=== PATIENT | female | born 1980 | race Caucasian/White ===

== ENCOUNTER 2023-09-16 20:00 | Outpatient (REF) | payer OTHER, SELFPAY ==
[2023-09-22 12:08] LABS: Age Gdln ACOG Testing Note (.); HPV Aptima Negative (Negative); IGP, Aptima HPV, rfx 16/18,45 Note (.)
== END 2023-09-16 20:01 | disposition home or self-care (01) ==
LOC: LAB 20:00
PROVIDERS: PCP Family Medicine; Visit Provider Obstetrics & Gynecology
DX: Z01.419 Encounter for gynecological examination (general) (routine) without abnormal findings (principal)
CPT/HCPCS: 87624; G0145

== ENCOUNTER 2023-11-20 09:32 | Outpatient (OUT) | payer OTHER, SELFPAY ==
--- OUTSIDE RECORDS SUMMARY | 2023-11-20 09:35 | XMS_ITS | CCD ---
Author Name Unknown Address [address] [place] [address] Organization [facility] Care Team Providers Care Inward Toll Operator Name Role Phone Rylee Long Unavailable Unavailable DO Otoniel Motley Primary Care Provider JAYA Nunez Emergency Provider Otoniel MOTLEY Primary Care Physician DR DONY NIELSEN Admitting Unavailable PADMAJA, DR JOHNSON Consulting Unavailable PADMAJA, DR JOHNSON Attending Unavailable ANDREEA BARRETT Attending Unavailable ANDREEA BARRETT Admitting Unavailable Otoniel Motley DO Primary Care Provider Rylee Long Unavailable Unavailable UNKNOWN, UNKNOWN Referring Unavailable Otoniel Motley [facility] Care Unavailabl e RYLEE LONG Attending Unavailable RYLEE LONG Attending Unavailable Self, Referral Referring Unavailable Otoniel Motley Sergio [facility] Unavailabl e WYATT LONGENNE Referring Unavailable Dr. APOLLO BAY Attending Unavailable Otoniel Motley [facility] Unavailabl e Otoniel Motley Primary Care Unavailable Martha Nunez Attending Unavailable Martha Nunez Admitting Unavailable Otoniel MOTLEY Primary Care Physician NONE, XXXX Primary Care Physician Unavailab Ish Shea Attending Unavailable Chato Mejia Attending Unavailable Reggie Camara Attending Unavailable LAURIE VERNON Attending Unavailable LAURIE VERNON Attending Unavailable Otoniel MOTLEY Attending Unavailable Raphael Riley Attending Unavailable Reggie Camara Attending Unavailable Florinda Mercado Attending Unavailable CharlestonFlorinda dent Referring Unavailable Florinda Mercado Admitting Unavailable LAURIE VERNON Admitting Unavailable LAURIE VERNON Attending Unavailable TOLU, Otoniel Torrez Attending Unavailable TOLU, Otoniel S Admitting Unavailable TOLU, Otoniel S Admitting Unavailable TOLU, Otoniel S Attending Unavailable Rogelio, Florinda Jacob Attending Unavailable Rogelio, Florinda Jacob Admitting Unavailable Rogelio, Florinda Jacob Attending Unavailable Otoniel NUNO Attending Unavailable [place], Florinda Jacob Attending Unavailable TOLU, Otoniel S Attending Unavailable TOLU, Otoniel S Attending Unavailable Emily Montejo Attending Unavailable TOLU, Otoniel Torrez Referring Unavailable TOLU, Otoniel Torrez Primary Care Unavailable NILL, Supa R Attending Unavailable TOLU, Otoniel Torrez Referring Unavailable NILL, Supa Azevedo Attending Unavailable Jackie, Chato SSonya Attending Unavailable Allergies Allergy Classification Reported Allergen(s) Allergy Type Date of Onset Reaction(s) Facility (20 sources) Codeine; Translations: [codeine] Drug Allergy 09-15-20 09 Chest Pain, nausea vomiting [facility] (20 sources) Acetaminophen / Codeine; Translations: [acetaminophen-co deine] Drug Allergy Unknown (qualifier value) [facility] (20 sources) Bee/Wasp/Ant venom; Translations: [Bee Stings] Drug allergy Anaphylactic reaction [facility] (20 sources) Latex; Translations: [latex] Drug allergy 08-24-20 Other: See Comments [facility] (20 sources) Methylphenidate; Translations: [methylphenidate] Drug Allergy Altered mental status (finding) [facility] (20 sources) Nalbuphine; Translations: [nalbuphine] Drug Allergy nausea and vomiting [facility] (20 sources) NSAIDs; Translations: [NSAIDs] Drug allergy Muscle weakness (finding) [facility] (20 sources) traMADol; Translations: [tramadol] Drug Allergy 06-11-20 19 Vomiting [facility] (20 sources) Trace Metals; Translations: [Trace Metals] Drug allergy infection [facility] (20 sources) Glutens 1 Propensity to adverse reactions to food thyroiditis [facility] Comment on above: thyroiditis (2 sources) Codeine Drug Allergy 08-24-20 [facility] (2 sources) Nalbuphine Drug Allergy 08-24-20 [facility] (1 source) Nalbuphine Drug Allergy 11-16-19 15 Vomiting [facility] (1 source) Non-steroidal anti-inflammatory agent Propensity to adverse reactions to drug 03-17-20 Other: See Comments [facility] Work Phone: (1 source) Wheat gluten extract Drug Allergy 03-30-20 19 Unknown [facility] Work Phone: (1 source) Watermelon Flavor Propensity to adverse reactions to drug 03-17-20 Other: See Comments [facility] Work Phone: (1 source) Codeine Drug Allergy 01-29-20 [facility] (1 source) EPINEPHrine; Translations: [epinephrine] Drug Allergy [facility] (1 source) Gluten; Translations: [Glutens] Food allergy (disorder) [facility] (1 source) watermelon allergenic extract; Translations: [Watermelon] Drug Allergy [facility] Medications Current Medications Medication Drug Class(es) Dates Sig (Normalized) Sig (Original) acetaminophen 325 mg / HYDROcodone bitartrate 5 mg oral tablet (1 source) Opioid Agonist Start: 12-12-2022 End: 12-15-2022 [place] 325 mg-5 mg oral tablet 1 tab(s), Oral, q6hr for pain for 3 day(s), 10 tab(s), Refill(s) 0, [id number], 165, cm, 12/12/22 9:23:00 EST, Height/Length Dosing, 89, kg, 12/12/22 9:23:00 EST, Weight Dosing Start Date: 12/12/22 Stop Date: 12/15/22 Status: Ordered azithromycin 250 mg oral tablet (2 sources) Macrolide Antimicrobial Start: 06-04-2022 End: 06-09-2022 azithromycin 250 mg Tab = 1 packet(s), Oral, As Directed, as directed on package labeling, X 5 day(s), # 6 tab(s), Refills(s) 0, Pharmacy: [facility]/pharmacy #[id number], 165, cm, 06/02/22 22:46:00 EDT, Height/Length Dosing, 86, kg, 06/02/22 22:46:00 EDT, Weight Dosing Start Date: 06/04/22 Stop Date: 06/09/22 Status: Ordered baclofen 10 mg oral tablet (20 sources) gamma-Aminobutyric Acid-ergic Agonist Start: 05-06-2022 take 5 mg by mouth three times daily baclofen 10 mg Tab 5 mg = 0.5 tab(s), Oral, TID, # 45 tab(s), Refills(s) 5, [id number], 165, cm, 03/28/22 16:01:00 EDT, Height/Length Dosing, 86, kg, 03/28/22 16:01:00 EDT, Weight Dosing Start Date: 05/06/22 Status: Ordered Start: 03-28-2022 take 5 mg by mouth t hree times daily baclofen 10 mg Tab 5 mg = 0.5 tab(s), Oral, TID, # 30 tab(s), Refills(s) 0, [id number], 165, cm, 03/28/22 16:01:00 EDT, Height/Length Dosing, 86, kg, 03/28/22 16:01:00 EDT, Weight Dosing Start Date: 03/28/22 Status: Ordered benzonatate 100 mg oral capsule (4 sources) Non-narcotic Antitussive Start: 01-26-2020 End: 06-10-2022 take 1 capsule by mouth three times daily Tessalon 100 mg Cap 100 mg = 1 cap(s), Oral, TID, X 7 day(s), # 21 cap(s), Refills(s) 0 Start Date: 06/03/22 Stop Date: 06/10/22 Status: Ordered Comment on above: [facility] for Cough. cephalexin 500 mg oral capsule (1 source) Cephalosporin Antibacterial Start: 11-18-2022 End: 11-25-2022 take 1 capsule by mouth four times daily Keflex 500 mg Cap 500 mg = 1 cap(s), Oral, QID, X 7 day(s), # 28 cap(s), Refills(s) 0, Pharmacy: [facility]/pharmacy #[id number], 165, cm, 11/18/22 7:53:00 EST, Height/Length Dosing, 84, kg, 11/18/22 7:53:00 EST, Weight Dosing Start Date: 11/18/22 Stop Date: 11/25/22 Status: Ordered clonazePAM 0.5 mg oral tablet (20 sources) Benzodiazepine Start: 06-25-2021 Klonopin 0.5 mg Tab As Directed, Refills(s) 0 Start Date: 06/25/21 Status: Ordered cobamamide 0.1 mg / vitamin b12 5 mg sublingual tablet (1 source) Vitamin B12 Start: 01-28-2022 Cyanocobalamin-Leida mamide (B12) 5,000-100 mcg Lozenge Active 1000 [employer] Daily January 28, 2022 3:54pm cyclobenzaprine hydrochloride 10 mg oral tablet (16 sources) Muscle Relaxant Start: 06-22-2022 take 1 tablet by mouth three times daily as needed for muscle spasms cyclobenzaprine 10 mg Tab 10 mg = 1 tab(s), Oral, TID, PRN for spasm, # 30 tab(s), Refills(s) 0, Pharmacy: [facility]/pharmacy #[id number], 165, cm, 06/22/22 8:45:00 EDT, Height/Length Dosing, 83.2, kg, 06/22/22 8:45:00 EDT, Weight Dosing Start Date: 06/22/22 Status: Ordered dexamethasone 1 mg oral tablet (2 sources) Corticosteroid Start: 06-04-2022 End: 06-11-2022 take 1 tablet by mouth twice daily dexamethasone 1 mg oral tablet 1 mg = 1 tab(s), Oral, BID, X 7 day(s), # 14 tab(s), Refills(s) 0, Pharmacy: [facility]/pharmacy #[id number], 165, cm, 06/02/22 22:46:00 EDT, Height/Length Dosing, 86, kg, 06/02/22 22:46:00 EDT, Weight Dosing Start Date: 06/04/22 Stop Date: 06/11/22 Status: Ordered [id number] 0.3 ml EPINEPHrine 1 mg/ml auto-injector (20 sources) alpha-Adrenergic Agonist, beta-Adrenergic Agonist, Catecholamine Start: 06-21-2020 EpiPen 2-Garry 0.3 mg injectable kit 0.3 mg = 1 EA, IntraMuscular, As Directed, PRN Anaphylaxis, # 1 EA, Refills(s) 0, Pharmacy: [facility]/pharmacy #[id number], 165, cm, 06/21/20 9:51:00 EDT, Height/Length Dosing, 84, kg, 06/21/20 9:51:00 EDT, Weight Dosing Start Date: 06/21/20 Status: Ordered Start: 06-21-2020 EpiPen 2-Garry 0 .3 mg injectable kit 0.3 mg = 1 EA, IntraMuscular, As Directed, PRN Anaphylaxis, # 1 EA, Refills(s) 0, Pharmacy: [facility]/pharmacy #[id number], 165, cm, 06/21/20 9:51:00 EDT, Height/Length Dosing, 84, kg, 06/21/20 9:51:00 EDT, Weight Dosing Start Date: 06/21/20 Status: Ordered famotidine 20 mg oral tablet (20 sources) Histamine-2 Receptor Antagonist Start: 01-12-2022 take 1 tablet by mouth once daily Pepcid 20 mg Tab 20 mg = 1 tab(s), Oral, Daily, # 14 tab(s), Refills(s) 0 Start Date: 01/12/22 Status: Ordered fluticasone (18 sources) Corticosteroid Start: 09-11-2022 take 2 puff(s) by inhalation twice daily Flovent HFA 110 Inhaler 2 puff(s), Inhalation, BID, 12 gram, Refill(s) 2, [facility]/pharmacy #[id number], 165, cm, 06/22/22 8:45:00 EDT, Height/Length Dosing, 83.2, kg, 06/22/22 8:45:00 EDT, Weight Dosing Start Date: 09/11/22 Status: Ordered Start: 09-11-2022 take 2 puff(s) by in halation twice daily Flovent HFA 110 Inhaler 2 puff(s), Inhalation, BID, 12 gram, Refill(s) 2, [facility]/pharmacy #[id number], 165, cm, 06/22/22 8:45:00 EDT, Height/Length Dosing, 83.2, kg, 06/22/22 8:45:00 EDT, Weight Dosing Start Date: 09/11/22 Status: Ordered Start: 06-04-2022 take 2 puff(s) by in halation twice daily Flovent HFA 110 Inhaler 2 puff(s), Inhalation, BID, 12 gram, Refill(s) 0, [facility]/pharmacy #[id number], 165, cm, 06/02/22 22:46:00 EDT, Height/Length Dosing, 86, kg, 06/02/22 22:46:00 EDT, Weight Dosing Start Date: 06/04/22 Status: Ordered LDN 1.5 mg (8 sources) Start: 03-17-2023 take 1 capsule by mouth once daily LDN 1.5 mg LDN 1.5 mg, 1 cap, Oral, Daily, 30 cap(s), 2, [address] [facility] [employer], Compound, 165, cm, 03/17/23 15:41:00 EDT, Height/Length Dosing, 91.5, kg, 03/17/23 15:41:00 EDT, Weight Dosing Start Date: 03/17/23 Status: Ordered phenazopyridine hydrochloride 200 mg oral tablet (2 sources) Start: 11-18-2022 End: 11-21-2022 take 1 tablet by mouth three times daily Pyridium 200 mg Tab 200 mg = 1 tab(s), Oral, TID, X 3 day(s), # 9 tab(s), Refills(s) 0, Pharmacy: [facility]/pharmacy #[id number], 165, cm, 11/18/22 7:53:00 EST, Height/Length Dosing, 84, kg, 11/18/22 7:53:00 EST, Weight Dosing Start Date: 11/18/22 Stop Date: 11/21/22 Status: Ordered Start: 11-18-2022 End: 11-20-2022 take 1 tablet by mouth three times daily at mealtime Azo-Standard 95 mg oral tablet 95 mg = 1 tab(s), Oral, TID, with food, X 2 day(s), # 6 tab(s), Refills(s) 0, Pharmacy: [facility]/pharmacy #[id number], 165, cm, 11/18/22 7:53:00 EST, Height/Length Dosing, 84, kg, 11/18/22 7:53:00 EST, Weight Dosing Start Date: 11/18/22 Stop Date: 11/20/22 Status: Ordered silver sulfADIAZINE 10 mg/ml topical cream (20 sources) Sulfonamide Antibacterial Start: 12-31-2021 Silvadene 1% Cream 1 ekaterina, Topical, BID, 50 gram, Refill(s) 2, [facility]/pharmacy #[id number], 165, cm, 12/29/21 14:15:00 EST, Height/Length Dosing, 86, kg, 12/29/21 14:15:00 EST, Weight Dosing Start Date: 12/31/21 Status: Ordered Start: 12-31-2021 Silvadene 1% C ream 1 ekaterina, Topical, BID, 50 gram, Refill(s) 2, [facility]/pharmacy #[id number], 165, cm, 12/29/21 14:15:00 EST, Height/Length Dosing, 86, kg, 12/29/21 14:15:00 EST, Weight Dosing Start Date: 12/31/21 Status: Ordered triamcinolone acetonide 0.68939 mg/mg topical ointment (5 sources) Corticosteroid Start: 06-03-2023 triamcinolone topical 0.025% ointment 1 ekaterina, Topical, TID, 15 gram, Refill(s) 0, [facility]/pharmacy #[id number], 165, cm, 06/03/23 8:18:00 EDT, Height/Length Dosing, 90.7, kg, 06/03/23 8:18:00 EDT, Weight Dosing Start Date: 06/03/23 Status: Ordered Zofran ODT 4 mg Tab-Dis (4 sources) Start: 07-06-2023 take 1 tablet by mouth every eight hours as needed for nausea Zofran ODT 4 mg Tab-Dis 4 mg = 1 tab(s), Oral, q8hr, PRN Nausea/Vomiting, # 12 tab(s), Refills(s) 0, Pharmacy: [facility]/pharmacy #[id number], 164, cm, 07/06/23 21:06:00 EDT, Height/Length Dosing, 90.6, kg, 07/06/23 21:06:00 EDT, Weight Dosing Start Date: 07/06/23 Status: Ordered Completed/Discontinued Medications Medication Drug Class(es) Dates Sig (Normalized) Sig (Original) adapalene 0.001 mg/mg topical gel (3 sources) Retinoid Start: 12-11-2018 [id number] Medication adapalene 0.1 % topical gel Differin 0.1 % topical gel 0.1 % 1 Application topically at bedtime 12/11/2018 Prior History No Longer Active [id number] 200 actuat albuterol 0.09 mg/actuat metered dose inhaler (19 sources) beta2-Adrenergic Agonist Start: 07-25-2021 take 1 dose by inhalation four times daily Proventil HFA 90 mcg/inh Aerosol 2 puff(s), Inhalation, QID, 1 EA, Refill(s) 0 Start Date: 07/25/21 Status: Ordered cyanocobalamin, vitamin B-12, (B-12 DOTS ORAL) (1 source) cyanocobalamin, vitamin B-12, (B-12 DOTS ORAL) Take by mouth once daily. 0 Active Comment on above: Take by mouth once d aily. docusate sodium 50 mg / sennosides, jail 8.6 mg oral tablet (1 source) Start: 03-31-2019 take 2 tablets by mouth twice daily senna-docusate (SENOKOT-S) 8.6-50 mg per tablet Take 2 tablets by mouth twice daily. 20 tablet 0 03/31/2019 Active Comment on above: [facility] fluconazole 150 mg oral tablet (20 sources) Azole Antifungal Start: 01-21-2022 End: 01-26-2022 take 1 tablet by mouth once daily fluconazole 150 mg Tab 150 mg = 1 tab(s), Oral, Daily, # 5 tab(s), Refills(s) 0, Pharmacy: [facility]/pharmacy #[id number], 165, cm, 01/21/22 14:47:00 EDT, Height/Length Dosing, 86.4, kg, 01/21/22 14:47:00 EDT, Weight Dosing Start Date: 01/21/22 Stop Date: 01/26/22 Status: Ordered ketoconazole 20 mg/ml medicated shampoo (3 sources) Azole Antifungal Start: 12-11-2018 [id number] Medication ketoconazole 2 % shampoo ketoconazole 2 % shampoo 2 % 1 Application topically daily 12/11/2018 Prior History No Longer Active levothyroxine sodium 0.075 mg oral tablet (20 sources) l-Thyroxine Start: 04-29-2023 take 1 tablet by mouth once daily levothyroxine 75 mcg (0.075 mg) Tab 75 microgram = 1 tab(s), Oral, Daily, alternate with 50 mcg, # 30 tab(s), Refills(s) 5, MILY, Pharmacy: [facility]/pharmacy #[id number], 165, cm, 04/22/23 11:17:00 EDT, Height/Length Dosing, 92.7, kg, 04/22/23 11:17:00 EDT, Weight Dosing Start Date: 04/29/23 Status: Ordered Start: 11-06-2022 take 1 tablet by arpan once daily levothyroxine 75 mcg (0.075 mg) Tab 75 microgram = 1 tab(s), Oral, Daily, alternate with 50 mcg, # 30 tab(s), Refills(s) 5, MILY, [id number], 165, cm, 09/20/22 21:21:00 EST, Height/Length Dosing, 84, kg, 09/20/22 21:21:00 EST, Weight Dosing Start Date: 11/06/22 Status: Ordered Start: 04-29-2022 take 1 tablet by [facility] once daily levothyroxine 75 mcg (0.075 mg) Tab 75 microgram = 1 tab(s), Oral, Daily, alternate with 50 mcg, # 30 tab(s), Refills(s) 5, MILY, [id number], 165, cm, 03/28/22 16:01:00 EDT, Height/Length Dosing, 86, kg, 03/28/22 16:01:00 EDT, Weight Dosing Start Date: 04/29/22 Status: Ordered Start: 01-28-2022 take 1 tablet by arpan once daily Levothyroxine (Synthroid) 75 mcg tablet Active 75 MCG PO Daily January 28, 2022 3:52pm Start: 11-21-2021 Synthroid 75 m cg (0.075 mg) Tab 30 EA, Refills(s) 0 Start Date: 11/21/21 Status: Ordered Start: 11-21-2021 Synthroid 75 m cg (0.075 mg) Tab 30 EA, Refills(s) 0 Start Date: 11/21/21 Status: Ordered Start: 11-21-2021 Synthroid 75 m cg (0.075 mg) Tab 30 EA, Refills(s) 0 Start Date: 11/21/21 Status: Ordered Start: 01-13-2018 [id number] Medicat ion levothyroxine 200 mcg tablet Synthroid 200 mcg 01/13/2018 Active (Outside) Comment on above: Take 75 mcg by mouth daily before breakfast. NEDA EXTRACT ORAL (1 source) NEDA EXTRACT ORA L Take by mouth once daily. 0 Active Comment on above: Take by mouth once d aily. Miscellaneous Medical Supply misc (1 source) Start: 04-13-20 19 Miscellaneous Medical Supply misc 1 Abdominal binder, size of patient's choice 1 Each 0 04/13/2019 Active Comment on above: 1 Abdominal binder, size of patient's choice montelukast 10 mg oral tablet (1 source) Leukotriene Receptor Antagonist Start: 09-27-20 17 take 1 tablet by mouth once daily montelukast (SINGULAIR) 10 mg tablet Take 10 mg by mouth once daily. 5 09/27/2017 Active Comment on above: Take 10 mg by mouth once daily. MULTIVITAMIN ORAL (1 source) MULTIVITAMIN ORA L Take by mouth once daily. 0 Active Comment on above: Take by mouth once d aily. ondansetron 4 mg oral tablet (1 source) Serotonin-3 Receptor Antagonist Start: 03-31-20 19 take 1 tablet by mouth every six hours as needed ondansetron (ZOFRAN) 4 mg tablet Take 1 tablet by mouth every 6 hours as needed. 10 tablet 0 03/31/2019 Active Comment on above: Take 1 tablet by arpan th every 6 hours as needed. Proventil HFA 90 mcg/inh Aerosol (5 sources) Start: 07-25-20 21 take 1 dose by inhalation four times daily Proventil HFA 90 mcg/inh Aerosol 2 puff(s), Inhalation, QID, 1 EA, Refill(s) 0 Start Date: 07/25/21 Status: Ordered psyllium 525 mg oral capsule (20 sources) Start: 11-08-20 20 take 8 capsules by mouth once daily Metamucil 525 mg oral capsule 1,050 mg = 2 cap(s), Oral, Daily, Take 2 hour apart from the other medications with at least 8 ounces of water, # 160 cap(s), Refills(s) 4, Pharmacy: [facility]/pharmacy #[id number], 165, cm, 11/08/20 12:01:00 EST, Height/Length Dosing, 87.7, kg, 11/08/20 12:01:00 EST, Weight Dosing Start Date: 11/08/20 Status: Ordered SELENIUM ORAL (1 source) SELENIUM ORAL Ta ke by mouth once daily. 0 Active Comment on above: Take by mouth once d aily. tretinoin 0.25 mg/ml topical cream (3 sources) Retinoid Start: 12-21-19 [id number] Medication tretinoin 0.025 % topical cream tretinoin 0.025 % topical cream 0.025 % 1 Application topically at bedtime 12/21/2020 Prior History No Longer Active Turmeric extract (1 source) TURMERIC ORAL Ta ke by mouth once daily. 0 Active Comment on above: Take by mouth once d aily. Zinc (1 source) ZINC ORAL Take b y mouth once daily. 0 Active Comment on above: Take by mouth once d aily. Problems Active Problems Problem Classification Problem Date Documented Da te Episodic/Chronic Abdominal pain (20 sources) Tenderness of left upper quadrant of abdomen; Translations: [Left upper quadrant abdominal tenderness] Onset: 2 Episodic Allergic reactions (20 sources) Other specified acute skin changes due to ultraviolet radiation; Translations: [Hypersensitivity condition] Onset: 0 07-20-2020 Episodic Anxiety disorders (20 sources) Anxiety; Translations: [Generalized anxiety disorder] 10-13-2018 Chronic Attention-deficit, conduct, and disruptive behavior disorders (20 sources) Adult attention deficit hyperactivity disorder 08-10-2019 Chronic Cardiac dysrhythmias (4 sources) Palpitations; Translations: [Palpitations] Onset: 2 01-29-2022 Episodic Complications of surgical procedures or medical care (1 source) Complication of procedure; Translations: [Unspecified adverse effect of drug or medicament, initial encounter] Onset: 3 Episodic Conditions associated with dizziness or vertigo (1 source) Conditions associated with dizziness or vertigo; Translations: [R42 - Dizziness and giddiness] Onset: 2 Diseases of mouth; excluding dental (20 sources) 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 Episodic Diseases of white blood cells (2 sources) Leukocytosis 02-14-2022 Chronic Disorders of lipid metabolism (20 sources) Mixed hyperlipidemia 08-10-2019 Chronic Endometriosis (20 sources) Endometriosis (clinical) 10-13-2018 Chronic Essential hypertension (20 sources) Hypertensive disorder 01-25-2020 Chronic Genitourinary symptoms and ill-defined conditions (20 sources) Dysuria; Translations: [Dysuria] Onset: 3 Episodic Headache; including migraine (20 sources) Migraine 01-21-2014 Chronic Immunizations and screening for infectious disease (1 source) Encounter for screening for human papillomavirus (HPV); Translations: [ENC SCREENING HUMAN PAPILLOMAVIRUS] Onset: 2 Episodic Malaise and fatigue (1 source) Asthenia; Translations: [Weakness] Onset: 3 Episodic Menstrual disorders (5 sources) Irregular periods 06-03-2023 Chronic Mood disorders (20 sources) Depressive disorder 10-13-2018 Chronic Nausea and vomiting (1 source) Nausea; Translations: [Nausea] Onset: 3 Episodic Neoplasms of unspecified nature or uncertain behavior (4 sources) Neoplasm of uncertain behavior of skin Onset: 2 Episodic Nonspecific chest pain (1 source) Chest pain; Translations: [Chest pain, unspecified] 01-28-2022 Episodic Other and unspecified benign neoplasm (3 sources) Hemangioma of skin and subcutaneous tissue Onset: 1 Episodic Other and unspecified benign neoplasm (9 sources) Melanocytic nevi of unspecified upper limb, including shoulder; Translations: [Melanocytic nevi of unspecified upper limb, including shoulder] Onset: 8 Episodic Other and unspecified benign neoplasm (3 sources) Melanocytic nevi of trunk Onset: 1 Episodic Other and unspecified benign neoplasm (3 sources) Melanocytic nevi of right upper limb, including shoulder Onset: 1 Episodic Other and unspecified benign neoplasm (3 sources) Melanocytic nevi of left upper limb, including shoulder Onset: 1 Episodic Other and unspecified benign neoplasm (3 sources) Melanocytic nevi of unspecified lower limb, including hip Onset: 1 Episodic Other and unspecified benign neoplasm (3 sources) Melanocytic nevi of right lower limb, including hip Onset: 1 Episodic Other and unspecified benign neoplasm (3 sources) Melanocytic nevi of left lower limb, including hip Onset: 1 Episodic Other and unspecified benign neoplasm (7 sources) Melanocytic nevi of other parts of face; Translations: [Melanocytic nevi other parts of face] Onset: 1 Episodic Other connective tissue disease (1 source) Muscle pain; Translations: [Myalgia, other site] Onset: 2 Episodic Other connective tissue disease (1 source) Pain in upper limb; Translations: [Pain in arm, unspecified] Onset: 3 Episodic Other diseases of bladder and urethra (20 sources) Urethral stricture 10-13-2018 Episodic Other diseases of veins and lymphatics (20 sources) Peripheral venous insufficiency 06-14-2021 Episodic Other gastrointestinal disorders (20 sources) Chronic idiopathic constipation 09-07-2020 Chronic Other gastrointestinal disorders (1 source) Diarrhea; Translations: [Diarrhea, unspecified] Onset: 3 Episodic Other inflammatory condition of skin (9 sources) Other seborrheic dermatitis; Translations: [Other Seborrheic dermatitis] Onset: 8 Episodic Other lower respiratory disease (5 sources) Rib pain 06-03-2023 Episodic Other nutritional; endocrine; and metabolic disorders (20 sources) Body mass index 30+ - obesity 01-25-2020 Chronic Other nutritional; endocrine; and metabolic disorders (20 sources) 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 Other nutritional; endocrine; and metabolic disorders (2 sources) Obese class I; Translations: [Body mass index (BMI) 30.0-30.9, adult] Onset: 9 Chronic Other nutritional; endocrine; and metabolic disorders (6 sources) Obesity 04-22-2023 Chronic Other screening for suspected conditions (not mental disorders or infectious disease) (4 sources) Encounter for screening for malignant neoplasm of cervix; Translations: [ENC SCREENING MALIG NEOPLASM CERV] Onset: 2 Episodic Other skin disorders (9 sources) Other specified disorders of the skin and subcutaneous tissue; 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] Onset: 1 Episodic Other skin disorders (3 sources) Scar conditions and fibrosis of skin Onset: 1 Episodic Other skin disorders (6 sources) Acne vulgaris Onset: 9 Episodic Other skin disorders (6 sources) Other seborrheic keratosis; Translations: [Other seborrheic keratosis] Onset: 9 Episodic Other skin disorders (3 sources) Other melanin hyperpigmentation Onset: 1 Episodic Other skin disorders (5 sources) Mass of subcutaneous tissue of right thumb 06-03-2023 Episodic Other upper respiratory infections (1 source) Acute upper respiratory infection; Translations: [Acute upper respiratory infection, unspecified] Episodic Poisoning by other medications and drugs (1 source) Adverse reaction to drug 01-28-2022 Episodic Residual codes; unclassified (3 sources) Family history of malignant neoplasm of other organs or systems Onset: 1 Episodic Residual codes; unclassified (2 sources) Bruises easily 12-07-2020 Episodic Spondylosis; intervertebral disc disorders; other back problems (9 sources) Cervico-occipital neuralgia; Translations: [Occipital neuralgia] Onset: 3 Episodic Sprains and strains (1 source) Sprain of knee; Translations: [Sprain of unspecified site of unspecified knee, initial encounter] Onset: 3 Episodic Substance-related disorders (20 sources) Smoker 11-21-2021 Chronic Comment on above: Added secondary to d ocumentation in Social History. Thyroid disorders (20 sources) Clay thyroiditis; Translations: [Autoimmune thyroiditis] Onset: 4 02-07-2020 Chronic Comment on above: Pt states she fluctu ates between hypothyroidism & hyperthyroidism with seasonal changes Unclassified (4 sources) Exposure to 2019 novel coronavirus; Translations: [Contact with and (suspected) exposure to COVID19] Onset: 2 Unclassified (2 sources) Patient encounter status 08-01-2021 Urinary tract infections (20 sources) Lower urinary tract infectious disease; Translations: [Urinary tract infectious disease] Onset: 3 10-13-2018 Episodic Varicose veins of lower extremity (3 sources) Varicose veins of bilateral lower extremities with pain Onset: 1 Episodic Viral infection (17 sources) Disease caused by 2019-nCoV; Translations: [COVID-19] Onset: 2 Past or Other Problems Problem Classification Problem Date Documented Da te Episodic/Chronic Abdominal hernia (1 source) Recurrent umbilical hernia; Translations: [Umbilical hernia without obstruction or gangrene] Onset: 03-30-2019 03-31-2019 Episodic Other connective tissue disease (1 source) Mass of soft tissue of left upper limb; Translations: [Other specified soft tissue disorders] Onset: 06-07-2019 06-07-2019 Episodic Screening and history of mental health and substance abuse codes (4 sources) Ex-smoker; Translations: [H/O: Disorder] Onset: 03-17-2019 01-25-2020 Episodic Unclassified (20 sources) Onset: 06-13-2015 Resolved: 01-09-2016 01-19-2016 Results Test Name Value Interpretation Reference Range Facility Auto Diffon 11-17-2023 Basophils/100 WBC (Bld) 0.8 % Normal 0.0-2.0 [facility] Comment on above: Order Comment: Order added by Discern Expert. Performed By: #### 1 [id number], 6816066, 28569753, 6288805, 39142616, 3786866, 2113138 #### [facility] [address] [place] [address] Basophils/Leukocytes Auto (Bld) [Pure # fraction] 0.1 E9/L Normal 0.0-0.2 [facility] Comment on above: Order Comment: Order added by Discern Expert. Performed By: #### 1 [id number], 3573196, 46582075, 7876989, 33463906, 3462552, 4870468 #### [facility] [address] [place] [address] Eosinophils/100 WBC (Bld) 1.8 % Normal 0.0-8.0 [facility] Comment on above: Order Comment: Order added by Discern Expert. Performed By: #### 1 [id number], 1829012, 81993613, 5654202, 99566634, 6143286, 9405141 #### [facility] [address] [place] [address] Eosinophils/Leukocytes Auto (Bld) [Pure # fraction] 0.1 E9/L Normal 0.0-0.5 [facility] Comment on above: Order Comment: Order added by Discern Expert. Performed By: #### 1 [id number], 0187617, 42856516, 3266748, 47071193, 4445184, 7385494 #### [facility] [address] [place] [address] Lymphocytes/100 WBC (Bld) 29.6 % Normal 14.0-50.0 [facility] Comment on above: Order Comment: Order added by Discern Expert. Performed By: #### 1 4549594, 1266480, 51090772, 3534466, 26906769, 0425888, 9493108 #### [facility] [address] [place] [address] Lymphocytes/Leukocytes Auto (Bld) [Pure # fraction] 2.3 E9/L Normal 1.0-4.0 [facility] Comment on above: Order Comment: Order added by Sabra Expert. Performed By: #### 1 0370558, 4592491, 80435090, 5962182, 54801690, 8719040, 5830559 #### [facility] [address] [place] [address] Monocytes/100 WBC (Bld) 7.1 % Normal 4.0-14.0 [facility] Comment on above: Order Comment: Order added by Sabra Expert. Performed By: #### 1 3552175, 3686198, 92470914, 0453924, 30310478, 2925195, 4083753 #### [facility] [address] [place] [address] Monocytes/Leukocytes Auto (Bld) [Pure # fraction] 0.5 E9/L Normal 0.2-1.0 [facility] Comment on above: Order Comment: Order added by Sabra Expert. Performed By: #### 1 1701215, 8990164, 59998612, 6152219, 39895240, 7089129, 5784039 #### [facility] [address] [place] [address] Neutrophils/100 WBC (Bld) 60.7 % Normal 36.0-75.0 [facility] Comment on above: Order Comment: Order added by Sabra Expert. Performed By: #### 1 6203560, 2514379, 46243907, 9697368, 50850694, 2573316, 0173042 #### [facility] [address] [place] [address] Neutrophils/Leukocytes Auto (Bld) [Pure # fraction] 4.7 E9/L Normal 2.0-7.5 [facility] Comment on above: Order Comment: Order added by Discern Expert. Performed By: #### 1 0015055, 0876631, 71930782, 7820248, 61809445, 2114826, 5873278 #### [facility] [address] [place] [address] B hCG Qualon 11-17-2023 Beta HCG ( test) Ql Negative Normal [facility] Comment on above: Performed By: #### 1 6974695, 6621222, 46201014, 1279198, 57319427, 6787636, 5026581 #### [facility] [address] [place] [address] BMPon 11-17-2023 Anion gap [Moles/Vol] 11 mmol/L Normal 6-16 [facility] Comment on above: Performed By: #### 1 3078987, 9403637, 81158965, 3204386, 69715044, 2014458, 5657869 #### [facility] [address] [place] [address] BUN/Creat Ratio 15 No Units Normal 10-20 [facility] Comment on above: Performed By: #### 1 5279071, 3597019, 88878942, 9034623, 09011535, 0274375, 6216965 #### [facility] [address] [place] [address] Calcium [Mass/Vol] 9.0 mg/dL Normal 8.9-11.1 [facility] Comment on above: Performed By: #### 1 7398883, 1687365, 45363757, 1298325, 67216205, 5636621, 6504458 #### [facility] [address] [place] [address] Chloride [Moles/Vol] 103 mmol/L Normal 101-111 [facility] Comment on above: Performed By: #### 1 7764580, 6370220, 21952787, 6107658, 70417814, 4502266, 7200920 #### [facility] [address] [place] [address] CO2 [Moles/Vol] 29 mmol/L Normal 21-31 [facility] Comment on above: Performed By: #### 1 2170963, 6081140, 68319373, 6889355, 55825923, 2362662, 4173139 #### [facility] [address] [place] [address] Creatinine [Mass/Vol] 0.8 mg/dL Normal 0.5-1.3 [facility] Comment on above: Performed By: #### 1 6172061, 3315015, 09227745, 8546840, 33737153, 2021516, 1428074 #### [facility] [address] [place] [address] Glucose [Mass/Vol] 88 mg/dL Normal 55-199 [facility] Comment on above: Performed By: #### 1 0498905, 9443170, 78166894, 7458186, 34456520, 8757650, 7037067 #### [facility] [address] [place] [address] Potassium [Moles/Vol] 3.7 mmol/L Normal 3.5-5.3 [facility] Comment on above: Performed By: #### 1 4771708, 6625584, 46060241, 8930176, 00426666, 1357962, 8769859 #### [facility] [address] [place] [address] Sodium [Moles/Vol] 139 mmol/L Normal 135-145 [facility] Comment on above: Performed By: #### 1 6533941, 1606135, 22859110, 6745160, 87195055, 8643927, 5435438 #### [facility] [address] [place] [address] Urea nitrogen [Mass/Vol] 12 mg/dL Normal 5-21 [facility] Comment on above: Performed By: #### 1 5546410, 4720065, 23595190, 5080748, 53052611, 0927778, 8069895 #### [facility] [address] [place] [address] CBC w/ Auto Diffon 4 Erythrocyte distribution width (RBC) [Ratio] 13.9 % Normal 10.9-14.2 [facility] Comment on above: Performed By: #### 1 7086748, 1661578, 57699907, 2219907, 12003831, 3924141, 3698319 #### [facility] [address] [place] [address] Hematocrit (Bld) [Volume fraction] 41.8 % Normal 34.0-46.0 [facility] Comment on above: Performed By: #### 1 4076372, 3910021, 95013956, 7202227, 36210689, 7345321, 5967653 #### [facility] [address] [place] [address] Hemoglobin (Bld) [Mass/Vol] 13.7 g/dL Normal 12.0-16.0 [facility] Comment on above: Performed By: #### 1 5763562, 0518582, 55337108, 8524651, 01841890, 5631128, 2718127 #### [facility] [address] [place] [address] MCH (RBC) [Entitic mass] 28.3 pg Normal 27.0-34.0 [facility] Comment on above: Performed By: #### 1 7970859, 1293396, 62357093, 0804456, 73904244, 2064818, 1914460 #### [facility] [address] [place] [address] MCHC (RBC) [Mass/Vol] 32.9 g/dL Normal 31.4-36.0 [facility] Comment on above: Performed By: #### 1 7899102, 3472610, 67823823, 2673203, 65070159, 0503948, 1344228 #### [facility] [address] [place] [address] MCV (RBC) [Entitic vol] 85.9 fL Normal 80.0-100.0 [facility] Comment on above: Performed By: #### 1 0375899, 6229020, 57909922, 8954430, 94072335, 3746348, 9302556 #### [facility] [address] [place] [address] Platelet mean volume (Bld) [Entitic vol] 8.7 fL Normal 6.4-10.8 [facility] Comment on above: Performed By: #### 1 6991523, 7566818, 84595485, 4618074, 41614813, 9017094, 2165490 #### [facility] [address] [place] [address] Platelets (Bld) [#/Vol] 312.0 E9/L Normal 150.0-500.0 [facility] Comment on above: Performed By: #### 1 0494486, 1626261, 64420047, 2807254, 89372565, 0766561, 6090216 #### [facility] [address] [place] [address] RBC (Bld) [#/Vol] 4.9 E12/L Normal 4.3-5.9 [facility] Comment on above: Performed By: #### 1 9069549, 2087868, 79958947, 9226144, 10987574, 8746513, 1678481 #### [facility] [address] [place] [address] WBC corrected for nucl RBC Auto (Bld) [#/Vol] 7.7 E9/L Normal 4.0-11.0 [facility] Comment on above: Performed By: #### 1 7217361, 8315386, 26071842, 1039580, 67350741, 9702135, 2941913 #### [facility] [address] [place] [address] Consent for Treatmenton Consent for Treatment [id number] #1.00TIFF Normal [facility] Discharge Instructionson Discharge Instructions [id number]#1.00TIFF Normal [facility] ED Clinical Summaryon 2023 ED Clinical Summary [address] [address] ED Clinical Summary Person Information Name: TARIK GONZALEZ Sadia/[facility] Age: 43 Years : 1980 Sex: Female Language: Greek PCP: NONE, XXXX Marital Status: Single Visit Id: Visit Reason: Vaginal bleeding; Abdominal pain; ABDOMINAL PAIN Speciality: Acuity: 3 Enc Type: Emergency Med Service: Emergency Arrival: 11/17/2023 16:49:38 Discharge: 11/17/2023 18:44:38 LOS: 000 01:55 Checkin: 11/17/2023 16:49:38 Checkout: 11/17/2023 18:44:38 Dispo Type: Home (Routine DC) EVENTS: Event Name Event Status Request Date/Time Start Date/Time Complete Date/Time Arrive Complete 11/17/2023 16:49:38 11/17/2023 16:49:38 11/17/2023 16:49:38 Document Home Meds Request 11/17/2023 16:49:38 Triage Complete 11/17/2023 16:49:38 11/17/2023 17:02:11 11/17/2023 17:02:11 Bed Assign Complete 11/17/2023 16:51:13 11/17/2023 16:51:13 11/17/2023 16:51:13 Dr Exam Complete 11/17/2023 16:51:13 11/17/2023 16:53:01 11/17/2023 16:53:01 RN Exam Complete 11/17/2023 16:51:13 11/17/2023 17:07:12 11/17/2023 17:07:12 Registration Complete 11/17/2023 16:53:01 11/17/2023 17:27:10 11/17/2023 17:27:10 Meds Admin Complete 11/17/2023 17:05:01 11/17/2023 17:16:06 Pending Labs Complete 11/17/2023 17:05:01 11/17/2023 17:42:57 Lab Complete 11/17/2023 17:05:01 11/17/2023 17:36:08 Urine Collect Complete 11/17/2023 17:05:01 11/17/2023 17:28:14 Pending Labs Complete 11/17/2023 17:17:54 11/17/2023 17:17:54 11/17/2023 17:36:08 Lab Complete 11/17/2023 17:17:54 11/17/2023 17:17:54 11/17/2023 17:36:08 Pending Labs Complete 11/17/2023 17:19:44 11/17/2023 17:19:44 11/17/2023 17:19:44 EKG Complete 11/17/2023 17:21:02 11/17/2023 17:28:46 Pending Labs Complete 11/17/2023 17:26:01 11/17/2023 17:26:01 11/17/2023 17:26:11 Lab Complete 11/17/2023 17:26:01 11/17/2023 17:26:01 11/17/2023 17:26:11 Reg Complete Request 11/17/2023 17:27:10 Reg Bed Request Complete 11/17/2023 17:27:10 11/17/2023 17:27:10 11/17/2023 17:27:10 Discharge Complete 11/17/2023 18:30:26 11/17/2023 18:45:11 11/17/2023 18:45:11 Pending Labs Cancel 11/17/2023 18:31:51 11/17/2023 18:32:56 Pending Labs Inlab 11/17/2023 18:33:17 11/17/2023 18:33:17 Transfer Complete 11/17/2023 18:45:11 11/17/2023 18:45:11 11/17/2023 18:45:11 ADDRESS: [address] [place] [id number] PHYS DOC NOTES: MEDICAL INFORMATION: Prescriptions Given: New Medications [facility]/pharmacy #[id number], [address], [place] [phone], [phone] medroxyPROGESTERone (Provera 10 mg Tab) 1 Tablets By Mouth every day for 10 Days. Refills: 0. Medications to Continue with No Changes Other Medications albuterol (Proventil HFA 90 mcg/inh Aerosol) 2 Puffs Inhalation 4 times a day. Refills: 0. baclofen (baclofen 10 mg Tab) 0.5 Tablets By Mouth 3 times a day. Refills: 5. clonazepam (Klonopin 0.5 mg Tab) As Directed. cyclobenzaprine (cyclobenzaprine 10 mg Tab) 1 Tablets By Mouth 3 times a day as needed for spasm. Refills: 0. epinephrine (EpiPen 2-Garry 0.3 mg injectable kit) 1 Each Intramuscular As Directed as needed Anaphylaxis. Refills: 0. famotidine (Pepcid 20 mg Tab) 1 Tablets By Mouth every day. Refills: 0. fluconazole (fluconazole 150 mg Tab) 1 Tablets By Mouth every day for 5 Days. Refills: 0. fluticasone (Flovent HFA 110 Inhaler) 2 Puffs Inhalation 2 times a day. Refills: 2. levothyroxine (levothyroxine 75 mcg (0.075 mg) Tab) 1 Tablets By Mouth every day. alternate with 50 mcg. Refills: 5. Misc Prescription (LDN 1.5 mg) 1 cap By Mouth every day. Refills: 2. ondansetron (Zofran ODT 4 mg Tab-Dis) 1 Tablets By Mouth every 8 hours as needed Nausea/Vomiting. Refills: 0. psyllium (Metamucil 525 mg oral capsule) 2 Capsules By Mouth every day. Take 2 hour apart from the other medications with at least 8 ounces of water. Refills: 4. silver sulfADIAZINE topical (Silvadene 1% Cream) 1 Application Topical 2 times a day. Refills: 2. triamcinolone topical (triamcinolone topical 0.025% ointment) 1 Application Topical 3 times a day. Refills: 0. PATIENT EDUCATION INFORMATION: Instructions: Follow up: With: Address: When: Dony NIELSEN [facility], [address] [place] [address] [place] [address] Business (1) In 3 days 11/20/2023 With: Address: When: XXXX NONE , [place] In 3 days DIAGNOSIS: DUB (dysfunctional uterine bleeding) Normal [facility] ED Note-Physicianon 11-17-19 ED Note-Physician Basic Information Time Seen: Reggie Camara DO 11/17/2023 16:53 Chief Complaint Patient states she has started her cyce 8 days early, and it was much heavier than normal. She has felt very weak and tires since. She also states that she has been off of her synthroid for hashimottos disease. History of Present Illness 43 female presents with pelvic pain. Patient states that her last menstrual cycle came early then this menstrual cycle came late now she is having pain and bleeding. She does have history of endometriosis with surgeries related to this as well. She does state over the last 2 to 3 days she has had some heavy bleeding that is more than what she would expect with a normal menstrual cycle. She does describe some pelvic pain associated with this denies any nausea vomiting diarrhea she does have chronic constipation but it is no worse than usual. Patient has some urinary frequency but denies any dysuria. She is also had prior cholecystectomy hernia repair as well. No other aggravating or relieving factors no other associated symptoms no other prior treatments or complaints. Family: Reviewed and noncontributory Social: lives at home Review of systems negative unless otherwise specified in the HPI. Physical Exam Vitals & Measurements HR: 94(Peripheral) RR: 14 BP: 135/92 SpO2: 94% HT: 164 cm WT: 89.6 kg BMI: 33.31 General: The patient appears well and in no apparent distress. Patient is resting comfortably on cart. Skin: Warm, dry, no pallor noted. Head: Normocephalic, atraumatic Neck: No JVD Eye: PERRLA, EOMI ENT: Moist mucus membranes Cardiovascular: Regular rate normal peripheral perfusion Respiratory: No respiratory distress no accessory muscle use no obvious audible wheezing Chest Wall: no deformity Musculoskeletal: normal ROM, no deformity, no swelling GI: Soft no obvious distention. No rebound or rigidity. No guarding. No tenderness. Neurological: A&O moves all extremities equal strength and symmetry Psychiatric: Cooperative and appropriate Medical Decision Making Workup in the emergency department has been reviewed and noted. Laboratory studies are essentially benign. Patient is treated here with IV fluids. Case was discussed with Dr. Nielsen who will see the patient in the office for follow-up. He did recommend a 10-day trial of Provera to regulate the bleeding. Patient is comfortable with this plan she is discharged home to follow-up return to ER symptoms should change or worsen. Assessment/Plan DUB (dysfunctional uterine bleeding) (N93.8: Other specified abnormal uterine and vaginal bleeding) Orders: medroxyPROGESTERone, 10 mg = 1 tab(s), Oral, Daily, X 10 day(s), # 10 tab(s), Refills(s) 0, Pharmacy: [facility]/pharmacy #[id number], 164, cm, 11/17/23 17:02:00 EST, Height/Length Dosing, 89.6, kg, 11/17/23 17:02:00 EST, Weight Dosing Sodium Chloride 0.9% intravenous solution, 1,000 mL, Soln-IV, IV, Once, Stop date 11/17/23 17:04:00 EST, STAT, Start date 11/17/23 17:04:00 EST, Infuse over 61, minute(s) Automated Diff Basic Metabolic Panel Beta hCG Qual CBC w/ Auto Diff eGFR Extra Blue Tube Hepatic Function Panel Lipase Level TSH With T4fr Reflex UA With Cult Reflex Medications Administered Given NS 1000 ml Bolus, 1000 mL, IV Disposition Plan Discharge Prescription List Prescriptions Provera 10 mg Tab, 10 mg= 1 tab(s), Oral, Daily Follow-up With When Contact Information Dony NIELSEN In 3 days 11/20/[address] [place] [address]- Business (1) Additional Instructions: XXXX NONE In 3 days [place] Additional Instructions: Problem List/Past Medical History Ongoing Attention deficit disorder (ADD) in adult BMI 34.0-34.9,adult Chronic idiopathic constipation Chronic venous insufficiency COVID-19 Dercum disease Dysuria Generalized anxiety disorder Geographic tongue Clay thyroiditis HTN - Hypertension Hypersensitivity disorder Irregular menses Mixed hyperlipidemia Obesity Occipital neuralgia of left side Rib pain on left side Subcutaneous mass of right thumb Historical Anxiety Depression Endometriosis Migraine Smoker Urethral stricture UTI (lower urinary tract infection) Procedure/Surgical History Colonoscopy and biopsy of colon (10/19/2020), Repair of umbilical hernia (10/14/2018), Cystoscopy with urethral dilation (01/02/2017), cystoscopy and ureteral dilation (01/06/2014), Ankle, Cholecystectomy, Dilation & curettage, History of nasal sinus surgery, Laparoscopy, Plantar fascia, Repair of umbilical hernia, Tonsillectomy, vocal cord nodules removed x3. Medications Inpatient NS 1000 ml Bolus, 1000 mL, IV, Once Home baclofen 10 mg Tab, 5 mg= 0.5 tab(s), Oral, TID, 5 refills cyclobenzaprine 10 mg Tab, 10 mg= 1 tab(s), Oral, TID, PRN EpiPen 2-Garry 0.3 mg injectable kit, 0.3 mg= 1 EA, IntraMuscular, As Directed, PRN Flovent HFA 110 Inhaler, 2 puff(s), Inhalation, BID (more content not included)... Normal [facility] Comment on above: Result Comment: Elec tronically Signed By: Reggie Camara DO\.br\Date and Time Signed: 11/17/23 18:32 EST ED Patient Education Noteon 11-17-2023 ED Patient Education Note Normal [facility] ED Patient Summaryon 024 ED Patient Summary [place] [address] Patient Discharge Instructions Person Information Name: TARIK GONZALEZ Age: 43 Years Arrival Date: 11/17/2023 16:49:38 Discharge Diagnosis: DUB (dysfunctional uterine bleeding) Primary Care Physician: NONE, XXXX Provider Information Primary Provider: Reggie Camara DO [employer] Report Developer:None The exam and treatment you received in the Emergency Department were for an urgent problem and are not intended as complete care. It is important that you follow up with a doctor, nurse practitioner, or physician?s assistant professor of german for ongoing care. If your symptoms become worse or you do not improve as expected and you are unable to reach your usual health care provider, you should return to the Emergency Department. We are available 24 hours a day. TARIK GONZALEZ has been given the following list of patient education materials, prescriptions and follow-up instructions: Follow-up Instructions: With: Address: [facility] [address] [place] [address] [place] [address] Business (1) In 3 days 11/20/2023 With: Address: When: XXXX [facility] , [place] In 3 days In the event that this physician does not participate in your insurance network, please consult with your insurance company to find a nearby participating provider. Patient Education Materials: A MESSAGE TO ALL PATIENTS REGARDING OPIOIDS PRESCRIPTION OPIOIDS: WHAT YOU NEED TO KNOW Prescription opioids can be used to help relieve [id number]-oytlmt pain and are often prescribed following a surgery or injury, or for certain health conditions. These medications can be an important part of the treatment but also come with serious risks. It is important to work with your healthcare provider to make sure you are getting the safest, most effective care. WHAT ARE THE RISKS AND SIDE EFFECTS OF OPIOID USE? Prescription opioids carry serious risks of addiction and overdose, especially with prolonged use. An opioid overdose, often marked by slowed breathing, can cause sudden . The use of prescription opioids can have a number of side effects as well, even when taken as directed: ? Tolerance?meaning you might need to take more of the medication for the same pain relief ? Physical dependence?meaning you have symptoms of withdrawal when a medication is stopped ? Increased sensitivity to pain ? Constipation ? Nausea, vomiting, and dry mouth ? Sleepiness and dizziness ? Confusion ? Depression ? Low levels of testosterone that can result in lower sex drive, energy, and strength ? Itching and sweating RISKS ARE GREATER WITH: ? History of drug misuse, substance use disorder, or overdose ? Mental health conditions (such as depression or anxiety) ? Sleep apnea ? Older age (65 years and older) ? Avoid alcohol while taking prescription opioids. Also, unless specifically advised by your health care provider, medications to avoid include: ? Benzodiazepines (such as Xanax or Valium) ? Muscle relaxants (such as Soma or Flexeril) ? Hypnotics (such as Ambien or Lunesta) ? Other prescription opioids KNOW YOUR OPTIONS Talk to your health care provider about ways to manage your pain that don?t involve prescription opioids. Some of these options may actually work better and have fewer risks and side effects. Options may include: ? Pain relievers such as acetaminophen, ibuprofen, and naproxen ? Some medication that are also used for depression or seizures ? Physical therapy and exercise ? Cognitive behavioral therapy, a psychological, goal-directed approach, in which patients learn how to modify physical, behavioral, and emotional triggers of pain and stress. IF YOU ARE PRESCRIBED OPIOIDS FOR PAIN: ? Never take opioids in greater amounts or more often than prescribed. ? Follow up with your primary health care provider. o Work together to create a plan on how to manage your pain. o Talk about ways to help manage your pain that don?t involve prescription opioids. o Talk about any and all concerns and side effects. ? Help prevent misuse and abuse o Never sell or share prescription opioids. o Never use another person?s prescription opioids. ? Store prescription opioids in a secure place and out of reach of others (this may include visitors, children, friends, and family). ? Safely dispose of unused prescription opioids: Find your community drug take-back program or your pharmacy mail-back program, or flush them down the toilet, following guidance from the Food and Drug Administration (www.fda.gov/Drugs/R esourcesForYou). ? Visit www.cdc.gov/drugover dose to learn about the risks of opioids abuse and overdose. ? If you believe you may be struggling with addiction, tell your health home care manager and ask for guidance or call [facility] [employer] (more content not included)... Normal [facility] Hep Func Panelon 11-17-2023 Albumin [Mass/Vol] 4.2 g/dL Normal 3.3-5.0 [facility] Comment on above: Performed By: #### 1 3403030, 7443084, 20990451, 5190639, 17219269, 7425231, 8057644 #### [facility] [address] [place] [address] Albumin/Globulin [Mass ratio] 1.7 {ratio} Normal 1.1-2.2 [facility] Comment on above: Performed By: #### 1 0349585, 5094630, 17724030, 2773311, 55935140, 2730543, 7786216 #### [facility] [address] [place] [address] Alk Phos 37 Int._Unit/L Normal 21-98 [facility] Comment on above: Performed By: #### 1 0733079, 7972564, 80393872, 6480767, 50744811, 7304548, 8835186 #### [facility] [address] [place] [address] ALT 10 Int._Unit/L Normal 6-46 [facility] Comment on above: Performed By: #### 1 9807136, 5852807, 43583329, 2417567, 37017025, 8557304, 1157289 #### [facility] [address] [place] [address] AST 10 Int._Unit/L Normal 5-43 [facility] Comment on above: Performed By: #### 1 7509745, 7212172, 43523418, 6934623, 10183677, 0099092, 0289211 #### [facility] [address] [place] [address] Bili Direct 0.1 mg/dL Normal 0.0-0.4 [facility] Comment on above: Performed By: #### 1 4887692, 1079721, 60296522, 8796312, 73269779, 2445501, 2838336 #### [facility] [address] [place] [address] Bili Indirect 0.1 mg/dL Normal 0.1-0.9 [facility] Comment on above: Performed By: #### 1 4819167, 1871918, 37260089, 7056176, 82252905, 6439095, 4528870 #### [facility] [address] [place] [address] Bili Total 0.2 mg/dL Normal 0.0-1.1 [facility] Comment on above: Performed By: #### 1 2375072, 8215284, 27714621, 0125387, 01618445, 7667277, 2035826 #### [facility] [address] [place] [address] Globulin (S) [Mass/Vol] 2.5 g/dL Normal 1.4-4.0 [facility] Comment on above: Performed By: #### 1 3226225, 8336004, 81930748, 2756898, 16156490, 7683550, 0192309 #### [facility] [address] [place] [address] Protein [Mass/Vol] 6.7 g/dL Normal 6.0-7.8 [facility] Comment on above: Performed By: #### 1 9344438, 3798877, 22394729, 1578065, 26954488, 9625197, 9762707 #### [facility] [address] [place], [place] [address] Lipase Levelon 11-17-2023 Lipase Lvl 15 unit/L Normal 13-58 [facility] Comment on above: Performed By: #### 1 9362488, 6947374, 85230254, 8306491, 23539330, 6643993, 0607015 #### [facility] [address] [place] [address] TSH With T4fr Reflexon 11-17 TSH Qn 3.76 m[IU]/L Normal 0.34-5.60 [facility] Comment on above: Performed By: #### 1 6439424, 0908114, 58566278, 4345000, 79524890, 5694274, 9418756 #### [facility] [address] [address] UA With Cult Reflexon 2023 Bacteria LM Ql (Urine sed) TRACE Normal Trace [facility] Comment on above: Performed By: #### 1 2793530, 7305756, 08911693, 6652935, 44392951, 0830412, 4918421 #### [facility] [address] [place] [address] Bilirubin Ql (U) Negative Normal Negative [facility] Comment on above: Performed By: #### 1 6344891, 7251627, 82498078, 5407393, 70543641, 7840239, 0442096 #### [facility] [address] [place] [address] Clarity (U) CLEAR Normal Clear [facility] Comment on above: Performed By: #### 1 5978996, 4875983, 89635174, 5413741, 91684934, 3180213, 9676193 #### [facility] [address] [place] [address] Color (U) YELLOW Normal Yellow [facility] Comment on above: Performed By: #### 1 9023310, 7372125, 81829066, 8616101, 51930832, 2292068, 6037868 #### [facility] [address] [place] [address] Crystals LM Ql (Urine sed) Present Normal [facility] Comment on above: Performed By: #### 1 1032256, 5398070, 55423526, 2463822, 79735614, 2947209, 0634904 #### [facility] [address] [place] [address] Epithelial cells.squamous LM.HPF (Urine sed) [#/Area] 0-2 Normal 0-2 [facility] Comment on above: Performed By: #### 1 3409765, 1178871, 67515575, 9182940, 89738732, 4134534, 8486717 #### [facility] [address] [place] [address] Glucose Test strip (U) [Mass/Vol] Negative Normal Negative [facility] Comment on above: Performed By: #### 1 8453163, 9617867, 00186074, 3707246, 82044660, 5554480, 4299528 #### [facility] [address] [place] [address] Hemoglobin Ql (U) 3+ Abnormal Negative [facility] Comment on above: Performed By: #### 1 5528152, 2435630, 07285112, 0344084, 61564568, 4405206, 2770712 #### [facility] [address] [place] [address] Ketones (U) [Mass/Vol] Negative Normal Negative [facility] Comment on above: Performed By: #### 1 7449670, 5549767, 90073033, 4137160, 37133936, 4582571, 1052154 #### [facility] [address] [place] [address] [place].plasma/[place] .RBC (Bld) [Mass ratio] 4-20 Normal 0-3 [facility] Comment on above: Performed By: #### 1 4834873, 4874159, 87879237, 5499844, 74124980, 8089937, 5829681 #### [facility] [address] [place] [address] Nitrite Ql (U) Negative Normal Negative [facility] Comment on above: Performed By: #### 1 9870673, 0777874, 10145527, 5026815, 73177374, 8170936, 4567050 #### [facility] [address] [place] [address] pH (U) 7.0 [pH] Invalid Interpretation Code 5.0-9.0 [facility] Comment on above: Performed By: #### 1 2900227, 2252081, 48494709, 6253948, 08928898, 5765607, 5879629 #### [facility] [address] [place] [address] Protein (U) [Mass/Vol] Negative Normal Negative [facility] Comment on above: Performed By: #### 1 2739157, 4598414, 61357597, 5925297, 49781480, 2351795, 2503917 #### [facility] [address] [place] [address] Specific gravity (U) [Rel density] 1.015 Invalid Interpretation Code 1.005-1.030 [facility] Comment on above: Performed By: #### 1 5959848, 0604945, 91617981, 7827855, 39004814, 4035117, 8032904 #### [facility] [address] [place] [address] Type of Urine collection method Clean Catch Normal [facility] Comment on above: Performed By: #### 1 6982114, 9815084, 18042086, 8063025, 51965452, 0419938, 8305617 #### [facility] [address] [place] [address] Urobilinogen Qn (U) 0.2 {Gena'U}/dL Normal 0.0-1.0 [facility] Comment on above: Performed By: #### 1 5461759, 2925551, 37865722, 1187919, 28563587, 4858916, 5404303 #### [facility] [address] [place] [address] WBC Auto Ql (U) Negative Normal Negative [facility] Comment on above: Performed By: #### 1 7999813, 7694254, 53246953, 0185907, 83864204, 5838601, 1894481 #### [facility] [address] [place] [address] WBC LM.HPF (Urine sed) [#/Area] 0-5 Normal 0-5 [facility] Comment on above: Performed By: #### 1 9005733, 4580054, 96017109, 0803429, 62738408, 6808349, 0081516 #### [facility] [address] [place] [address] eGFRon 11-17-2023 GFR/1.73 sq M.predicted among non-blacks MDRD (S/P/Bld) [Vol rate/Area] mL/min/{1.73_m2} Normal >=59 [facility] Comment on above: Order Comment: Order added by Discern Expert. Performed By: #### 1 6824066, 5593311, 21868189, 8559894, 66783472, 6022830, 6094850 #### [facility] [address] [place] [address] Estrogens Totalon 09-18-2023 Estrogen [Mass/Vol] 330 pg/mL Invalid Interpretation Code [facility] Comment on above: Result Comment: Prep ubertal < 40 Female Cycle: 1-10 Days 16 - 328 11-20 Days 34 - 501 21-30 Days 48 - 350 Post-Menopausal 40 - 244 Performed at: [facility] [id number] MD Gaurav Walden Performed By: #### 1 8286592 ####[facility] [address] [place] [address] Consent for Treatmenton Consent for Treatment [id number] #1.00TIFF Normal [facility] Physician Orderon 09-14-2023 Physician Order [id number] #1.00TIFF Normal [facility] Nurse Consultation Noteon Nurse Consultation Note Reason for Visit covid test Medications baclofen 10 mg Tab, 5 mg= 0.5 tab(s), Oral, TID, 5 refills cyclobenzaprine 10 mg Tab, 10 mg= 1 tab(s), Oral, TID, PRN EpiPen 2-Garry 0.3 mg injectable kit, 0.3 mg= 1 EA, IntraMuscular, As Directed, PRN Flovent HFA 110 Inhaler, 2 puff(s), Inhalation, BID, 2 refills fluconazole 150 mg Tab, 150 mg= 1 tab(s), Oral, Daily Klonopin 0.5 mg Tab, As Directed LDN 1.5 mg, 1 cap, Oral, Daily, 2 refills levothyroxine 75 mcg (0.075 mg) Tab, 75 mcg= 1 tab(s), Oral, Daily, 5 refills Metamucil 525 mg oral capsule, 1050 mg= 2 cap(s), Oral, Daily, 4 refills Pepcid 20 mg Tab, 20 mg= 1 tab(s), Oral, Daily Proventil HFA 90 mcg/inh Aerosol, 2 puff(s), Inhalation, QID Silvadene 1% Cream, 1 ekaterina, Topical, BID, 2 refills triamcinolone topical 0.025% ointment, 1 ekaterina, Topical, TID Zofran ODT 4 mg Tab-Dis, 4 mg= 1 tab(s), Oral, q8hr, PRN Allergies Glutens (thyroiditis) Latex (hives) Ultram (vomiting) codeine (nausea vomiting hives) Bee Stings (Anaphylactic reaction) NSAIDs (Muscle weakness) Nubain (nausea and vomiting) Ritalin (Altered mental status) Trace Metals (infection) Tylenol with Codeine #3 (Unknown) Immunizations Vaccine Date Status Comments influenza virus vaccine, inactivated - Not Given Patient Refuses diphtheria/pertussis , acel/tetanus adult 05/04/2016 Given influenza virus vaccine, inactivated 09/24/2010 Recorded Normal [facility] [id number] 07-18-2023 HbA1c (Bld) [Mass fraction] 5.4 % Normal <=5.9 [facility] Comment on above: Performed By: #### 7 [id number] ####[facility] [address] [place] [address] Auto Diffon 07-17-2023 Basophils/100 WBC (Bld) 0.6 % Normal 0.0-2.0 [facility] Comment on above: Order Comment: Order Added by Discern Expert. Performed By: #### 1 3967326, 3016422, 69560103, 9636363, 66273948, 0188257, 3476564 #### [facility] [address] [place] [address] Basophils/Leukocytes Auto (Bld) [Pure # fraction] 0.0 E9/L Normal 0.0-0.2 [facility] Comment on above: Order Comment: Order Added by Discern Expert. Performed By: #### 1 9719496, 1648074, 89398780, 1973258, 68968701, 5539192, 6045417 #### [facility] [address] [place] [address] Eosinophils/100 WBC (Bld) 2.3 % Normal 0.0-8.0 [facility] Comment on above: Order Comment: Order Added by Discern Expert. Performed By: #### 1 4988528, 9624780, 36871137, 3885064, 26598752, 8355873, 9492790 #### [facility] [address] [place] [address] Eosinophils/Leukocytes Auto (Bld) [Pure # fraction] 0.1 E9/L Normal 0.0-0.5 [facility] Comment on above: Order Comment: Order Added by Discern Expert. Performed By: #### 1 0574361, 4020181, 33682946, 1801784, 24126118, 2088370, 3629342 #### [facility] [address] [place] [address] Lymphocytes/100 WBC (Bld) 28.7 % Normal 14.0-50.0 [facility] Comment on above: Order Comment: Order Added by Sabra Expert. Performed By: #### 1 8854141, 9812307, 42444509, 3712493, 48097808, 8934645, 1121970 #### [facility] [address] [place] [address] Lymphocytes/Leukocytes Auto (Bld) [Pure # fraction] 1.7 E9/L Normal 1.0-4.0 [facility] Comment on above: Order Comment: Order Added by Discern Expert. Performed By: #### 1 3088940, 8490966, 02748078, 9314309, 94007042, 3986203, 7256240 #### [facility] [address] [place] [address] Monocytes/100 WBC (Bld) 8.0 % Normal 4.0-14.0 [facility] Comment on above: Order Comment: Order Added by Sabra Expert. Performed By: #### 1 4031189, 7923021, 17950386, 0170856, 26603855, 0862489, 8411813 #### [facility] [address] [place] [address] Monocytes/Leukocytes Auto (Bld) [Pure # fraction] 0.5 E9/L Normal 0.2-1.0 [facility] Comment on above: Order Comment: Order Added by Discern Expert. Performed By: #### 1 6797685, 5115221, 54486008, 3454194, 58622577, 8649547, 1915854 #### [facility] [address] [place] [address] Neutrophils/100 WBC (Bld) 60.4 % Normal 36.0-75.0 [facility] Comment on above: Order Comment: Order Added by Discern Expert. Performed By: #### 1 4680556, 5599473, 06073204, 2131575, 29978796, 7734897, 3176947 #### [facility] [address] [place] [address] Neutrophils/Leukocytes Auto (Bld) [Pure # fraction] 3.6 E9/L Normal 2.0-7.5 [facility] Comment on above: Order Comment: Order Added by Discern Expert. Performed By: #### 1 5667624, 1343325, 71085806, 7411856, 10145285, 2649675, 1536496 #### [facility] [address] [place] [address] BMPon 07-17-2023 Anion gap [Moles/Vol] 11 mmol/L Normal 6-16 [facility] Comment on above: Performed By: #### 1 6170409, 1165221, 88250843, 4085531, 64237421, 9134953, 1206013 #### [facility] [address] [place] [address] Calcium [Mass/Vol] 8.4 mg/dL Low 8.9-11.1 [facility] Comment on above: Performed By: #### 1 9113578, 2644536, 56880108, 5441234, 03536569, 5438921, 2739014 #### [facility] [address] [place] [address] Chloride [Moles/Vol] 105 mmol/L Normal 101-111 [facility] Comment on above: Performed By: #### 1 3684977, 5146588, 68289068, 5816064, 19319159, 6509833, 7858015 #### [facility] [address] [place] [address] CO2 [Moles/Vol] 25 mmol/L Normal 21-31 [facility] Comment on above: Performed By: #### 1 6629211, 8612702, 52416853, 2036541, 18147291, 8427884, 4385972 #### [facility] [address] [place] [address] Creatinine [Mass/Vol] 1.0 mg/dL Normal 0.5-1.3 [facility] Comment on above: Performed By: #### 1 7318966, 5236462, 29929763, 2181321, 08974183, 6732352, 9294309 #### [facility] [address] [place] [address] Glucose [Mass/Vol] 99 mg/dL Normal 55-199 [facility] Comment on above: Result Comment: If t his glucose result represents a fasting glucose, interpretation should refer to the following reference range: 55-99 mg/dL Performed By: #### 1 2437829, 6463434, 99024290, 2327768, 08827108, 0127614, 5750841 #### [facility] [address] [place] [address] Potassium [Moles/Vol] 3.9 mmol/L Normal 3.5-5.3 [facility] Comment on above: Performed By: #### 1 4717290, 8617846, 81853009, 4866997, 69208579, 9260585, 6564288 #### [facility] [address] [place] [address] Sodium [Moles/Vol] 137 mmol/L Normal 135-145 [facility] Comment on above: Performed By: #### 1 0715341, 7215809, 97660845, 8184082, 85269820, 3909670, 3288694 #### [facility] [address] [place] [address] Urea nitrogen [Mass/Vol] 15 mg/dL Normal 5-21 [facility] Comment on above: Performed By: #### 1 5404111, 4600316, 89100021, 2770382, 45344544, 4034730, 0936137 #### [facility] [address] [place] [address] Urea nitrogen/Creatinine [Mass ratio] 15 No Units Normal 10-20 [facility] Comment on above: Performed By: #### 1 7796667, 2480917, 06062926, 1252690, 91078078, 0793668, 1785749 #### [facility] [address] [place], [place] [address] CBC w/ Auto Diffon 3 Erythrocyte distribution width (RBC) [Ratio] 14.0 % Normal 10.9-14.2 [facility] Comment on above: Performed By: #### 1 1926002, 8504511, 62910742, 3454093, 17639659, 6005322, 9969781 #### [facility] [address] [place] [address] Hematocrit (Bld) [Volume fraction] 41.4 % Normal 34.0-46.0 [facility] Comment on above: Performed By: #### 1 5314482, 5249760, 33779079, 0318564, 59072595, 2898712, 5880065 #### [facility] [address] [place] [address] Hemoglobin (Bld) [Mass/Vol] 13.9 g/dL Normal 12.0-16.0 [facility] Comment on above: Performed By: #### 1 6360297, 3983640, 18411061, 9206094, 54255645, 7870778, 4781254 #### [facility] [address] [place] [address] MCH (RBC) [Entitic mass] 28.5 pg Normal 27.0-34.0 [facility] Comment on above: Performed By: #### 1 6712356, 2799052, 43982820, 8334154, 07394965, 2739844, 8198237 #### [facility] [address] [address] MCHC (RBC) [Mass/Vol] 33.6 g/dL Normal 31.4-36.0 [facility] Comment on above: Performed By: #### 1 8481949, 3614238, 36963254, 3951091, 25270514, 0216778, 0390913 #### [facility] [address] [place] [address] MCV (RBC) [Entitic vol] 84.8 fL Normal 80.0-100.0 [facility] Comment on above: Performed By: #### 1 7091421, 7807899, 18249704, 6647027, 49217378, 3392380, 2332348 #### [facility] [address] [place] [address] Platelet mean volume (Bld) [Entitic vol] 8.6 fL Normal 6.4-10.8 [facility] Comment on above: Performed By: #### 1 5385050, 4761051, 26413044, 8636863, 89791239, 6692621, 8947428 #### [facility] [address] [place] [address] Platelets (Bld) [#/Vol] 292.0 E9/L Normal 150.0-500.0 [facility] Comment on above: Performed By: #### 1 5783704, 5918630, 80572055, 8495035, 57862375, 5153827, 4016108 #### [facility] [address] [place] [address] RBC (Bld) [#/Vol] 4.9 E12/L Normal 4.3-5.9 [facility] Comment on above: Performed By: #### 1 3888020, 3510362, 39167932, 7266520, 17914973, 3726580, 8734825 #### [facility] [address] [place] [address] WBC corrected for nucl RBC Auto (Bld) [#/Vol] 6.0 E9/L Normal 4.0-11.0 [facility] Comment on above: Performed By: #### 1 6954494, 3380619, 58528361, 9369241, 71407298, 0466509, 7674465 #### [facility] [address] [place] [address] CHEMISTRYOrdered By: SYSTEM SYSTEM on 07-17-2023 Anion gap [Moles/Vol] 11 mmol/L Normal 6 - 16 mEq/L [facility] Calcium [Mass/Vol] 8.4 mg/dL Low 8.9 - 11. 1 mg/dL [facility] Chloride [Moles/Vol] 105 mmol/L Normal 101 - 1 11 mmol/L [facility] Cholesterol [Mass/Vol] 250 mg/dL High 120 - 200 mg/dL [facility] Cholesterol in HDL [Mass/Vol] 58 mg/dL Invalid Interpretation Code [facility] Cholesterol in LDL [Mass/Vol] 172 mg/dL High <=129mg/dL [facility] Cholesterol in VLDL [Mass/Vol] 31 mg/dL Normal 7 - 40 mg/dL [facility] CO2 [Moles/Vol] 25 mmol/L Normal 21 - 31 mmol/L [facility] Creatinine [Mass/Vol] 1.0 mg/dL Normal 0.5 - 1.3 mg/dL [facility] GFR/1.73 sq M.predicted among non-blacks MDRD (S/P/Bld) [Vol rate/Area] 72 mL/min/1.73 m2 Normal >=59mL/min/1 .73 m2 [facility] Chem S Glucose [Mass/Vol] 99 mg/dL Normal 55 - 199 mg/dL [facility] Potassium [Moles/Vol] 3.9 mmol/L Normal 3.5 - 5.3 mmol/L [facility] Sodium [Moles/Vol] 137 mmol/L Normal 135 - 145 mmol/L [facility] Triglyceride [Mass/Vol] 155 mg/dL High <=149mg/dL [facility] TSH Qn 2.14 m[IU]/L Normal 0.34 - 5.60 mcIU/mL [facility] Urea nitrogen [Mass/Vol] 15 mg/dL Normal 5 - 21 mg/dL [facility] Urea nitrogen/Creatinine [Mass ratio] 15 mg/mg Normal 10 - 20 [facility] Consent for Treatmenton Consent for Treatment [id number] #[id number]:127 Normal [facility] HEMATOLOGYOrdered By: SYSTEM SYSTEM on 07-17-2023 Basophils/100 WBC (Bld) 0.6 % Normal 0.0 - 2.0 % [facility] Basophils/Leukocytes Auto (Bld) [Pure # fraction] 0.0 E9/L Normal 0.0 - 0.2 E9/L [facility] Eosinophils/100 WBC (Bld) 2.3 % Normal 0.0 - 8.0 % [facility] Eosinophils/Leukocytes Auto (Bld) [Pure # fraction] 0.1 E9/L Normal 0.0 - 0.5 E9/L [facility] Lymphocytes/100 WBC (Bld) 28.7 % Normal 14.0 - 50.0 % [facility] Lymphocytes/Leukocytes Auto (Bld) [Pure # fraction] 1.7 E9/L Normal 1.0 - 4.0 E9/L [facility] Monocytes/100 WBC (Bld) 8.0 % Normal 4.0 - 14.0 % [facility] Monocytes/Leukocytes Auto (Bld) [Pure # fraction] 0.5 E9/L Normal 0.2 - 1.0 E9/L [facility] Neutrophils/100 WBC (Bld) 60.4 % Normal 36.0 - 75.0 % [facility] Neutrophils/Leukocytes Auto (Bld) [Pure # fraction] 3.6 E9/L Normal 2.0 - 7.5 E9/L [facility] HEMATOLOGYOrdered By: Brandon Lopes on 07-17-2023 Erythrocyte distribution width (RBC) [Ratio] 14.0 % Normal 10.9 - 14.2 % [facility] Hematocrit (Bld) [Volume fraction] 41.4 % Normal 34.0 - 46.0 % [facility] Hemoglobin (Bld) [Mass/Vol] 13.9 g/dL Normal 12.0 - 16.0 gm/dL [facility] MCH (RBC) [Entitic mass] 28.5 pg Normal 27.0 - 34.0 pg [facility] MCHC (RBC) [Mass/Vol] 33.6 g/dL Normal 31.4 - 36.0 gm/dL [facility] MCV (RBC) [Entitic vol] 84.8 fL Normal 80.0 - 100.0 fL [facility] Platelet mean volume (Bld) [Entitic vol] 8.6 fL Normal 6.4 - 10.8 fL FT HemeAutoSS Platelets (Bld) [#/Vol] 292.0 E9/L Normal 150.0 - 500.0 E9/L FT HemeAutoSS RBC (Bld) [#/Vol] 4.9 E12/L Normal 4.3 - 5.9 E12/L FT HemeAutoSS WBC corrected for nucl RBC Auto (Bld) [#/Vol] 6.0 E9/L Normal 4.0 - 11.0 E9/L [facility] HemeAutoSS Lipid Panelon 07-17-2023 Cholesterol [Mass/Vol] 250 mg/dL High 120-200 [facility] Comment on above: Performed By: #### 1 [id number], 9451071, 01368716, 6401674, 37765722, 6863009, 7933851 #### [facility] [address] [place] [address] Cholesterol in HDL [Mass/Vol] 58 mg/dL Invalid Interpretation Code [facility] Comment on above: Result Comment: HDL > or equal to 60 mg/dL: Low cardiovascular risk HDL < 40 mg/dL : High cardiovascular risk Performed By: #### 1 [id number], 7764470, 14259506, 5268160, 86556785, 3962584, 4951541 #### [facility] [address] [place] [address] Cholesterol in LDL [Mass/Vol] 172 mg/dL High <=129 [facility] Comment on above: Performed By: #### 1 [id number], 0962754, 50434766, 6420455, 12940553, 4645298, 0305152 #### [facility] [address] [place] [address] Cholesterol in VLDL [Mass/Vol] 31 mg/dL Normal 7-40 [facility] Comment on above: Performed By: #### 1 [id number], 9243468, 24494736, 3520371, 26807867, 6007949, 9977022 #### [facility] [address] [place] [address] Triglyceride [Mass/Vol] 155 mg/dL High <=149 [facility] Comment on above: Performed By: #### 1 [id number], 2800745, 12754077, 0462565, 50174078, 7312628, 8227301 #### [facility] [address] [place] [address] TSHon 07-17-2023 TSH Qn 2.14 m[IU]/L Normal 0.34-5.60 [facility] Comment on above: Performed By: #### 1 7021387, 1296597, 93843985, 4565711, 50485700, 2705385, 4484155 #### [facility] [address] [place] [address] eGFRon 07-17-2023 GFR/1.73 sq M.predicted among non-blacks MDRD (S/P/Bld) [Vol rate/Area] 72 mL/min/1.73 m2 Normal >=59 [facility] Comment on above: Order Comment: Order added by Discern Expert. Result Comment: Certified Master Safecracker nilesh kidney disease could be indicated at eGFR's of less than 60 mL/min/1.73m2. Kidney failure is indicated at less than 15 mL/min/1.73m2. Performed By: #### 1 2725176, 3723046, 40973387, 1198415, 98626280, 2238245, 6730045 #### [facility] [address] [place] [address] BMPon 07-07-2023 Creatinine [Mass/Vol] 0.9 mg/dL Normal 0.5-1.3 [facility] Comment on above: Performed By: #### 1 0217261, 8344192, 88026795, 6559443, 64691155, 5105936, 8100165 #### [facility] [address] [place] [address] Urea nitrogen [Mass/Vol] 15 mg/dL Normal - [facility] Comment on above: Performed By: #### 1 0708254, 5328413, 46878471, 2966690, 06729894, 7490996, 1299876 #### [facility] [address] [place] [address] Urea nitrogen/Creatinine [Mass ratio] 17 No Units Normal - [facility] Comment on above: Performed By: #### 1 1017914, 5539307, 01051187, 5543733, 74754529, 2528745, 4959232 #### [facility] [address] [place] [address] Discharge Instructionson Discharge Instructions [id number] #1.00CD:127 Normal [facility] ED Clinical Summaryon 2022 ED Clinical Summary [address] [address] ED Clinical Summary Person Information Name: TARIK GONZALEZ [place] Age: 42 Years : 1980 Sex: Female Language: Greek PCP: Otoniel MOTLEY DO Marital Status: Single Visit Id: Visit Reason: Diarrhea; Shortness of breath; Abdominal distention; BLOATED FEELING IN ABDOMIN, SOB Speciality: Acuity: 3 Enc Type: Emergency Med Service: Emergency Arrival: 07/06/2023 20:51:37 Discharge: 07/06/2023 22:56:21 LOS: 000 02:05 Checkin: 07/06/2023 20:51:37 Checkout: 07/06/2023 22:56:21 Dispo Type: Home (Routine DC) EVENTS: Event Name Event Status Request Date/Time Start Date/Time Complete Date/Time Arrive Complete 07/06/2023 20:51:37 07/06/2023 20:51:37 07/06/2023 20:51:37 Document Home Meds Request 07/06/2023 20:51:37 Triage Complete 07/06/2023 20:51:37 07/06/2023 21:06:48 07/06/2023 21:06:48 EKG Complete 07/06/2023 20:55:47 07/06/2023 21:00:42 Bed Assign Complete 07/06/2023 20:55:52 07/06/2023 20:55:52 07/06/2023 20:55:52 Dr Exam Complete 07/06/2023 20:55:52 07/06/2023 21:30:42 07/06/2023 21:30:42 RN Exam Complete 07/06/2023 20:55:52 07/06/2023 22:42:07 07/06/2023 22:42:07 Registration Complete 07/06/2023 20:56:57 07/06/2023 20:56:57 07/06/2023 20:56:57 Reg Complete Request 07/06/2023 20:56:57 Reg Bed Request Complete 07/06/2023 20:56:57 07/06/2023 20:56:57 07/06/2023 20:56:57 Registration Start 07/06/2023 21:30:42 07/06/2023 22:00:16 Dr Exam Complete 07/06/2023 21:32:28 07/06/2023 21:32:28 07/06/2023 21:32:28 Pending Labs Request 07/06/2023 21:47:37 Lab Request 07/06/2023 21:47:37 Urine Collect Request 07/06/2023 21:47:37 Meds Admin Complete 07/06/2023 21:47:37 07/06/2023 22:07:26 X-Ray Complete 07/06/2023 21:47:54 07/06/2023 22:04:55 07/06/2023 22:16:39 Pending Labs Complete 07/06/2023 21:49:37 07/06/2023 21:49:37 07/06/2023 22:23:25 Lab Complete 07/06/2023 21:49:37 07/06/2023 21:49:37 07/06/2023 22:23:25 Pending Labs Complete 07/06/2023 21:54:09 07/06/2023 21:54:09 07/06/2023 21:54:17 Lab Complete 07/06/2023 21:54:09 07/06/2023 21:54:09 07/06/2023 21:54:17 Wet Read Request 07/06/2023 22:16:39 Meds Admin Complete 07/06/2023 22:44:31 07/06/2023 22:52:41 Discharge Complete 07/06/2023 22:44:51 07/06/2023 22:56:38 07/06/2023 22:56:38 Transfer Complete 07/06/2023 22:56:38 07/06/2023 22:56:38 07/06/2023 22:56:38 ADDRESS: [address] [place] [id number] PHYS DOC NOTES: MEDICAL INFORMATION: Prescriptions Given: New Medications [facility]/pharmacy #[id number], [address], [place] [id number], [phone] ondansetron (Zofran ODT 4 mg Tab-Dis) 1 Tablets By Mouth every 8 hours as needed Nausea/Vomiting. Refills: 0. Medications to Continue with No Changes Other Medications albuterol (Proventil HFA 90 mcg/inh Aerosol) 2 Puffs Inhalation 4 times a day. Refills: 0. baclofen (baclofen 10 mg Tab) 0.5 Tablets By Mouth 3 times a day. Refills: 5. clonazepam (Klonopin 0.5 mg Tab) As Directed. cyclobenzaprine (cyclobenzaprine 10 mg Tab) 1 Tablets By Mouth 3 times a day as needed for spasm. Refills: 0. epinephrine (EpiPen 2-Garry 0.3 mg injectable kit) 1 Each Intramuscular As Directed as needed Anaphylaxis. Refills: 0. famotidine (Pepcid 20 mg Tab) 1 Tablets By Mouth every day. Refills: 0. fluconazole (fluconazole 150 mg Tab) 1 Tablets By Mouth every day for 5 Days. Refills: 0. levothyroxine (levothyroxine 75 mcg (0.075 mg) Tab) 1 Tablets By Mouth every day. alternate with 50 mcg. Refills: 5. Misc Prescription (LDN 1.5 mg) 1 cap By Mouth every day. Refills: 2. silver sulfADIAZINE topical (Silvadene 1% Cream) 1 Application Topical 2 times a day. Refills: 2. triamcinolone topical (triamcinolone topical 0.025% ointment) 1 Application Topical 3 times a day. Refills: 0. PATIENT EDUCATION INFORMATION: Instructions: Abdominal Pain, Adult Follow up: With: Address: When: Otoniel MOTLEY [facility] [facility] [place] [address] [phone] Business (1) In 3 days 07/09/2023 Comments: Follow-up with your primary care provider in 3 to 5 days. If symptoms worsen, do not improve, or new symptoms arise please report back to emergency department for further evaluation. 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 now c/o abd pressure/bloating x45 min. recently add of metformin to med regimen. denies CP. History of Present Illness A 42-year-old female reports to the emergency department with a chief complaint of nausea, belly pain, the pain hurts much that causes shortness of breath at times. Reports that she is having diarrhea as well. Believes that all may be because of her metformin. Reports that she recently started on metformin within the last 10 days. States that she has been having diarrhea abdominal pain and abdominal bloating. States that she was added the metformin due to history of trying to lose weight. Denies being diabetic. Reports that a chronic comes and goes when she has her symptoms. Wanted get checked out. Denies any vomiting. Denies any chest pain. Denies any cardiac history Review of Systems A 10 point review of systems is negative except as noted above. Medical and Surgical History: Reviewed and noted Social history: Lives at home Family History: Reviewed. Tobacco: Denies Physical Exam Vitals & Measurements T: 36.5 ?C(Oral) HR: 67(Monitored) RR: 16 BP: 114/73 SpO2: 97% HT: 164 cm WT: 90.6 kg BMI: 33.69 General: The patient appears well and in no apparent distress. Patient is resting comfortably on bed. Afebrile Skin: Warm, dry, no pallor noted. Head: Normocephalic, atraumatic Neck: No JVD Eye: PERRLA, EOMI ENT: Moist mucus membranes Cardiovascular: Regular rate normal peripheral perfusion Respiratory: No respiratory distress no accessory muscle use no obvious audible wheezing. Lung sounds clear auscultation Chest Wall: no deformity Musculoskeletal: normal ROM, no deformity, no swelling GI: No obvious distention soft, mild epigastric tenderness, but no distention, guarding or rebound tenderness noted. Neurological: A&O moves all extremities equal strength and symmetry Psychiatric: Cooperative and appropriate Medical Decision Making MEDICAL DECISION MAKING Number and Complexity of Problems Differential Diagnosis: [] [facility] Data External documents reviewed: [] My EKG interpretation: Reviewed My CT interpretation: [] My X-ray interpretation: Reviewed My Ultrasound interpretation: [] Decision rules/scores evaluated: [] Discussed with: [] Treatment and Disposition ED Course: 42-year-old female reports emergency department with a chief complaint of some abdominal pain, diarrhea, nausea. Reports that she recently started metformin for weight loss, she had the symptoms ever since. Wants to make sure that nothing else is going on. But reports that she is still having diarrhea but is not throwing up. Reports that she does feel nauseous. Denies any chest pain. Reports the pain hurts so much that it causes him shortness of breath sometimes. Due to her complaints, we did do lab work. Did not feel need for CT due to the mild epigastric pain. Metformin is also known for considerable GI of side effects. Lab work reviewed and noted. No acute changes seen. Troponin level was low as well. Chest x-ray and EKG were normal. Discussed with the patient. Discussed that this is likely side effect of the metformin. Discussed follow-up with PCP. Discussed return precautions. Follow-up with your primary care provider in 3 to 5 days. If symptoms worsen, do not improve, or new symptoms arise please report back to emergency department for further evaluation. The patient was understanding and agreeable to plan moving forward. Shared decision making: [] Code status: [] Assessment/Plan Abdominal pain (R10.9: Unspecified abdominal pain) Diarrhea (R19.7: Diarrhea, unspecified) Nausea (R11.0: Nausea) Orders: ondansetron, 12 mg = 3 tab(s), Tab-Dis, Oral, Once, Stop date 07/06/23 22:44:00 EDT, STAT, Start date 07/06/23 22:44:00 EDT, 07/06/23 22:44:00 EDT ondansetron, 4 mg = 1 tab(s), Oral, q8hr, PRN Nausea/Vomiting, # 12 tab(s), Refills(s) 0, Pharmacy: [facility]/pharmacy #[id number], 164, cm, 07/06/23 21:06:00 EDT, Height/Length Dosing, 90.6, kg, 07/06/23 21:06:00 EDT, Weight Dosing ondansetron, 4 mg = 1 tab(s), Tab-Dis, Oral, Once, Stop date 07/06/23 21:47:00 EDT, STAT, Start date 07/06/23 21:47:00 EDT, 07/06/23 21:47:00 EDT Automated Diff Basic Metabolic Panel CBC w/ Auto Diff eGFR Hepatic Function Panel Lipase Level PT & PTT Troponin 0 Hr. UA With Cult Reflex XR Chest Single View Medications Administered Given ondansetron 4 mg Dis Tab, 12 mg, Oral ondansetron 4 mg Dis Tab, 4 mg, Oral Disposition Plan Patient Discharge Condition Stable Discharge Disposition To home Discharge Prescription List Prescriptions Zofran ODT 4 mg Tab-Dis, 4 mg= 1 tab(s), Oral, q8hr, PRN Follow-up With When Contact Information Otoniel MOTLEY In 3 days 07/09/2023 EDT [address] (more content not included)... Normal [facility] Comment on above: Result Comment: Elec tronically Signed By: Kian Staton PA-C\.br\Date and Time Signed: 07/06/23 22:59 EDT\.br\Electronically Co-Signed By: Chato Mejia DO\.br\Date and Time Co-Signed: 07/07/23 03:16 EDT ED Patient Education Noteon 07-07-2023 ED Patient Education Note Gastroenterology Abdominal Pain, Adult Pain in the abdomen (abdominal pain) can be caused by many things. Often, abdominal pain is not serious and it gets better with no treatment or by being treated at home. However, sometimes abdominal pain is serious. Your health care provider will ask questions about your medical history and do a physical exam to try to determine the cause of your abdominal pain. Follow these instructions at home: Medicines ? Take huon-vjo-gvqzhus and prescription medicines only as told by your health care provider. ? Do not take a laxative unless told by your health care provider. General instructions ? Watch your condition for any changes. ? Drink enough fluid to keep your urine pale yellow. ? Keep all follow-up visits as told by your health care provider. This is important. Contact a health care provider if: ? Your abdominal pain changes or gets worse. ? You are not hungry or you lose weight without trying. ? You are constipated or have diarrhea for more than 2?3 days. ? You have pain when you urinate or have a bowel movement. ? Your abdominal pain wakes you up at night. ? Your pain gets worse with meals, after eating, or with certain foods. ? You are vomiting and cannot keep anything down. ? You have a fever. ? You have blood in your urine. Get help right away if: ? Your pain does not go away as soon as your health care provider told you to expect. ? You cannot stop vomiting. ? Your pain is only in areas of the abdomen, such as the right side or the left lower portion of the abdomen. Pain on the right side could be caused by appendicitis. ? You have bloody or black stools, or stools that look like tar. ? You have severe pain, cramping, or bloating in your abdomen. ? You have signs of dehydration, such as: ? Dark urine, very little urine, or no urine. ? Cracked lips. ? Dry mouth. ? Sunken eyes. ? Sleepiness. ? Weakness. ? You have trouble breathing or chest pain. Summary ? Often, abdominal pain is not serious and it gets better with no treatment or by being treated at home. However, sometimes abdominal pain is serious. ? Watch your condition for any changes. ? Take zjtm-zbq-twbcqza and prescription medicines only as told by your health care provider. ? Contact a health care provider if your abdominal pain changes or gets worse. ? Get help right away if you have severe pain, cramping, or bloating in your abdomen. This information is not intended to replace advice given to you by your health care provider. Make sure you discuss any questions you have with your health care provider. Document Revised: 12/15/2020 Document Reviewed: 03/06/2020 [employer] Patient Education ? 2022 [place]. Normal [facility] ED Patient Summaryon 023 ED Patient Summary [place] [address] Patient Discharge Instructions Person Information Name: TARIK GONZALEZ Age: 42 Years Arrival Date: 07/06/2023 20:51:37 Discharge Diagnosis: Abdominal pain; Diarrhea; Nausea Primary Care Physician: Otoniel MOTLEY DO Provider Information Primary Provider: Chato Mejia DO [employer] Report Developer:None The exam and treatment you received in the Emergency Department were for an urgent problem and are not intended as complete care. It is important that you follow up with a doctor, nurse practitioner, or physician?s assistant professor of german for ongoing care. If your symptoms become worse or you do not improve as expected and you are unable to reach your usual health care provider, you should return to the Emergency Department. We are available 24 hours a day. TARIK GONZALEZ has been given the following list of patient education materials, prescriptions and follow-up instructions: Follow-up Instructions: With: Address: When: Otoniel MOTLEY [address] [facility] [place] [phone] Business (1) In 3 days 07/09/2023 Comments: Follow-up with your primary care provider in 3 to 5 days. If symptoms worsen, do not improve, or new symptoms arise please report back to emergency department for further evaluation. In the event that this physician does not participate in your insurance network, please consult with your insurance company to find a nearby participating provider. Patient Education Materials: Abdominal Pain, Adult A MESSAGE TO ALL PATIENTS REGARDING OPIOIDS PRESCRIPTION OPIOIDS: WHAT YOU NEED TO KNOW Prescription opioids can be used to help relieve ccagttdd-yi-lkmgdw pain and are often prescribed following a surgery or injury, or for certain health conditions. These medications can be an important part of the treatment but also come with serious risks. It is important to work with your healthcare provider to make sure you are getting the safest, most effective care. WHAT ARE THE RISKS AND SIDE EFFECTS OF OPIOID USE? Prescription opioids carry serious risks of addiction and overdose, especially with prolonged use. An opioid overdose, often marked by slowed breathing, can cause sudden . The use of prescription opioids can have a number of side effects as well, even when taken as directed: ? Tolerance?meaning you might need to take more of the medication for the same pain relief ? Physical dependence?meaning you have symptoms of withdrawal when a medication is stopped ? Increased sensitivity to pain ? Constipation ? Nausea, vomiting, and dry mouth ? Sleepiness and dizziness ? Confusion ? Depression ? Low levels of testosterone that can result in lower sex drive, energy, and strength ? Itching and sweating RISKS ARE GREATER WITH: ? History of drug misuse, substance use disorder, or overdose ? Mental health conditions (such as depression or anxiety) ? Sleep apnea ? Older age (65 years and older) ? Avoid alcohol while taking prescription opioids. Also, unless specifically advised by your health care provider, medications to avoid include: ? Benzodiazepines (such as Xanax or Valium) ? Muscle relaxants (such as Soma or Flexeril) ? Hypnotics (such as Ambien or Lunesta) ? Other prescription opioids KNOW YOUR OPTIONS Talk to your health care provider about ways to manage your pain that don?t involve prescription opioids. Some of these options may actually work better and have fewer risks and side effects. Options may include: ? Pain relievers such as acetaminophen, ibuprofen, and naproxen ? Some medication that are also used for depression or seizures ? Physical therapy and exercise ? Cognitive behavioral therapy, a psychological, goal-directed approach, in which patients learn how to modify physical, behavioral, and emotional triggers of pain and stress. IF YOU ARE PRESCRIBED OPIOIDS FOR PAIN: ? Never take opioids in greater amounts or more often than prescribed. ? Follow up with your primary health care provider. o Work together to create a plan on how to manage your pain. o Talk about ways to help manage your pain that don?t involve prescription opioids. o Talk about any and all concerns and side effects. ? Help prevent misuse and abuse o Never sell or share prescription opioids. o Never use another person?s prescription opioids. ? Store prescription opioids in a secure place and out of reach of others (this may include visitors, children, friends, and family). ? Safely dispose of unused prescription opioids: Find your community drug take-back program or your pharmacy mail-back program, or flush them down the toilet, following guidance from the Food and Drug Administration (www.fda.gov/Drugs/R esourcesForYou). ? Visit www.cdc.gov/drugover dose to learn about the risks of opioids (more content not included)... Normal [facility] Hep Func Panelon 07-07-2023 Bilirubin.indirect [Mass or moles/Vol] UTC Abnormal 0.1-0.9 [facility] Comment on above: Result Comment: Resu lt verified by Discern Rule. Performed result UTC (Unable to Calculate) was sent as an Alpha code due the inability to calculate a valid numeric value. Performed By: #### 1 [id number], 2305733, 91474293, 6352979, 82219240, 6730437, 9731657 #### [facility] [address] [place] [address] Albumin [Mass/Vol] 4.2 g/dL Normal 3.3-5.0 [facility] Comment on above: Performed By: #### 1 [id number], 3318382, 12743458, 2454272, 98226340, 7863222, 5220750 #### [facility] [address] [place] [address] Albumin/Globulin (S) [Mass conc ratio] 1.4 Normal 1.1-2.2 [facility] Comment on above: Performed By: #### 1 6883215, 5867938, 69153925, 5548792, 18405750, 8780443, 7761766 #### [facility] [address] [place] [address] ALP [Catalytic activity/Vol] 32 Int._Unit/L Normal 21-98 [facility] Comment on above: Performed By: #### 1 3181542, 0143584, 74373581, 6202782, 90610689, 5242711, 7428232 #### [facility] [address] [place] [address] ALT No additional P-5'-P [Catalytic activity/Vol] 11 Int._Unit/L Normal 6-46 [facility] Comment on above: Performed By: #### 1 1522689, 4213096, 32103055, 2472905, 21878501, 3815366, 5106691 #### [facility] [address] [place] [address] AST [Catalytic activity/Vol] 16 Int._Unit/L Normal 5-43 [facility] Comment on above: Performed By: #### 1 7913852, 3483171, 93347400, 6822144, 85300851, 9386876, 4853808 #### [facility] [address] [place] [address] Bilirubin [Mass/Vol] 0.5 mg/dL Normal 0.0-1.1 [facility] Comment on above: Performed By: #### 1 8557312, 6560143, 64528973, 8610320, 55421814, 3145835, 4930394 #### [facility] [address] [place], [place] [address] Globulin (S) [Mass/Vol] 3.0 g/dL Normal 1.4-4.0 [facility] Comment on above: Performed By: #### 1 5779113, 9286719, 73570727, 7296088, 44030910, 1540421, 4272297 #### [facility] [address] [place] [address] Protein [Mass/Vol] 7.2 g/dL Normal 6.0-7.8 [facility] Comment on above: Performed By: #### 1 [id number], 5875212, 64891141, 5922416, 19013474, 9658674, 0249119 #### [facility] [address] [place] [address] Bilirubin.direct [Mass/Vol] mg/dL Normal 0.1-0.4 [facility] Comment on above: Performed By: #### 1 4079241, 7619090, 25514863, 4532010, 86082904, 4561053, 0764489 #### [facility] [address] [place] [address] PT & PTTon 07-07-2023 aPTT Coag (PPP) [Time] 33.5 second(s) Normal 25.1-36.5 [facility] Comment on above: Result Comment: Para meter 15 days - 4 weeks 1 - 5 months 6 - 11 months 1 - 5 years 6 - 10 years 11 - 17 years PTT Mean: 35.4 (27.6-45.6) Mean: 33.5 (24.8-40.7) Mean: 32.4 (25.1-40.7) Mean: 31.6 (24.0-39.2) Mean: 31.6 (26.9-38.7) Mean: 31.0 (24.6-38.4) Pediatric Reference ranges were obtained from a study by Erlin Medrano et al. prepared from 1437 samples obtained at 7 different centers using the same coagulation reagent and instrumentation as [facility]. Currently there are no coagulation studies available worldwide for children to 14 days, and no normal ranges. Heparin therapeutic range (represented by Anti-Factor Xa activity of 0.2 - 0.4 U/mL) corresponds to PTT of 56.6 - 109.0 sec. Performed By: #### 1 0576007, 6619582, 82800265, 3741664, 28099207, 0885264, 6456396 #### [facility] [address] [place] [address] INR Coag (PPP) [Relative time] 1.0 {INR} Invalid Interpretation Code [facility] Comment on above: Result Comment: INR results are specifically intended to assess patients stabilized on long-term Anticoagulation therapy suggested INR?s ?Less Intensive Anticoagulation? 2.0 ? 3.0 Conventional Range 3.0 ? 4.5 Performed By: #### 1 0756510, 4636425, 70560147, 3527748, 35101363, 0863863, 6425228 #### [facility] [address] [place] [address] PT Coag (PPP) [Time] 11.1 second(s) Normal 9.4-12.5 [facility] Comment on above: Result Comment: 15 d ays - 4 weeks 1 - 5 months 6 -11 months 1- 5 years 6-10 years 11 -17 years Mean: 11.2 (9.5-12.6) Mean: 11.0 (9.7-12.8) Mean: 11.0 (9.8-13.0) Mean: 11.3 (9.9-13.4) Mean: 11.7 (10.0-14.6) Mean: 11.8 (10.0 - 14.1) Pediatric Reference ranges were obtained from a study by Erlin Medrano et al. prepared from 1437 samples obtained at 7 different centers using the same coagulation reagent and instrumentation as [facility]. Currently there are no coagulation studies available worldwide for children to 14 days, and no normal ranges. Performed By: #### 1 8613961, 7162413, 96100941, 6848294, 64603737, 5887641, 0411033 #### [facility] [address] [place] [address] Troponin 0 Hr.on 07-07-2023 Troponin I.cardiac [Mass/Vol] 2.40 pg/mL Low 10.10-27.10 [facility] Comment on above: Result Comment: The 95% CI (Confidence Interval) PPV (Positive Predictive Value) for myocardial infarction in females is 38 pg/mL, in males 51 pg/mL. The results should be used in conjunction with clinical conditions of myocardial infarction. (Access High Sensitivity Troponin I Instructions For Use, Rachel Winside, June 2018) Performed By: #### 1 5520886, 5181156, 14934678, 5887666, 80810387, 0622052, 9464086 #### [facility] [address] [place] [address] XR Chest Single Viewon 07-07 XR Chest Single View Exam Date/Time: 07/06/2023 22:16 EDT Reason for Exam: epigastric pain;Other (please specify) Report IMPRESSION: NO EVIDENCE OF ACTIVE CHEST DISEASE. CLINICAL HISTORY: epigastric pain. COMPARISON: 06/30/2023. COMMENT: AP portable. The heart is normal in size. The mediastinum is unremarkable. The lungs appear clear. No infiltration nor pleural effusion is evident. No significant change is noted when compared to the prior exam. Ordering Provider: Kian Staton FINAL REPORT Dictated: 07/07/2023 7:25 am Meir Alvarado M.D. Signed (Electronic Signature): 07/07/2023 7:25 am Signed by: Meir Alvarado M.D. Transcribed by: TEJAL Technologist: JAELYN Technical Comments Radiation Dose: Ka,r in mGy = na DAP = na Normal [facility] eGFRon 07-07-2023 GFR/1.73 sq M.predicted among non-blacks MDRD (S/P/Bld) [Vol rate/Area] 82 mL/min/1.73 m2 Normal >=59 [facility] Comment on above: Order Comment: Order added by Discern Expert. Result Comment: Certified Master Safecracker nilesh kidney disease could be indicated at eGFR's of less than 60 mL/min/1.73m2. Kidney failure is indicated at less than 15 mL/min/1.73m2. Performed By: #### 1 7843018, 8378246, 49871181, 8389712, 63439367, 4278015, 3323023 #### [facility] [address] [place] [address] Auto Diffon 07-06-2023 Basophils/100 WBC (Bld) 0.4 % Normal 0.0-2.0 [facility] Comment on above: Order Comment: Order Added by Discern Expert. Performed By: #### 1 8951868, 9906383, 57017248, 3717809, 99606826, 4661996, 1562951 #### [facility] [address] [place] [address] Basophils/Leukocytes Auto (Bld) [Pure # fraction] 0.0 E9/L Normal 0.0-0.2 [facility] Comment on above: Order Comment: Order Added by Discern Expert. Performed By: #### 1 7343207, 0893575, 74342555, 3445211, 26401869, 0302700, 7294640 #### [facility] [address] [place] [address] Eosinophils/100 WBC (Bld) 1.3 % Normal 0.0-8.0 [facility] Comment on above: Order Comment: Order Added by Sabra Expert. Performed By: #### 1 6601971, 9135004, 69817567, 5660240, 01392895, 5093838, 3862496 #### [facility] [address] [place] [address] Eosinophils/Leukocytes Auto (Bld) [Pure # fraction] 0.1 E9/L Normal 0.0-0.5 [facility] Comment on above: Order Comment: Order Added by Discern Expert. Performed By: #### 1 5407935, 5325777, 90454670, 5193337, 63001534, 6378995, 6544682 #### [facility] [address] [place] [address] Lymphocytes/100 WBC (Bld) 25.3 % Normal 14.0-50.0 [facility] Comment on above: Order Comment: Order Added by Sabra Expert. Performed By: #### 1 4258849, 8444837, 05773424, 4402164, 96708859, 7116846, 5901480 #### [facility] [address] [place] [address] Lymphocytes/Leukocytes Auto (Bld) [Pure # fraction] 2.0 E9/L Normal 1.0-4.0 [facility] Comment on above: Order Comment: Order Added by Sabra Expert. Performed By: #### 1 7220631, 4602234, 33772160, 1716263, 63381802, 3654328, 9600054 #### [facility] [address] [place] [address] Monocytes/100 WBC (Bld) 6.4 % Normal 4.0-14.0 [facility] Comment on above: Order Comment: Order Added by Discern Expert. Performed By: #### 1 5223924, 6012301, 90431916, 3471262, 92322203, 7772552, 1586757 #### [facility] [address] [place] [address] Monocytes/Leukocytes Auto (Bld) [Pure # fraction] 0.5 E9/L Normal 0.2-1.0 [facility] Comment on above: Order Comment: Order Added by Sabra Expert. Performed By: #### 1 7705257, 5783885, 49673135, 4001319, 69098385, 7356138, 1426364 #### [facility] [address] [place] [address] Neutrophils/100 WBC (Bld) 66.6 % Normal 36.0-75.0 [facility] Comment on above: Order Comment: Order Added by Sabra Expert. Performed By: #### 1 9226254, 3048741, 91061264, 1149357, 32861278, 6753741, 2726748 #### [facility] [address] [place] [address] Neutrophils/Leukocytes Auto (Bld) [Pure # fraction] 5.4 E9/L Normal 2.0-7.5 [facility] Comment on above: Order Comment: Order Added by Sabra Expert. Performed By: #### 1 2950291, 9282425, 56893716, 6678378, 68601892, 8777181, 4400210 #### [facility] [address] [place] [address] BMPon 07-06-2023 Anion gap [Moles/Vol] 13 mmol/L Normal 6-16 [facility] Comment on above: Performed By: #### 1 7348394, 5280712, 76007141, 1833364, 80329292, 4134185, 9031090 #### [facility] [address] [place] [address] Calcium [Mass/Vol] 9.3 mg/dL Normal 8.9-11.1 [facility] Comment on above: Performed By: #### 1 4420481, 9814398, 35824969, 2189223, 43372571, 2055506, 0931903 #### [facility] [address] [place] [address] Chloride [Moles/Vol] 104 mmol/L Normal 101-111 [facility] Comment on above: Performed By: #### 1 5591952, 0440142, 86810868, 7740307, 41595244, 4780372, 3645319 #### [facility] [address] [place] [address] CO2 [Moles/Vol] 26 mmol/L Normal 21-31 [facility] Comment on above: Performed By: #### 1 7616031, 1564381, 12560113, 0466466, 34856794, 8049250, 8086268 #### [facility] [address] [place] [address] Glucose [Mass/Vol] 117 mg/dL Normal 55-199 [facility] Comment on above: Result Comment: If t his glucose result represents a fasting glucose, interpretation should refer to the following reference range: 55-99 mg/dL Performed By: #### 1 1863094, 0400889, 77883737, 9596675, 82443025, 9457677, 7088887 #### [facility] [address] [place] [address] Potassium [Moles/Vol] 3.5 mmol/L Normal 3.5-5.3 [facility] Comment on above: Performed By: #### 1 7475354, 9050259, 98694150, 4302731, 35650815, 6602863, 6920377 #### [facility] [address] [place] [address] Sodium [Moles/Vol] 139 mmol/L Normal 135-145 [facility] Comment on above: Performed By: #### 1 1842399, 7473663, 03032991, 6878732, 63788221, 8380747, 7349751 #### [facility] [address] [place] [address] CBC w/ Auto Diffon 3 Erythrocyte distribution width (RBC) [Ratio] 13.7 % Normal 10.9-14.2 [facility] Comment on above: Performed By: #### 1 9618518, 9041444, 60135334, 2981762, 81707761, 3554211, 4994845 #### [facility] [address] [place] [address] Hematocrit (Bld) [Volume fraction] 39.9 % Normal 34.0-46.0 [facility] Comment on above: Performed By: #### 1 9677185, 6333667, 57650896, 9887223, 82620877, 5043150, 8503011 #### [facility] [address] [place] [address] Hemoglobin (Bld) [Mass/Vol] 13.5 g/dL Normal 12.0-16.0 [facility] Comment on above: Performed By: #### 1 4218043, 3294503, 61286564, 7779987, 62767011, 9857899, 8427045 #### [facility] [address] [place] [address] MCH (RBC) [Entitic mass] 28.8 pg Normal 27.0-34.0 [facility] Comment on above: Performed By: #### 1 7667454, 3925524, 61928731, 8567216, 19294453, 2424063, 5276010 #### [facility] [address] [place] [address] MCHC (RBC) [Mass/Vol] 33.9 g/dL Normal 31.4-36.0 [facility] Comment on above: Performed By: #### 1 6721759, 9198189, 98720671, 7460134, 06714421, 8228199, 9604799 #### [facility] [address] [place] [address] MCV (RBC) [Entitic vol] 85.0 fL Normal 80.0-100.0 [facility] Comment on above: Performed By: #### 1 2035137, 7112823, 09435974, 2694910, 10043379, 4358110, 2775526 #### [facility] [address] [place] [address] Platelet mean volume (Bld) [Entitic vol] 8.8 fL Normal 6.4-10.8 [facility] Comment on above: Performed By: #### 1 8711833, 9282344, 41022242, 9522580, 60153810, 3692091, 9964753 #### [facility] [address] [place] [address] Platelets (Bld) [#/Vol] 271.0 E9/L Normal 150.0-500.0 [facility] Comment on above: Performed By: #### 1 9798236, 3071630, 65451605, 3251043, 31750570, 4496454, 7058376 #### [facility] [address] [place] [address] RBC (Bld) [#/Vol] 4.7 E12/L Normal 4.3-5.9 [facility] Comment on above: Performed By: #### 1 1991304, 7230724, 59893149, 3197201, 18516149, 4071320, 3687760 #### [facility] [address] [place] [address] WBC corrected for nucl RBC Auto (Bld) [#/Vol] 8.1 E9/L Normal 4.0-11.0 [facility] Comment on above: Performed By: #### 1 8955286, 5464734, 37287269, 0834726, 81352098, 9954135, 4727869 #### [facility] [address] [place] [address] CHEMISTRYOrdered By: SYSTEM SYSTEM on 07-06-2023 Albumin [Mass/Vol] 4.2 g/dL Normal 3.3 - 5.0 gm/dL [facility] Albumin/Globulin [Mass ratio] 1.4 {ratio} Normal 1.1 - 2.2 [facility] ALP [Catalytic activity/Vol] 32 [iU]/d Normal 21 - 98 Int._Unit/L [facility] ALT No additional P-5'-P [Catalytic activity/Vol] 11 [iU]/d Normal 6 - 46 Int._Unit/L [facility] Anion gap [Moles/Vol] 13 mmol/L Normal 6 - 16 mEq/L [facility] AST [Catalytic activity/Vol] 16 [iU]/d Normal 5 - 43 Int._Unit/L [facility] Bilirubin [Mass/Vol] 0.5 mg/dL Normal 0.0 - 1 .1 mg/dL [facility] Bilirubin.direct [Mass/Vol] mg/dL Normal 0.1 - 0.4 mg/dL [facility] Bilirubin.indirect [Mass or moles/Vol] Unable to Calculate mg/dL Invalid Interpretation Code 0.1 - 0.9 mg/dL [facility] Calcium [Mass/Vol] 9.3 mg/dL Normal 8.9 - 11. 1 mg/dL [facility] Chloride [Moles/Vol] 104 mmol/L Normal 101 - 1 11 mmol/L [facility] CO2 [Moles/Vol] 26 mmol/L Normal 21 - 31 mmol/L [facility] Creatinine [Mass/Vol] 0.9 mg/dL Normal 0.5 - 1.3 mg/dL [facility] GFR/1.73 sq M.predicted among non-blacks MDRD (S/P/Bld) [Vol rate/Area] 82 mL/min/1.73 m2 Normal >=59mL/min/1 .73 m2 [facility] Chem S Globulin (S) [Mass/Vol] 3.0 g/dL Normal 1.4 - 4.0 gm/dL [facility] Glucose [Mass/Vol] 117 mg/dL Normal 55 - 199 mg/dL [facility] Lipase [Catalytic activity/Vol] 22 U/L Normal 13 - 58 unit/L [facility] Potassium [Moles/Vol] 3.5 mmol/L Normal 3.5 - 5.3 mmol/L [facility] Protein [Mass/Vol] 7.2 g/dL Normal 6.0 - 7.8 gm/dL [facility] Sodium [Moles/Vol] 139 mmol/L Normal 135 - 145 mmol/L [facility] Troponin I.cardiac [Mass/Vol] 2.40 pg/mL Low 10.10 - 27.10 pg/mL [facility] Urea nitrogen [Mass/Vol] 15 mg/dL Normal 5 - 21 mg/dL [facility] Urea nitrogen/Creatinine [Mass ratio] 17 mg/mg Normal 10 - 20 [facility] COAGULATIONOrdered By: Sai Whitney on 07-06-2023 aPTT Coag (PPP) [Time] 33.5 s Normal 25.1 - 36.5 second(s) [facility] INR Coag (PPP) [Relative time] 1.0 {INR} Invalid Interpretation Code [facility] PT Coag (PPP) [Time] 11.1 s Normal 9.4 - 1 2.5 second(s) [facility] Consent for Treatmenton 06-11 Consent for Treatment [id number] 30 [id number] #1.00CD:127 Normal [facility] HEMATOLOGYOrdered By: SYSTEM SYSTEM on 07-06-2023 Basophils/100 WBC (Bld) 0.4 % Normal 0.0 - 2.0 % [facility]eAutoSS Basophils/Leukocytes Auto (Bld) [Pure # fraction] 0.0 E9/L Normal 0.0 - 0.2 E9/L [facility] Eosinophils/100 WBC (Bld) 1.3 % Normal 0.0 - 8.0 % [facility] Eosinophils/Leukocytes Auto (Bld) [Pure # fraction] 0.1 E9/L Normal 0.0 - 0.5 E9/L [facility] Lymphocytes/100 WBC (Bld) 25.3 % Normal 14.0 - 50.0 % [facility] Lymphocytes/Leukocytes Auto (Bld) [Pure # fraction] 2.0 E9/L Normal 1.0 - 4.0 E9/L [facility] Monocytes/100 WBC (Bld) 6.4 % Normal 4.0 - 14.0 % [facility] Monocytes/Leukocytes Auto (Bld) [Pure # fraction] 0.5 E9/L Normal 0.2 - 1.0 E9/L [facility] Neutrophils/100 WBC (Bld) 66.6 % Normal 36.0 - 75.0 % [facility] Neutrophils/Leukocytes Auto (Bld) [Pure # fraction] 5.4 E9/L Normal 2.0 - 7.5 E9/L [facility] HEMATOLOGYOrdered By: James Gusman on 07-06-2023 Erythrocyte distribution width (RBC) [Ratio] 13.7 % Normal 10.9 - 14.2 % [facility] Hematocrit (Bld) [Volume fraction] 39.9 % Normal 34.0 - 46.0 % [facility] Hemoglobin (Bld) [Mass/Vol] 13.5 g/dL Normal 12.0 - 16.0 gm/dL [facility] MCH (RBC) [Entitic mass] 28.8 pg Normal 27.0 - 34.0 pg [facility] MCHC (RBC) [Mass/Vol] 33.9 g/dL Normal 31.4 - 36.0 gm/dL [facility] MCV (RBC) [Entitic vol] 85.0 fL Normal 80.0 - 100.0 fL [facility] Platelet mean volume (Bld) [Entitic vol] 8.8 fL Normal 6.4 - 10.8 fL [facility] Platelets (Bld) [#/Vol] 271.0 E9/L Normal 150.0 - 500.0 E9/L [facility] RBC (Bld) [#/Vol] 4.7 E12/L Normal 4.3 - 5.9 E12/L [facility] WBC corrected for nucl RBC Auto (Bld) [#/Vol] 8.1 E9/L Normal 4.0 - 11.0 E9/L [facility] Lipase Levelon 07-06-2023 Lipase [Catalytic activity/Vol] 22 U/L Normal 13-58 [facility] Comment on above: Performed By: #### 1 5167526, 2466359, 76259741, 4651701, 38502743, 2353584, 0672190 #### [facility] [address] [place] [address] Auto Diffon 06-30-2023 Basophils/100 WBC (Bld) 0.4 % Normal 0.0-2.0 [facility] Comment on above: Order Comment: Order Added by Discern Expert. Performed By: #### 1 5505637, 46843479, 4241977, 01255153, 43268398, 8137357, 2761804, 9267532, 0483180, 8239023, 00062893, 6698204, 14782812 ####[address] [place] [address] Basophils/Leukocytes Auto (Bld) [Pure # fraction] 0.0 E9/L Normal 0.0-0.2 [facility] Comment on above: Order Comment: Order Added by Discern Expert. Performed By: #### 1 2650450, 47759903, 9663455, 50905398, 13355229, 0409974, 2373415, 6319181, 1042940, 4018473, 60898540, 6978018, 73266712 ####[facility] [address] [place] [address] Eosinophils/100 WBC (Bld) 1.7 % Normal 0.0-8.0 [facility] Comment on above: Order Comment: Order Added by Discern Expert. Performed By: #### 1 6102601, 41952630, 1592754, 98224904, 03273118, 8834681, 9475423, 7959741, 0505502, 7582285, 74026288, 8026154, 69526610 ####[address] [place] [address] Eosinophils/Leukocytes Auto (Bld) [Pure # fraction] 0.1 E9/L Normal 0.0-0.5 [facility] Comment on above: Order Comment: Order Added by Discern Expert. Performed By: #### 1 8608203, 79797021, 4187410, 06112046, 74255013, 9188527, 7212555, 9832054, 3383295, 7498823, 82811979, 8124228, 44956440 ####[address] [place] [address] Lymphocytes/100 WBC (Bld) 26.5 % Normal 14.0-50.0 [facility] Comment on above: Order Comment: Order Added by Discern Expert. Performed By: #### 1 9288771, 31596760, 9622894, 07176677, 11973301, 9287122, 6143326, 1732131, 0904237, 9582959, 53136070, 2972941, 28624809 ####[address] [address] Lymphocytes/Leukocytes Auto (Bld) [Pure # fraction] 1.8 E9/L Normal 1.0-4.0 [facility] Comment on above: Order Comment: Order Added by Discern Expert. Performed By: #### 1 1303196, 24597155, 7246369, 46097798, 30614314, 2457645, 0229167, 2454125, 4006266, 4085550, 57457248, 8318152, 25444100 ####[address] [address] Monocytes/100 WBC (Bld) 6.7 % Normal 4.0-14.0 [facility] Comment on above: Order Comment: Order Added by Discern Expert. Performed By: #### 1 7672660, 82415880, 5379803, 53803828, 14376207, 6259834, 9562323, 6110289, 7780591, 0827262, 50898269, 0627625, 78503178 ####[address] [address] Monocytes/Leukocytes Auto (Bld) [Pure # fraction] 0.5 E9/L Normal 0.2-1.0 [facility] Comment on above: Order Comment: Order Added by Discern Expert. Performed By: #### 1 7412246, 69489526, 3787674, 88148277, 85667747, 1984958, 3141483, 8747866, 2790391, 0292640, 50095337, 3780094, 88011827 ####[facility] [address] [place] [address] Neutrophils/100 WBC (Bld) 64.7 % Normal 36.0-75.0 [facility] Comment on above: Order Comment: Order Added by Discern Expert. Performed By: #### 1 0406747, 16447463, 0119890, 12574433, 40275949, 3471004, 4380386, 6825052, 7737403, 5304031, 18159112, 3192714, 71398108 ####[address] [place] [address] Neutrophils/Leukocytes Auto (Bld) [Pure # fraction] 4.4 E9/L Normal 2.0-7.5 [facility] Comment on above: Order Comment: Order Added by Discern Expert. Performed By: #### 1 1958859, 21304212, 6050556, 18072170, 45025522, 7344405, 2951046, 6830213, 3589986, 8621447, 13311821, 2631545, 36190030 ####[address] [place] [address] B hCG Qualon 06-30-2023 Beta hCG Ql Negative Normal [facility] Comment on above: Performed By: #### 1 0043513, 88813690, 3804437, 03569705, 52901267, 9825478, 2540470, 0155124, 5528855, 5733016, 17590580, 4371433, 86033873 ####[facility] [address] [place] [address] BMPon 06-30-2023 Creatinine [Mass/Vol] 0.9 mg/dL Normal 0.5-1.3 [facility] Comment on above: Performed By: #### 1 5777177, 16189884, 2861070, 15135333, 37669927, 6188709, 7832954, 4611984, 1219008, 3962742, 27946549, 3925676, 67389041 ####[facility] [address] [place] [address] Urea nitrogen [Mass/Vol] 13 mg/dL Normal 5-21 [facility] Comment on above: Performed By: #### 1 0890477, 97294889, 9711515, 77121061, 51068279, 9366341, 0008927, 7017866, 4449130, 0631435, 75403768, 4106474, 47115861 ####[facility] [address] [place] [address] Urea nitrogen/Creatinine [Mass ratio] 14 No Units Normal 10-20 [facility] Comment on above: Performed By: #### 1 7815768, 18041155, 9895841, 87400564, 27137373, 7156385, 3703958, 1740245, 9089815, 4768989, 31337396, 3150297, 13418802 ####[facility] [address] [place] [address] Anion gap [Moles/Vol] 10 mmol/L Normal 6-16 [facility] Comment on above: Performed By: #### 1 8410765, 15007382, 0818728, 39400141, 50169215, 3548896, 1413917, 6191419, 9573349, 1995667, 51483130, 6914751, 51618105 ####[facility] [address] [place] [address] Calcium [Mass/Vol] 8.6 mg/dL Low 8.9-11.1 [facility] Comment on above: Performed By: #### 1 6281900, 90730811, 5977543, 69999058, 64858142, 7269299, 9445663, 2397561, 4334164, 5464221, 82583783, 2891914, 87156138 ####[facility] [address] [place] [address] Chloride [Moles/Vol] 106 mmol/L Normal 101-111 [facility] Comment on above: Performed By: #### 1 9017294, 31605666, 0416903, 83992357, 54826465, 9590352, 5908644, 6102055, 4897218, 5271785, 66787752, 8718027, 32666820 ####[facility] [address] [place] [address] CO2 [Moles/Vol] 23 mmol/L Normal 21-31 [facility] Comment on above: Performed By: #### 1 0436238, 85320675, 3309529, 98118516, 88075110, 8331594, 0032368, 7407749, 7779344, 5811061, 23952085, 6183646, 58005574 ####[facility] [address] [place] [address] Glucose [Mass/Vol] 106 mg/dL Normal 55-199 [facility] Comment on above: Result Comment: If t his glucose result represents a fasting glucose, interpretation should refer to the following reference range: 55-99 mg/dL Performed By: #### 1 9713504, 81268250, 2504094, 05900411, 51786654, 5721531, 0630194, 6255755, 9394417, 4682443, 93423378, 6190687, 67724907 ####[facility] [address] [place] [address] Potassium [Moles/Vol] 3.5 mmol/L Normal 3.5-5.3 [facility] Comment on above: Performed By: #### 1 1107535, 13292947, 8377389, 61710775, 80385345, 2028688, 4566824, 2025553, 8053254, 8423054, 99392099, 3562505, 20638865 ####[facility] [address] [place] [address] Sodium [Moles/Vol] 135 mmol/L Normal 135-145 [facility] Comment on above: Performed By: #### 1 9186826, 64320753, 6816276, 90200167, 24403557, 2671042, 8051590, 1979703, 1074585, 7574298, 56265477, 6057269, 63713933 ####[facility] [address] [place] [address] BNPon 06-30-2023 Int Ctr BNP Pass Normal [facility] Comment on above: Performed By: #### 1 0245384, 85675795, 5963122, 87186489, 22737793, 1685032, 2401415, 1931073, 9607877, 3032542, 96043275, 4210943, 03517177 ####[facility] [address] [place] [address] Natriuretic peptide B (Bld) [Mass/Vol] 31 pg/mL Normal 5-80 [facility] Comment on above: Performed By: #### 1 4038331, 53263487, 2738881, 39588839, 60634857, 2609754, 1515609, 5759285, 9038244, 8145936, 14549401, 7742776, 36911566 ####[facility] [address] [place] [address] CBC w/ Auto Diffon 3 Erythrocyte distribution width (RBC) [Ratio] 13.8 % Normal 10.9-14.2 [facility] Comment on above: Performed By: #### 1 0237367, 58285681, 7003048, 83272081, 91234361, 2663905, 6459848, 7691688, 5939494, 7520449, 21060571, 1765870, 14112819 ####[facility] [address] [place] [address] Hematocrit (Bld) [Volume fraction] 40.6 % Normal 34.0-46.0 [facility] Comment on above: Performed By: #### 1 [id number], [id number], 0274193, 01695232, 36032130, 6688581, 1470138, 4734412, 7581885, 7732185, 06855386, 4610675, [id number] ####[facility] [address] [place] [address] Hemoglobin (Bld) [Mass/Vol] 13.7 g/dL Normal 12.0-16.0 [facility] Comment on above: Performed By: #### 1 [id number], [id number], 9009435, 98529094, 92709593, 1579802, 4719522, 2666645, 1494879, 5123751, 34338615, 7638660, 91449480 ####[facility] [address] [place] [address] MCH (RBC) [Entitic mass] 28.7 pg Normal 27.0-34.0 [facility] Comment on above: Performed By: #### 1 [id number], [id number], 7003596, [id number], [id number], 5798994, 2096012, 7766483, 4163107, 8650754, 56031047, 5494345, 67833476 ####[facility] [address] [place] [address] MCHC (RBC) [Mass/Vol] 33.8 g/dL Normal 31.4-36.0 [facility] Comment on above: Performed By: #### 1 [id number], 10914257, 3686934, 40927530, 82113519, 6079814, 6075720, 4430301, 6030696, 8477694, 95247360, 0606654, 51849410 ####[facility] [address] [place] [address] MCV (RBC) [Entitic vol] 85.1 fL Normal 80.0-100.0 [facility] Comment on above: Performed By: #### 1 [id number], 62542337, 7403798, 17021315, 54354482, 6913683, 1574754, 6563281, 4000400, 1946258, 32967107, 4670993, 87272966 ####[facility] [address] [place] [address] Platelet mean volume (Bld) [Entitic vol] 8.3 fL Normal 6.4-10.8 [facility] Comment on above: Performed By: #### 1 [id number], 72701720, 9391033, 98637531, 82989759, 0295059, 6075127, 1008976, 9829305, 0936235, 31754478, 4717427, 40174621 ####[facility] [address] [place] [address] Platelets (Bld) [#/Vol] 295.0 E9/L Normal 150.0-500.0 [facility] Comment on above: Performed By: #### 1 [id number], 79524505, 1351478, 71983627, 74511034, 8056306, 3081925, 6662305, 3875214, 9314507, 86731001, 8403284, 06347154 ####[address] [place] [address] RBC (Bld) [#/Vol] 4.8 E12/L Normal 4.3-5.9 [facility] Comment on above: Performed By: #### 1 5242810, 65047083, 8034587, 53174731, 78145088, 3896200, 7717678, 1292709, 4648304, 2032514, 59040925, 8758476, 13856624 ####[facility] [address] [place] [address] WBC corrected for nucl RBC Auto (Bld) [#/Vol] 6.7 E9/L Normal 4.0-11.0 [facility] Comment on above: Performed By: #### 1 0723886, 10907197, 0268124, 25287868, 35947432, 4369020, 3633289, 9737025, 1044615, 5073635, 40919506, 1989649, 70233852 ####[facility] [address] [place] [address] CHEMISTRYOrdered By: SYSTEM SYSTEM on 06-30-2023 Albumin [Mass/Vol] 3.8 g/dL Normal 3.3 - 5.0 gm/dL [facility] Albumin/Globulin [Mass ratio] 1.3 {ratio} Normal 1.1 - 2.2 [facility] ALP [Catalytic activity/Vol] 30 [iU]/d Normal 21 - 98 Int._Unit/L [facility] ALT No additional P-5'-P [Catalytic activity/Vol] 10 [iU]/d Normal 6 - 46 Int._Unit/L [facility] Anion gap [Moles/Vol] 10 mmol/L Normal 6 - 16 mEq/L F [facility] AST [Catalytic activity/Vol] 16 [iU]/d Normal 5 - 43 Int._Unit/L [facility] Bilirubin [Mass/Vol] 0.4 mg/dL Normal 0.0 - 1 .1 mg/dL [facility] Bilirubin.direct [Mass/Vol] mg/dL Normal 0.1 - 0.4 mg/dL [facility] Bilirubin.indirect [Mass or moles/Vol] Unable to Calculate mg/dL Invalid Interpretation Code 0.1 - 0.9 mg/dL [facility] Calcium [Mass/Vol] 8.6 mg/dL Low 8.9 - 11. 1 mg/dL [facility] Chloride [Moles/Vol] 106 mmol/L Normal 101 - 1 11 mmol/L [facility] CO2 [Moles/Vol] 23 mmol/L Normal 21 - 31 mmol/L [facility] Creatinine [Mass/Vol] 0.9 mg/dL Normal 0.5 - 1.3 mg/dL [facility] GFR/1.73 sq M.predicted among non-blacks MDRD (S/P/Bld) [Vol rate/Area] 82 mL/min/1.73 m2 Normal >=59mL/min/1 .73 m2 [facility] Chem S Globulin (S) [Mass/Vol] 3.0 g/dL Normal 1.4 - 4.0 gm/dL [facility] Glucose [Mass/Vol] 106 mg/dL Normal 55 - 199 mg/dL [facility] Lactate [Mass/Vol] 1.7 mmol/L Normal 0.5 - 2.2 mmol/L [facility] Lipase [Catalytic activity/Vol] 23 U/L Normal 13 - 58 unit/L [facility] Potassium [Moles/Vol] 3.5 mmol/L Normal 3.5 - 5.3 mmol/L [facility] Protein [Mass/Vol] 6.8 g/dL Normal 6.0 - 7.8 gm/dL [facility] Sodium [Moles/Vol] 135 mmol/L Normal 135 - 145 mmol/L [facility] Troponin I.cardiac [Mass/Vol] pg/mL Low 10.10 - 27.10 pg/mL [facility] TSH Qn 1.63 m[IU]/L Normal 0.34 - 5.60 mcIU/mL [facility] Urea nitrogen [Mass/Vol] 13 mg/dL Normal 5 - 21 mg/dL [facility] Urea nitrogen/Creatinine [Mass ratio] 14 mg/mg Normal 10 - 20 [facility] CHEMISTRYOrdered By: Ayan Cisse on 06-30-2023 Natriuretic peptide B (Bld) [Mass/Vol] 31 pg/mL Normal 5 - 80 pg/mL [facility] HemeManSS COAGULATIONOrdered By: Michelle Motley on 06-30-2023 aPTT Coag (PPP) [Time] 32.5 s Normal 25.1 - 36.5 second(s) [facility] Auto Coag Fibrin D-dimer FEU (PPP) [Mass/Vol] 368 ng/mL FEU Normal 215 - 500 ng/mL FEU [facility] Auto Coag INR Coag (PPP) [Relative time] 1.0 {INR} Invalid Interpretation Code [facility] Auto Coag PT Coag (PPP) [Time] 11.5 s Normal 9.4 - 1 2.5 second(s) [facility] Auto Coag Consent for Treatmenton 06-11 Consent for Treatment [id number]#1.00CD:127 Normal [facility] Consent for Treatment [id number] #1.00CD:127 Normal [facility] D-Dimeron 06-30-2023 Fibrin D-dimer FEU (PPP) [Mass/Vol] 368 CD:[id number] Normal 215-500 [facility] Comment on above: Result Comment: This assay is intended for use as an aid in the diagnosis of DVT or PE. These conditions cannot be excluded with certainty solely on the basis of a D-dimer concentration being within the reference range This D-Dimer assay may be used in conjunction with a non-high clinical pretest probability assessment to exclude deep-vein thrombosis(DVT). For exclusion of venous thrombosis or pulmonary embolism the analyte D-Dimer should not be used as an aid in patients with: Therapeutic dose anticoagulant therapy for >24 hours Fibrinolytic therapy within previous 7 days Trauma or surgery within previous 4 weeks Disseminated malignacies Aortic aneurysm Sepsis, severe infections, pneumonia, severe skin infections Liver cirrhosis Performed By: #### 1 [id number], 01559901, 3096725, 94918761, 69259218, 4753100, 1099613, 9079199, 0787765, 3121771, 24800403, 8134105, 53737767 ####[facility] [address] [place] [address] Discharge Instructionson Discharge Instructions [id number] #1.00CD:127 Normal [facility] ED Clinical Summaryon 2022 ED Clinical Summary [place] [address] ED Clinical Summary Person Information Name: TARIK GONZALEZ Sadia/[facility] Age: 42 Years : 1980 Sex: Female Language: Greek PCP: Otoniel MOTLEY DO Marital Status: Single Visit Id: Visit Reason: Fatigue; Shoulder pain-swelling; Paresthesia; NEW MEDICAITION, NUMBNESS IN LOWER LEFT ARM, PALPATATIONS, WEIRD FEELING IN THROAT Speciality: Acuity: 2 Enc Type: Emergency Med Service: Emergency Arrival: 06/30/2023 10:09:35 Discharge: 06/30/2023 12:13:22 LOS: 000 02:04 Checkin: 06/30/2023 10:09:35 Checkout: 06/30/2023 12:13:22 Dispo Type: Home (Routine DC) EVENTS: Event Name Event Status Request Date/Time Start Date/Time Complete Date/Time Arrive Complete 06/30/2023 10:09:35 06/30/2023 10:09:35 06/30/2023 10:09:35 Document Home Meds Request 06/30/2023 10:09:35 Triage Complete 06/30/2023 10:09:35 06/30/2023 10:17:14 06/30/2023 10:17:14 Bed Assign Complete 06/30/2023 10:11:48 06/30/2023 10:11:48 06/30/2023 10:11:48 Dr Exam Complete 06/30/2023 10:11:48 06/30/2023 10:13:32 06/30/2023 10:13:32 RN Exam Complete 06/30/2023 10:11:48 06/30/2023 10:42:30 06/30/2023 10:42:30 Registration Complete 06/30/2023 10:13:32 06/30/2023 10:29:49 06/30/2023 10:29:49 EKG Complete 06/30/2023 10:17:12 06/30/2023 10:19:08 Pending Labs Request 06/30/2023 10:27:43 Lab Complete 06/30/2023 10:27:43 06/30/2023 11:02:13 06/30/2023 11:36:48 Urine Collect Complete 06/30/2023 10:27:43 06/30/2023 11:36:48 Patient Care Request 06/30/2023 10:27:43 RT Request 06/30/2023 10:27:43 X-Ray Complete 06/30/2023 10:27:43 06/30/2023 10:51:43 06/30/2023 11:02:11 Reg Complete Request 06/30/2023 10:29:49 Reg Bed Request Complete 06/30/2023 10:29:49 06/30/2023 10:29:49 06/30/2023 10:29:49 Pending Labs Cancel 06/30/2023 10:31:14 06/30/2023 10:42:10 Lab Cancel 06/30/2023 10:31:14 06/30/2023 10:42:10 Pending Labs Complete 06/30/2023 10:41:40 06/30/2023 10:41:40 06/30/2023 11:26:24 Lab Complete 06/30/2023 10:41:40 06/30/2023 10:41:40 06/30/2023 11:26:24 Pending Labs Complete 06/30/2023 10:42:40 06/30/2023 10:42:40 06/30/2023 11:03:44 Lab Complete 06/30/2023 10:42:40 06/30/2023 10:42:40 06/30/2023 11:03:44 Pending Labs Complete 06/30/2023 10:53:48 06/30/2023 10:53:48 06/30/2023 10:54:00 Lab Complete 06/30/2023 10:53:48 06/30/2023 10:53:48 06/30/2023 10:54:00 Wet Read Complete 06/30/2023 11:02:11 06/30/2023 11:52:48 06/30/2023 11:52:48 Discharge Complete 06/30/2023 12:04:43 06/30/2023 12:13:28 06/30/2023 12:13:28 Transfer Complete 06/30/2023 12:13:28 06/30/2023 12:13:28 06/30/2023 12:13:28 ADDRESS: [address] [place] [id number] [facility] DOC NOTES: MEDICAL INFORMATION: Prescriptions Given: Medications to Continue with No Changes Other Medications albuterol (Proventil HFA 90 mcg/inh Aerosol) 2 Puffs Inhalation 4 times a day. Refills: 0. baclofen (baclofen 10 mg Tab) 0.5 Tablets By Mouth 3 times a day. Refills: 5. clonazepam (Klonopin 0.5 mg Tab) As Directed. cyclobenzaprine (cyclobenzaprine 10 mg Tab) 1 Tablets By Mouth 3 times a day as needed for spasm. Refills: 0. epinephrine (EpiPen 2-Garry 0.3 mg injectable kit) 1 Each Intramuscular As Directed as needed Anaphylaxis. Refills: 0. famotidine (Pepcid 20 mg Tab) 1 Tablets By Mouth every day. Refills: 0. fluconazole (fluconazole 150 mg Tab) 1 Tablets By Mouth every day for 5 Days. Refills: 0. fluticasone (Flovent HFA 110 Inhaler) 2 Puffs Inhalation 2 times a day. Refills: 2. levothyroxine (levothyroxine 75 mcg (0.075 mg) Tab) 1 Tablets By Mouth every day. alternate with 50 mcg. Refills: 5. Misc Prescription (LDN 1.5 mg) 1 cap By Mouth every day. Refills: 2. psyllium (Metamucil 525 mg oral capsule) 2 Capsules By Mouth every day. Take 2 hour apart from the other medications with at least 8 ounces of water. Refills: 4. silver sulfADIAZINE topical (Silvadene 1% Cream) 1 Application Topical 2 times a day. Refills: 2. triamcinolone topical (triamcinolone topical 0.025% ointment) 1 Application Topical 3 times a day. Refills: 0. PATIENT EDUCATION INFORMATION: Instructions: Weakness, Rrzx-tf-Xeui Follow up: [facility]: [facility] [address] [place] [address] [place] [address] Business (1) In 3 days 07/03/2023 With: Address: When: Otoniel MOTLEY [address] [facility] [place] [phone] Business (1) In 3 days DIAGNOSIS: Arm pain; Medication side effect; Weakness Normal [facility] ED Note-Physicianon 06-30-20 ED Note-Physician Basic Information Time Seen: Reggie Camara DO 06/30/2023 10:13 Chief Complaint pt reports she was recently put on metformin for weight loss. Has had some numb/tingling intermittently in left arm and pain in left shoulder. weak and feels off. has been on metformin for 4 days. History of Present Illness 42 female presents to the emergency department with multiple medical complaints. Patient states recently about 4 5 days ago she was placed on metformin for weight loss. Since then she has been having a constellation of symptoms that is causing her some concern. She does state that she has a little bit of chest pressure, numbness and tingling in the left humerus region, and states she just feels off. She denies any nausea or vomiting does have mild diarrhea but expected this with this particular medication. She does have history of thyroid disorder but reports no changes to her medication regimen. She has had some urinary frequency and wondered if she had a UTI but there is been no hematuria or dysuria otherwise. Patient denies any other recent injuries or illnesses. She does have history of MTHFR but has never had a blood clot denies any pain in her legs denies any pleuritic discomfort. No other aggravating or relieving factors no other associated symptoms no other prior treatments or complaints. Family: Reviewed and noncontributory Social: lives at home Review of systems negative unless otherwise specified in the HPI. Physical Exam Vitals & Measurements T: 36.7 ?C(Oral) HR: 129(Peripheral) BP: 124/83 SpO2: 99% HT: 164 cm WT: 89.7 kg BMI: 33.35 General: The patient appears well and in no apparent distress. Patient is resting comfortably on cart. Skin: Warm, dry, no pallor noted. Head: Normocephalic, atraumatic Neck: No JVD Eye: PERRLA, EOMI ENT: Moist mucus membranes Cardiovascular: Slightly tachycardic rate regular rhythm with normal peripheral perfusion Respiratory: No respiratory distress no accessory muscle use no obvious audible wheezing Chest Wall: no deformity Musculoskeletal: normal ROM, no deformity, no swelling GI: Soft no obvious distention. No rebound or rigidity. No guarding. No tenderness. Neurological: A&O moves all extremities equal strength and symmetry Psychiatric: Cooperative and appropriate but a bit anxious Procedure Heart Score for Major Cardiac Event History: Example factors for history - pattern of chest pain, onset, duration, relation with exercise, stress or cold, localization, concominant symptoms. reaction to sublingual nitrates, [] Highly suspicious +2 [] Moderately suspicious +1 [x] Slightly suspicious 0 EKG: [] Significant ST-Depression +2 [] Non specific repolarization disturbance +1 [x] Normal 0 Age: [] >= 65 +2 [] 45-65 + 1 [x] <45 0 Risk Factors: (HLD, HTN, DM, Cigarette Smoking, Pos Family Hx, Obesity) [] >3 risk factors or hx of atheroslerotic disease + 2 [x] 1-2 risk factors + 1 [] No risk factors known 0 Troponin: [] >= 3X normal + 2 [] 1-3X normal + 1 [x] <= Normal 0 [x] 0-3 Points 0.9 - 1.7% risk of major adverse cardiac event in 6 weeks [] 4-6 Points 12-16.6% risk of major adverse cardiac event in 6 weeks [] 7-10 Points 50-65% risk of major adverse cardiac event in 6 weeks [] 0-3 Points with 2 sets of negative cardiac markers <1% risk of major adverse cardiac event in 30 days. Medical Decision Making MEDICAL DECISION MAKING Number and Complexity of Problems Differential Diagnosis: MDM Data External documents reviewed: My EKG interpretation: in chart if applicable My CT interpretation: in chart if applicable My X-ray interpretation: in chart if applicable My Ultrasound interpretation: Decision rules/scores evaluated: Discussed with: Treatment and Disposition ED Course: Work-up in the ER has been reviewed and noted. Patient had extensive work-up here including EKG chest x-ray blood work thyroid studies and D-dimer all of which are negative. Urinalysis is negative as well. Etiology of the patient's constellation of symptoms not entirely clear at this time. Perhaps this is a side effect from the metformin as this is a new medication. We talked about stopping this medication versus and versus giving it some more time. I did talk to her and instructed her to follow-up with her physician Dr. Nielsen that did recommend medication for her. She states that she would like to give it a little bit more time to see if it works and see if the side effects go away I do think this is reasonable. She is educated on worsening clinical picture and to return if these occur she is comfortable with this plan. Shared decision making: Code status: Assessment/Plan Arm pain (M79.603: Pain in arm, unspecified) Medication side effect (T88.7XXA: Unspecified adverse effect of dr (more content not included)... Normal [facility] Comment on above: Result Comment: Elec tronically Signed By: Reggie Camara DO\.luke\Date and Time Signed: 06/30/23 12:06 EDT ED Patient Education Noteon 06-30-2023 ED Patient Education Note Neurology Weakness Weakness is a lack of strength. You may feel weak all over your body (generalized), or you may feel weak in one part of your body (focal). There are many potential causes of weakness. Sometimes, the cause of your weakness may not be known. Some causes of weakness can be serious, so it is important to see your doctor. Follow these instructions at home: Activity ? Rest as needed. ? Try to get enough sleep. Most adults need 7?8 hours of sleep each night. Talk to your doctor about how much sleep you need. ? Do exercises, such as arm curls and leg raises, for 30 minutes at least 2 days a week or as told by your doctor. ? Think about working with a physical therapist or sales trainer to help you get stronger. General instructions ? Take czxx-hva-lxqdrvo and prescription medicines only as told by your doctor. ? Eat a healthy, well-balanced diet. This includes: ? Proteins to build muscles, such as lean meats and fish. ? Fresh fruits and vegetables. ? Carbohydrates to boost energy, such as whole grains. ? Drink enough fluid to keep your pee (urine) pale yellow. ? Keep all follow-up visits. Contact a doctor if: ? Your weakness does not get better or it gets worse. ? Your weakness affects your ability to: ? Think clearly. ? Do your normal daily activities. Get help right away if: ? You have sudden weakness on one side of your face or body. ? You have chest pain. ? You have trouble breathing or shortness of breath. ? You have problems with how you see (vision). ? You have trouble talking or swallowing. ? You have trouble standing or walking. ? You are light-headed or faint. These symptoms may be an emergency. Get help right away. Call 911. ? Do not wait to see if the symptoms will go away. ? Do not drive yourself to the hospital. Summary ? Weakness is a lack of strength. You may feel weak all over your body or just in one part of your body. ? There are many potential causes of weakness. Sometimes, the cause of your weakness may not be known. ? Rest as needed, and try to get enough sleep. Most adults need 7?8 hours of sleep each night. ? Eat a healthy, well-balanced diet. This information is not intended to replace advice given to you by your health care provider. Make sure you discuss any questions you have with your health care provider. Document Revised: 09/29/2022 Document Reviewed: 09/29/2022 [employer] Patient Education ? 2022 [employer] Normal [facility] ED Patient Summaryon 023 ED Patient Summary [place] [id number] Patient Discharge Instructions Person Information Name: TARIK GONZALEZ Age: 42 Years Arrival Date: 06/30/2023 10:09:35 Discharge Diagnosis: Arm pain; Medication side effect; Weakness Primary Care Physician: Otoniel MOTLEY DO Provider Information Primary Provider: Reggie Camara DO [employer] Report Developer:None The exam and treatment you received in the Emergency Department were for an urgent problem and are not intended as complete care. It is important that you follow up with a doctor, nurse practitioner, or physician?s assistant professor of german for ongoing care. If your symptoms become worse or you do not improve as expected and you are unable to reach your usual health care provider, you should return to the Emergency Department. We are available 24 hours a day. CARLOS TARIK M has been given the following list of patient education materials, prescriptions and follow-up instructions: Follow-up Instructions: With: Address: When: Dony MARO [facility], [address] [facility] [place] [address] Business (1) In 3 days 07/03/2023 With: Address: When: Otoniel MOTLEY [address] [facility] [place] [phone] Business (1) In 3 days In the event that this physician does not participate in your insurance network, please consult with your insurance company to find a nearby participating provider. Patient Education Materials: Weakness, Mgnw-ci-Hulr A MESSAGE TO ALL PATIENTS REGARDING OPIOIDS PRESCRIPTION OPIOIDS: WHAT YOU NEED TO KNOW Prescription opioids can be used to help relieve lxeelyks-oh-clqkcs pain and are often prescribed following a surgery or injury, or for certain health conditions. These medications can be an important part of the treatment but also come with serious risks. It is important to work with your healthcare provider to make sure you are getting the safest, most effective care. WHAT ARE THE RISKS AND SIDE EFFECTS OF OPIOID USE? Prescription opioids carry serious risks of addiction and overdose, especially with prolonged use. An opioid overdose, often marked by slowed breathing, can cause sudden . The use of prescription opioids can have a number of side effects as well, even when taken as directed: ? Tolerance?meaning you might need to take more of the medication for the same pain relief ? Physical dependence?meaning you have symptoms of withdrawal when a medication is stopped ? Increased sensitivity to pain ? Constipation ? Nausea, vomiting, and dry mouth ? Sleepiness and dizziness ? Confusion ? Depression ? Low levels of testosterone that can result in lower sex drive, energy, and strength ? Itching and sweating RISKS ARE GREATER WITH: ? History of drug misuse, substance use disorder, or overdose ? Mental health conditions (such as depression or anxiety) ? Sleep apnea ? Older age (65 years and older) ? Avoid alcohol while taking prescription opioids. Also, unless specifically advised by your health care provider, medications to avoid include: ? Benzodiazepines (such as Xanax or Valium) ? Muscle relaxants (such as Soma or Flexeril) ? Hypnotics (such as Ambien or Lunesta) ? Other prescription opioids KNOW YOUR OPTIONS Talk to your health care provider about ways to manage your pain that don?t involve prescription opioids. Some of these options may actually work better and have fewer risks and side effects. Options may include: ? Pain relievers such as acetaminophen, ibuprofen, and naproxen ? Some medication that are also used for depression or seizures ? Physical therapy and exercise ? Cognitive behavioral therapy, a psychological, goal-directed approach, in which patients learn how to modify physical, behavioral, and emotional triggers of pain and stress. IF YOU ARE PRESCRIBED OPIOIDS FOR PAIN: ? Never take opioids in greater amounts or more often than prescribed. ? Follow up with your primary health care provider. o Work together to create a plan on how to manage your pain. o Talk about ways to help manage your pain that don?t involve prescription opioids. o Talk about any and all concerns and side effects. ? Help prevent misuse and abuse o Never sell or share prescription opioids. o Never use another person?s prescription opioids. ? Store prescription opioids in a secure place and out of reach of others (this may include visitors, children, friends, and family). ? Safely dispose of unused prescription opioids: Find your community drug take-back program or your pharmacy mail-back program, or flush them down the toilet, following guidance from the Food and Drug Administration (www.fda.gov/Drugs/R esourcesForYou). ? Visit www.cdc.gov/drugover dose to learn about the risks of opioids abuse and overdose. ? If you believe (more content not included)... Normal [facility] HEMATOLOGYOrdered By: SYSTEM SYSTEM on 06-30-2023 Basophils/100 WBC (Bld) 0.4 % Normal 0.0 - 2.0 % [facility] Basophils/Leukocytes Auto (Bld) [Pure # fraction] 0.0 E9/L Normal 0.0 - 0.2 E9/L [facility]Auto[facility] Eosinophils/100 WBC (Bld) 1.7 % Normal 0.0 - 8.0 % [facility] HemeAutoSS Eosinophils/Leukocytes Auto (Bld) [Pure # fraction] 0.1 E9/L Normal 0.0 - 0.5 E9/L [facility]eAutoSS Lymphocytes/100 WBC (Bld) 26.5 % Normal 14.0 - 50.0 % [facility]eAutoSS Lymphocytes/Leukocytes Auto (Bld) [Pure # fraction] 1.8 E9/L Normal 1.0 - 4.0 E9/L [facility]eAutoSS Monocytes/100 WBC (Bld) 6.7 % Normal 4.0 - 14.0 % [facility]eAutoSS Monocytes/Leukocytes Auto (Bld) [Pure # fraction] 0.5 E9/L Normal 0.2 - 1.0 E9/L [facility]eAutoSS Neutrophils/100 WBC (Bld) 64.7 % Normal 36.0 - 75.0 % [facility]eAutoSS Neutrophils/Leukocytes Auto (Bld) [Pure # fraction] 4.4 E9/L Normal 2.0 - 7.5 E9/L [facility] HEMATOLOGYOrdered By: Melisa Motley on 06-30-2023 Erythrocyte distribution width (RBC) [Ratio] 13.8 % Normal 10.9 - 14.2 % [facility] Hematocrit (Bld) [Volume fraction] 40.6 % Normal 34.0 - 46.0 % [facility]eAuto[facility] Hemoglobin (Bld) [Mass/Vol] 13.7 g/dL Normal 12.0 - 16.0 gm/dL [facility]eAuto[facility] MCH (RBC) [Entitic mass] 28.7 pg Normal 27.0 - 34.0 pg [facility]eAutoSS MCHC (RBC) [Mass/Vol] 33.8 g/dL Normal 31.4 - 36.0 gm/dL [facility]eAutoSS MCV (RBC) [Entitic vol] 85.1 fL Normal 80.0 - 100.0 fL [facility] HemeAutoSS Platelet mean volume (Bld) [Entitic vol] 8.3 fL Normal 6.4 - 10.8 fL [facility] HemeAutoSS Platelets (Bld) [#/Vol] 295.0 E9/L Normal 150.0 - 500.0 E9/L [facility]eAutoSS RBC (Bld) [#/Vol] 4.8 E12/L Normal 4.3 - 5.9 E12/L [facility]eAutoSS WBC corrected for nucl RBC Auto (Bld) [#/Vol] 6.7 E9/L Normal 4.0 - 11.0 E9/L [facility] HemeAutoSS Hep Func Panelon 06-30-2023 Bilirubin.indirect [Mass or moles/Vol] UTC Abnormal 0.1-0.9 [facility] Comment on above: Result Comment: Resu lt verified by Discern Rule. Performed result UTC (Unable to Calculate) was sent as an Alpha code due the inability to calculate a valid numeric value. Performed By: #### 1 [id number], 74978101, 1407337, 45122240, 98458555, 6317534, 9345241, 2589308, 3192988, 3544953, 10351240, 7535111, 16677060 ####[facility] [address] [place] [address] Albumin [Mass/Vol] 3.8 g/dL Normal 3.3-5.0 [facility] Comment on above: Performed By: #### 1 8116065, 31854494, 3962877, 09896626, 53913382, 3287802, 8271463, 7120430, 3327225, 6643163, 80857089, 7612404, 79304780 ####[address] [place] [address] Albumin/Globulin (S) [Mass conc ratio] 1.3 Normal 1.1-2.2 [facility] Comment on above: Performed By: #### 1 6961572, 98749953, 9151399, 73119649, 23193227, 3438004, 9487148, 9817191, 2526168, 3418849, 15983111, 6573694, 29710784 ####[address] [place] [address] ALP [Catalytic activity/Vol] 30 Int._Unit/L Normal 21-98 [facility] Comment on above: Performed By: #### 1 9894596, 59296919, 0145131, 79282226, 30601614, 4629001, 1807482, 7857141, 8450974, 3385578, 18210709, 5691843, 54274216 ####[address] [place] [address] ALT No additional P-5'-P [Catalytic activity/Vol] 10 Int._Unit/L Normal 6-46 [facility] Comment on above: Performed By: #### 1 4852505, 94098671, 4648804, 46317008, 32938024, 1848318, 2040600, 6527090, 5214420, 2492133, 60756531, 9568413, 26225587 ####[facility] [address] [place] [address] AST [Catalytic activity/Vol] 16 Int._Unit/L Normal 5-43 [facility] Comment on above: Performed By: #### 1 7953377, 37656146, 3850366, 10445126, 57391838, 9146643, 7837475, 5435714, 3798652, 6030669, 03485516, 1468004, 55908091 ####[address] [place] [address] Bilirubin [Mass/Vol] 0.4 mg/dL Normal 0.0-1.1 [facility] Comment on above: Performed By: #### 1 5826007, 99986598, 6679587, 03369809, 36034509, 3505853, 9822150, 7380880, 5765398, 6774893, 54550301, 2408816, 21351681 ####[address] [place] [address] Globulin (S) [Mass/Vol] 3.0 g/dL Normal 1.4-4.0 [facility] Comment on above: Performed By: #### 1 8819093, 07687154, 9418870, 29201396, 65250272, 6621653, 8708840, 9385569, 3124785, 4088298, 99410703, 3584371, 04722710 ####[facility] [address] [place] [address] Protein [Mass/Vol] 6.8 g/dL Normal 6.0-7.8 [facility] Comment on above: Performed By: #### 1 9692811, 90009494, 8373312, 11401409, 05881517, 5315791, 5804145, 7473534, 6544178, 8516387, 75263985, 4390217, 72251273 ####[facility] [address] [place] [address] Bilirubin.direct [Mass/Vol] mg/dL Normal 0.1-0.4 [facility] Comment on above: Performed By: #### 1 9533637, 39184260, 1542508, 03179302, 19666597, 6546578, 1048629, 1448237, 2705795, 6919048, 23196887, 2458377, 77255293 ####[facility] [address] [place] [address] Lactic Acidon 06-30-2023 Lactate [Mass/Vol] 1.7 mmol/L Normal 0.5-2.2 [facility] Comment on above: Performed By: #### 1 7875673, 75204506, 1477762, 66768590, 95589362, 2679651, 2699849, 6787285, 9871359, 8503789, 66084704, 1810410, 81243169 ####[facility] [address] [place] [address] Lipase Levelon 06-30-2023 Lipase [Catalytic activity/Vol] 23 U/L Normal 13-58 [facility] Comment on above: Performed By: #### 1 8447572, 71712515, 9709462, 93837989, 31772422, 8253118, 4881033, 1843987, 6444634, 1670919, 55320679, 7789932, 94838338 ####[facility] [address] [place] [address] PT & PTTon 06-30-2023 aPTT Coag (PPP) [Time] 32.5 second(s) Normal 25.1-36.5 [facility] Comment on above: Result Comment: Para meter 15 days - 4 weeks 1 - 5 months 6 - 11 months 1 - 5 years 6 - 10 years 11 - 17 years PTT Mean: 35.4 (27.6-45.6) Mean: 33.5 (24.8-40.7) Mean: 32.4 (25.1-40.7) Mean: 31.6 (24.0-39.2) Mean: 31.6 (26.9-38.7) Mean: 31.0 (24.6-38.4) Pediatric Reference ranges were obtained from a study by Erlin Medrano et al. prepared from 1437 samples obtained at 7 different centers using the same coagulation reagent and instrumentation as [facility]. Currently there are no coagulation studies available worldwide for children to 14 days, and no normal ranges. Heparin therapeutic range (represented by Anti-Factor Xa activity of 0.2 - 0.4 U/mL) corresponds to PTT of 56.6 - 109.0 sec. Performed By: #### 1 8919170, 37211681, 2077461, 59748083, 97647746, 0469445, 9592389, 1551738, 1740576, 4979486, 90878379, 7712226, 04634228 ####[facility] [address] [place] [address] INR Coag (PPP) [Relative time] 1.0 {INR} Invalid Interpretation Code [facility] Comment on above: Result Comment: INR results are specifically intended to assess patients stabilized on long-term Anticoagulation therapy suggested INR?s ?Less Intensive Anticoagulation? 2.0 ? 3.0 Conventional Range 3.0 ? 4.5 Performed By: #### 1 6273286, 52638073, 3235384, 03369847, 42921842, 1030100, 8021120, 9805404, 7182443, 2305104, 65174118, 1576002, 72236741 ####[facility] [address] [place] [address] PT Coag (PPP) [Time] 11.5 second(s) Normal 9.4-12.5 [facility] Comment on above: Result Comment: 15 d ays - 4 weeks 1 - 5 months 6 -11 months 1- 5 years 6-10 years 11 -17 years Mean: 11.2 (9.5-12.6) Mean: 11.0 (9.7-12.8) Mean: 11.0 (9.8-13.0) Mean: 11.3 (9.9-13.4) Mean: 11.7 (10.0-14.6) Mean: 11.8 (10.0 - 14.1) Pediatric Reference ranges were obtained from a study by Erlin Medrano et al. prepared from 1437 samples obtained at 7 different centers using the same coagulation reagent and instrumentation as [facility]. Currently there are no coagulation studies available worldwide for children to 14 days, and no normal ranges. Performed By: #### 1 1402925, 06014748, 1090432, 89387548, 19521033, 4689292, 5213461, 1166494, 0681098, 5169343, 04558802, 4482019, 65618151 ####[facility] [address] [place] [address] SEROLOGYOrdered By: Louisa Stearns on 06-30-2023 Beta hCG Ql Negative (06/30/23 10:35 AM) Normal [facility] Man Sero TSH With T4fr Reflexon 06-30 TSH Qn 1.63 m[IU]/L Normal 0.34-5.60 [facility] Comment on above: Performed By: #### 1 2738531, 63432368, 9833139, 55367242, 19739647, 4462592, 8815703, 2825291, 5446445, 7981315, 81628215, 9993106, 04386836 ####[facility] [address] [place] [address] Troponin 0 Hr.on 06-30-2023 Troponin I.cardiac [Mass/Vol] ng/mL Low 10.10-27.10 [facility] Comment on above: Result Comment: The 95% CI (Confidence Interval) PPV (Positive Predictive Value) for myocardial infarction in females is 38 pg/mL, in males 51 pg/mL. The results should be used in conjunction with clinical conditions of myocardial infarction. (Access High Sensitivity Troponin I Instructions For Use, Rachel Master, June 2018) Performed By: #### 1 1416536, 61855285, 3923772, 64708226, 34519543, 1925887, 8594641, 9877925, 9112315, 6468372, 52989859, 1247207, 70595946 ####[facility] [address] [facility] [place] [address] UA With Cult Reflexon 2022 Bacteria LM Ql (Urine sed) TRACE Normal Trace [facility] Comment on above: Performed By: #### 1 3112756 ####[facility] [address] [facility] [place] [address] Bilirubin Ql (U) Negative Normal Negative [facility] Comment on above: Performed By: #### 1 0832973 ####[facility] [address] [place] [address] Clarity (U) CLEAR Normal Clear [facility] Comment on above: Performed By: #### 1 5873564 ####[address] [address] Color (U) YELLOW Normal Yellow [facility] Comment on above: Performed By: #### 1 8563972 ####[address] [address] Epithelial cells.squamous LM.HPF (Urine sed) [#/Area] 5-8 Normal 0-2 [facility] Comment on above: Performed By: #### 1 8605678 ####[facility] [address] [place] [address] Glucose Test strip (U) [Mass/Vol] Negative Normal Negative [facility] Comment on above: Performed By: #### 1 5634145 ####[facility] [address] [place] [address] Hemoglobin Ql (U) TRACE Abnormal Negative [facility] Comment on above: Performed By: #### 1 8954676 ####[facility] [address] [place] [address] Ketones (U) [Mass/Vol] Negative Normal Negative [facility] Comment on above: Performed By: #### 1 5024755 ####[facility] [address] [place] [address] [place].plasma/[place] .RBC (Bld) [Mass ratio] 0-3 Normal 0-3 [facility] Comment on above: Performed By: #### 1 9212697 ####[facility] [address] [place] [address] Mucus Ql (Urine sed) TRACE Normal [facility] Comment on above: Performed By: #### 1 9015379 ####[address] [address] Nitrite Ql (U) Negative Normal Negative [facility] Comment on above: Performed By: #### 1 0436920 ####[address] [address] pH (U) 6.0 [pH] Invalid Interpretation Code 5.0-9.0 [facility] Comment on above: Performed By: #### 1 8309019 ####[address] [address] Protein (U) [Mass/Vol] Negative Normal Negative [facility] Comment on above: Performed By: #### 1 5879450 ####[address] [address] Specific gravity (U) [Rel density] <=1.005 Invalid Interpretation Code 1.005-1.030 [facility] Comment on above: Performed By: #### 1 8643551 ####[address] [address] Type of Urine collection method Clean Catch Normal [facility] Comment on above: Performed By: #### 1 8493571 ####[address] [address] Urobilinogen Qn (U) 0.2 {Gena'U}/dL Normal 0.0-1.0 [facility] Comment on above: Performed By: #### 1 3185736 ####[address] [address] WBC Auto Ql (U) Negative Normal Negative [facility] Comment on above: Performed By: #### 1 2667962 ####[address] [address] WBC LM.HPF (Urine sed) [#/Area] 0-5 Normal 0-5 [facility] Comment on above: Performed By: #### 1 6595577 ####[facility] [address] [place] [address] URINALYSISOrdered By: Brandon Stearns on 06-30-2023 Bacteria LM Ql (Urine sed) Trace /HPF Normal Trace/HPF [facility] UA Auto SS Bilirubin Ql (U) Negative (06/30/23 11:02 AM) Normal Negative [facility] UA Auto SS Clarity (U) Clear (06/30/23 11:02 AM) Normal Clear [facility] UA Auto SS Color (U) Yellow (06/30/23 11:02 AM) Normal Yellow [facility] UA Auto SS Epithelial cells.squamous LM.HPF (Urine sed) [#/Area] 5-8 /HPF Normal 0-2/HPF [facility] UA Aut o SS Glucose Test strip (U) [Mass/Vol] Negative (06/30/23 11:02 AM) Normal Negative [facility] UA Auto SS Hemoglobin Ql (U) Trace *ABN* (06/30/23 11:02 AM) Invalid Interpretation Code Negative [facility] UA Auto SS Ketones (U) [Mass/Vol] Negative (06/30/23 11:02 AM) Normal Negative [facility] UA Auto SS [place].plasma/[place] .RBC (Bld) [Mass ratio] 0-3 /HPF Normal 0-3/HPF [facility] UA Auto SS Mucus Ql (Urine sed) Trace (06/30/23 11:02 AM) Normal [facility] UA Auto SS Nitrite Ql (U) Negative (06/30/23 11:02 AM) Normal Negative [facility] UA Auto SS pH (U) 6.0 *NA* (06/30/23 11:02 AM) Invalid Interpretation Code 5.0 - 9.0 [facility] UA Auto SS Protein (U) [Mass/Vol] Negative (06/30/23 11:02 AM) Normal Negative [facility] UA Auto SS Specific gravity (U) [Rel density] <=1.005 *NA* (06/30/23 11:02 AM) Invalid Interpretation Code 1.005 - 1.030 [facility] UA Auto SS UA Spec Desc Clean Catch (06/30/23 11:02 AM) Normal [facility] UA Auto SS Urobilinogen Qn (U) 0.1810879 {Gena'U}/dL Normal 0.0 - 1.0 EU/dL [facility] UA Auto SS WBC Auto Ql (U) Negative (06/30/23 11:02 AM) Normal Negative [facility] UA Auto SS WBC LM.HPF (Urine sed) [#/Area] 0-5 /HPF Normal 0-5/HPF [facility] UA Auto SS XR Chest Single Viewon 06-30 XR Chest Single View Exam Date/Time: 06/30/2023 11:02 EDT Reason for Exam: Chest pain Report IMPRESSION: NO EVIDENCE OF ACTIVE CHEST DISEASE. CLINICAL HISTORY: Chest pain. COMPARISON: 09/20/2022. COMMENT: AP portable. The heart is normal in size. The mediastinum is unremarkable. The lungs appear clear. No infiltration nor pleural effusion is evident. No significant change is noted when compared to the prior exam. Ordering Provider: Reggie Camara FINAL REPORT Dictated: 06/30/2023 11:15 am Meir Alvarado M.D. Signed (Electronic Signature): 06/30/2023 11:15 am Signed by: Meir Alvarado M.D. Transcribed by: TEJAL Technologist: KEL Technical Comments Radiation Dose: Ka,r in mGy = na DAP = na Normal [facility] eGFRon 06-30-2023 GFR/1.73 sq M.predicted among non-blacks MDRD (S/P/Bld) [Vol rate/Area] 82 mL/min/1.73 m2 Normal >=59 [facility] Comment on above: Order Comment: Order added by Discern Expert. Result Comment: Certified Master Safecracker nilesh kidney disease could be indicated at eGFR's of less than 60 mL/min/1.73m2. Kidney failure is indicated at less than 15 mL/min/1.73m2. Performed By: #### 1 [id number], 78288025, 7815902, 89867618, 96073195, 2669276, 8929348, 6051034, 5077082, 8218883, 09606763, 0607998, 84025129 ####[facility] [id number] Ambulatory Visit Summaryon 0 06-03-2023 Ambulatory Visit Summary TARIK GONZALEZ :1980 Visit Date:06/03/2023 Ambulatory Visit Instructions Your Diagnosis BMI 33.0-33.9,adult Your Care Team Attending Physician - LAURIE VERNON CNP Primary Care Physician - Otoniel MOTLEY DO This Is Your Medications List [facility] Prescription (LDN 1.5 mg) albuterol (Proventil HFA 90 mcg/inh Aerosol) baclofen (baclofen 10 mg Tab) clonazepam (Klonopin 0.5 mg Tab) cyclobenzaprine (cyclobenzaprine 10 mg Tab) epinephrine (EpiPen 2-Garry 0.3 mg injectable kit) famotidine (Pepcid 20 mg Tab) fluconazole (fluconazole 150 mg Tab) fluticasone (Flovent HFA 110 Inhaler) levothyroxine (levothyroxine 75 mcg (0.075 mg) Tab) psyllium (Metamucil 525 mg oral capsule) silver sulfADIAZINE topical (Silvadene 1% Cream) Procedures Performed Colonoscopy and biopsy of colon (10/19/2020), Repair of umbilical hernia (10/14/2018), Cystoscopy with urethral dilation (01/02/2017), cystoscopy and ureteral dilation (01/06/2014), Ankle, Cholecystectomy, Dilation & curettage, History of nasal sinus surgery, Laparoscopy, Plantar fascia, Repair of umbilical hernia, Tonsillectomy, vocal cord nodules removed x3. Discharge Vitals Heart Rate (Peripheral) 84 Blood Pressure 108/72 Height 165 cm Height 65 in Weight 90.7 kg Weight 199.54 lb BMI 33.31 Medications What How Much When Why Instructions Unchanged albuterol (Proventil HFA 90 mcg/ inh Aerosol) 2 Puffs Inhalation 4 times a day Unchanged baclofen (baclofen 10 mg Tab) 0.5 Tablets By Mouth 3 times a day Unchanged clonazepam (Klonopin 0.5 mg Tab) As Directed Unchanged cyclobenzaprine (cyclobenzaprine 10 mg Tab) 1 Tablets By Mouth 3 times a day as needed for for spasm Unchanged epinephrine (EpiPen 2-Garry 0.3 mg injectable kit) 1 Each Intramuscular As Directed as needed for Anaphylaxis Unchanged famotidine (Pepcid 20 mg Tab) 1 Tablets By Mouth Every day Unchanged fluconazole (fluconazole 150 mg Tab) 1 Tablets By Mouth Every day Duration: 5 Days Unchanged fluticasone (Flovent HFA 110 Inhaler) 2 Puffs Inhalation 2 times a day Unchanged levothyroxine (levothyroxine 75 mcg (0.075 mg) Tab) 1 Tablets By Mouth Every day alternate with 50 mcg Unchanged Misc Prescription (LDN 1.5 mg) 1 cap By Mouth Every day Clay thyroiditis Unchanged psyllium (Metamucil 525 mg oral capsule) 2 Capsules By Mouth Every day Chronic idiopathic constipation Take 2 hour apart from the other medications with at least 8 ounces of water Unchanged silver sulfADIAZINE topical (Silvadene 1% Cream) 1 Application Topical 2 times a day Burn of skin Allergies Glutens (thyroiditis) Latex (hives) Ultram (vomiting) codeine (nausea vomiting hives) Bee Stings (Anaphylactic reaction) NSAIDs (Muscle weakness) Nubain (nausea and vomiting) Ritalin (Altered mental status) Trace Metals (infection) Tylenol with Codeine #3 (Unknown) Problems Ongoing - Any problem that you are currently receiving treatment for. Attention deficit disorder (ADD) in adult BMI 34.0-34.9,adult Chronic idiopathic constipation Chronic venous insufficiency COVID-19 Dercum disease Dysuria Generalized anxiety disorder Geographic tongue Clay thyroiditis HTN - Hypertension Hypersensitivity disorder Left upper quadrant abdominal tenderness Mixed hyperlipidemia Obesity Occipital neuralgia of left side Historical - Any problem that you are no longer receiving treatment for. Anxiety Depression Endometriosis Migraine Smoker Urethral stricture UTI (lower urinary tract infection) [facility] Ambulatory Visit Summaryon 0 04-22-2023 Ambulatory Visit Summary TARIK GONZALEZ :1980 Visit Date:04/22/2023 Ambulatory Visit Instructions Your Care Team Attending Physician - Supa SARAVIA MD Primary Care Physician - Otoniel MOTLEY DO Referring Physician - Otoniel MOTLEY DO This Is Your Medications List Misc Prescription (LDN 1.5 mg) albuterol (Proventil HFA 90 mcg/inh Aerosol) baclofen (baclofen 10 mg Tab) clonazepam (Klonopin 0.5 mg Tab) cyclobenzaprine (cyclobenzaprine 10 mg Tab) epinephrine (EpiPen 2-Garry 0.3 mg injectable kit) famotidine (Pepcid 20 mg Tab) fluconazole (fluconazole 150 mg Tab) fluticasone (Flovent HFA 110 Inhaler) levothyroxine (Synthroid 75 mcg (0.075 mg) Tab) levothyroxine (levothyroxine 75 mcg (0.075 mg) Tab) psyllium (Metamucil 525 mg oral capsule) silver sulfADIAZINE topical (Silvadene 1% Cream) Procedures Performed Colonoscopy and biopsy of colon (10/19/2020), Repair of umbilical hernia (10/14/2018), Cystoscopy with urethral dilation (01/02/2017), cystoscopy and ureteral dilation (01/06/2014), Ankle, Cholecystectomy, Dilation & curettage, History of nasal sinus surgery, Laparoscopy, Plantar fascia, Repair of umbilical hernia, Tonsillectomy, vocal cord nodules removed x3. Discharge Vitals Respiratory Rate 16 Height 165 cm Height 65 in Weight 92.7 kg Weight 203.94 lb BMI 34.05 Medications What How Much When Why Instructions Unchanged albuterol (Proventil HFA 90 mcg/ inh Aerosol) 2 Puffs Inhalation 4 times a day Unchanged baclofen (baclofen 10 mg Tab) 0.5 Tablets By Mouth 3 times a day Unchanged clonazepam (Klonopin 0.5 mg Tab) As Directed Unchanged cyclobenzaprine (cyclobenzaprine 10 mg Tab) 1 Tablets By Mouth 3 times a day as needed for for spasm Unchanged epinephrine (EpiPen 2-Garry 0.3 mg injectable kit) 1 Each Intramuscular As Directed as needed for Anaphylaxis Unchanged famotidine (Pepcid 20 mg Tab) 1 Tablets By Mouth Every day Unchanged fluconazole (fluconazole 150 mg Tab) 1 Tablets By Mouth Every day Duration: 5 Days Unchanged fluticasone (Flovent HFA 110 Inhaler) 2 Puffs Inhalation 2 times a day Unchanged levothyroxine (levothyroxine 75 mcg (0.075 mg) Tab) 1 Tablets By Mouth Every day alternate with 50 mcg Unchanged levothyroxine (Synthroid 75 mcg (0.075 mg) Tab) 30 EA Unchanged Misc Prescription (LDN 1.5 mg) 1 cap By Mouth Every day Clay thyroiditis Unchanged psyllium (Metamucil 525 mg oral capsule) 2 Capsules By Mouth Every day Chronic idiopathic constipation Take 2 hour apart from the other medications with at least 8 ounces of water Unchanged silver sulfADIAZINE topical (Silvadene 1% Cream) 1 Application Topical 2 times a day Burn of skin Allergies Glutens (thyroiditis) Latex (hives) Ultram (vomiting) codeine (nausea vomiting hives) Bee Stings (Anaphylactic reaction) NSAIDs (Muscle weakness) Nubain (nausea and vomiting) Ritalin (Altered mental status) Trace Metals (infection) Tylenol with Codeine #3 (Unknown) Problems Ongoing - Any problem that you are currently receiving treatment for. Attention deficit disorder (ADD) in adult BMI 34.0-34.9,adult Chronic idiopathic constipation Chronic venous insufficiency COVID-19 Dercum disease Dysuria Generalized anxiety disorder Geographic tongue Clay thyroiditis HTN - Hypertension Hypersensitivity disorder Left upper quadrant abdominal tenderness Mixed hyperlipidemia Obesity Occipital neuralgia of left side Historical - Any problem that you are no longer receiving treatment for. Anxiety Depression Endometriosis Migraine Smoker Urethral stricture UTI (lower urinary tract infection) [facility] Provider Letteron 03-31-2023 Provider Letter March 31, 2023 TARIK GONZALEZ [address] [place] [id number] : 1980 Dear Tarik , We have been trying to reach you with no success. It is important that you return our call regarding your referral from Dr. Motley upon receiving this letter. Also, at the time of your call, please provide us with your current information. Thank you for your prompt attention to this matter. Sincerely, General Surgery [phone] Normal [facility] Family Medicine Office/Clini c Noteon 03-21-2023 Family Medicine Office/Clinic Note HPI Staff Tarik is a 42 year old female who presents with C/O neck pain. This has been a concern for 3-4 months, but has gotten worse over the past few days. Denies injury. States she can feel a lump on the left side of the back of her neck. Pain radiates up into the left side of her head and down her left shoulder and arm. She has also had tingling and numbness down her left arm. She has been to a chiropractor twice for this concern with minimal effectiveness. Would like to discuss taking LDN due to Clay's and weight gain. Also reports that she continues to have pain and spasming in her left upper quadrant. This has been a concern for over 1 year. She has had an ultrasound of her spleen that resulted WNL. Wondering if this could be related to mesh used for hernia repair. History of Present Illness I have reviewed and verified the staff HPI to be accurate for this encounter. She would like imaging done of her abdomen because she thinks she has a large abdominal wall hernia. The pain in her neck starts at the base of her skull and radiates forward and down. Review of Systems PHQ Score Initial Depression Screen Score: 0 Constitutional: no fever, no chills, no sweats, no weakness Respiratory: no shortness of breath, no cough, no orthopnea, no wheezing Cardiovascular: no chest pain, no palpitations, no edema Additional ROS info: Except as noted in the above Review of Systems and in the History of Present Illness all other systems have been reviewed and are negative or noncontributory. Physical Exam Vitals & Measurements T: 36.4 ?C(Temporal Artery) HR: 113(Peripheral) BP: 124/76 SpO2: 98% HT: 65 in HT: 165 cm WT: 91.5 kg WT: 201.3 lb BMI: 33.61 General: alert, no acute distress Skin: warm, dry Head: no trauma, normocephalic Neck: Trachea midline, no adenopathy, no tenderness she has marked tenderness at the base of her skull. This correlates to the greater occipital nerve and other associated nerves. Pressing on this area does cause the radiation into the trap and down the arm. Eye: normal conjunctiva, sclera clear ENMT: TM's clear, oral mucosa moist, no pharyngeal erythema or exudate Cardiovascular: regular rate and rhythm, normal peripheral perfusion Respiratory: Lungs CTA, respirations non labored Chest wall: no deformity. Gastrointestinal: soft, non distended, no tenderness, no guarding. Back: No tenderness, Normal ROM, Normal alignment. Extremities: no deformity, no trauma Neurological: oriented x 4, LOC appropriate for age, CN II-XII intact, motor strength equal & normal bilaterally, sensation equal & normal bilaterally, speech normal Psychiatric: cooperative, affect appropriate for age, normal judgement, normal psychiatric thoughts. Assessment/Plan 1. Clay thyroiditis (E06.3: Autoimmune thyroiditis) She would like to try the LDN. We will start her at 1.5 daily. We also discussed the gut restore as well as probiotic. 2. Left upper quadrant abdominal tenderness (R10.812: Left upper quadrant abdominal tenderness) We will send her to general surgery for evaluation for an abdominal wall hernia. Ordered: [facility] Internal Ambulatory Referral 3. Occipital neuralgia of left side (M54.81: Occipital neuralgia) We discussed treatment of C2 of the cervical spine. Consider steroid. Consider gabapentin. Follow-up With When Contact Information Otoniel MOTLEY DO, [facility] Only if needed [address] [place] [address]- Additional Instructions: Problem List/Past Medical History Ongoing Attention deficit disorder (ADD) in adult BMI 30.0-30.9,adult Chronic idiopathic constipation Chronic venous insufficiency COVID-19 Dercum disease Dysuria Generalized anxiety disorder Geographic tongue Clay thyroiditis HTN - Hypertension Hypersensitivity disorder Left upper quadrant abdominal tenderness Mixed hyperlipidemia Occipital neuralgia of left side Historical Anxiety Depression Endometriosis Migraine Smoker Urethral stricture UTI (lower urinary tract infection) Procedure/Surgical History Colonoscopy and biopsy of colon (10/19/2020), Hernia repair (10/14/2018), Repair of umbilical hernia (10/14/2018), Cystoscopy with urethral dilation (01/02/2017), cystoscopy and ureteral dilation (01/06/2014), Ankle, Cholecystectomy, Dilation & curettage, History of nasal sinus surgery, Laparoscopy, Nose, Plantar fascia, Tonsillectomy, vocal cord nodules removed x3. Medications baclofen 10 mg Tab, 5 mg= 0.5 tab(s), Oral, TID, 5 refills cyclobenzaprine 10 mg Tab, 10 mg= 1 tab(s), Oral, TID, PRN EpiPen 2-Garry 0.3 mg injectable kit, 0.3 mg= 1 EA, IntraMuscular, As Directed, PRN Flovent HFA 110 Inhaler, 2 puff(s), Inhalation, BID, 2 refills fluconazole 150 mg Tab, 150 mg= 1 tab(s), Oral, Daily Klonopin 0.5 mg Tab, As Directed LDN 1.5 mg, 1 cap, Oral, Daily, 2 refills levothyroxine 75 mcg (0.075 mg) Tab, 75 mcg= 1 tab(s), Oral, Daily, 5 refills Girdler (more content not included)... Normal [facility] Comment on above: Result Comment: Elec tronically Signed By: Otoniel MOTLEY DO\Date and Time Signed: 03/21/23 07:34 EDT Coding Summary.on 02-10-2023 Coding Summary. [id number] Ww+PGhlYWQ+HN3MNJGmC 96jhFRywQ1vB7BASJzMZ ywgQVBQTElOSyIgbmFtZ D4sbHVuVZHh IC8+GQ8rJLGkBpmgcLXo m8R6fDQ2A80ytp8wMQmu hGF3FMNdUwQcczytn0vd cEi7LUatZzgySzRp BXHvcV30HGZ9eG06Du96 tFJjnQXgq9gjlFg5HeXx KQSmIGA2bNtaMQqmi1Er LXVmR22ndLRhp6V7 IGNvbGxhcHNlOyBlbXB0 rW0sTJmxdfluc6adahhv Cel1dx49pDYcy6P3rLK3 T1JqgyC9EOFknKKn DpixwCEPfK7jspwut1tl zbbdRfQnDKRaUNm7ILe8 UGPniQxpPhQjFS35EVH1 DPJorwKiP7XdASUq qPreWvY7y3Y4Vt7DV8WB BhpuS2MLHJYJAJfmrDD+ QM22zt26Z4IwYymgOld3 BVCrEJV7oXA9wZ7w JGQbQYxte2X1qOH3I3Oz zfMgrv0kg6csEXYxIPto S83gpAGzf9D9ZKJaeVC3 KELtiOyyFwZzuB97 Oyc+ONFytUfds1UrSisw m2wyt1yzhBm2LsyvVWYz gjDimFecLGE1j3TuBt0a KBTnuBV8cTU8yB1t VfYcOoC3FQgdA442TgJo xGVeCwijR55zK7PuwOC+ DQWsHsl8VRXtvYnqGI8r Y5MyYCLeutikpONi eCneRM3rKLUirbvcPTSg rC0wGTVdO6f3SlObSbL5 QDclH2NyVVGjplffNc99 dP6cGrGoMjA6SHjq K5MiydU8CDTglGNqWMag YSW6H57em2U8IUYfIDNe DTU6jWI0eQ3ppFkxdrly bGVmdDsgdmVydGlj URetAOjnQ513GSNshFox PkNvZGluZyBEYXRlOiAg MDQvMDMvMjAyMzwvdGQ+ DBNxLKS0hRhgXIBa zWFfLJtfWm0ufPrzdVpj ZM0mQDWjybqaCVMrpG5e IKJbzGJigAahIV9oUYLn fruls350HpJwSPF2 ASOylXHhM6SxrA0xAtTy VQQsLSJfR7OpsAHuNNei N380OIbvYzK0ADHzkdEy U0EcJILtbXiwSsV6 u1C0Wd9Gb6TdhuthK8Li eIWzMrQoGxabVUi6S6Jf PjwvdHI+GC14FYYgEP16 ZXt9LFK7dRckATjt DWRuT5IesA8eYaElBFDv ZGRkOyc+PHRhYmxlIHdp ZHRoPScxMDAlJyBzdHls ZZ8cTc5rPWRjFHVx gNdyqIRqQvOor9taHTPr NOckMI4hoFxjJ2NehFQ7 YACre6w6Rh22A66tQ3Xh dXA+ZMMaqLK7jCJ5 lP8nQlJzRxQ1UBwoG648 DxJnbAXyRrdyc7teb2rm kFt9UzQ1LSBfwbWbuGch EZE5f7QdXc91J03x IHdpZHRoPSIxNSUiIHZh sVzjzd7qzT8hMz3+PGNv pZP7hGS3gD8tAsMfLvV1 RWcyR350BiRueFBf Hyzrf8qan2efyEq1TpJo OOAjuuSgxLbzHBP5c3Mx Yn20J6WojTuwo7CpAsq0 hv61uRXwb6U5lUK0 O2IfJYEjlqblzDHtqBdo YU9gHSYeuxnyIUAxgM6v UKSaC6e0PlTzPhT6CWiu L1TsinC6WUQekYTx XOArzIMZmK5zfbofq4wu gzwiBuIwOSBpRQc5SQn4 JKQmfPfaDuCaNZO8RhT3 XKK5iHBxeV8yeCwb kqugmX9rVjj+GFZ1jMEb hPCZWB1eRlkrwQE+PHRk XSM4lHtwNLlzFPXhzK7e JRSzJ9s0QfIvPbM1 MYliR0BltgC9AIXhdDQe NXSrfYFLrF4niiypa4ja dusbAfVjBWDoRBc8WIv1 LWFsaWduOiBsZWZ0 PoM5SSO8fAPjeK0ijYax yayhcG6nHku+QmlydGgg UPM2YNm7D8QuPak1FEYz pEjkDO8rxCVwZLnv Sr8fuIyeiBqsNH7oJIVf wjoiz853OuHrt7yuDVTh gBGwYRgpPHO5I59la1O2 VHRyXEPsCLV0pXQ2 fK0nhRevcneggINvdPao vlCqwWacZYcsZDzrR722 QDUnkRgsSzTqSBy1M2Ib Hiq7NHYhbDksSD4m uTWfRAtxNr8ilQpbgKhq XB1zYHNtxepdq055AeFl h0suVAGshNRyGYurEOP8 J56ag4X3GIFqKOTn KXN9jJT6fM3ohGhkunty bGVmdDsgdmVydGljYWwt QZgmC596MLNhaWlwInTd sVv4X9IeDze8JZWo xEmtYS3vpJCkXLjjJj0i tHxwsDzxMP3sJTJbnjts c302SwPrw4ofYSTuiEAl MIjoPCU3J70pw5U1 TFVfPBEnAQA8jSC6sC8q bGlnbjogbGVmdDsgdmVy pRhzQQaeGDnhL373SVUw cDsnPlBhdGllbnQg AVijFIb4V2AyXzgznZB+ KX45FSGpKO84bOIjyRYz n6hzyHl5GhBlIGWkDNA4 xSslBTkli0IqQBCf K38oeLUqy8M3USFzsXnd cFKxHwQvbTB2cM7hOSrb cmvuh8zvsdkjEkhay2yf bt79rI70T50uDDbb ZHRoPSIzMCUiIHZhbGln lj8hfD6iRz4+PGNvbCB3 oVF3eO1gTLNwOeX9HGsd K981NsDglVTnNrmv q9wyp2vecDv9WqP7CBAb mvCwqLlzDIH4o4LaZs01 G25dKWvlVISfKXBbTGPq ZTQhiAygdx3goP6p Ii8+EZRixAJ0tRO0yM8x HbUxKrF7OXilZ787QkHz gSSbGreiQ19mJ9DekIE+ BTFuZnp8PDExsLhp BT9wbADsVSsrWr2jDSN7 KvVfHuQuXYubS3YrBZGk sznhyfuexXK8AYUvTFQj tU98Qf5yeOgdZDSb oDZKxE7rxnrvx6wwbvdi GbGiTZQrCNz8IDg7WZBt cUdfMmNkEAC9HoO8NZG8 bKCloA1joMmvtnjo bU4oD2VoYEAwsvnbHf78 vI3vLhUnNvI2EDqoJey+ O12HGQZHXAofQTtZKZFG ML09GL70xXKbi8Q2 gOL5O6GqBWOgllgwpwqw wOJ1XCVvLAIjiF48uBSo UWytAd9wf3S8d601VEUk PNBbqC39Mw9lqAcw KTAuvCZGkI4cnsezg3db ckhaEaCaPRBfXJv4FXk9 MLYhuSyhFbJtODV7WgS0 KPV7hHAlkR9waXvb fydsrL0lFov+MDkvMjkv JId5ZJhvhUY+PHRkIHN0 vHqcEXltIZHeuH2hKCJx G6q2AzHdAvW3XLzz B5YdZWTuvylzQs08eN5j GxDvCfD2IGnwZ8DkxvZ1 JEWpvBJuPKfsMBK8J18b o6O2ORJfEGHrZSQ2 iEH9mL7iqMqrjgrhaAKj dDsgdmVydGljYWwtYWxp F824GXXjaWlkAlTzXQeu DYNvAI17BY17dRZo l0T7uWZ3F5MtCMKdaktv mnysuEE5AKAuDCVtjM23 uBEnOQivLz9wt8K6r656 ZWXyPLCfsU23Ju2l oVwlXPNceLTCiM2kyqzm o8zybqlpIyByNFCjDBv0 UGc7EDDonDtxQjKmLPY7 CoE1YGK3mPPemB2l iYdczglbxL3aRsl+RmVt AZdaAQ16JY25wAVam5D5 hDH7S2XtMKCqimqlibic qZF3DXOqBBKqiJ52 kRCwLVdoYa3pf7I6k443 WQDkMIAcbD83Sn0vbNfi MLGrqZUNuC2odneoe3zn cjogIzAwMDAwMDt0 IRk2QDWohSzcJlJjVID4 BhJ7XZJ6fIWfrG8kgCht sieewT4iZru+DC3ctfxp icR6NG07KH98U8Bk PjwvdGFibGU+PHRhYmxl IHdpZHRoPScxMDAlJyBz mOikNY4bJh0pKNYcJAEq hUfwjYOlTrQwv6fm XDKnAUveIE4vsKjdD3Vh gFP8IMKsw0h0Mk82L59o R7EtmZO+ZLLagTB0gQV7 hX1mSbOjWaV5OQfy M204XhDpaXGcKqlfk0ra k4qnrMd1GoPlNUOubsWz wXxyVIF8a1PkCo11P23h IHdpZHRoPSIyMCUi JNEdxRalts2tyD5vQm2+ MXCqtTD3xNP0fR7bUcCk OdL3IEbvP533HqJhgDDi XsudW24zD6ShpZG+ OUQsGuj9PAUqkMzpGX6y gFHgZFtzRt5nVJJ0ShYk PbMmSRdxG9FdEFZqqkpq drlsuLO2RANoAOOe rA78Mt7coOlhPl2uYUGz WBZ1APUvvUVzR8SwsI6s DdNjGCSoUFNoX6DviHBg RFdyD046ENlqPaY0 OUGptzWtB6FpPGPfcRmn YlW1j9E0Yt0EwOzwyIJl RI7dBlUtHFb1B7YtHyf9 MQPfaZgcDU3uyJOp UIsbXg8wiAvhjQgsJM1n OTNlffxlm513DeSgx9jn CXGigKImYTsePFO6V66m e8H3UZXhBEDbYQX4 oXT2hY7rjVdfgijyvNBw dDsgdmVydGljYWwtYWxp K759NHIezOufWuACPmb2 D7SeDwj4YCZfcJvz UT5hzSXeZEsxRe5xfWlp eIqiPS9rSWXhlfvuc837 KbGhk2lwEFYzaQXpAEdf MGX7O15qf0U3EOFa QOQrEVB3iBN3zA0nmDps bjogbGVmdDsgdmVydGlj OEopANmqW706GFZdmZac Dl2JGpn2C6QwWll9 YNEayQjvIB1cnZQjUQsc Ll5rnUxwiFhsEY0iZCBx rmyvr615IsSsy0gaVDUw uZQmLNxpSXB2O24g m5X1IKJvVHIsJLL0vLA0 iO4thZzddlmfmBCsvDpv igLwqPgaKRjxPGoyF990 IHRvcDsnPlBheWVy OjwvdGQ+FZ63yq39I0Nr FickArc6DIRkFLI9lPD0 bJ0tIGDwJWuww4A4fWM1 O8LxonHwlt5oh3wz YXBzZTog (more content not included)... Normal [facility] Auto Diffon 02-08-2023 Basophils/100 WBC (Bld) 0.8 % Normal 0.0-2.0 [facility] Comment on above: Order Comment: Order Added by Discern Expert. Performed By: #### 1 [id number], 1019403, 83910947, 2146759, 13267593, 0322468, 6148107 #### [facility] [address] [place] [address] Basophils/Leukocytes Auto (Bld) [Pure # fraction] 0.1 E9/L Normal 0.0-0.2 [facility] Comment on above: Order Comment: Order Added by Discern Expert. Performed By: #### 1 [id number], 3856669, 09734074, 7942580, 51022451, 6107756, 9663389 #### [facility] [address] [place] [address] Eosinophils/100 WBC (Bld) 2.2 % Normal 0.0-8.0 [facility] Comment on above: Order Comment: Order Added by Discern Expert. Performed By: #### 1 5945532, 4283590, 21909853, 7771713, 01811625, 2118170, 6859315 #### [facility] [address] [place] [address] Eosinophils/Leukocytes Auto (Bld) [Pure # fraction] 0.2 E9/L Normal 0.0-0.5 [facility] Comment on above: Order Comment: Order Added by Discern Expert. Performed By: #### 1 0982303, 0328494, 59461268, 8355825, 36000601, 8014503, 4589451 #### [facility] [address] [place] [address] 58268 Lymphocytes/100 WBC (Bld) 28.1 % Normal 14.0-50.0 [facility] Comment on above: Order Comment: Order Added by Discern Expert. Performed By: #### 1 8803903, 0665123, 69171734, 7686277, 79319574, 6881134, 6242535 #### [facility] [address] [place] [address] 27642 Lymphocytes/Leukocytes Auto (Bld) [Pure # fraction] 2.3 E9/L Normal 1.0-4.0 [facility] Comment on above: Order Comment: Order Added by Discern Expert. Performed By: #### 1 1085579, 6347231, 05691549, 3895476, 36163361, 7700803, 5650077 #### [facility] [address] [place] [address] 79401 Monocytes/100 WBC (Bld) 6.5 % Normal 4.0-14.0 [facility] Comment on above: Order Comment: Order Added by Discern Expert. Performed By: #### 1 6220515, 3082921, 04311982, 4705325, 61396712, 4634137, 0096647 #### [facility] [address] [place] [address]47 Monocytes/Leukocytes Auto (Bld) [Pure # fraction] 0.5 E9/L Normal 0.2-1.0 [facility] Comment on above: Order Comment: Order Added by Discern Expert. Performed By: #### 1 2582089, 4339934, 19357432, 7125668, 56295835, 2269933, 5912059 #### [facility] [address] [place] [address] 25754 Neutrophils/100 WBC (Bld) 62.4 % Normal 36.0-75.0 [facility] Comment on above: Order Comment: Order Added by Discern Expert. Performed By: #### 1 8426858, 9847938, 60392628, 3846806, 39978106, 3155824, 1891355 #### [facility] [address] [place] [address] Neutrophils/Leukocytes Auto (Bld) [Pure # fraction] 5.1 E9/L Normal 2.0-7.5 [facility] Comment on above: Order Comment: Order Added by Discern Expert. Performed By: #### 1 4450808, 2555465, 49860081, 7752994, 68408241, 0658630, 6032906 #### [facility] [address] [place] [address] BMPon 02-08-2023 Creatinine [Mass/Vol] 0.8 mg/dL Normal 0.5-1.3 [facility] Comment on above: Performed By: #### 1 9390817, 4116036, 51953262, 3531656, 26213521, 5802839, 5039908 #### [facility] [address] [place] [address] Urea nitrogen [Mass/Vol] 14 mg/dL Normal 5-21 [facility] Comment on above: Performed By: #### 1 1849999, 8911869, 86534812, 3135346, 66535850, 7728047, 1575730 #### [facility] [address] [place] [address] Urea nitrogen/Creatinine [Mass ratio] 18 No Units Normal 10-20 [facility] Comment on above: Performed By: #### 1 6605608, 3529840, 00198304, 0015109, 98785470, 7347986, 0312779 #### [facility] [address] [place] [address] Anion gap [Moles/Vol] 10 mmol/L Normal 6-16 [facility] Comment on above: Performed By: #### 1 6506221, 4578877, 95062780, 4123428, 69423489, 5483592, 3026008 #### [facility] [address] [place] [address] Calcium [Mass/Vol] 8.6 mg/dL Low 8.9-11.1 [facility] Comment on above: Performed By: #### 1 3747653, 7834963, 36425344, 7538183, 18329914, 9693805, 0425862 #### [facility] [address] [place] [address] Chloride [Moles/Vol] 104 mmol/L Normal 101-111 [facility] Comment on above: Performed By: #### 1 1025711, 2339309, 55601632, 8156004, 52416573, 5478571, 5062204 #### [facility] [address] [place] [address] CO2 [Moles/Vol] 27 mmol/L Normal 21-31 [facility] Comment on above: Performed By: #### 1 3739445, 6484335, 37215838, 5614465, 49237828, 9901149, 5149573 #### [facility] [address] [place] [address] Glucose [Mass/Vol] 141 mg/dL Normal 55-199 [facility] Comment on above: Result Comment: If t his glucose result represents a fasting glucose, interpretation should refer to the following reference range: 55-99 mg/dL Performed By: #### 1 1904986, 1787582, 51436771, 6911981, 41836548, 5659696, 3034275 #### [facility] [address] [place] [address] Potassium [Moles/Vol] 3.5 mmol/L Normal 3.5-5.3 [facility] Comment on above: Performed By: #### 1 3958008, 6396917, 41584627, 4223125, 89642504, 8744095, 2650607 #### [facility] [address] [place] [address] Sodium [Moles/Vol] 137 mmol/L Normal 135-145 [facility] Comment on above: Performed By: #### 1 9548157, 2741227, 43094226, 9123956, 85995510, 3873200, 3676063 #### [facility] [address] [place] [address] 62075 CBC w/ Auto Diffon 3 Erythrocyte distribution width (RBC) [Ratio] 14.5 % High 10.9-14.2 [facility] Comment on above: Performed By: #### 1 5272998, 8264402, 46383111, 8834327, 24419285, 6177722, 1104249 #### [facility] [address] [place] [address] Hematocrit (Bld) [Volume fraction] 40.2 % Normal 34.0-46.0 [facility] Comment on above: Performed By: #### 1 6744038, 8740571, 74231786, 8797593, 14303069, 7926748, 6993059 #### [facility] [address] [place] [address] 39207 Hemoglobin (Bld) [Mass/Vol] 12.9 g/dL Normal 12.0-16.0 [facility] Comment on above: Performed By: #### 1 8411375, 8211019, 57257472, 3990880, 14154560, 5178230, 9710988 #### [facility] [address] [place] [address] 74923 MCH (RBC) [Entitic mass] 27.5 pg Normal 27.0-34.0 [facility] Comment on above: Performed By: #### 1 4849842, 3528013, 90051395, 6576534, 85601431, 4930499, 2689308 #### [facility] [address] [place] [address] MCHC (RBC) [Mass/Vol] 32.1 g/dL Normal 31.4-36.0 [facility] Comment on above: Performed By: #### 1 6931565, 4033515, 26834557, 3698475, 45610023, 6169836, 5624336 #### [facility] [address] [place] [address] MCV (RBC) [Entitic vol] 85.7 fL Normal 80.0-100.0 [facility] Comment on above: Performed By: #### 1 4351641, 5873976, 42074015, 2747331, 71472828, 7003543, 7663927 #### [facility] [address] [place] [address] Platelet mean volume (Bld) [Entitic vol] 8.3 fL Normal 6.4-10.8 [facility] Comment on above: Performed By: #### 1 9735134, 9603590, 69450522, 3490755, 92107846, 8041064, 4515347 #### [facility] [address] [place] [address] 27442 Platelets (Bld) [#/Vol] 307.0 E9/L Normal 150.0-500.0 [facility] Comment on above: Performed By: #### 1 8344799, 7919194, 27092799, 7458205, 22172664, 5530286, 8498653 #### [facility] [address] [place] [address] 76022 RBC (Bld) [#/Vol] 4.7 E12/L Normal 4.3-5.9 [facility] Comment on above: Performed By: #### 1 5781070, 5378032, 86236381, 4215438, 07430588, 2040153, 7395504 #### [facility] [address] [place] [address] 14850 WBC corrected for nucl RBC Auto (Bld) [#/Vol] 8.2 E9/L Normal 4.0-11.0 [facility] Comment on above: Performed By: #### 1 1376645, 8356337, 51376644, 8817026, 80717551, 8382762, 9575734 #### [facility] [address] [place] [address]7760 Capillary Glucose POCon 04-0 Glucose [Mass/Vol] 130 mg/dL High 55-99 [facility] Comment on above: Result Comment: Papito flores RN/MD Performed By: #### 2 [id number] ####[facility] [address] [place] [address] Discharge Instructionson Discharge Instructions [id number] [id number]:127 Normal [facility] ED Clinical Summaryon 2022 ED Clinical Summary [address] [address] ED Clinical Summary Person Information Name: TARIK GONZALEZ Sadia/[facility] Age: 42 Years : 1980 Sex: Female Language: Greek PCP: Otoniel MOTLEY DO Marital Status: Single Visit Id: Visit Reason: Rash; Chest pain; Palpitations; CP, CHEST TIGHTNESS, THYROID ISSUES Speciality: Acuity: 3 Enc Type: Emergency Med Service: Emergency Arrival: 02/07/2023 21:55:47 Discharge: 02/07/2023 23:52:57 LOS: 000 01:57 Checkin: 02/07/2023 21:55:47 Checkout: 02/07/2023 23:52:57 Dispo Type: Home (Routine DC) EVENTS: Event Name Event Status Request Date/Time Start Date/Time Complete Date/Time Arrive Complete 02/07/2023 21:55:47 02/07/2023 21:55:47 02/07/2023 21:55:47 Document Home Meds Request 02/07/2023 21:55:47 Triage Complete 02/07/2023 21:55:47 02/07/2023 22:07:22 02/07/2023 22:07:22 Dr Exam Complete 02/07/2023 21:57:37 02/07/2023 21:57:37 02/07/2023 21:57:37 Registration Complete 02/07/2023 21:57:37 02/07/2023 22:04:37 02/07/2023 22:10:47 EKG Complete 02/07/2023 21:57:55 02/07/2023 22:03:50 Bed Assign Complete 02/07/2023 22:04:37 02/07/2023 22:04:37 02/07/2023 22:04:37 RN Exam Complete 02/07/2023 22:04:37 02/07/2023 22:29:48 02/07/2023 22:29:48 Pending Labs Request 02/07/2023 22:04:38 Lab Complete 02/07/2023 22:04:38 02/07/2023 22:57:02 Patient Care Request 02/07/2023 22:04:38 RT Request 02/07/2023 22:04:38 X-Ray Cancel 02/07/2023 22:04:38 02/07/2023 22:40:52 Reg Complete Request 02/07/2023 22:10:47 Reg Bed Request Complete 02/07/2023 22:10:47 02/07/2023 22:10:47 02/07/2023 22:10:47 Pending Labs Complete 02/07/2023 22:20:25 02/07/2023 22:20:25 02/07/2023 22:35:25 Lab Complete 02/07/2023 22:20:25 02/07/2023 22:20:25 02/07/2023 22:35:25 Pending Labs Complete 02/07/2023 22:22:52 02/07/2023 22:22:52 02/07/2023 22:22:52 Pending Labs Complete 02/07/2023 22:25:22 02/07/2023 22:25:22 02/07/2023 22:25:29 Lab Complete 02/07/2023 22:25:22 02/07/2023 22:25:22 02/07/2023 22:25:29 Pending Labs Complete 02/07/2023 22:42:00 02/07/2023 22:42:00 02/07/2023 22:42:00 Discharge Complete 02/07/2023 23:18:23 02/07/2023 23:53:12 02/07/2023 23:53:12 Transfer Complete 02/07/2023 23:53:12 02/07/2023 23:53:12 02/07/2023 23:53:12 ADDRESS: [address] [place] [id number] PHYS DOC NOTES: MEDICAL INFORMATION: Prescriptions Given: Medications to Continue with No Changes Other Medications albuterol (Proventil HFA 90 mcg/inh Aerosol) 2 Puffs Inhalation 4 times a day. Refills: 0. baclofen (baclofen 10 mg Tab) 0.5 Tablets By Mouth 3 times a day. Refills: 5. clonazepam (Klonopin 0.5 mg Tab) As Directed. cyclobenzaprine (cyclobenzaprine 10 mg Tab) 1 Tablets By Mouth 3 times a day as needed for spasm. Refills: 0. epinephrine (EpiPen 2-Garry 0.3 mg injectable kit) 1 Each Intramuscular As Directed as needed Anaphylaxis. Refills: 0. famotidine (Pepcid 20 mg Tab) 1 Tablets By Mouth every day. Refills: 0. fluconazole (fluconazole 150 mg Tab) 1 Tablets By Mouth every day for 5 Days. Refills: 0. fluticasone (Flovent HFA 110 Inhaler) 2 Puffs Inhalation 2 times a day. Refills: 2. levothyroxine (levothyroxine 75 mcg (0.075 mg) Tab) 1 Tablets By Mouth every day. alternate with 50 mcg. Refills: 5. levothyroxine (Synthroid 75 mcg (0.075 mg) Tab) 30 EA. psyllium (Metamucil 525 mg oral capsule) 2 Capsules By Mouth every day. Take 2 hour apart from the other medications with at least 8 ounces of water. Refills: 4. silver sulfADIAZINE topical (Silvadene 1% Cream) 1 Application Topical 2 times a day. Refills: 2. PATIENT EDUCATION INFORMATION: Instructions: Palpitations Follow up: With: Address: When: Otoniel MOT[facility] [place] [address] [place] [address] [employer] (1) In 3 days DIAGNOSIS: Palpitations Normal [facility] ED Note-Physicianon 02-09-20 ED Note-Physician Basic Information Time Seen: Chato Mejia DO 02/07/2023 21:57 Chief Complaint pt to ED with c/o chest tightness x3 hours. states hx of Hashimotos and concerned her thyroid levels are messed up denies radiation of pain and denies SOB. states that her face feels warm , denies fevers. History of Present Illness HPI: Patient is a 42-year-old female past medical history of anxiety, Clay thyroiditis, hypertension, hyperlipidemia who presents the ED for palpitations. Patient states that for the past 3 hours she has been having feelings of palpitations like her heart is racing and fluttering as well as a slight tightness throughout her chest. She states that she is concerned that it is her thyroid as she has had similar symptoms in the past when that has been the issue. She states that this tends to happen in the spring when she gets more active and the weather starts changing her thyroid hormone levels change and she gets these symptoms. She states that she is currently on Synthroid daily for this. ROS: Pertinent review of systems conducted and is negative except as noted above. Physical exam: General: nontoxic appearing and in no distress HEENT: Mucous membranes moist Neuro: awake and alert Neck: supple, trachea midline Card: Heart regular rate and rhythm no murmur Resp: Lungs clear to auscultation no wheeze or rhonchi Abd: Soft and nondistended. No tenderness to palpation with no rebound or guarding. Ext: No gross deformity or edema Physical Exam Vitals & Measurements T: 36.8 ?C(Oral) HR: 95(Peripheral) RR: 16 BP: 117/87 SpO2: 96% HT: 165 cm WT: 90.0 kg BMI: 33.06 Medical Decision Making MEDICAL DECISION MAKING Number and Complexity of Problems Differential Diagnosis: [] [facility] Data External documents reviewed: N/A My EKG interpretation: Noted in chart if applicable My CT interpretation: N/A My X-ray interpretation: Noted in chart if applicable My Ultrasound interpretation: N/A Decision rules/scores evaluated: Heart Score for Major Cardiac Event History: Example factors for history - pattern of chest pain, onset, duration, relation with exercise, stress or cold, localization, concominant symptoms. reaction to sublingual nitrates, [] Highly suspicious +2 [] Moderately suspicious +1 [X] Slightly suspicious 0 EKG: [] Significant ST-Depression +2 [] Non specific repolarization disturbance +1 [X] Normal 0 Age: [] >= 65 +2 [] 45-65 + 1 [X] <45 0 Risk Factors: (HLD, HTN, DM, Cigarette Smoking, Pos Family Hx, Obesity) [] >3 risk factors or hx of atheroslerotic disease + 2 [X] 1-2 risk factors + 1 [] No risk factors known 0 Troponin: [] >= 3X normal + 2 [] 1-3X normal + 1 [X] <= Normal 0 [X] 0-3 Points 0.9 - 1.7% risk of major adverse cardiac event in 6 weeks [] 4-6 Points 12-16.6% risk of major adverse cardiac event in 6 weeks [] 7-10 Points 50-65% risk of major adverse cardiac event in 6 weeks Discussed with: N/A Treatment and Disposition ED Course: Well-appearing in no distress. She is in sinus rhythm here in the ED. Work-up was initiated. Count is within normal limits. Her TSH is within normal limits. The remainder of the labs are reassuring. On telemetry she had an occasional PVC but otherwise remained in sinus rhythm with no abnormalities. I discussed these findings with the patient at bedside. At this time I feel she is stable for discharge with close follow-up with primary care physician. Discussed return precautions. Patient states understanding agreement with plan was discharged in stable condition. Shared decision making: As above Code status: N/A Assessment/Plan Palpitations (R00.2: Palpitations) Orders: Automated Diff Basic Metabolic Panel Capillary Glucose POC CBC w/ Auto Diff ECG 12 Lead Adult ED Cardiac Monitoring eGFR Extra SST Tube Oxygen Saturation Oxygen Therapy PT & PTT Saline Lock Insert Thyroid Stimulating Hormone Troponin 0 Hr. Troponin 3 Hr. Disposition Plan Discharge Prescription List Prescriptions No active prescription medications Follow-up With When Contact Information Otoniel MOTLEY In 3 days [address] [place] [id number] Business (1) Additional Instructions: Patient Education Palpitations Problem List/Past Medical History Ongoing Attention deficit disorder (ADD) in adult BMI 30.0-30.9,adult Chronic idiopathic constipation Chronic venous insufficiency COVID-19 Cystitis Dercum disease Dysuria Generalized anxiety disorder Geographic tongue Gross hematuria Clay thyroiditis HTN - Hypertension Hypersensitivity disorder Left upper quadrant abdominal tenderness Left upper quadrant pain Mixed hyperlipidemia Recurrent UTI Historical Anxiety Depression Endometriosis Migraine Smoker Urethral (more content not included)... Normal [facility] Comment on above: Result Comment: Elec tronically Signed By: Chato Mejia DO\.br\Date and Time Signed: 02/07/23 23:19 EDT ED Patient Education Noteon 02-08-2023 ED Patient Education Note Emergency Medicine Palpitations Palpitations are feelings that your heartbeat is irregular or is faster than normal. It may feel like your heart is fluttering or skipping a beat. Palpitations are usually not a serious problem. They may be caused by many things, including smoking, caffeine, alcohol, stress, and certain medicines or drugs. Most causes of palpitations are not serious. However, some palpitations can be a sign of a serious problem. You may need further tests to rule out serious medical problems. Follow these instructions at home: Pay attention to any changes in your condition. Take these actions to help manage your symptoms: Eating and drinking ? Avoid foods and drinks that may cause palpitations. These may include: ? Caffeinated coffee, tea, soft drinks, diet pills, and energy drinks. ? Chocolate. ? Alcohol. Lifestyle ? Take steps to reduce your stress and anxiety. Things that can help you relax include: ? Yoga. ? Mind-body activities, such as deep breathing, meditation, or using words and images to create positive thoughts (guided imagery). ? Physical activity, such as swimming, jogging, or walking. Tell your health care provider if your palpitations increase with activity. If you have chest pain or shortness of breath with activity, do not continue the activity until you are seen by your health care provider. ? Biofeedback. This is a method that helps you learn to use your mind to control things in your body, such as your heartbeat. ? Do not use drugs, including cocaine or ecstasy. Do not use marijuana. ? Get plenty of rest and sleep. Keep a regular bed time. General instructions ? Take snna-sor-ihguyly and prescription medicines only as told by your health care provider. ? Do not use any products that contain nicotine or tobacco, such as cigarettes and e-cigarettes. If you need help quitting, ask your health care provider. ? Keep all follow-up visits as told by your health care provider. This is important. These may include visits for further testing if palpitations do not go away or get worse. Contact a health care provider if you: ? Continue to have a fast or irregular heartbeat after 24 hours. ? Notice that your palpitations occur more often. Get help right away if you: ? Have chest pain or shortness of breath. ? Have a severe headache. ? Feel dizzy or you faint. Summary ? Palpitations are feelings that your heartbeat is irregular or is faster than normal. It may feel like your heart is fluttering or skipping a beat. ? Palpitations may be caused by many things, including smoking, caffeine, alcohol, stress, certain medicines, and drugs. ? Although most causes of palpitations are not serious, some causes can be a sign of a serious medical problem. ? Get help right away if you faint or have chest pain, shortness of breath, a severe headache, or dizziness. This information is not intended to replace advice given to you by your health care provider. Make sure you discuss any questions you have with your health care provider. Document Released: 10/24/2001 Document Revised: 12/09/2018 Document Reviewed: 12/09/2018 [employer] Patient Education ? 2019 [employer] Normal [facility] ED Patient Summaryon 023 ED Patient Summary [place] [address] Patient Discharge Instructions Person Information Name: TARIK GONZALEZ Age: 42 Years Arrival Date: 02/07/2023 21:55:47 Discharge Diagnosis: Palpitations Primary Care Physician: Otoniel MOTLEY DO Provider Information Primary Provider: Chato Mejia DO [employer] Report Developer:None The exam and treatment you received in the Emergency Department were for an urgent problem and are not intended as complete care. It is important that you follow up with a doctor, nurse practitioner, or physician?s assistant professor of german for ongoing care. If your symptoms become worse or you do not improve as expected and you are unable to reach your usual health care provider, you should return to the Emergency Department. We are available 24 hours a day. TARIK GONZALEZ has been given the following list of patient education materials, prescriptions and follow-up instructions: Follow-up Instructions: With: Address: When: Otoniel MOTLEY [facility] [address] [place] [id number] Business (1) In 3 days In the event that this physician does not participate in your insurance network, please consult with your insurance company to find a nearby participating provider. Patient Education Materials: Palpitations A MESSAGE TO ALL PATIENTS REGARDING OPIOIDS PRESCRIPTION OPIOIDS: WHAT YOU NEED TO KNOW Prescription opioids can be used to help relieve xpwvqjkq-du-jenief pain and are often prescribed following a surgery or injury, or for certain health conditions. These medications can be an important part of the treatment but also come with serious risks. It is important to work with your healthcare provider to make sure you are getting the safest, most effective care. WHAT ARE THE RISKS AND SIDE EFFECTS OF OPIOID USE? Prescription opioids carry serious risks of addiction and overdose, especially with prolonged use. An opioid overdose, often marked by slowed breathing, can cause sudden . The use of prescription opioids can have a number of side effects as well, even when taken as directed: ? Tolerance?meaning you might need to take more of the medication for the same pain relief ? Physical dependence?meaning you have symptoms of withdrawal when a medication is stopped ? Increased sensitivity to pain ? Constipation ? Nausea, vomiting, and dry mouth ? Sleepiness and dizziness ? Confusion ? Depression ? Low levels of testosterone that can result in lower sex drive, energy, and strength ? Itching and sweating RISKS ARE GREATER WITH: ? History of drug misuse, substance use disorder, or overdose ? Mental health conditions (such as depression or anxiety) ? Sleep apnea ? Older age (65 years and older) ? Avoid alcohol while taking prescription opioids. Also, unless specifically advised by your health care provider, medications to avoid include: ? Benzodiazepines (such as Xanax or Valium) ? Muscle relaxants (such as Soma or Flexeril) ? Hypnotics (such as Ambien or Lunesta) ? Other prescription opioids KNOW YOUR OPTIONS Talk to your health care provider about ways to manage your pain that don?t involve prescription opioids. Some of these options may actually work better and have fewer risks and side effects. Options may include: ? Pain relievers such as acetaminophen, ibuprofen, and naproxen ? Some medication that are also used for depression or seizures ? Physical therapy and exercise ? Cognitive behavioral therapy, a psychological, goal-directed approach, in which patients learn how to modify physical, behavioral, and emotional triggers of pain and stress. IF YOU ARE PRESCRIBED OPIOIDS FOR PAIN: ? Never take opioids in greater amounts or more often than prescribed. ? Follow up with your primary health care provider. o Work together to create a plan on how to manage your pain. o Talk about ways to help manage your pain that don?t involve prescription opioids. o Talk about any and all concerns and side effects. ? Help prevent misuse and abuse o Never sell or share prescription opioids. o Never use another person?s prescription opioids. ? Store prescription opioids in a secure place and out of reach of others (this may include visitors, children, friends, and family). ? Safely dispose of unused prescription opioids: Find your community drug take-back program or your pharmacy mail-back program, or flush them down the toilet, following guidance from the Food and Drug Administration (www.fda.gov/Drugs/R esourcesForYou). ? Visit www.cdc.gov/drugover dose to learn about the risks of opioids abuse and overdose. ? If you believe you may be struggling with addiction, tell your health home care manager and ask for guidance or call [facility]?S National Helpline at 9-713-028-IXFN. v Source: US Department of Health and Human Services/Ban (more content not included)... Normal [facility] Monitor Recordon 02-08-2023 Monitor Record [id number]#[id number]:127 Normal [facility] PT & PTTon 02-08-2023 aPTT Coag (PPP) [Time] 32.8 second(s) Normal 25.1-36.5 [facility] Comment on above: Result Comment: Para meter 15 days - 4 weeks 1 - 5 months 6 - 11 months 1 - 5 years 6 - 10 years 11 - 17 years PTT Mean: 35.4 (27.6-45.6) Mean: 33.5 (24.8-40.7) Mean: 32.4 (25.1-40.7) Mean: 31.6 (24.0-39.2) Mean: 31.6 (26.9-38.7) Mean: 31.0 (24.6-38.4) Pediatric Reference ranges were obtained from a study by Erlin Medrano et al. prepared from 1437 samples obtained at 7 different centers using the same coagulation reagent and instrumentation as [facility]. Currently there are no coagulation studies available worldwide for children to 14 days, and no normal ranges. Heparin therapeutic range (represented by Anti-Factor Xa activity of 0.2 - 0.4 U/mL) corresponds to PTT of 56.6 - 109.0 sec. Performed By: #### 1 [id number], [id number], [id number], [id number], [id number], [id number], [id number] #### [facility] [address] [place] [address] INR Coag (PPP) [Relative time] 1.0 {INR} Invalid Interpretation Code [facility] Comment on above: Result Comment: INR results are specifically intended to assess patients stabilized on long-term Anticoagulation therapy suggested INR?s ?Less Intensive Anticoagulation? 2.0 ? 3.0 Conventional Range 3.0 ? 4.5 Performed By: #### 1 [id number], [id number], [id number], [id number], [id number], [id number] #### [facility] [address] [place] [address] PT Coag (PPP) [Time] 10.6 second(s) Normal 9.4-12.5 [facility] Comment on above: Result Comment: 15 d ays - 4 weeks 1 - 5 months 6 -11 months 1- 5 years 6-10 years 11 -17 years Mean: 11.2 (9.5-12.6) Mean: 11.0 (9.7-12.8) Mean: 11.0 (9.8-13.0) Mean: 11.3 (9.9-13.4) Mean: 11.7 (10.0-14.6) Mean: 11.8 (10.0 - 14.1) Pediatric Reference ranges were obtained from a study by Erlin Medrano et al. prepared from 1437 samples obtained at 7 different centers using the same coagulation reagent and instrumentation as [facility]. Currently there are no coagulation studies available worldwide for children to 14 days, and no normal ranges. Performed By: #### 1 [id number], [id number], [id number], 4562538, [id number], 6363804, 4571071 #### [facility] [address] [place] [address] TSHon 02-08-2023 TSH Qn 3.01 m[IU]/L Normal 0.34-5.60 [facility] Comment on above: Performed By: #### 1 [id number], [id number], [id number], 2108751, [id number], [id number], [id number] #### [facility] [address] [place] [address] Troponin 0 Hr.on 02-08-2023 Troponin I.cardiac [Mass/Vol] ng/mL Low 10.10-27.10 [facility] Comment on above: Result Comment: The 95% CI (Confidence Interval) PPV (Positive Predictive Value) for myocardial infarction in females is 38 pg/mL, in males 51 pg/mL. The results should be used in conjunction with clinical conditions of myocardial infarction. (Access High Sensitivity Troponin I Instructions For Use, Rachel Master, June 2018) Performed By: #### 1 [id number], [id number], [id number], 3162824, 75346655, [id number], [id number] #### [facility] [address] [place] [address] eGFRon 02-08-2023 GFR/1.73 sq M.predicted among blacks MDRD (S/P/Bld) [Vol rate/Area] mL/min/{1.73_m2} Normal >=59 [facility] Comment on above: Order Comment: Order added by Discern Expert. Result Comment: eGFR is race adjusted. AA=. Performed By: #### 1 [id number], [id number], [id number], 3170866, 60177903, 2921890, [id number] #### [facility] [address] [place] [address] GFR/1.73 sq M.predicted among non-blacks MDRD (S/P/Bld) [Vol rate/Area] mL/min/{1.73_m2} Normal >=59 [facility] Comment on above: Order Comment: Order added by Discern Expert. Result Comment: Certified Master Safecracker nilesh kidney disease could be indicated at eGFR's of less than 60 mL/min/1.73m2. Kidney failure is indicated at less than 15 mL/min/1.73m2. Performed By: #### 1 [id number], 9096459, 06043596, 9988206, [id number], 1065469, 0856191 #### [facility] [address] [place] [address] Consent for Treatmenton 01-10 Consent for Treatment [id number] #1.00CD:127 Normal [facility] Coding Summary.on 12-16-2022 Coding Summary. CD:[id number] Gh0bWw+PGhlYWQ+PE1FV VLjI21kpMVfsU3QB9nNJ R4DWSBKQQNJJB8HVS8iu ZL8NVuiJ1FvicGl NrgdvCRyFB58JBx5BFM8 sMmcLSxswS3kmDTnW6v2 XoXsYY66fR55WFhuPJUa CjV2PbAtflbzmXYe N8kfHeAojNEvVwg+PHRh YmxlIHdpZHRoPScxMDAl UnOgwKosXP9ySa1cQMHu LWNvbGxhcHNlOiBj l2xjVSSyPZfhKZ2nuHqr A7LraFV7FHBxp0p0Tr15 dHI+SRQrQDU9eGraWNtm u201LaEel9xqYCW3 qFRvBGuyWQC1E30fg4O2 BUCwDJXiKZJ2yPI6wA8x oNcyfmzpO0YtoCJoYeI1 KUU9vOCncE8vsTyh ohacuZ4bLgr+W11NNI1W OCFIOP7GXdc5Y5VsQahd dHI+IF69KCUcOJ55lQAa yRFzv8ywsEw4JcUg MQVaHHA5pTdjWFtep3Kc GMJaF59brQZuj9D2HKLu yAmmtDGsHfCoqWR2fX3t AUtnyjuzq4qhqyeh Amtfv9yglm80pL91L50r HGggRLJrLMM1DXIbPHCf pLpwit7tgF1xKv7+IDxj u1nps7lzkUn6DhJh GQIkjbYuiUosAKO7e8Qx Yr49S8WxbEfim4WxXxd5 qt77uCNeu6D3cCC9QCaz OGPkoY3yIHefXhQ8 MPPtUtKzbB45yPTkTKrw Ni8dsFifvHhfNH6uJFAu luxrDRFzvV0oYQYalLNe jXlzPL9cHJHybtso x239YfSfRKF1YYTepATg R6LceB9iDuOnBHIlKURy T1DhqXMeUGnuR583IAbv UaY7RZPxoyOdH4Lr BKLtzOtjBrK1g7F7Yv5S x5EenadbWEE7ZGbeTHJy HuQ8KwXiQaQ1K1ClUue1 NMWwtWdaYZ4kK4Fj BVHkytdssfufeZI1QDWx HHCmyY37xLJkJZjhEh1f b0H5h930YPFtABBspB93 Xt5ilYmcDRPodUEN tX0apxtoi6ajplfzTeEy MJDyWSw7HCd9EFZmsUhq SiZlDKB5IlX3NRM5aMIo bE8bqVwemqmvaF8r Oyc+D08foV0mPKL6YMM8 cbotVVHgpcIcGJ99SK87 J3PbZdqjzLJakQI+PGRp sqLhcDutPC0oNnVq l6lut8KsEGrkA4KuCQWj INocCvs2MEDrXIQ0iKE4 dQ7gNFMuZJqzx8R6gLI4 U2CdutZvuf0am9pz BZJqMPwqS15rrBEtw2A5 QPJtmQP2UJViiPyoNvIj sO86Wgz+FAJolJdca5Re Tlvus6sjm6buePr4 IjMwJSIgdmFsaWduPSJ0 v4LqPx38R25oRMffLQWf TQQqPEKnJJDhvNwbcq6m iP4xRk9+PGNvbCB3 mQR3hK1sTKYjLvA3FIem A957XzBcyEWcStiiw7ix j4wavPo6JbOwUWDshhGq wIwpYKC9g1ScTg47 H02tHCwvWFVuKYKoZWJl XSOxsEuvqr2nyQ8dNt6+ BI8kv3xeca70pR12pKK+ KWRqCMC3eOttUAxu BOSnoN4dIUzrXxU2YBOt YxDrnC85wEWyNCrfEt3h rHewpHdnTL0eIQZlaszv s344AeLpm2amTRGu gIVqFRjzTUY2R30to6Q1 BWLaYEPoSKT7nST0fV2c bGlnbjogbGVmdDsgdmVy tKftRVuiJMwnT708 IHRvcDsnPlBhdGllbnQg BbYwWJp6O6GmOgq3MOSz qJitGW3esFYsHVsvTl9v gDjqiEdmPW2kRNFw nurle157KaDqi6ddMOQh kYWdEYyeNPD0N51fg1M0 PKAxONByMED9mRG6fK7i bGlnbjogbGVmdDsg uuWxvJtwWGdlEEpjS239 IHRvcDsnPkJpcnRoIERh dET5OP53VE47lFLct5B2 oGX1O4IsBJUhebot imeylNB2VAUyOMDtxZ81 Xm5pbRrrId5gKIIpUEJ9 CNUhrQMzL2KfyD7tEjAz LKCxOWDrE8YitMOt EVogE907PMpjWgJ3JTJb alDfY1DpRGSdpFcmGfV1 i9U1Wu2JJ1B2NQ07GJ61 nBRli4G7hEX5T5Fl HGAnvmyhgvcdkEA0ODAo NPZapU53Ra1luIduZy0t SLHvEIF0PKAqxSTrA6Qx aD7cYfPtHAHbLCTu X7ObaDUsBYlsL062SMul XrD0SJPzufAbV8DcGPLw xOyoNeR1w0A9Sh7YAIl0 LE04YQ07kTPqy6Z4 fVN8O5WzEZAxvamxdazz bMC2UTVqPGJtcV49Qf6x bOykWc5iLJXiWKI0RMDg mHIuR3OaaZ6gTzDk ZTSiSEUbM0PsuBNuATzz C005CYvcOyV4COYwquUw Q9HvKMLfxXnpVnV2j2M8 Er7WVIYdTW37WIZ1 yEE5ZZ14KL87K0NnWvqa dGFibGU+PHRhYmxlIHdp ZHRoPScxMDAlJyBzdHls TC3jHd9vIIZxOWBn qCjuwZKzEhThp1upVLWg XMmlOC4qxIjcJ8MaaLI5 JIKim0g1Jz37L39wQ9Zv dXA+ZKQzhLR0xTT2 vR0iHnTjFlX7OIeoR356 XrUpzJUqZzfxf8uso9as bHa9JtU8WJGkzlYrkJda LIW9q7LlMs23C89v IHdpZHRoPSIxNSUiIHZh hPtjbj7bkM5fOd5+PGNv qBR8dQX4qH9zXbNiHrJ5 LLweM914OkOneSAy Ywcys0orh0daiJf4RsWf IDXsksDgcGebZRV6a7Qe Df77H1BywScpd1GtXlc4 xw28tDAwm2O9hZL2 T6AcWCAqvezzxHTxtFtz LE8nXCYbjqztXXMgbC7j KNRqA2q2NfYcOxC1WOzp Q6LjpmM8VGXrhHXw CVrjWEC5S84ob3F9ZHZq QUAhBVU9tAL6rM9xpLnf bjogbGVmdDsgdmVydGlj ZIvhFDpsD412DXQu kHqjLTUnmR6rJGMlgNRw pWcjOX4zOTEfnzidIpfJ SVRURUwsIFRJTkEgTTwv dGQ+BDJiQTB6zLjh KVjiXPWymO0uTOSwY0l3 NiRbRgA1VIrqH5JwLIIl uedqLx66dF0nGnWlAhR7 OAnpD7NemvD8JQDv sRBzGOqhFQV9G96cy5V3 VMOnGXAxRMA8sOI1mF5m bGlnbjogbGVmdDsgdmVy kNdrPYrtFQirJ412 VJFttBwpKmY4GfJ7UlK2 HKC5P0XvSqr4QSHktFgd KA8vlYRpYUfrCc6bpZxx gIwnXU1kYBHdvzkq NCZhiP3pXMOsqWAnxDlz NP7cIKKbnfkeq744ArTw QHY1ESGzuFXcB0YooR7p ApMnFXPoOZVtL6Qo aHFqQWrjF497IJmnMfQ5 RWQyaqIaJ1NgXAPleOns KyA7s9I1Ad17JjUFPTVv czwvdGQ+PHRkIHN0 gHvbASaeXJMifU7cGMDs P4d6OwWbJpR8DStpF7Im QHKrupevAy47vS6hGvHr GpJ4MPzzE2EjkaJ8 MJIsnEBwNOiiQFT2M92f i0S1GQVjYIWuSVR2jXN2 kA9ngDwhtrcolGQjoBlu dmVydGljYWwtYWxp K672GNOcgPfiTqTnsZZi ZTwvdGQ+JGTiFDP8oHmg XCjuCJWulH8kJTBuP4j1 QpQfRsU9LEmhN1Kz OGPfxhbwMt32sD5iUoGy CxT9BOwjZ5AkspO3QOGv gDMaLPofYJR9F51mp5Z9 UYWyAOMuJBR3eVS3 bR0ajXjfbxqmoWBgsAjb ffNceWkjMAcaKJmaH258 WFWtkFdnKlBdRTEwVH4z eTwvdGQ+JG10za92 Z2UaGqroEng7ZJYzACX4 yZA0pN5nBFKsZThpb8O5 fZB4I3VtgvRvjb9ec2bm KWJgPMycS76qyTUk y5R2KZPukDP9MGFyfSxb PaMhfR94Gsn+PGNvbGdy l2NyCzylt0uxi9mtaBe5 IjMwJSIgdmFsaWdu VMU1j9QwYj55H23jPHdm ZHRoPSIzMCUiIHZhbGln av6ipH0kQy5+PGNvbCB3 aON1lU3nAeRyHxE9 GYsnI355HvTnzTEbNkwf y4cgx7gekDj0XlZqWMGz mbTuiPxgWCL3f6IbVc52 L9VbhZvyi1EnPgv8 qj60kTBdo9E4yJS9B5Po NNIykrhogGHyyHlaRI2s UGHmizawXTFndN3tDLOr H2s7ApXeZeJ2DQtg S1YyygZ4ELJedYPfOMRi jVZAsN6rxyzki0zkrgrs YfKuSJMzGNp6BQn7CRSk qXxjBpSyKGP3IyW9 IJD5qNBodV2zpNsokuqk pI9yOox+UNe2o5ksiZYz CN8mpKX4NE58RT65vEBd r3A9eLB4O0MoKJOr ackexwaqjZU9NSUhUNJm gB76Cv7moOcpMt7jUNHe VQM0OSPctAYdA0HupT0y JiVqMKMoOCYdM8Ni vZToHSpfG379HJmyPrU4 CCBufsStC0UjSJApwVdk BkX2t3E3Ei2PXC08RY16 TQ02lRFpx1T0pPY2 Z0IlKRDlzhbkrmmpvTF2 LRTsMAWzhE26Fd9iaHvc Sf0nFYXhXVJ6MLOsnHPx M5YuyY5vVmIkPOMz UJEmU4EanEViLAutK069 QUzcNeS9WMUrmyZtL1Nh FFLkeLeaFpQ3l8S6So6F Gy39SQ94EA20xAIz i9L4xXV5J5OvBEQroxhf biilqKC6YBMxTMOteL12 Lv4svQzjLy8gEQFpWKR7 DNHmfHXnH9PscH9r SiEwBDVuJWRdQ3ZlgBPs FIoiA982SZwbXuW1VACn tsFkJ6KvCBFtxMjrEbD0 l2I7Ro5NLXsjpig1 F3TyQutbdZF+CT13SKAh UU70gRHwgBDrd5chuNq7 RhAwOEPdOSU9iNqhONjp p2HeJQWhT64tcNBq c2U6 (more content not included)... Normal [facility] Coding Summary.on 12-13-2022 Coding Summary. CD:[id number] Gh0bWw+PGhlYWQ+PE1FV UXnD62laDSlcR4FR8lCN C0EMMJWOPCVIO9YQY2gz FD5ZUkmQ9XjvmLq PpanxSVvIQ02YKc6DUL0 bNpsAWgivW1hmPRpI1b0 GxAaZZ85gC09OAraZEUj WmP6QfJqpslqbDBt S9pePoNucFKoUqb+PHRh YmxlIHdpZHRoPScxMDAl WvKuxRdkNK5jBk4cVRXv LWNvbGxhcHNlOiBj u6coNVSpDHstDD3ojZud S2QcwPI7DMNhi3q3Ke83 dHI+QVGkANB7aQtvYVjd i214MtEsr9iyGRK3 sMGyQHxcVQW0J65kw2G2 VLAyTLFbWXI4wMJ2jJ7i yBtgpwedP9IphIXuXkM9 STF1vTAglW9phFqv noenhA0vNhz+O66OQW9D VSVNWP4SGdm6M0GcGksj dHI+PU64IYSeSQ87cXDy lMGic7gdeSu4BdYm XPRhZVC6pDxvNOdei0Bt DFPoJ82ybCQrc6U8EVQc yItjcPHgOmQsxSO2bC2g LYacgrphf7snpjfr Buujv0skjp09rS01U83h XQcwASLaQHX6IGLfMFIq mHjuvj8yhZ1dTe2+IDxj n8abh6galYu9AwFz MJPepfPurEufBTW2a3En Wq68B9BejBcne4DuOtg7 wp03lUOew7P1hFF7IXwk XHQadJ8kGErxReE4 IKTlSlBbjG20yNTiCSsy Cf8wmBoleCftCB1sNHPw lzerYOBjgF3qLWEhpSUh qBseSS1nTAWzjhxh e820AuCaWQQ8MSHqqJKz I7JweA5xOyUqXPXlXQAx M4NmlNBfGPakV328FEuj BpT5UNMfjgNkX9Ub UDTkuHluImB0z8D9Ip3S l1MayiweUCC5BFerUNIl AlPfRlOtHdW2X8NqLgj5 PISesNriUD3vG8Be HNHlfhlkipiiiIF4OKKb EJQbqG88iKXmSEbrMk9y g2A5w009CEThKUHpvO15 Yo8kbWwsQNOzrWSD kY3aiqkpd4catufeBiDv EEKfEWy5MCt7SJArxUmb GqRxIEM7IqJ6RQC9sDEl mU2iiQkwmuoezZ7b Oyc+L55avR6tJPR0HPZ9 qczkPAPajnGtFK04KV94 T9KfWcxxqBXxuTU+PGRp tqIxlZbtJZ8wUgUb h7xmk0YwONtfI7LxXLAp SKcqZsc6AHYiTQW9xBT1 nY9aTDThTHbfl4W8qZI5 V8RhdgMjjo8it3vw RBXkNYsiN15dlNRnq7R5 ZLSzoTN8EHXmoFhwNhXw jX70Zjl+FDLutVotp3Dj Ebuwf6izi6pjnGk9 IjMwJSIgdmFsaWduPSJ0 x4XmHf99W35jUHzwBWPj PGAiBGPrDTHfrBbfes9v mU1nIt9+PGNvbCB3 cKZ9bT0hVFKqFkS8TQxa Z005DnBkcZSaEzgbm6gh q7nzhSi3QdEaNTBlvzNx dEifOQK9p7LbUb55 S42jGEbsRKXsXLLhAVXa JPJdwYpsxf7tpT2bWq1+ WY8gg1oxoo61wB29aGG+ CKImJHW8kGohPJsl IOIbgL4wLGhuZhZ4UPJw YmJziA95rWGiJMspSg6t kQgpqJpsNO3iYAStxpne k869TnTrd5knJQFy jUYkCWxpJPE9T07jl2K5 VQKmPTSiAHK9mWS1tR5q bGlnbjogbGVmdDsgdmVy kEauYDntDIcaZ724 IHRvcDsnPlBhdGllbnQg HvSdCFf0O2YcEty2WDOh kJvuEB2qnIZiMZiqOj1z tIiekIezEV9yRLSw wkgty860MsNsg5wtCDMp mQIcIEthEHX6Q69tw8J6 QSGkTUQqUVZ8tHR4jE4n bGlnbjogbGVmdDsg pvJvaWyhBLkzASysZ549 IHRvcDsnPkJpcnRoIERh rTP8WP88BN42yIDqp2V7 oTK0W0KuNPBbnlxb nlipwGI4EVZuOROqqO89 Av2wkNdcYe6oHUVmFFA2 HMXwoWFyZ4IyuU8qCyAt KWVdIMBtU5JgqFIu UQdbG106BFyiFkG9GSUt jiQeY1XrZMSdiXjsWyX3 p0K7Ye5RG0Q4BP58CG46 cTFxy2Q2bXY5Y9Vh NGHpefipngzpaIJ9EDJr JBYbaO90Rx7srVpoGc3g TIAcPME9GOJlwZIsT5Do sQ3qQrGxCPPsTEGh F0KvbWAdLUwiN246WJis BuX5VWNdosSkU9TjNZOl hHgaMqM8n5I3Vl4QFCu0 CZ80MJ91aNCps8X2 kIZ6L2YrXWVhumejxdlq qSM7WIMrEMDmvP86Um7f nEsnGz1nFFQzENG0PUNe jKCdR2OgfQ3uRiPl LEMlWKIhE1KaaPDsRRml F636IQrlAsF0XZGsmnVj E5CrPZFhxHekZwD2e8F6 Ug5ATEDmGQ66XEE9 dXY5JB48EN25E7VwNkpa dGFibGU+PHRhYmxlIHdp ZHRoPScxMDAlJyBzdHls KE8dGo8qTBOiLNXm eIqhwDHuIoOhi0qnMCNi VPmgUO5yiGfbO1IxlUN6 QJEjd5g6Fa64J83xY1Qf dXA+OQOyeMI5cFF6 nJ6gVpZbZxQ5DCrnK666 VeSyrBZbHrbpx3ksh1un kAo2NdI1LZGtqkJlmMfe OGU4f6ToQc80Y85y IHdpZHRoPSIxNSUiIHZh yKvybn3bgA5pZc1+PGNv kJL1wIY2hG9qYhVvWxU5 KZcrZ864CsPfdZZo Jlmbe4llq4bmmSg6AuJe NCPjdjWcvSjsBZK4n6Ni Xz67V5QzyWszg9SaBdh1 vd58mQZwq0D8cTG3 L4GrDESxrjkhiQJpoPhl UQ1qTAFpyrnqYDVmyE5y UZRrQ1o9NdFhEiS4JOle J3CwcjC4UQZdtOKd YRayMGD8O47vm7K2KKLe ESUoFUW4aSA7fG8ruAdg bjogbGVmdDsgdmVydGlj HYjzLZuqM352OVMl rEduLWYkmN7qEGRfeXUp vWngXR8rWYFleeeeEdvD SVRURUwsIFRJTkEgTTwv dGQ+PMAhBJN4iZjf HUyhEMNrnQ8wCRMtG7w5 ApQiZaL6PYhsP7RjPMWc jivuEn70sC6gZmYtIiH8 QMhrL0BzoaJ3CTHi iSQeKYleNIP1G58mw6F3 FKSvJNErJLW5zIC6mS8j bGlnbjogbGVmdDsgdmVy gLejXKzsIMpcU795 EEQkqNuqLzX7GpM6FqB7 QQX1S9DnNwv5UZAsmBqk IT3joINlAJfpFx1zxEtu oJxfGV6mFUJsweog FANpxS8nCFOaeGSaiFgs OJ4oIQTvhzzvb964HqMq SFO2MHOsjMZqW1VcrQ1i JaZqIBUcWWFnR7Vl cHXeAIiuZ263SUrsPyO7 XAMcefXtA7XdXFSkoJct NmL4h4M1Ua39HdWCKGZl czwvdGQ+PHRkIHN0 kMvrYNetWLYrtM0zFUBd M9h6BvJuEjU4LFiuN7Xh PJZblktzXf05aW3yXjCt GvZ8MEhtN4AigfJ8 HWPrpAPfHOtsFME9L24h t1Q7UZBsZFGrIWZ8pSA6 wI2ciKhlbajusAMchJfd dmVydGljYWwtYWxp B422MHRfmIxiVdVxmRTk ZTwvdGQ+QOCaXHO8gGol RLnySBIvnQ9eBWKrX6q7 XeViWiZ4XQovB7Si ZXPjqgrfVz77dH3mBoUq BjQ8VHvdN6LduoD7ORYw iXYjGPguTOP1B32ks3S0 YZRzSBClYYF0hUK4 cC7jmHguoozykJZdpOla fiWyqCziAIlyBWeoV571 OVKbsMkiQe66zEKxrSce cuL0I4ZfTzgcmOG+ XL15AHIsEJ87hSLldYTs l8myxZz9YpGiMYQkGBJ5 eVvxODfdi1UfABVnN19d kTFyp7N7JJEvrEvi rVRhWeEeeAV3pI0nJUtn ezesj8uokhdaOyngh9lq gm98iV48G17dROmtCYDn PSIzMCUiIHZhbGln gs6lkA1pFf8+PGNvbCB3 aFW0mR0qSuEkCfB2SUsl L616EcUjfWHsJslhq4qm e2rnmCj8YyJpLYZj fvSgzMtlIJE3r9PbSi07 Q56yEIiiGXMoGXTjTZMp VBBqeRvlxo1fhC4bXa0+ BM1uf1pqpl11wD60 dHI+OPQkVQY3bAxcNMjt UBDbxJ8kVBwxNxD7PFBf UnXyvS81eWEiFPdvNj8l jBjnqIgiDH6tGIAf vyafa167KqLbb3ilMZUi cXLkWImgORV6Z42aq2L8 NVIzCVJkESF0dQJ4cJ3a bGlnbjogbGVmdDsg dpRgaQesCSwsBNmuQ597 RDAewVzcUnYhiFSmB0xd klNQEM1xLfcxuFZ+PHRk XKX6fDhcOJyiOHMh hQ0cKEEcV6j0LsGfVrS4 CRzrY4UcsyI2BJQkdNTi RALbqBZSxK9yuwocr8eb cjogIzAwMDAwMDt0 QUw2NKNyeJacCnIuTOG1 ZkE0SJH3dATccZ6evDmh mhvpmR2pWbe+RklOOjwv dGQ+ABLfPZM0eByb TXnuVOKxlK2bKKOvX8u4 LoTyDfA7GYfyV4XxlcB9 LXMnaDLpTFTluVSShQ4k tzvol6fljxiuTqYy MKBdQDl5KHy1BYPnzJrs FyIgIBB2PrK2CYY2xEXa eL4fvHhykyjwwG8vBdr+ TVJOOjwvdGQ+PHRk SBK7aDbhJJyaURGcdO2j WHFpO0u8VmQoQxG3XXmp O1EwwfK5JTNsvIWnBBOj lURNbX3pfqhhp2ap sjfnEzZrPIStFSx8KHp1 VASebYepLdWcVRD8CzL9 GZV6uKGpgH2viAtbzwfc lY3wXdh+NDO3TEE2 XA70UQ93D2GtSkakgSBm bGU+PHRhYmxlIHdpZHRo FArvQWYbBhLykDiqIV1g Sg7yDNBjSEYouFvx cHNl (more content not included)... Normal [facility] US Retroperitoneal Completeo n 12-13-2022 US Retroperitoneal Complete Exam Date/Time: 12/11/2022 09:05 EST Reason for Exam: recurrent UTI, gross hematuria;Other (please specify) Report IMPRESSION: APPROXIMATELY 15 ML POSTVOID RESIDUAL URINARY BLADDER VOLUME. OTHERWISE, NEGATIVE RETROPERITONEAL ULTRASOUND. EXAM: US Retroperitoneal Complete DATE: 12/11/2022 CLINICAL HISTORY: recurrent UTI, gross hematuria. COMPARISON: Renal ultrasound 08/30/[address] abdomen and pelvis 01/19/2020. TECHNIQUE: Transabdominal ultrasound of the kidneys and urinary bladder was performed. FINDINGS: The study is mildly limited by the patient's body habitus. Both kidneys are normal in size, position and morphology, with renal cortex echogenicity within normal limits. There is no hydronephrosis, visualized nephrolithiasis, abnormal perinephric collections, solid or cystic renal masses identified. The urinary bladder is unremarkable in appearance, containing approximately 83 mL of urine prior to voiding. An approximately 15 mL postvoid residual volume is present. The right kidney measures approximately 8.9 cm in length, with renal parenchymal thickness of approximately 1.2 cm. The left kidney measures approximately 10.4 cm in length, with renal parenchymal thickness of approximately 1.4 cm. FINAL REPORT Dictated: 12/13/2022 11:56 am Tuan Rios MD Signed (Electronic Signature): 12/13/2022 11:56 am Signed by: Tuan Rios MD Transcribed by: TEJAL Technologist: ROMEL Normal [facility] Consent for Treatmenton Consent for Treatment [id number] #1.00CD:127 Normal [facility] Discharge Instructionson Discharge Instructions [id number]#1.00CD:127 Normal [facility] ED Clinical Summaryon 2022 ED Clinical Summary [place] [id number] ED Clinical Summary Person Information Name: TARIK GONZALEZ Sadia/[facility] Age: 42 Years : 1980 Sex: Female Language: Greek PCP: Otoniel MOTLEY DO Marital Status: Single Visit Id: Visit Reason: Lower leg pain-swelling; Knee pain-swelling; Fall; FELL AND INJURED LEFT KNEE, FELL ABOUT A HALF HOUR AGO Speciality: Acuity: 4 Enc Type: Emergency Med Service: Emergency Arrival: 12/12/2022 09:14:52 Discharge: 12/12/2022 10:04:12 LOS: 000 00:50 Checkin: 12/12/2022 09:14:52 Checkout: 12/12/2022 10:04:12 Dispo Type: Home (Routine DC) EVENTS: Event Name Event Status Request Date/Time Start Date/Time Complete Date/Time Arrive Complete 12/12/2022 09:14:52 12/12/2022 09:14:52 12/12/2022 09:14:52 Document Home Meds Request 12/12/2022 09:14:52 Triage Complete 12/12/2022 09:14:52 12/12/2022 09:23:32 12/12/2022 09:23:32 Bed Assign Complete 12/12/2022 09:19:11 12/12/2022 09:19:11 12/12/2022 09:19:11 Dr Exam Complete 12/12/2022 09:19:11 12/12/2022 09:20:50 12/12/2022 09:20:50 RN Exam Complete 12/12/2022 09:19:11 12/12/2022 09:33:34 12/12/2022 09:33:34 Registration Complete 12/12/2022 09:20:50 12/12/2022 09:46:51 12/12/2022 09:46:51 X-Ray Complete 12/12/2022 09:23:32 12/12/2022 09:25:18 12/12/2022 09:46:30 Meds Admin Complete 12/12/2022 09:23:32 12/12/2022 09:46:01 Dr Exam Complete 12/12/2022 09:25:55 12/12/2022 09:25:55 12/12/2022 09:25:55 Wet Read Request 12/12/2022 09:46:30 Reg Complete Request 12/12/2022 09:46:51 Reg Bed Request Complete 12/12/2022 09:46:52 12/12/2022 09:46:52 12/12/2022 09:46:52 Discharge Complete 12/12/2022 09:51:48 12/12/2022 10:04:21 12/12/2022 10:04:21 Transfer Complete 12/12/2022 10:04:21 12/12/2022 10:04:21 12/12/2022 10:04:21 ADDRESS: [address] [place] [id number] PHYS DOC NOTES: MEDICAL INFORMATION: Prescriptions Given: New Medications [facility]/pharmacy #[id number], [address], [place] [id number], [phone] acetaminophen-hydroc odone (Scarborough 325 mg-5 mg oral tablet) 1 Tablets By Mouth every 6 hours as needed for pain for 3 Days. Refills: 0. Medications to Continue with No Changes Other Medications albuterol (Proventil HFA 90 mcg/inh Aerosol) 2 Puffs Inhalation 4 times a day. Refills: 0. baclofen (baclofen 10 mg Tab) 0.5 Tablets By Mouth 3 times a day. Refills: 5. clonazepam (Klonopin 0.5 mg Tab) As Directed. cyclobenzaprine (cyclobenzaprine 10 mg Tab) 1 Tablets By Mouth 3 times a day as needed for spasm. Refills: 0. epinephrine (EpiPen 2-Garry 0.3 mg injectable kit) 1 Each Intramuscular As Directed as needed Anaphylaxis. Refills: 0. famotidine (Pepcid 20 mg Tab) 1 Tablets By Mouth every day. Refills: 0. fluconazole (fluconazole 150 mg Tab) 1 Tablets By Mouth every day for 5 Days. Refills: 0. fluticasone (Flovent HFA 110 Inhaler) 2 Puffs Inhalation 2 times a day. Refills: 2. levothyroxine (levothyroxine 75 mcg (0.075 mg) Tab) 1 Tablets By Mouth every day. alternate with 50 mcg. Refills: 5. levothyroxine (Synthroid 75 mcg (0.075 mg) Tab) 30 EA. psyllium (Metamucil 525 mg oral capsule) 2 Capsules By Mouth every day. Take 2 hour apart from the other medications with at least 8 ounces of water. Refills: 4. silver sulfADIAZINE topical (Silvadene 1% Cream) 1 Application Topical 2 times a day. Refills: 2. PATIENT EDUCATION INFORMATION: Instructions: Knee Sprain, Adult Follow up: With: Address: When: Otoniel MOTLEY [address] [place] [id number] [employer] In 3 days 12/15/2022 DIAGNOSIS: Knee sprain Normal [facility] ED Note-Physicianon 12-12-19 ED Note-Physician Basic Information Time Seen: Ihsan Gaytan PA-C 12/12/2022 09:20 Chief Complaint Pt reports she fell this AM, twisted left knee. Pt reports posterior knee pain and LLE pain. Denies n/t. No thinners, did not hit head. History of Present Illness 42-year-old female comes to the ED for evaluation of left knee pain. The patient states she tripped and fell this morning, injuring her left leg. She states she tripped over some cords. She twisted and landed on her left knee. Complains of pain primarily to the knee but this does radiate down to the ankle. States not able to bear weight on her leg. No prior treatments. No other complaints or concerns. Review of Systems A 10 point review of systems is negative except as noted above. Medical and Surgical History: Reviewed and noted Social history: Lives at home Tobacco: Denies Physical Exam Vitals & Measurements T: 36.6 ?C(Oral) HR: 86(Peripheral) RR: 16 BP: 104/67 SpO2: 100% HT: 165 cm WT: 89 kg BMI: 32.69 Nurses notes and vital signs reviewed and patient is not hypoxic. General: The patient appears well, resting comfortably. Skin: Warm, dry. Head: Atraumatic. Neck: No JVD. Eye: Normal conjunctiva. Ears, Nose, Mouth, and Throat: Moist mucous membranes. Cardiovascular: Strong distal pulses. Chest wall: Respiratory: Respirations are nonlabored. Back: Normal range of motion. Musculoskeletal: Diffuse tenderness over the left knee extending midway down the calf. There is some mild erythema over the patella surface. No bony instability. No ligamentous laxity. No evidence of neurovascular compromise. Gastrointestinal: Urological: Neurological: Awake and alert. No focal deficits. Follows commands. Psychiatric: Cooperative. Medical Decision Making X-rays of the knee, tibia, fibula show no fracture dislocation. She has no evidence of ligamentous laxity. No evidence of neurovascular compromise. She requested an Gabriel wrap and this is provided. She is given pain medication and discharged home with PCP follow-up. Patient was encouraged to return to the ED if symptoms worsen or change. Assessment/Plan Knee sprain (S83.90XA: Sprain of unspecified site of unspecified knee, initial encounter) Ordered: acetaminophen-hydroc odone, 1 tab(s), Oral, q6hr for pain for 3 day(s), 10 tab(s), Refill(s) 0, [facility]/pharmacy #[id number], 165, cm, 12/12/22 9:23:00 EST, Height/Length Dosing, 89, kg, 12/12/22 9:23:00 EST, Weight Dosing Orders: acetaminophen-hydroc odone, 1 tab(s), Tab, Oral, Once, Stop date 12/12/22 9:23:00 EST, STAT, Start date 12/12/22 9:23:00 EST XR Knee Complete 4+ Views Left XR Tib/Fib Left 2 View Medications Administered Given Scarborough 5/325 Tab, 1 tab(s), Oral Disposition Plan Patient Discharge Condition Disposition: Discharged home Condition: Improved and stable Counseled: Patient and/or family were counseled to workup, results, treatment plan and follow-up recommendations Discharge Prescription List Prescriptions Scarborough 325 mg-5 mg oral tablet, 1 tab(s), Oral, q6hr, PRN Follow-up With When Contact Information Otoniel MOTLEY In 3 days 12/15/2022 EST [address] [facility] [address] [place], [place] [phone] Business (1) Additional Instructions: Patient Education Knee Sprain, Adult Attestation Patient seen and evaluated by the physician assistant professor of german. Attending physician was present in the emergency department and supervised care. This visit was performed by both the physician and an APC. I performed all aspects of the MDM as documented. This report was transcribed using voice recognition software. Every effort was made to ensure accuracy, however, inadvertently computerized marketing operations manager mistakes may be present. Appropriate healthcare PPE was used in evaluating this patient. The patient was placed in a mask. The healthcare provider was wearing mask, gloves, and utilizing proper hand hygiene. All equipment was properly cleansed. Problem List/Past Medical History Ongoing Attention deficit disorder (ADD) in adult BMI 30.0-30.9,adult Chronic idiopathic constipation Chronic venous insufficiency COVID-19 Cystitis Dercum disease Dysuria Generalized anxiety disorder Geographic tongue Gross hematuria Clay thyroiditis HTN - Hypertension Hypersensitivity disorder Left upper quadrant abdominal tenderness Left upper quadrant pain Mixed hyperlipidemia Recurrent UTI Historical Anxiety Depression Endometriosis Migraine Smoker Urethral stricture UTI (lower urinary tract infection) Procedure/Surgical History Colonoscopy and biopsy of colon (10/19/2020), Hernia repair (10/14/2018), Repair of umbilical hernia (10/14/2018), Cystoscopy with urethral dilation (01/02/2017), cystoscopy and ureteral dilation (01/06/2014), Ankle, Cholecystectomy, Dilation & curettage, History of nasal sinus surgery, Laparoscopy, Nose, Plantar fascia, Tonsillectomy, vocal cord nodules removed x3. Medications Inpatient Scarborough Tab (more content not included)... Normal [facility] Comment on above: Result Comment: Elec tronically Signed By: Ihsan Gaytan PA-C\.br\Date and Time Signed: 12/12/22 10:18 EST\.br\Electronically Co-Signed By: Ish Dean DO\.br\Date and Time Co-Signed: 12/12/22 11:19 EST ED Patient Education Noteon 12-12-2022 ED Patient Education Note Orthopedics Knee Sprain, Adult A knee sprain is a stretch or tear in a knee ligament. Knee ligaments are bands of tissue that connect bones in the knee to each other. What are the causes? This condition often results from: ? A fall. ? An injury to the knee. What are the signs or symptoms? Symptoms of this condition include: ? Trouble bending the leg. ? Swelling in the knee. ? Bruising around the knee. ? Tenderness or pain in the knee. ? Muscle spasms around the knee. How is this diagnosed? This condition may be diagnosed based on: ? A physical exam. ? What happened just before you started to have symptoms. ? Tests, including: ? An X-ray. This may be done to make sure no bones are broken. ? An MRI. This may be done to check if the ligament is torn. ? Stress testing of the knee. This may be done to check ligament damage. How is this treated? Treatment for this condition may involve: ? Keeping the knee still (immobilized) with a cast, brace, or splint. ? Applying ice to the knee. This helps with pain and swelling. ? Keeping the knee raised (elevated) above the level of your heart when you are resting. This helps with pain and swelling. ? Taking medicine for pain. ? Exercises to prevent or limit permanent weakness or stiffness in your knee. ? Surgery to reconnect the ligament to the bone or to reconstruct it. This may be needed if the ligament tore all the way. Follow these instructions at home: If you have a splint or brace: ? Wear the splint or brace as told by your health care provider. Remove it only as told by your health care provider. ? Loosen the splint or brace if your toes tingle, become numb, or turn cold and blue. ? Keep the splint or brace clean. ? If the splint or brace is not waterproof: ? Do not let it get wet. ? Cover it with a watertight covering when you take a bath or a shower. If you have a cast: ? Do not stick anything inside the cast to scratch your skin. Doing that increases your risk of infection. ? Check the skin around the cast every day. Tell your health care provider about any concerns. ? You may put lotion on dry skin around the edges of the cast. Do not put lotion on the skin underneath the cast. ? Keep the cast clean. ? If the cast is not waterproof: ? Do not let it get wet. ? Cover it with a watertight covering when you take a bath or a shower. Managing pain, stiffness, and swelling ? If directed, put ice on the injured area. ? If you have a removable splint or brace, remove it as told by your health care provider. ? Put ice in a plastic bag. ? Place a towel between your skin and the bag or between your cast and the bag. ? Leave the ice on for 20 minutes, 2?3 times a day. ? Gently move your toes often to avoid stiffness and to lessen swelling. ? Elevate the injured area above the level of your heart while you are sitting or lying down. ? Take vvdv-zjv-begkfnt and prescription medicines only as told by your health care provider. General instructions ? Do exercises as told by your health care provider. ? Keep all follow-up visits as told by your health care provider. This is important. Contact a health care provider if: ? You have pain that gets worse. ? The cast, brace, or splint does not fit right. ? The cast, brace, or splint gets damaged. Get help right away if: ? You cannot use your injured joint to support any of your body weight (cannot bear weight). ? You cannot move the injured joint. ? You cannot walk more than a few steps without pain or without your knee buckling. ? You have significant pain, swelling, or numbness below the cast, brace, or splint. This information is not intended to replace advice given to you by your health care provider. Make sure you discuss any questions you have with your health care provider. Document Released: 10/27/2006 Document Revised: 02/18/2020 Document Reviewed: 05/16/2017 Elsevier Patient Education ? 2019 [employer]. Normal [facility] ED Patient Summaryon 023 ED Patient Summary [address] [address] Patient Discharge Instructions Person Information Name: TARIK GONZALEZ Age: 42 Years Arrival Date: 12/12/2022 09:14:52 Discharge Diagnosis: Knee sprain Primary Care Physician: Otoniel MOTLEY DO Provider Information Primary Provider: Ish Dean DO [employer] Report Developer:Ihsan Gaytan PA-C The exam and treatment you received in the Emergency Department were for an urgent problem and are not intended as complete care. It is important that you follow up with a doctor, nurse practitioner, or physician?s assistant professor of german for ongoing care. If your symptoms become worse or you do not improve as expected and you are unable to reach your usual health care provider, you should return to the Emergency Department. We are available 24 hours a day. TARIK GONZALEZ has been given the following list of patient education materials, prescriptions and follow-up instructions: Follow-up Instructions: With: Address: When: Otoniel MOTLEY [address] [address] Business (1) In 3 days 12/15/2022 In the event that this physician does not participate in your insurance network, please consult with your insurance company to find a nearby participating provider. Patient Education Materials: Knee Sprain, Adult A MESSAGE TO ALL PATIENTS REGARDING OPIOIDS PRESCRIPTION OPIOIDS: WHAT YOU NEED TO KNOW Prescription opioids can be used to help relieve angabydy-yc-pvkihx pain and are often prescribed following a surgery or injury, or for certain health conditions. These medications can be an important part of the treatment but also come with serious risks. It is important to work with your healthcare provider to make sure you are getting the safest, most effective care. WHAT ARE THE RISKS AND SIDE EFFECTS OF OPIOID USE? Prescription opioids carry serious risks of addiction and overdose, especially with prolonged use. An opioid overdose, often marked by slowed breathing, can cause sudden . The use of prescription opioids can have a number of side effects as well, even when taken as directed: ? Tolerance?meaning you might need to take more of the medication for the same pain relief ? Physical dependence?meaning you have symptoms of withdrawal when a medication is stopped ? Increased sensitivity to pain ? Constipation ? Nausea, vomiting, and dry mouth ? Sleepiness and dizziness ? Confusion ? Depression ? Low levels of testosterone that can result in lower sex drive, energy, and strength ? Itching and sweating RISKS ARE GREATER WITH: ? History of drug misuse, substance use disorder, or overdose ? Mental health conditions (such as depression or anxiety) ? Sleep apnea ? Older age (65 years and older) ? Avoid alcohol while taking prescription opioids. Also, unless specifically advised by your health care provider, medications to avoid include: ? Benzodiazepines (such as Xanax or Valium) ? Muscle relaxants (such as Soma or Flexeril) ? Hypnotics (such as Ambien or Lunesta) ? Other prescription opioids KNOW YOUR OPTIONS Talk to your health care provider about ways to manage your pain that don?t involve prescription opioids. Some of these options may actually work better and have fewer risks and side effects. Options may include: ? Pain relievers such as acetaminophen, ibuprofen, and naproxen ? Some medication that are also used for depression or seizures ? Physical therapy and exercise ? Cognitive behavioral therapy, a psychological, goal-directed approach, in which patients learn how to modify physical, behavioral, and emotional triggers of pain and stress. IF YOU ARE PRESCRIBED OPIOIDS FOR PAIN: ? Never take opioids in greater amounts or more often than prescribed. ? Follow up with your primary health care provider. o Work together to create a plan on how to manage your pain. o Talk about ways to help manage your pain that don?t involve prescription opioids. o Talk about any and all concerns and side effects. ? Help prevent misuse and abuse o Never sell or share prescription opioids. o Never use another person?s prescription opioids. ? Store prescription opioids in a secure place and out of reach of others (this may include visitors, children, friends, and family). ? Safely dispose of unused prescription opioids: Find your community drug take-back program or your pharmacy mail-back program, or flush them down the toilet, following guidance from the Food and Drug Administration (www.fda.gov/Drugs/R esourcesForYou). ? Visit www.cdc.gov/drugover dose to learn about the risks of opioids abuse and overdose. ? If you believe you may be struggling with addiction, tell your health home care manager and ask for guidance or call [facility]?S [employer] Helpline at 5-803-875-[employer]. u Source: [employer] Department of (more content not included)... Normal [facility] XR Knee Complete 4+ Views Le fton 12-12-2022 XR Knee Complete 4+ Views Left Exam Date/Time: 12/12/2022 09:46 EST Reason for Exam: Pain, Traumatic Report IMPRESSION: NEGATIVE LEFT KNEE. CLINICAL HISTORY: Pain, Traumatic COMPARISON: NONE. FINDINGS: 4 views of the left knee demonstrate no evidence of a fracture, dislocation, bone or joint abnormality. FINAL REPORT Dictated: 12/12/2022 10:04 am Julio C San MD, V. Signed (Electronic Signature): 12/12/2022 10:04 am Signed by: Julio C San MD, V. Transcribed by: TEJAL Technologist: MOHAMUD Normal [facility] XR Tib/Fib Left 2 Viewon XR Tib/Fib Left 2 View Exam Date/Time: 12/12/2022 09:46 EST Reason for Exam: Pain, Traumatic Report IMPRESSION: NEGATIVE LEFT TIBIA AND FIBULA. CLINICAL INFORMATION: Pain, Traumatic COMPARISON: None. FINDINGS: The left tibia and fibula appear normal without evidence of fracture or dislocation. FINAL REPORT Dictated: 12/12/2022 10:04 am Julio C San MD, V. Signed (Electronic Signature): 12/12/2022 10:04 am Signed by: Julio C San MD, V. Transcribed by: TEJAL Technologist: MOHAMUD [facility] Consent for Treatmenton Consent for Treatment [id number] #1.00CD:127 [facility] Coding Summary.on 12-05-2022 Coding Summary. CD:[id number] Gh0bWw+PGhlYWQ+PE1FV CFxD75xdLWowX4UR0oUC T7LQMGSYEIADW8WYE6zy CJ3TJciN7JvfeIe YyvbmNEcPQ65ETh1QWF5 xCdwJMxhuT2idHHyL2c3 TbQzIW73wK69LTztJIRm XvC2FrUjbzytzLMg S2hwAyNaiVUzQfq+PHRh YmxlIHdpZHRoPScxMDAl HyAgsPluNB5hUm7uQXNx LWNvbGxhcHNlOiBj c5noDCIwVImfEQ2krExj L7SpvXF6NKUuo7h5Nh42 dHI+FVIxUAO7vBroKRzk e396EmPzn7bwJDY6 aGZiSBjbVOR1S54sk1H1 TBHbDHHgJGK8jLS1gQ7c eLhyzmzeX5KbyDAtYfU2 VJU0nBXinV0zkGjd hazkrH5cYqp+E55PZO7G TFYUKA3QOhj1I2AwZjez dHI+GM46ZKIkSO60tGYt sDPwe2hjtKo6WwEn DUVmANE7sPowXRiob2Pm BDFeS02mbYJxg0D3MNVk gIyieQIiHuIovKV5uJ5c MMuxifxvz9gjwzfz Ztlmq3mgyn81lD32Z34v HHohBVKqTUA0RTUmYSGz sKemus3bkG5aNc8+IDxj e2fwb6lreBf0WrAn BRSqfjSojCsfKLF9y7Ub Hn62A5ErxXroc1AhPhb8 da12wPZzc6G1hHA4GIzf ZTIriZ5sDHuhSmN2 TAVuMbShoV42wBQuHVem Sa2lfVflnThhEH7xJRAf wyukMCUpjG0fHUCloLWx sAgpFT5nHKHofgcy s651EeElVJR0BDOomBNx V6CjoZ8uRxNqXIPfJUCt H6OtiARcBYnuY351FXml ZxD0OPCambSjR2Qi TFQcvDddHgN5i7D9Nd3J s6SizxvvVRY7GQgcTQYz FgM7NzYnVaO1G7FvTqi9 KTOyfTsmFN5dL8Zq WJZxozoeoimfcJV9BTZj RJOsyD18bBZcWKjnHd8v l8Q9v781SJNjWYMleR78 Ft4jfXzqCTIujSUN cN0bzscnq4tmdxfoEsBe QYZcSXo6FYa1NPGjoFfl MfOcEZN9RyZ0BQQ1uPPv fG3fvYdiubwoyG3l Oyc+H84asW6bFOY1KAV4 ryanTJUdwxUuGZ28VM42 H8BwKlkvxPZcmDV+PGRp nlTwrWzoOY4xUzQz u1dyn8TfZEukX4IhUBVj JPgoVjr8UYXzBSN0zBI7 xM8nSSPiCFccq0T8hFO4 P4JvpdMjda4xn7ey TFJkCZujL83ofXRmh8U5 QKRyaJK2BUSidIonAfRw nV66Yjq+ERPobVjai2Na Amqjq8eel7hxwKk3 IjMwJSIgdmFsaWduPSJ0 x1ReJs05P38cDIeyXOYr AQQuDAQaBQSzhDqwvf8d wY6fEc0+PGNvbCB3 sXR9nZ7cCQPmVyF5RLcp C125EhCfgMNiBrgjb3sd q9gksXp1SkSoXRPnpxVx qSkiGSD6u3BtCh93 T26sTRtkVUSzNNHaCKVk NOIneSytoz8xdZ2cJz6+ XU2zj0qoky90pI65tDW+ HRKdAPA8rGyqLZbh WECelD1hBPelKnN5KGUm QxAdeK57uJPiCCogHq2i iAgzeWcwRF0qSFSffqwj a386PoPdx6vrZFOb dMXtMDveROD1I95ub3R6 MREmGQAtANE4iYP0sW6v bGlnbjogbGVmdDsgdmVy fEanLObhITytO734 IHRvcDsnPlBhdGllbnQg PzAjFDd8J7UxDqa1LSVe nNolBZ8riDMbMYfkDe7f eQfjgZhvUK6zRYDl rumwb755KqTxi9jlGARi wRHoEThfCTN3X60rg7V5 XGHrPKEkDDD3lXX0kA4c bGlnbjogbGVmdDsg hrMzzUimOSmtGBclN590 IHRvcDsnPkJpcnRoIERh lHA7MD26GI22hZMrj3A5 uDY1M5EeUBNfjrmw qyymkGS5EFWtLSHiyV15 Bd7bdNryYu8yHBVpFXA2 MINfyKFvO2YqoW3lQsZk YWShVNOyN8CcfTFt QLgvF262XWumMbB8KBFe clDfG9KiKXYdjLplNuC8 r4P7Zk5MT9M7FE68TY98 kJZlq8A8xDG1N1Fu NRNplveaxgkzsHY8LJIs SFCavX54As7pjRsxPj6z JKUhKAN1FWVgoMCpQ8Hl wG8nMrTjULRiIRMr Z4RubLPmAEmiU676HWey IfF1CLPiceVuY9CtTIAq lEzbAxK5z1E3Nh0VKLw8 NR09PF52oVOwv7L4 uLX1D9XnOINwbidbiooa uUB5PVDrTRSpmA56Rm6i qXffKs7rBUGlDTR2VZJe mVAiG7OzgA0rLqFx NLLmJGUpF6CozEOaGLmi Q114CLgmFdB7UWHisfYq E2VmKKGftKjuSxJ9n3Q0 Oz8ZDZZxHH56GLT0 yWG6MD14TD62Q9DzDkka dGFibGU+PHRhYmxlIHdp ZHRoPScxMDAlJyBzdHls FC4lSf6sRGGqSZCz qSzzsUMcWbEiq6prKZQd NKhqHO3bsJnlQ4WbgJY8 JXTkr2y4Mt02D82kJ8Zi dXA+SNAaqDB3lJI6 cW2jYwRhVeL2BKdcZ438 QjUzbHSiEjlhm5esj0tk fTg6MvU4SPVgksOvoGla XSU4q9KeSz74O28l IHdpZHRoPSIxNSUiIHZh zWiirl7zvG4dWo1+PGNv yQU5sAJ6oG2iDrAzNdA6 SUvtB997HgOpgHDk Esdzj8yox5szvCi1PqJi BFVlpnGvgQipEBS4b4Xj Yf57H3UxuWjre6QsVfp5 co19qTKvb6E1uNR2 R8GpLQKkakszdDMcnFeo LX4eMEJvzkkfXRKwmR6j XTVdI5h6ErDiLjF7IGud U3NrccL2KRBeuEZu MNywDLO7H63fv4G6PCKh MUGqHNO7wOK1oI5htBny bjogbGVmdDsgdmVydGlj CGdvMUsvD699YMPa oAqeWIDtrF2cWJVxjHJy mZauIF0dEYGddxdzHikF SVRURUwsIFRJTkEgTTwv dGQ+KMYaAAC8zLra MMhrQECmfS5kJQRvM5a9 HzFuJaP0EXtlE9BzXSTj cvbjSg26oQ9wQhEiMqQ3 LRuoN4EnpgC3RGDw aAJqBXvsCME7O09jj6U8 KWIxIXEqBOF9kLP3hV2f bGlnbjogbGVmdDsgdmVy gLhcGCllINpsP594 DZEprJylHeZ0FbY5HrF1 LAY1Y5AbJpc4YOZmbGes BS5ztLFjHMbsPo1hcQoy wNloHC3oJREehfra VCHdxA0aRAHnzAHgjGrx YA7bFLJlzftjv466ZnUb ROU6DDQflNOmK0PsiU1h KgWcOSZxRVPrB2Vp aYQyDYsgW985FXnjXqP5 XIKpfiTkI4XdVAScoUdl MzZ8i2M8Lx01FjMONKNd czwvdGQ+PHRkIHN0 mDreNQfvUZLmfE2fUHSs C0o4GrWmPhD7KPgkW4Nr DYItztsiIc74aL2gJtLf YzY1AEfrF6VocbU9 WQWlzFQeFLsyZFF2A01z y0U6OKZmCKXdSEE0qTO7 jO6cdYyqpaqepFNcxYyr dmVydGljYWwtYWxp V391RTMcnTdrVgPmdYZe ZTwvdGQ+KSLsZQH3yVzm XZoaITCyjQ5gNEGgA9q8 YrGzJqG2OGkwJ9Sn AHPtgwflVj87iP0rDcVo ToK5UJqvD4MvdmQ5LPUm wAHlPQgsKZQ4C54lh3H4 TOJvZYUpCGE8zUQ0 kI8aiJtzpctidACboYxm uoJavTsdUTlqASqjD698 HEIpiFqyQfbpQcNQyg1t WH5rKbxuxKH+PC90 zh14R6ZrZwonSbp4EITm NMS9qHT6lC8tVZRxTFvl p1Y9jKP5B1NnzjGnhv5f h2inHOMyZYrmM62c mBBqt3I6GZPocZQ7EBKs dMgzXlJwoN56Cgq+PGNv qEdhr0GaJoyvp3vbc9ze pBn1ZiSrMWOlkjXo vRlwNWN5d3GkAd96N81q IHdpZHRoPSIzMCUiIHZh nVddpt8hpT0yVq2+PGNv aAI2uRC5iT7mJvTp EaB1GYreO130PhWdcWAa Fdsxi9nvt3rjoVy7VlHn RVZsqiRrfQjnTAK5n0Zv Vj15B3TxoBzot3Sb Lnb6ri41jKToh8V3wNM3 A1MwTIZzffxrzEPeyCcm WD0wPSStypreGJOoqL7m AECgU5n7OgXxTlA7 VFjrN8NugiA8OIQucSJf FITedWHGaO7jlqjnr8cd lxxbXwIkWQPdNCt9RKw4 LWFsaWduOiBsZWZ0 EyH7OIR1gVHpsP4gdFqu igfejZ1lQhb+QUh5h8wc fCMkUH0hjGA0VC14JA84 rEExi2T3rVP2D9Qt PHSozueqwsfqfKK4OZFa ESSqwI43Yh8jtXkoBk1m JOZiSXH1HVAasNTnB3Vv gV6mFuBlXZLiELPd K5OuhSFuWUfsN922SEgp LoA0TOGpxvVbG2OpPZGs bEoySxT5v6Z4Oi6HTI17 DQ88SS96gFAmk1L2 bNS2S8IvHTGbqszkhetx iPZ1KYWcHROtbJ84Il0b cIjeUo4oGMCeKQB3GAAz iNUwO2YiwP7nRuNj ZBFyJKNqO1ScmBEmNFro O216TNrwLcU5CHLbtyZd A8WlNQNifStfAgN9d1R2 My1QKc33UF76ZH10 eIYwy8D8dUZ8V6BiGNXd yonpktqqjLK6KWMvLSCm gX84My0kuMfkAb2hECPk VTU9AZNrmEXaS1Vw hB6oWxGhCHDxXDMcT0Bd gVXqMBelL201FSctZcW5 VGZaxdYoQ0KgDSWayFvj UiV0h3Z5Tn2SKFud fdj9A7VrGzyopXQ+PC90 MRBmHY70eTZnvYZxe0md oEf4HtWsGNVoGJC2fDww XXcei3RxJGVbZ16e bGFw (more content not included)... Normal [facility] Urology Office/Clinic Noteon 12-03-2022 Urology Office/Clinic Note Chief Complaint F/U to ER HPI Staff New patient follow-up to [facility] ER on 11/18/22 due to gross hematuria. Cx proven UTI at that time. Patient states she was given Keflex and Sx resolved. States she does have a history of UTIs and usually just treats at home with increasing her fluids. Patient last seen here by Dr. Nuno on 07/24/16. Last Cysto/UD was in 2015. Dysuria: no Incomplete bladder emptying: no Hematuria: Pt states when she went to the ER she was having severe blood and clotting. States as soon as they gave her Pyridium in the ER the blood stopped and has had none since. Frequency: no Urgency: mild Nocturia: no Stream: good stream Leaking: mild Post void dripping: no Wearing pads/ Depends: no Urge incontinence: intermittent Stress incontinence: no Incontinence without Sensory Awareness: Abdominal pain: no, but was TTP when bladder scanned today Flank pain: no Sexual complaints: no History of Present Illness Pt evaluated at [facility] ER on 11/28/22 and Dx'd w/ UTI at that time. Pt indicates the day before ER visit she felt tired and was nauseated the night before ER visit. Pain (suprapubic pain, dysuria) and blood in urine started the day she went to ER which is why she went to the ER. Has had visible blood in urine before w/ UTIs but not like this before. Pt indicates she thinks she just had a really bad infection this time. Pt indicates having clotted and non-clotted blood. Describes size of clots as tiny little clots . Pt indicates the pain (suprapubic pain and dysuria) was worse w/ this UTI compared to other UTIs. Pt was Tx'd w/ Keflex 500 mg QID x 7 days and finished it 8 days ago. The pain and blood resolved w/ Tx although Pt does indicate when bladder scan was done today she did have some tenderness w/ that. Pt indicates she is getting ready to start her menses and she indicates the TTP w/ bladder scan may be due to this. Last UTI prior to this was 1-2 years ago. Pt indicates she has never seen blood in urine w/o having a UTI. Pt indicates she thinks that this most recent UTI may have been due to a sex toy that touched her anal area and that she hadn't cleaned after that. Pt declines prophylactic ABX for sexual activity and indicates the problem was an issue w/ her not having cleaned the sex toy after coming into contact w/ anal area. Urine Cx: 11/27/22 - NEG. 11/18/22 - >100,000 E. coli - pansensitive. 01/21/22 - NEG. Denies known Hx of urinary tract stones. Pt declined CT in ER as she was concerned about radiation exposure. Quit smoking cigs 11 years ago. Smoked 1 PPD x 10 years. Denies family Hx bladder CA. Doesn't take anti-coags or anti-platelets. Always wipes front to back. Doesn't douche. Has a BM daily. Takes prebiotic and probiotic to help w/ BMs per Pt. Indicates stool is mostly hard but doesn't usually strain but does every once in awhile . C-scope 1.5 years ago. Pt doesn't indicate anything significant at that time on scope. 6 kids (including twins) - all vag deliveries. Hx endometriosis. Hx of 4-5 laparoscopies in the past. Last one approx age 22. Indicates has had endometriosis on outside of bowels before. Hx of umbilical hernia w/ mesh. Staff HPI reviewed and agree. See staff HPI. Review of Systems See HPI. Physical Exam Vitals & Measurements HT: 65 in HT: 165 cm WT: 89 kg WT: 195.8 lb BMI: 32.69 General appearance: Awake, alert, NAD, well-developed, well-nourished HEENT: Head is NC/AT Chest/Lungs: no conversational dyspnea, respirations non-labored Cardiovascular: no cyanosis or edema Abdomen: soft, non-tender RUQ and LUQ, voices TTP LLQ and RLQ and suprapubic area (Pt indicates she is going to start her menses and thinks this why), non-distended, no mass or organomegaly, no rigidity, no guarding : Normally formed external genitalia without erythema, edema, abnormal drainage, lesions, rash or mass. Urethral opening patent w/o drainage. No cystocele or rectocele. No STORMY. Able to self-identify pelvic floor muscles. Bladder non-palpable. No flank tenderness. Musculoskeletal: All 4 extremities intact. Able to move all 4 extremities. Skin: warm and dry Lymph nodes: no palpable inguinal nodes Neurological: Oriented to person, place, time, and situation. Thought processes logical. Interaction appropriate for setting. Seems to be in a euthymic mood. No gross motor deficit. Assessment/Plan UA today - small blood, neg nitrite, neg WBC, neg glucose, neg protein. Currently not menstruating but indicates she is getting ready to start. Sending urine for micro UA. PVR today - 105 mL. Voided again and repeat PVR 0-13 mL. KUB 11/18/22 - Gas and copious stool in colon. No calcifications identified over region of kidneys or expected course of bilateral ureters. Discussed in the future may advise repeat KUB w/ bowel prep prior. 1. Recurrent UTI (N39.0: Urinary tract infection, site not specified) Pt evaluated at [facility] ER on 11/28/22 and Dx'd w/ UTI at t (more content not included)... Normal [facility] Comment on above: Result Comment: Elec tronically Signed By: Florinda Segal\.luke\Date and Time Signed: 12/03/22 14:44 EST URINALYSISOrdered By: Beverley Black on 12-02-2022 Bacteria LM Ql (Urine sed) Trace /HPF Normal Trace/HPF [facility] UA Auto SS Bilirubin Ql (U) Negative (12/02/22 1:34 PM) Normal Negative [facility] UA Auto SS Clarity (U) Clear (12/02/22 1:34 PM) Normal Clear [facility] UA Auto SS Color (U) Yellow (12/02/22 1:34 PM) Normal Yellow [facility] UA Auto SS Epithelial cells.squamous LM.HPF (Urine sed) [#/Area] 3-4 /HPF Normal 0-2/HPF [facility] UA Aut o SS Glucose Test strip (U) [Mass/Vol] Negative (12/02/22 1:34 PM) Normal Negative [facility] UA Auto SS Hemoglobin Ql (U) Negative (12/02/22 1:34 PM) Normal Negative [facility] UA Auto SS Ketones (U) [Mass/Vol] Negative (12/02/22 1:34 PM) Normal Negative [facility] UA Auto SS [place].plasma/[place] .RBC (Bld) [Mass ratio] 0-3 /HPF Normal 0-3/HPF [facility] UA Auto SS Nitrite Ql (U) Negative (12/02/22 1:34 PM) Normal Negative [facility] UA Auto SS pH (U) 6.0 *NA* (12/02/22 1:34 PM) Invalid Interpretation Code 5.0 - 9.0 [facility] UA Auto SS Protein (U) [Mass/Vol] Negative (12/02/22 1:34 PM) Normal Negative [facility] UA Auto SS Specific gravity (U) [Rel density] >=1.030 *NA* (12/02/22 1:34 PM) Invalid Interpretation Code 1.005 - 1.030 [facility] UA Auto SS UA Spec Desc Clean Catch (12/02/22 1:34 PM) Normal [facility] UA Auto SS Urobilinogen Qn (U) 0.0904423 {Gena'U}/dL Normal 0.0 - 1.0 EU/dL [facility] UA Auto SS WBC Auto Ql (U) Negative (12/02/22 1:34 PM) Normal Negative [facility] UA Auto SS WBC LM.HPF (Urine sed) [#/Area] 0-5 /HPF Normal 0-5/HPF [facility] UA Auto SS Urinalysison 12-02-2022 Bacteria LM Ql (Urine sed) TRACE Normal Trace [facility] Comment on above: Performed By: #### 1 [id number] ####[facility] [address] [place] [address] Bilirubin Ql (U) Negative Normal Negative [facility] Comment on above: Performed By: #### 1 [id number] ####[facility] [address] [place] [address] Clarity (U) CLEAR Normal Clear [facility] Comment on above: Performed By: #### 1 [id number] ####[facility] [address] [place] [address], [place] [address] Color (U) YELLOW Normal Yellow [facility] Comment on above: Performed By: #### 1 [id number] ####[address] [address] Epithelial cells.squamous LM.HPF (Urine sed) [#/Area] 3-4 Normal 0-2 [facility] Comment on above: Performed By: #### 1 [id number] ####[facility] [address] [place] [address] Glucose Test strip (U) [Mass/Vol] Negative Normal Negative [facility] Comment on above: Performed By: #### 1 [id number] ####[facility] [address] [place] [address], [place] [address] Hemoglobin Ql (U) Negative Normal Negative [facility] Comment on above: Performed By: #### 1 [id number] ####[facility] [address] [place] [address] Ketones (U) [Mass/Vol] Negative Normal Negative [facility] Comment on above: Performed By: #### 1 [id number] ####[facility] [address] [place] [address] [place].plasma/[place] .RBC (Bld) [Mass ratio] 0-3 Normal 0-3 [facility] Comment on above: Performed By: #### 1 [id number] ####[place] [address] [place] [address] Nitrite Ql (U) Negative Normal Negative [facility] Comment on above: Performed By: #### 1 [id number] ####[facility] [address] [place], [place] [address] pH (U) 6.0 [pH] Invalid Interpretation Code 5.0-9.0 [facility] Comment on above: Performed By: #### 1 [id number] ####[place] [id number] Protein (U) [Mass/Vol] Negative Normal Negative [facility] Comment on above: Performed By: #### 1 [id number] ####[place] [id number] Specific gravity (U) [Rel density] >=1.030 Invalid Interpretation Code 1.005-1.030 [facility] Comment on above: Performed By: #### 1 [id number] ####[place] [address] Type of Urine collection method Clean Catch Normal [facility] Comment on above: Performed By: #### 1 [id number] ####[place] [id number] Urobilinogen Qn (U) 0.2 {Gena'U}/dL Normal 0.0-1.0 [facility] Comment on above: Performed By: #### 1 [id number] ####[place] [id number] WBC Auto Ql (U) Negative Normal Negative [facility] Comment on above: Performed By: #### 1 [id number] ####[place] [id number] WBC LM.HPF (Urine sed) [#/Area] 0-5 Normal 0-5 [facility] Comment on above: Performed By: #### 1 [id number] ####[place] [id number] C Urineon 11-29-2022 Bacteria identified Cx Nom (U) Microbiology PROCEDURE: Urine Culture [R1] SOURCE: U Random BODY SITE: COLLECTED DATE/TIME: 11/27/2022 15:53 EST RECEIVED DATE/TIME: 11/27/2022 17:10 EST START DATE/TIME: 11/27/2022 17:10 EST FREE TEXT SOURCE: Otoniel MOTLEY DO, DO, Gregory S FINAL REPORTS Final Report [] Verified Date/Time: 11/29/2022 09:17 EST 1,000 cfu/ml Mixed skin contaminants Performing Locations R1: This test was performed at: [facility], [address] [place] [address], [address] , , Normal [facility] Comment on above: Performed By: #### 1 [id number], [id number], [id number], [id number], [id number], [id number] #### [facility] [address] [place] [address] Coding Summary.on 11-20-2022 Coding Summary. CD:[id number] Gh0bWw+PGhlYWQ+PE1FV MMuB09khOVdwI8JJ7jMG H6FOJBQNXCHOA8TJH6qk ZL4UHdhP9SkifEh GzoheKSyJI44VZe5YKO2 rVquWArpnL2idQXjI0w3 UxAjQP67lS00UYtuYMKo AfL9XvYwewdacKWx M0vaZjKkeURkVbk+PHRh YmxlIHdpZHRoPScxMDAl KdYdwKfyOI5sTi7kEWVr LWNvbGxhcHNlOiBj w5vrHCIwPRngHA1vgLfz I4JntOU2BOQye3n2Oq74 dHI+DEFzEBH0nKgaHLbe q980FeLrl2ifYLO8 uWBrTTckKSK3B43ft9Y2 ZWBhTOKgFFK9tIE6hO1k dNvrqvnyF3HgqWHxWcQ7 RRA4lAJtiA8doIec hzuikC6gKmj+A15NPQ9W HZVUZZ5KOgc2X8LmUygp dHI+SX05ARHrPK87rJHi vMDoa9pemZu5KuXd XSOpOXR2sAruNVnjy2Pu IHRqR28awQYdh3L0JHSr jFzwbHIiYiHoqFU5uK8m UAhwqapny7ntsumx Kwtrf1xzkw18pQ77E41v BXaxWAPrCBX6PKYrJSZl gQyqbs3dqL4xJh6+IDxj m9weg6zppYl5HlQg MLMioiQixVsbXPN0t6Jh Cr31R3LuxWlwg4BcTkv0 yt46qJVpf7T1cYL6USbe OZUmqH9iOOioCvY4 DXSzPgJzkF53iXOvXKvw Jm8krRubtDfkJP9mDFLn pexnSFOicV9oUMPbrNLg uOqjZJ9qUAYsdszl f322TnOtKZR8HXBlxJNo F7ZwkA8pTqFpSIFrQBTy A1MgzBBdDRlaN156BGom UaQ2CWBsvmAfA9Zu FZYrqXqoJnQ9i9L4Do8D t4GijefvDWT5GXdvSQHs ObDvNdSdVuN4Q5QdSnk8 PHXxuXghQI0zY3Hw QOWmszbekosciAA4PZYf UVZanF37eZMiEJesUa3q d0S6z925DUYoZSXzeU53 Hg5eiYdiXMIckVHP yU6sdgjwc2ntsrzqJkVk AFTvYWg5UJh2BFRbpOqn UkRnRLU7ZjN7NYQ1bXFr oJ8irTebkplcpV6q Oyc+E40xiF4aZMK6NII2 xrndPZUlxfVaZZ93YD22 S6TkJpvqwJJqzMC+PGRp aeEpmYsjFH3nOkNc p1ezu2IxFCzxI6RySNDr RMbgLus4WNEaJJD9aEM5 zU1qFTWoWEdhk1K7hFR8 S3ZmjnJdgh3jc6go CHCrHAlyG74daQRyx9X4 JXXwzGU7NWAbfYrmMpGq iC04Veg+CMRswJmcd1Hr Huylq7ngg5chzZn7 IjMwJSIgdmFsaWduPSJ0 i1EySw39J56vHDvxVMYz HXEoOZRsRIVmxVdnvn7d aE4aBt1+PGNvbCB3 dPJ7uQ0yGAGhZiO6NAut S225QtIfnRPdPouvy3mx j2arcVy1JqHgYRGkpmUi vAjjQHJ7n8NyVs46 E95fCJqtUETcPOTxGHBa HTXyiClzsq1eiB0bXp1+ KO0wk9hunn67oO52iAF+ FDWrJKZ4iQypWXzq PKAjiP1vRQreOkN5ZXEp BiLqlY41vPCtCNmyVn2b vXkaoWyqXO3oYVTvepus o442HoJph1ydKHRl iZSySPjoIHJ1E78td3T3 UKEySWBrIAO2jXU0rV9r bGlnbjogbGVmdDsgdmVy wGrvGIvnOZqfJ562 IHRvcDsnPlBhdGllbnQg WbTqWCe4D1MyVgf5GRDm dQhnPB8yyLPtZYlpNj1n uBmcoWqfTO0gZQYe dmeyr476ZvPvt2mvCWNe qOViSOqePHV5G76gb9P3 IAHiNZGePJX2qRB2fS5s bGlnbjogbGVmdDsg gqXaeNssCDwoDWgrS456 IHRvcDsnPkJpcnRoIERh iEW8IB89WB54tZBic3O7 oYV8V7SqZIKhzfvf pdbizIH7QTBgHJKogH12 Lw4faWftNv2iSVQnCBA0 JXMccVWsC2DytX6dUdJm YQPaDDFnC0MfzHUt NPulT664ZTlaEtQ2QPCq dvBnE1OsYCNzpWagAjI9 x0F8Fl6BE5R0WB65UD57 rPOnm4J8uLI3Q4Mm HGKrkrdijzcqbNF1TSIv CRVogR71Rl6cgHedKh2f UPQgXEN7RZJeiGQuM5Ta dU8cCyMsITCuBXIu J5ItzGYkMUclN305IKul TaP4CJDvquItK7QmTWZw fWcuMkG9m2J5Hc2OYCl4 MB03XY31lKCqh5C5 bHM6S2CxPHCxddpvgptg hYR3AGMbSAXebT50Ku0a dBfvQw1zIBBbBHV9XAXz yQPjD7XwvK9mTmSc SRIdTBRpX1NbhOMdPJvm Q454KXahQnG8PGYrcnNs V5RgMBNmiJkmQaA1m2Y2 Jn8MRGObFO19OUP5 gEB1KC48WV48C8EsUuvr dGFibGU+PHRhYmxlIHdp ZHRoPScxMDAlJyBzdHls WF8iVe4bZXWcMWZp cSejmWHnPrOul9hdLSLv RRtxEB3emXmiO1XpnXP9 HWPwd7e4Uo73R99eH0Ot dXA+ZQEuhVP2hBF5 jJ9gPaYzXpA0EOvcK602 IiEqmFFoZndpw4kyy2hc hEw0UcN0DZTtqcSvwXjr VQO9u6QfQg62C94i IHdpZHRoPSIxNSUiIHZh bDymhm6ztZ8tZm3+PGNv eHT1rOE3pF9pQuRkWmZ2 PCeiN789SfWgoUXd Zszfw5bhg9racCs4OtGv SNYtrpXgzWmeLPC8j7Eh Jr33L9RruOzcf4EuYlg9 ol22bEPtu7E4tDC9 M7YyHYTiedojwVIyfCws IG3aFVXbrezhNZSxyS5t SPRzG6t4DcTkSuO4EIqn T7AiyvD1TOYrrVYw XWeoNOH0W61qs8G7EVUy BQVdDQX1kSQ7iE0gyJfj bjogbGVmdDsgdmVydGlj AOgfNAltK072XTFe aEkdKPKyoX2iHLMvmUDy qTolFI7lMDUkgequWqaW SVRURUwsIFRJTkEgTTwv dGQ+SXHqANN3qVsq WRvoNCWfxW1yGIBhS4o1 GaMlShC9CIhqT3AiRIIe kzvxBr97qP1vSpVxTbC7 RStzU9WmgaQ4NCSz oUTwYTtoECT4O27pu5E0 UAAqKOMqZLY1lHL1dA2x bGlnbjogbGVmdDsgdmVy tKpsGDiyLVlyP609 NGWuhNcjTcH2VlG7PwB5 QWN6I5FmWpi5THGtiVnq HU1cvLTeZFwfAj8evNxk pKrkEZ2jPNYcgxpr ESTanN9hNRRvxUMkpWjp IW2jSVAnetwac662PaLp MIF1ZJWjaFOvC7UooN4v VcLyLKSkAAItH9Ix eHZqGKkwY799CJjuRmQ9 CIHmghUsR6ZeJASwdSpf BmW5c4O0An38MdJJFTZs czwvdGQ+PHRkIHN0 rAvoYAuzTTLvcX8jIEPd G5k8PkRmLzD1EXlsZ4Xl NPAcytmlQj57sR7wIrMx EaS3KQrhZ2EiniZ8 MSRdyHYzMOydCJQ8D12r c3G9KHWpNXDbGYE7aBK2 aW7vkZwllttujNUdyNfx dmVydGljYWwtYWxp X566FQZctTprYzMqaIFb ZTwvdGQ+XTKyREY0dZdd GXvyUPFmyG2rPENyQ5q0 HaEtUgC8VYpwD4Lg WMZqpgheOy59kW7iAoVw RfF4NMqaT2PzexF9LKYf jBCqFXgsGQO8T37tv6C3 VAQpHVYmGRC2lBN5 nH0qlEvwbcluyZVweBkq wfPacQyhEUcqCYvfK689 OHQdgKbuLzAuNHOaCX3l eTwvdGQ+NK20et68 F7DyHngwDvw2QZUtYRT2 yOD9nI9fLLEpNZnlx2K1 rGX4O2DnkbTrwl2rw2kz NRDoURblO77ijKEy a2E3BNOwdVE8ARRyaCst PwOdhB23Cvj+PGNvbGdy j7ZiNlfra4zfh1hxnNj6 IjMwJSIgdmFsaWdu KBW6g6HjIi90M63cUAyc ZHRoPSIzMCUiIHZhbGln lu2kgU9oNt2+PGNvbCB3 sDU3gN2rVmIvFnZ4 HOqfX275NgIpzHTzAhvl t9owh7lcgVt9CtMhUBMb qvErlUwvNTF3n5GvPe04 N2BvzOyfk1KcQyk5 hx25iZYfg3B2lYB0C9Uv NRHptdernQHntXcpCI9e RNYaglxlDCDtkA0aGGHy L3s1HuApKfA0CJqh Y3JidvV2QSPwoYQlCFJz nUXMoW5oomlof8ilyznc WcGdYXLfVNl8GJp5MNSg fOjuNcPiRIK0UdH7 SZF1sSRcpN9cyYqeciko bF3hRee+JFt2b7qzdBKu RO3yrIY5SC17KF29uNKg j3Z9vIX2X6HuAXLt qdzyhimueEA8EDYyYZVr vV66Df1skTsnLz8uJUPw JCO4HJZmxBRxD8KoqK6v HiCwYEEhFNLnV6Vc hXOwOEfgY113EBqnBsU8 YSNouhIqV8CpFRHkyDvc MlL5u8G3Zs5WQW17XO47 HX32qMWvk7P3rHG8 C1PwZYKnjrxtmlkarHO9 DSJeGJZiaZ67Zh2nzXlg Xr8bHLXoLKC4CQBejWGe G0HosG3bMkLxRYMs DMVsD1MnpXNaRDtnW671 WUcxUdQ3AOWzceUxA6Dw DZWciZgpYmO3y0T5Kj1I Mc18BP32TC91qKAj x0D5kKC4R4EtTUIlxhly mlytuMV0POJhAUHmjY55 Dz6svHsyGd5aPGIcKWW7 RNGowCYbV3OykW7p JlFfHKKhCIWdS1UzqMCc BTebW022IOukGvZ8GFQy xtUdM2PoBOEpoMhiTeH6 e3U7Ly4FIUoipqe5 M0WoKcopsFP+LQ04IKVl PL07hEHgjJSyj8hsqSk6 PqAjDHNuIEA2rEfwLWel b7MgGLEgH70puYMm c2U6 (more content not included)... Normal [facility] Family Medicine Office/Clini c Noteon 11-19-2022 Family Medicine Office/Clinic Note HPI Staff Tarik is a 42 year old female who presents for an ER follow up. She was evaluated and treated at [facility] ER yesterday, 11/18/22, 42-year-old male reports emergency department chief complaint of feeling like she is unable to hold to void fully, after she does void. As well as blood in her urine. Reports that this started couple days ago. States that she is having a little bit of lower abdominal pain and very little nausea as well. Reports that yesterday she did not feel great, but this morning she noticed more blood that she has ever had before. Reports a history of urethral strictures previously, and has not had one in about 6 years, but has follow-up with Dr. Nuno before for this. She states that she is wanting get checked out, and also reports that she does have a history of a kidney stone, but does not want a CT. I did discuss that we could do a CT for her, but she stated that she not want to be exposed to radiation. Therefore we did discuss that we will do an x-ray. Also obtain lab work. She was afebrile my exam exam of the patient was rather benign. Some very minimal abdominal tenderness. No CVA tenderness. Lab work was reviewed and noted. Patient's kidney function appears to be great. Her urinalysis was positive for nitrate positive UTI. I discussed with patient that her symptoms are likely because of the UTI that she has. Patient was understanding of this. Due to patient's symptoms, I will put her on Keflex. She also requested being put on Azo due to helping with pain. Discussed I can do this. I discussed that ultimately she should follow-up back with urology, as she may have a urethral stricture continuing, and should get reevaluated. Patient was understanding of this. Discussed return precautions. Follow-up with your primary care provider in 3 to 5 days. If symptoms worsen, do not improve, or new symptoms arise please report back to emergency department for further evaluation. The patient was understanding and agreeable to plan moving forward. She continues with C/O fatigue, suprapubic pressure, and burning with urination. Reports that she stopped passing blood in her urine yesterday. She has been taking ABX as directed as well as Azo for relief. She is scheduled to follow up with urology on 12/02/22. History of Present Illness I have reviewed and verified the staff HPI to be accurate for this encounter. Review of Systems PHQ Score Initial Depression Screen Score: 0 Constitutional: no fever, no chills, no sweats, no weakness Respiratory: no shortness of breath, no cough, no orthopnea, no wheezing Cardiovascular: no chest pain, no palpitations, no edema Additional ROS info: Except as noted in the above Review of Systems and in the History of Present Illness all other systems have been reviewed and are negative or noncontributory. Physical Exam Vitals & Measurements T: 36.5 ?C(Temporal Artery) HR: 88(Peripheral) BP: 112/72 SpO2: 96% HT: 65 in HT: 165 cm WT: 89.2 kg WT: 196.24 lb BMI: 32.76 Assessment/Plan 1. Gross hematuria (R31.0: Gross hematuria) resolved. call if starts again will send to urology 2. Cystitis (N30.90: Cystitis, unspecified without hematuria) finish keflex. will call need to change antibiotic Orders: phenazopyridine, 200 mg = 1 tab(s), Oral, TID, X 3 day(s), # 9 tab(s), Refills(s) 0, Pharmacy: [facility]/pharmacy #[id number], 165, cm, 11/18/22 7:53:00 EST, Height/Length Dosing, 84, kg, 11/18/22 7:53:00 EST, Weight Dosing Follow-up With When Contact Information Otoniel MOTLEY DO, FAM Only if needed [address] [place] [address]- Additional Instructions: Problem List/Past Medical History Ongoing Attention deficit disorder (ADD) in adult BMI 30.0-30.9,adult Chronic idiopathic constipation Chronic venous insufficiency COVID-19 Cystitis Dercum disease Generalized anxiety disorder Geographic tongue Gross hematuria Clay thyroiditis HTN - Hypertension Hypersensitivity disorder Left upper quadrant abdominal tenderness Left upper quadrant pain Mixed hyperlipidemia Historical Anxiety Depression Endometriosis Migraine Smoker Urethral stricture UTI (lower urinary tract infection) Procedure/Surgical History Colonoscopy and biopsy of colon (10/19/2020), Hernia repair (10/14/2018), Repair of umbilical hernia (10/14/2018), Cystoscopy with urethral dilation (01/02/2017), cystoscopy and ureteral dilation (01/06/2014), Ankle, Cholecystectomy, Dilation & curettage, History of nasal sinus surgery, Laparoscopy, Nose, Plantar fascia, Tonsillectomy, vocal cord nodules removed x3. Medications Azo-Standard 95 mg oral tablet, 95 mg= 1 tab(s), Oral, TID baclofen 10 mg Tab, 5 mg= 0.5 tab(s), Oral, TID, 5 refills, Not taking cyclobenzaprine 10 mg Tab, 10 mg= 1 tab(s), Oral, TID, PRN EpiPen 2-Garry 0.3 mg injectable kit, 0.3 mg= 1 EA, IntraMuscular, As Directed, PRN Flovent HFA 110 Inhaler, 2 puff(s), Inhalation, BID, 2 refills fluconazole 150 mg Tab, 150 mg (more content not included)... Normal [facility] Comment on above: Result Comment: Elec tronically Signed By: Otoniel MOTLEY DO\.br\Date and Time Signed: 11/19/22 14:46 EST CHEMISTRYOrdered By: SYSTEM SYSTEM on 11-18-2022 Anion gap [Moles/Vol] 11 mmol/L Normal 6 - 16 mEq/L [facility] Remisol Calcium [Mass/Vol] 8.2 mg/dL Low 8.9 - 11. 1 mg/dL [facility] Remisol Chloride [Moles/Vol] 104 mmol/L Normal 101 - 1 11 mmol/L [facility] Remisol CO2 [Moles/Vol] 24 mmol/L Normal 21 - 31 mmol/L [facility] Remisol Creatinine [Mass/Vol] 0.7 mg/dL Normal 0.5 - 1.3 mg/dL [facility] Remisol GFR/1.73 sq M.predicted among blacks MDRD (S/P/Bld) [Vol rate/Area] mL/min/1.73 m2 Normal >=59mL/min/1 .73 m2 [facility] S GFR/1.73 sq M.predicted among non-blacks MDRD (S/P/Bld) [Vol rate/Area] mL/min/1.73 m2 Normal >=59mL/min/1 .73 m2 [facility] Chem S Glucose [Mass/Vol] 103 mg/dL Normal 55 - 199 mg/dL [facility] Remisol Potassium [Moles/Vol] 3.8 mmol/L Normal 3.5 - 5.3 mmol/L [facility] Remisol Sodium [Moles/Vol] 135 mmol/L Normal 135 - 145 mmol/L [facility] Remisol Urea nitrogen [Mass/Vol] 14 mg/dL Normal 5 - 21 mg/dL [facility] Remisol Urea nitrogen/Creatinine [Mass ratio] 20 mg/mg Normal 10 - 20 [facility] Remisol HEMATOLOGYOrdered By: SYSTEM SYSTEM on 11-18-2022 Basophils/100 WBC (Bld) 0.6 % Normal 0.0 - 2.0 % [facility] Basophils/Leukocytes Auto (Bld) [Pure # fraction] 0.0 E9/L Normal 0.0 - 0.2 E9/L [facility] Eosinophils/100 WBC (Bld) 2.0 % Normal 0.0 - 8.0 % [facility] Eosinophils/Leukocytes Auto (Bld) [Pure # fraction] 0.1 E9/L Normal 0.0 - 0.5 E9/L [facility] Lymphocytes/100 WBC (Bld) 24.3 % Normal 14.0 - 50.0 % [facility] Lymphocytes/Leukocytes Auto (Bld) [Pure # fraction] 1.8 E9/L Normal 1.0 - 4.0 E9/L [facility] Monocytes/100 WBC (Bld) 6.0 % Normal 4.0 - 14.0 % [facility] Monocytes/Leukocytes Auto (Bld) [Pure # fraction] 0.4 E9/L Normal 0.2 - 1.0 E9/L [facility] Neutrophils/100 WBC (Bld) 67.1 % Normal 36.0 - 75.0 % [facility] Neutrophils/Leukocytes Auto (Bld) [Pure # fraction] 4.9 E9/L Normal 2.0 - 7.5 E9/L [facility] HEMATOLOGYOrdered By: Taye Fields on 11-18-2022 Erythrocyte distribution width (RBC) [Ratio] 14.1 % Normal 10.9 - 14.2 % [facility] Hematocrit (Bld) [Volume fraction] 39.0 % Normal 34.0 - 46.0 % [facility] Hemoglobin (Bld) [Mass/Vol] 12.6 g/dL Normal 12.0 - 16.0 gm/dL [facility] MCH (RBC) [Entitic mass] 27.8 pg Normal 27.0 - 34.0 pg [facility] MCHC (RBC) [Mass/Vol] 32.4 g/dL Normal 31.4 - 36.0 gm/dL [facility] MCV (RBC) [Entitic vol] 85.9 fL Normal 80.0 - 100.0 fL [facility] Platelet mean volume (Bld) [Entitic vol] 8.4 fL Normal 6.4 - 10.8 fL [facility] Platelets (Bld) [#/Vol] 288.0 E9/L Normal 150.0 - 500.0 E9/L [facility] RBC (Bld) [#/Vol] 4.5 E12/L Normal 4.3 - 5.9 E12/L [facility] WBC corrected for nucl RBC Auto (Bld) [#/Vol] 7.3 E9/L Normal 4.0 - 11.0 E9/L [facility] SEROLOGYOrdered By: Beverley escalona on 11-18-2022 HCG.beta subunit (U) [Moles/Vol] Negative Normal [facility] Man Sero URINALYSISOrdered By: Beverley William on 11-18-2022 Bacteria LM Ql (Urine sed) 3+ /HPF Invalid Interpretation Code Trace/HPF [facility] Bilirubin Ql (U) Negative (11/18/22 8:03 AM) Normal Negative [facility] Clarity (U) Cloudy *ABN* (11/18/22 8:03 AM) Invalid Interpretation Code Clear [facility] Color (U) Yellow (11/18/22 8:03 AM) Normal Yellow [facility] Epithelial cells.squamous LM.HPF (Urine sed) [#/Area] /[HPF] Normal 0-2/HPF [facility] Aut o SS Glucose Test strip (U) [Mass/Vol] Negative (11/18/22 8:03 AM) Normal Negative [facility] Hemoglobin Ql (U) 3+ *ABN* (11/18/22 8:03 AM) Invalid Interpretation Code Negative [facility] Ketones (U) [Mass/Vol] Negative (11/18/22 8:03 AM) Normal Negative [facility] Auto SS [place].plasma/[place] .RBC (Bld) [Mass ratio] >75 /HPF Invalid Interpretation Code 0-3/HPF [facility] Nitrite Ql (U) Positive *ABN* (11/18/22 8:03 AM) Invalid Interpretation Code Negative [facility] pH (U) 5.0 *NA* (11/18/22 8:03 AM) Invalid Interpretation Code 5.0 - 9.0 [facility] Protein (U) [Mass/Vol] 1+ *ABN* (11/18/22 8:03 AM) Invalid Interpretation Code Negative [facility] Specific gravity (U) [Rel density] >=1.030 *NA* (11/18/22 8:03 AM) Invalid Interpretation Code 1.005 - 1.030 [facility] UA Spec Desc Clean Catch (11/18/22 8:03 AM) Normal [facility] Urobilinogen Qn (U) [id number] {Gena'U}/dL Normal 0.0 - 1.0 EU/dL [facility] WBC Auto Ql (U) 2+ *ABN* (11/18/22 8:03 AM) Invalid Interpretation Code Negative [facility] WBC LM.HPF (Urine sed) [#/Area] /[HPF] Invalid Interpretation Code 0-5/HPF [facility] CHEMISTRYOrdered By: SYSTEM SYSTEM on 09-20-2022 Albumin [Mass/Vol] 4.1 g/dL Normal 3.3 - 5.0 gm/dL [facility] Albumin/Globulin [Mass ratio] 1.2 {ratio} Normal 1.1 - 2.2 [facility] ALP [Catalytic activity/Vol] 43 [iU]/d Normal 21 - 98 Int._Unit/L [facility] ALT No additional P-5'-P [Catalytic activity/Vol] 28 [iU]/d Normal 6 - 46 Int._Unit/L [facility] Anion gap [Moles/Vol] 13 mmol/L Normal 6 - 16 mEq/L [facility] AST [Catalytic activity/Vol] 21 [iU]/d Normal 5 - 43 Int._Unit/L [facility] Bilirubin [Mass/Vol] 0.3 mg/dL Normal 0.0 - 1 .1 mg/dL [facility] Bilirubin.direct [Mass/Vol] mg/dL Normal 0.1 - 0.4 mg/dL [facility] Bilirubin.indirect [Mass or moles/Vol] Unable to Calculate mg/dL Invalid Interpretation Code 0.1 - 0.9 mg/dL [facility] Calcium [Mass/Vol] 8.8 mg/dL Low 8.9 - 11. 1 mg/dL [facility] Chloride [Moles/Vol] 103 mmol/L Normal 101 - 1 11 mmol/L [facility] CO2 [Moles/Vol] 27 mmol/L Normal 21 - 31 mmol/L [facility] Creatinine [Mass/Vol] 1.0 mg/dL Normal 0.5 - 1.3 mg/dL [facility] GFR/1.73 sq M.predicted among blacks MDRD (S/P/Bld) [Vol rate/Area] mL/min/1.73 m2 Normal >=59mL/min/1 .73 m2 [facility] Chem S GFR/1.73 sq M.predicted among non-blacks MDRD (S/P/Bld) [Vol rate/Area] mL/min/1.73 m2 Normal >=59mL/min/1 .73 m2 [facility] Chem S Globulin (S) [Mass/Vol] 3.3 g/dL Normal 1.4 - 4.0 gm/dL [facility] Glucose [Mass/Vol] 114 mg/dL Normal 55 - 199 mg/dL [facility] Magnesium [Mass/Vol] 2.0 mg/dL Normal 1.3 - 2 .4 mg/dL [facility] Potassium [Moles/Vol] 3.5 mmol/L Normal 3.5 - 5.3 mmol/L [facility] Protein [Mass/Vol] 7.4 g/dL Normal 6.0 - 7.8 gm/dL [facility] Sodium [Moles/Vol] 139 mmol/L Normal 135 - 145 mmol/L [facility] Troponin I.cardiac [Mass/Vol] pg/mL Low 10.10 - 27.10 pg/mL [facility] TSH Qn 1.98 m[IU]/L Normal 0.34 - 5.60 mcIU/mL [facility] Urea nitrogen [Mass/Vol] 17 mg/dL Normal 5 - 21 mg/dL [facility] Urea nitrogen/Creatinine [Mass ratio] 17 mg/mg Normal 10 - 20 [facility] COAGULATIONOrdered By: Eleni Ramon on 09-20-2022 aPTT Coag (PPP) [Time] 31.5 s Normal 25.1 - 36.5 second(s) [facility] INR Coag (PPP) [Relative time] 0.9 {INR} Invalid Interpretation Code [facility] Coag PT Coag (PPP) [Time] 9.8 s Normal 9.4 - 1 2.5 second(s) [facility]ag HEMATOLOGYOrdered By: SYSTEM SYSTEM on 09-20-2022 Basophils/100 WBC (Bld) 2.3 % High 0.0 - 2.0 % [facility] Basophils/Leukocytes Auto (Bld) [Pure # fraction] 0.2 E9/L Normal 0.0 - 0.2 E9/L [facility] Eosinophils/100 WBC (Bld) 2.3 % Normal 0.0 - 8.0 % [facility] Eosinophils/Leukocytes Auto (Bld) [Pure # fraction] 0.2 E9/L Normal 0.0 - 0.5 E9/L [facility] Lymphocytes/100 WBC (Bld) 35.6 % Normal 14.0 - 50.0 % [facility] Lymphocytes/Leukocytes Auto (Bld) [Pure # fraction] 3.3 E9/L Normal 1.0 - 4.0 E9/L [facility] Monocytes/100 WBC (Bld) 5.5 % Normal 4.0 - 14.0 % [facility] Monocytes/Leukocytes Auto (Bld) [Pure # fraction] 0.5 E9/L Normal 0.2 - 1.0 E9/L [facility] Neutrophils/100 WBC (Bld) 54.3 % Normal 36.0 - 75.0 % [facility] Neutrophils/Leukocytes Auto (Bld) [Pure # fraction] 5.1 E9/L Normal 2.0 - 7.5 E9/L [facility] HEMATOLOGYOrdered By: Celine Lechuga on 09-20-2022 Erythrocyte distribution width (RBC) [Ratio] 13.7 % Normal 10.9 - 14.2 % [facility] Hematocrit (Bld) [Volume fraction] 38.9 % Normal 34.0 - 46.0 % [facility] Hemoglobin (Bld) [Mass/Vol] 13.4 g/dL Normal 12.0 - 16.0 gm/dL [facility] MCH (RBC) [Entitic mass] 28.3 pg Normal 27.0 - 34.0 pg [facility] MCHC (RBC) [Mass/Vol] 34.6 g/dL Normal 31.4 - 36.0 gm/dL [facility] MCV (RBC) [Entitic vol] 81.8 fL Normal 80.0 - 100.0 fL [facility] Platelet mean volume (Bld) [Entitic vol] 8.4 fL Normal 6.4 - 10.8 fL [facility] Platelets (Bld) [#/Vol] 308.0 E9/L Normal 150.0 - 500.0 E9/L [facility] RBC (Bld) [#/Vol] 4.8 E12/L Normal 4.3 - 5.9 E12/L [facility] WBC corrected for nucl RBC Auto (Bld) [#/Vol] 9.4 E9/L Normal 4.0 - 11.0 E9/L [facility] CNPNida 06-07-2022 CNPN Telephone (GENSLN) TARIK GONZALEZ ([id number]) 1980 F Date Time Provider Department 06/07/22 JOE SHEFFIELD During your visit today, we recorded the following information about you: Darya Healy Coord 06/07/2022 8:24 AM Signed Tried calling patient, lmovm to return my call at [phone] option [address] Sheffield. Thank you. Darya Healy [facility] 06/10/2022 4:09 PM Signed called and spoke to patient, currently not at home, she asked to call her back tmrw am, will follow up. Referral from Jacob FINNEGAN pain. Darya Healy [facility] 06/12/2022 1:32 PM Signed Tried calling patient, left detailed message to contact our office at [phone] option 5 to set up an appt with Dr Sheffield. Also sent unable to reach you letter via [employer]. Thank you. Allergies As of Date: 06/07/2022 Noted Allergy Reaction CODEINE 09/15/2009 GLUTEN 03/30/2019 16 - Unknown LATEX 03/17/2019 14 - Other: See Comments Comments: Red and burning sensation NSAIDS (NON-STEROIDAL ANTI-INFLAM*03/17/20 19 14 - Other: See Comments Comments: MTHFR mutation NUBAIN (NALBUPHINE HCL) 11/16/2014 11 - Vomiting TRAMADOL 06/11/2019 11 - Vomiting WATERMELON FLAVOR 03/17/2019 14 - Other: See Comments Comments: Welting around joints, with watermelon artificial flavoring only Date Reviewed: 09/13/2019 Reviewed by: Joe Sheffield - Fully Assessed Reason for Visit: Appointment [[id number]] Prescriptions as of 06/12/2022 - benzonatate (TESSALON PERLES) 100 mg capsule Take 1 capsule by mouth three times daily as needed for Cough. - Miscellaneous Medical Supply mis 1 Abdominal binder, size of patient's choice - ondansetron (ZOFRAN) 4 mg tablet Take 1 tablet by mouth every 6 hours as needed. - senna-docusate (SENOKOT-S) 8.6-50 mg per tablet Take 2 tablets by mouth twice daily. - MULTIVITAMIN ORAL Take by mouth once daily. - ZINC ORAL Take by mouth once daily. - SELENIUM ORAL Take by mouth once daily. - TURMERIC ORAL Take by mouth once daily. - cyanocobalamin, vitamin B-12, (B-12 DOTS ORAL) Take by mouth once daily. - NEDA EXTRACT ORAL Take by mouth once daily. - levothyroxine (SYNTHROID) 75 mcg tablet Take 75 mcg by mouth daily before breakfast. - montelukast (SINGULAIR) 10 mg tablet Take 10 mg by mouth once daily. 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 1 mg/dL [facility] Chloride [Moles/Vol] 101 mmol/L Normal 101 - 1 11 mmol/L [facility] CO2 [Moles/Vol] 25 mmol/L Normal 21 - 31 mmol/L [facility] Creatinine [Mass/Vol] 0.8 mg/dL Normal 0.5 - 1.3 mg/dL [facility] GFR/1.73 sq M.predicted among blacks MDRD (S/P/Bld) [Vol rate/Area] mL/min/1.73 m2 Normal >=59mL/min/1 .73 m2 [facility] S GFR/1.73 sq M.predicted among non-blacks MDRD (S/P/Bld) [Vol rate/Area] mL/min/1.73 m2 Normal >=59mL/min/1 .73 m2 [facility] S Glucose [Mass/Vol] 103 mg/dL Normal 55 - 199 mg/dL [facility] Magnesium [Mass/Vol] 1.9 mg/dL Normal 1.3 - 2 .4 mg/dL [facility] Potassium [Moles/Vol] 3.5 mmol/L Normal 3.5 - 5.3 mmol/L [facility] Sodium [Moles/Vol] 137 mmol/L Normal 135 - 145 mmol/L [facility] T4 [Mass/Vol] 7.8 ug/dL Normal 4.6 - 9.1 mcg/dL [facility] Troponin I.cardiac [Mass/Vol] pg/mL Low 10.10 - 27.10 pg/mL [facility] TSH Qn 6.18 m[IU]/L High 0.34 - 5.60 mcIU/mL [facility] Urea nitrogen [Mass/Vol] 12 mg/dL Normal 5 - 21 mg/dL [facility] Urea nitrogen/Creatinine [Mass ratio] 15 mg/mg Normal 10 - 20 [facility] HEMATOLOGYOrdered By: SYSTEM SYSTEM on 06-02-2022 Basophils/100 WBC (Bld) 0.9 % Normal 0.0 - 2.0 % [facility] Basophils/Leukocytes Auto (Bld) [Pure # fraction] 0.0 E9/L Normal 0.0 - 0.2 E9/L [facility] Eosinophils/100 WBC (Bld) 2.6 % Normal 0.0 - 8.0 % [facility] Eosinophils/Leukocytes Auto (Bld) [Pure # fraction] 0.1 E9/L Normal 0.0 - 0.5 E9/L [facility] Lymphocytes/100 WBC (Bld) 29.2 % Normal 14.0 - 50.0 % [facility] Lymphocytes/Leukocytes Auto (Bld) [Pure # fraction] 1.3 E9/L Normal 1.0 - 4.0 E9/L [facility] Monocytes/100 WBC (Bld) 14.3 % High 4.0 - 14.0 % [facility] Monocytes/Leukocytes Auto (Bld) [Pure # fraction] 0.7 E9/L Normal 0.2 - 1.0 E9/L [facility] Neutrophils/100 WBC (Bld) 53.0 % Normal 36.0 - 75.0 % [facility] Neutrophils/Leukocytes Auto (Bld) [Pure # fraction] 2.4 E9/L Normal 2.0 - 7.5 E9/L [facility] HEMATOLOGYOrdered By: Celine Lechuga on 06-02-2022 Erythrocyte distribution width (RBC) [Ratio] 13.9 % Normal 10.9 - 14.2 % [facility] Hematocrit (Bld) [Volume fraction] 39.6 % Normal 34.0 - 46.0 % [facility] Hemoglobin (Bld) [Mass/Vol] 13.1 g/dL Normal 12.0 - 16.0 gm/dL [facility] MCH (RBC) [Entitic mass] 28.3 pg Normal 27.0 - 34.0 pg [facility] MCHC (RBC) [Mass/Vol] 33.0 g/dL Normal 31.4 - 36.0 gm/dL [facility] MCV (RBC) [Entitic vol] 85.7 fL Normal 80.0 - 100.0 fL [facility] Platelet mean volume (Bld) [Entitic vol] 8.8 fL Normal 6.4 - 10.8 fL [facility] Platelets (Bld) [#/Vol] 256.0 E9/L Normal 150.0 - 500.0 E9/L [facility] RBC (Bld) [#/Vol] 4.6 E12/L Normal 4.3 - 5.9 E12/L [facility] WBC corrected for nucl RBC Auto (Bld) [#/Vol] 4.6 E9/L Normal 4.0 - 11.0 E9/L [facility] PAP ACOG PANEL 2: 30 to 65on 05-23-2022 . . Normal [facility] Comment on above: Result Comment: Perf ormed at: WB Performed By: #### [id number] #### [facility] [address] [address] [address] Dee Dhillon Age Gdln ACOG Testing 30-65 Normal [facility] Comment on above: Performed By: #### [id number] #### [facility] [address] [address] [address] Dee Dhillon DIAGNOSIS: Comment Normal [facility] Comment on above: Result Comment: NEGA TIVE FOR INTRAEPITHELIAL LESION OR MALIGNANCY. Performed at: WB Performed By: #### [id number] #### [facility] [address] [place] [address] Dr. Dee Dhillon HPV Aptima Negative Normal Negative [facility] Comment on above: Result Comment: This nucleic acid amplification test detects fourteen high-risk HPV types (16,18,31,33,35,39,45,51,52,56,58,59,66,68) without differentiation. Performed at: =G Performed By: #### [id number] #### [facility] [address] [place] [address] Dr. Dee Dhillon Methodology: Comment Normal [facility] Comment on above: Result Comment: This liquid based ThinPrep(R) pap test was screened with the use of an image guided system. Performed at: WB Performed By: #### [id number] #### [facility] [address] [place] [address] Dr. Dee Dhillon Note: Comment Normal [facility] Comment on above: Result Comment: The Pap smear is a screening test designed to aid in the detection of premalignant and malignant conditions of the uterine cervix. It is not a diagnostic procedure and should not be used as the sole means of detecting cervical cancer. Both false-positive and false-negative reports do occur. . Performed at: WB Performed By: #### [id number] #### [facility] [address] [address] [address] Dee Dhillon Performed by: Comment Normal [facility] Comment on above: Result Comment: Bennie Duckworth, Identity Management Developer (ASCP) Performed at: WB Performed By: #### [id number] #### [facility] [address] [address] [address] Dee Dhillon Specimen adequacy: Comment Normal [facility] Comment on above: Result Comment: Sati sfactory for evaluation. Endocervical and/or squamous metaplastic cells (endocervical component) are present. Performed at: WB Performed By: #### [id number] #### [facility] [address] [address] [address] Dee Dhillon CHEMISTRYOrdered By: SYSTEM SYSTEM on 03-18-2022 Free T4 [Mass/Vol] 1.00 ng/dL Normal 0.58 - 1. 64 ng/dL [facility] T4 [Mass/Vol] 9.9 ug/dL High 4.6 - 9.1 mcg/dL [facility] T4 uptake [Mass/Vol] 39.7 % Normal 32.0 - 48.4 % [facility] TSH Qn 0.40 m[IU]/L Normal 0.34 - 5.60 mcIU/mL [facility] HEMATOLOGYOrdered By: SYSTEM SYSTEM on 03-18-2022 Basophils/100 WBC (Bld) 0.5 % Normal 0.0 - 2.0 % [facility] Basophils/Leukocytes Auto (Bld) [Pure # fraction] 0.0 E9/L Normal 0.0 - 0.2 E9/L [facility] Eosinophils/100 WBC (Bld) 1.4 % Normal 0.0 - 8.0 % [facility] Eosinophils/Leukocytes Auto (Bld) [Pure # fraction] 0.1 E9/L Normal 0.0 - 0.5 E9/L [facility] Lymphocytes/100 WBC (Bld) 27.9 % Normal 14.0 - 50.0 % [facility] Lymphocytes/Leukocytes Auto (Bld) [Pure # fraction] 1.9 E9/L Normal 1.0 - 4.0 E9/L [facility] Monocytes/100 WBC (Bld) 6.8 % Normal 4.0 - 14.0 % [facility] Monocytes/Leukocytes Auto (Bld) [Pure # fraction] 0.5 E9/L Normal 0.2 - 1.0 E9/L [facility] Neutrophils/100 WBC (Bld) 63.4 % Normal 36.0 - 75.0 % [facility] Neutrophils/Leukocytes Auto (Bld) [Pure # fraction] 4.3 E9/L Normal 2.0 - 7.5 E9/L [facility] HEMATOLOGYOrdered By: Beverley William on 03-18-2022 Erythrocyte distribution width (RBC) [Ratio] 13.8 % Normal 10.9 - 14.2 % [facility] Hematocrit (Bld) [Volume fraction] 40.5 % Normal 34.0 - 46.0 % [facility] Hemoglobin (Bld) [Mass/Vol] 13.8 g/dL Normal 12.0 - 16.0 gm/dL [facility] MCH (RBC) [Entitic mass] 29.1 pg Normal 27.0 - 34.0 pg [facility] MCHC (RBC) [Mass/Vol] 34.1 g/dL Normal 31.4 - 36.0 gm/dL [facility] MCV (RBC) [Entitic vol] 85.3 fL Normal 80.0 - 100.0 fL [facility] Platelet mean volume (Bld) [Entitic vol] 8.8 fL Normal 6.4 - 10.8 fL [facility] Platelets (Bld) [#/Vol] 318.0 E9/L Normal 150.0 - 500.0 E9/L [facility] RBC (Bld) [#/Vol] 4.8 E12/L Normal 4.3 - 5.9 E12/L [facility] WBC corrected for nucl RBC Auto (Bld) [#/Vol] 6.8 E9/L Normal 4.0 - 11.0 E9/L [facility] Albumin [Mass/volume] in Ser um or PlasmaOrdered By: Martha Nunez on 01-28-2022 Albumin [Mass/Vol] 3.8 g/dL 3.2-5.5 [facility] Amphetamine Screen Ql (U)Ord ered By: Martha Nunez on 01-28-2022 Amphetamines Ql (U) Negative Negative [facility] Automated erythrocytes count in urine sediment (number/area)Ordered By: Martha Nunez on 01-28-2022 RBC Auto (Urine sed) [#/Area] 5-9 [HPF] [facility] Automated leukocytes count i n urine sediment (number/area)Ordered By: Martha Nunez on 01-28-2022 WBC Auto (Urine sed) [#/Area] 0-1 [HPF] [facility] Barbiturates [Presence] in U rineOrdered By: Martha Nunez on 01-28-2022 Barbiturates Ql (U) Negative Negative [facility] Basophils Auto (Bld) [#/Vol] Ordered By: Martha Nunez on 01-28-2022 Basophils (Bld) [#/Vol] 0.0 10*3/uL 0.0-0.2 [facility] Basophils/100 WBC Auto (Bld) Ordered By: Martha Nunez on 01-28-2022 Basophils/100 WBC (Bld) 0.4 % [facility] Benzodiazepines [Presence] i n UrineOrdered By: Martha Nunez on 01-28-2022 Benzodiazepines Ql (U) Negative Negative [facility] Bilirubin Test strip Ql (U)O rdered By: Martha Nunez on 01-28-2022 Bilirubin Ql (U) Negative Negative [facility] Blood hemoglobin measurement (mass/volume)Ordered By: Martha Nunez on 01-28-2022 Hemoglobin (Bld) [Mass/Vol] 13.4 g/dL 11.8-15.4 [facility] Blood leukocytes automated c ount (number/volume)Ordered By: Martha Nunez on 01-28-2022 WBC (Bld) [#/Vol] 7.0 10*3/uL 4.5-11.0 [facility] Cannabinoids [Presence] in U rine by Screen methodOrdered By: Martha Nunez on 01-28-2022 Cannabinoids Screen Ql (U) Negative Negative [facility] Comment on above: These are unconfirme d results and should not be used for legal purposes. Drug Cut-Off Concentration: AMPH 1000 ng/mL MCKINLEY 200 ng/mL ROBSON 200 ng/mL COCM 300 ng/mL OP 300 ng/mL PCP 25 ng/mL THC 20 ng/mL Color Auto (U)Ordered By: Rani Nunez on 01-28-2022 Color (U) Yellow Yellow [facility] Complete Blood Count Auto Di ffon 01-28-2022 Basophils (Bld) [#/Vol] 0.0 10*3/uL Normal 0.0-0.2 [facility] Comment on above: Result Comment: PERF ORMED BY: [place] [address] PATHOLOGIST TEST ARCHITECT KRIS FERGUSON M.D. Performed By: #### H S TROP, CBC, CMP, CK, CKMB #### [address] Basophils/100 WBC (Bld) 0.4 % Normal . [facility] Comment on above: Performed By: #### H S TROP, CBC, CMP, CK, CKMB #### [address] Eosinophils (Bld) [#/Vol] 0.1 10*3/uL Normal 0.0-0.45 [facility] Comment on above: Performed By: #### H S TROP, CBC, CMP, CK, CKMB #### [address] Eosinophils/100 WBC (Bld) 1.5 % Normal . [facility] Comment on above: Performed By: #### H S TROP, CBC, CMP, CK, CKMB #### [address] Erythrocyte distribution width (RBC) [Ratio] 13.6 % Normal 11.9-15.3 [facility] Comment on above: Performed By: #### H S TROP, CBC, CMP, CK, CKMB #### [address] Hematocrit (Bld) [Volume fraction] 40.6 % Normal 34.0-46.4 [facility] Comment on above: Performed By: #### H S TROP, CBC, CMP, CK, CKMB #### [address] Hemoglobin (Bld) [Mass/Vol] 13.4 g/dL Normal 11.8-15.4 [facility] Comment on above: Performed By: #### H S TROP, CBC, CMP, CK, CKMB #### [address] Lymphocytes (Bld) [#/Vol] 1.6 10*3/uL Normal 1.00-4.8 [facility] Comment on above: Performed By: #### H S TROP, CBC, CMP, CK, CKMB #### [address] Lymphocytes/100 WBC (Bld) 22.9 % Normal . [facility] Comment on above: Performed By: #### H S TROP, CBC, CMP, CK, CKMB #### [address] MCH (RBC) [Entitic mass] 28.5 pg Normal 24.7-34.3 [facility] Comment on above: Performed By: #### H S TROP, CBC, CMP, CK, CKMB #### [address] MCV (RBC) [Entitic vol] 86.4 fL Normal 80-100 [facility] Comment on above: Performed By: #### H S TROP, CBC, CMP, CK, CKMB #### [address] Mean Corpuscular HGB Conc 33.0 g/dL Normal 32.0-35.0 [facility] Comment on above: Performed By: #### H S TROP, CBC, CMP, CK, CKMB #### [address] Monocytes (Bld) [#/Vol] 0.5 10*3/uL Normal 0.0-0.8 [facility] Comment on above: Performed By: #### H S TROP, CBC, CMP, CK, CKMB #### [address] Monocytes/100 WBC (Bld) 7.3 % Normal . [facility] Comment on above: Performed By: #### H S TROP, CBC, CMP, CK, CKMB #### [address] Neutrophils (Bld) [#/Vol] 4.7 10*3/uL Normal 1.8-7.7 [facility] Comment on above: Performed By: #### H S TROP, CBC, CMP, CK, CKMB #### [address] Neutrophils/100 WBC (Bld) 67.9 % Normal . [facility] Comment on above: Performed By: #### H S TROP, CBC, CMP, CK, CKMB #### [address] Nucleated RBC/100 WBC (Bld) [Ratio] 0.0 % Normal 0-0.5 [facility] Comment on above: Performed By: #### H S TROP, CBC, CMP, CK, CKMB #### [address] Platelet mean volume (Bld) [Entitic vol] 8.8 fL Normal 6.3-10.7 [facility] Comment on above: Performed By: #### H S TROP, CBC, CMP, CK, CKMB #### [place] [address] [place] Platelets (Bld) [#/Vol] 301 10*3/uL Normal 150-450 [facility] Comment on above: Performed By: #### H S TROP, CBC, CMP, CK, CKMB #### [place] [address] [place] RBC (Bld) [#/Vol] 4.69 10*6/uL Normal 3.60-5.00 [facility] Comment on above: Performed By: #### H S TROP, CBC, CMP, CK, CKMB #### [address] WBC (Bld) [#/Vol] 7.0 10*3/uL Normal 4.5-11.0 [facility] Comment on above: Performed By: #### H S TROP, CBC, CMP, CK, CKMB #### [address] Comprehensive Metabolic Pane cash 01-28-2022 Albumin [Mass/Vol] 3.8 g/dL Normal 3.2-5.5 [facility] Comment on above: Performed By: #### H S TROP, CBC, CMP, CK, CKMB #### [address] Albumin/Globulin [Mass ratio] 1.5 {ratio} Normal [facility] Comment on above: Performed By: #### H S TROP, CBC, CMP, CK, CKMB #### [address] ALP [Catalytic activity/Vol] 32 U/L Normal 32-92 [facility] Comment on above: Performed By: #### H S TROP, CBC, CMP, CK, CKMB #### [address] ALT [Catalytic activity/Vol] 16 U/L Normal 10-60 [facility] Comment on above: Performed By: #### H S TROP, CBC, CMP, CK, CKMB #### [address] AST [Catalytic activity/Vol] 16 U/L Normal 10-42 [facility] Comment on above: Performed By: #### H S TROP, CBC, CMP, CK, CKMB #### [address] Bilirubin [Mass/Vol] 0.3 mg/dL Normal 0.3-1.2 [facility] Comment on above: Performed By: #### H S TROP, CBC, CMP, CK, CKMB #### [facility] [address] Calcium [Mass/Vol] 8.8 mg/dL Normal 8.2-10.2 [facility] Comment on above: Performed By: #### H S TROP, CBC, CMP, CK, CKMB #### [facility] [address] Chloride [Moles/Vol] 102 mmol/L Normal 95-114 [facility] Comment on above: Performed By: #### H S TROP, CBC, CMP, CK, CKMB #### [address] CO2 [Moles/Vol] 24.0 mmol/L Normal 22.0-30.0 [facility] Comment on above: Performed By: #### H S TROP, CBC, CMP, CK, CKMB #### [address] Creatinine [Mass/Vol] 0.78 mg/dL Normal 0.44-1.03 [facility] Comment on above: Performed By: #### H S TROP, CBC, CMP, CK, CKMB #### [address] Creatinine Clr Calc Pharmacy 103.21 [facility] Comment on above: Result Comment: PERF ORMED BY: [place] [address] PATHOLOGIST TEST ARCHITECT KRIS FERGUSON M.D. Performed By: #### H S TROP, CBC, CMP, CK, CKMB #### [address] Estimated GFR ( Sadia > 60 [facility] Comment on above: Result Comment: GFR estimated reference range: According to KDOQI guidelines, <60 ml/min/1.73m2 is sufficient to diagnose a patient with chronic kidney disease. Performed By: #### H S TROP, CBC, CMP, CK, CKMB #### [place] [id number] [place] Estimated GFR (Non- Am > 60 Normal [facility] Comment on above: Performed By: #### H S TROP, CBC, CMP, CK, CKMB #### [address] Globulin (S) [Mass/Vol] 2.6 g/dL Normal [facility] Comment on above: Performed By: #### H S TROP, CBC, CMP, CK, CKMB #### [address] Glucose [Mass/Vol] 111 mg/dL High 70-100 [facility] Comment on above: Result Comment: [facility] [place][note 2] Glucose Reference Range is dependent on time and content of last meal. Glucose of more than 200 mg/dL in a nonstressed, ambulatory subject supports the diagnosis of Diabetes Mellitus. ADA recommended reference range Performed By: #### H S TROP, CBC, CMP, CK, CKMB #### [address] Potassium [Moles/Vol] 3.5 mmol/L Normal 3.5-5.1 [facility] Comment on above: Performed By: #### H S TROP, CBC, CMP, CK, CKMB #### [address] Protein [Mass/Vol] 6.4 g/dL Normal 6.1-7.9 [facility] Comment on above: Performed By: #### H S TROP, CBC, CMP, CK, CKMB #### [address] Sodium [Moles/Vol] 135 mmol/L Low 136-146 [facility] Comment on above: Performed By: #### H S TROP, CBC, CMP, CK, CKMB #### [address] Urea nitrogen [Mass/Vol] 6 mg/dL Low 9-23 [facility] Comment on above: Performed By: #### H S TROP, CBC, CMP, CK, CKMB #### [address] [place] [address] [place] Creatine Kinaseon 01-28-2022 CK [Catalytic activity/Vol] 73 U/L Normal [facility] Comment on above: Performed By: #### H S TROP, CBC, CMP, CK, CKMB #### [facility] [address] Creatine kinase [Enzymatic a ctivity/volume] in Serum or PlasmaOrdered By: Martha Nunez on 01-28-2022 CK [Catalytic activity/Vol] 73 U/L [facility] Creatinine Kinase MBon 01-28 CK.MB [Mass/Vol] 1.0 ng/mL Normal 0.6-6.3 [facility] Comment on above: Performed By: #### H S TROP, CBC, CMP, CK, CKMB #### [facility] [address] CKMB Relative Index 1.3 % Normal 0.00-2.50 [facility] Comment on above: Performed By: #### H S TROP, CBC, CMP, CK, CKMB #### [facility] [address] Creatinine and Glomerular fi ltration rate.predicted panel (S/P/Bld)Ordered By: Martha Nunez on 01-28-2022 Creatinine [Mass/Vol] 0.78 mg/dL 0.44-1.03 [facility] Dipstick and Microscopicon 0 01-28-2022 Appearance (U) Clear Normal Clear [facility] Comment on above: Order Comment: Name Collection Type:: Clean-Voided Midstream Performed By: #### A DDONUAPLUS, UHCG, URDS #### [facility] [address] [place] [address] [place] Bacteria,Urine None Seen Normal None Seen [facility] Comment on above: Order Comment: Name Collection Type:: Clean-Voided Midstream Performed By: #### A DDONUAPLUS, UHCG, URDS #### [facility] [address] [place] [address] [place] Bilirubin,Urine Negative Normal Negative [facility] Comment on above: Order Comment: Name Collection Type:: Clean-Voided Midstream Performed By: #### A DDONUAPLUS, UHCG, URDS #### [facility] [address] [place] [address] [place] Color (U) Yellow Normal Yellow [facility] Comment on above: Order Comment: Name Collection Type:: Clean-Voided Midstream Performed By: #### A DDONUAPLUS, UHCG, URDS #### [address] Glucose Ql (U) Normal Normal Normal [facility] Comment on above: Order Comment: Name Collection Type:: Clean-Voided Midstream Performed By: #### A DDONUAPLUS, UHCG, URDS #### [place] [address] [place] Hyaline Casts,Urine 0-8 Normal 0-8 [facility] Comment on above: Order Comment: Name Collection Type:: Clean-Voided Midstream Performed By: #### A DDONUAPLUS, UHCG, URDS #### [facility] [address] [place] [address] [place] Ketones Ql (U) Trace High Negative [facility] Comment on above: Order Comment: Name Collection Type:: Clean-Voided Midstream Performed By: #### A DDONUAPLUS, UHCG, URDS #### [facility] [address] [place] [address] [place] Leukocyte esterase Test strip Ql (U) Negative Normal Negative [facility] Comment on above: Order Comment: Name Collection Type:: Clean-Voided Midstream Performed By: #### A DDONUAPLUS, UHCG, URDS #### [facility] [address] [place] [address] [place] Nitrite,Urine Negative Normal Negative [facility] Comment on above: Order Comment: Name Collection Type:: Clean-Voided Midstream Performed By: #### A DDONUAPLUS, UHCG, URDS #### [place] [address] [place] Occult Blood,Urine 1+ High Negative [facility] Comment on above: Order Comment: Name Collection Type:: Clean-Voided Midstream Performed By: #### A DDONUAPLUS, UHCG, URDS #### [address] pH (U) 6.0 [pH] Normal 5.0-9.0 [facility] Comment on above: Order Comment: Name Collection Type:: Clean-Voided Midstream Performed By: #### A DDONUAPLUS, UHCG, URDS #### [address] Protein,Urine Negative Normal Negative [facility] Comment on above: Order Comment: Name Collection Type:: Clean-Voided Midstream Performed By: #### A DDONUAPLUS, UHCG, URDS #### [address] RBC,Urine 5-9 High 0-4 [facility] Comment on above: Order Comment: Name Collection Type:: Clean-Voided Midstream Performed By: #### A DDONUAPLUS, UHCG, URDS #### [address] Specificy [facility],Urine 1.019 Normal 1.001-1.030 [facility] Comment on above: Order Comment: Name Collection Type:: Clean-Voided Midstream Performed By: #### A DDONUAPLUS, UHCG, URDS #### [facility] [address] [place] [address] Squamous Epithelial Cell,Urine 1-2 Normal 0-2 [facility] Comment on above: Order Comment: Name Collection Type:: Clean-Voided Midstream Performed By: #### A DDONUAPLUS, UHCG, URDS #### [address] Urobilinogen,Urine Normal Normal Normal [facility] Comment on above: Order Comment: Name Collection Type:: Clean-Voided Midstream Performed By: #### A DDONUAPLUS, UHCG, URDS #### [address] WBC LM.HPF (Urine sed) [#/Area] 0 /[HPF] Normal 0-4 [facility] Comment on above: Order Comment: Name Collection Type:: Clean-Voided Midstream Performed By: #### A DDONUAPLUS, UHCG, URDS #### [address] Drug Screen,Urineon 01-29-20 Amphetamine Screen,Urine Negative Normal Negative [facility] Comment on above: Performed By: #### A DDONUAPLUS, UHCG, URDS #### [address] Barbiturate Screen,Urine Negative Normal Negative [facility] Comment on above: Performed By: #### A DDONUAPLUS, UHCG, URDS #### [address] Benzodiazepines Screen,Urine Negative Normal Negative [facility] Comment on above: Performed By: #### A DDONUAPLUS, UHCG, URDS #### [address] Cannabinoid Screen,Urine Negative Normal Negative [facility] Comment on above: Result Comment: Thes e are unconfirmed results and should not be used for legal purposes. Drug Cut-Off Concentration: AMPH 1000 ng/mL MCKINLEY 200 ng/mL ROBSON 200 ng/mL COCM 300 ng/mL OP 300 ng/mL PCP 25 ng/mL THC 20 ng/mL PERFORMED BY: [place] [address] PATHOLOGIST TEST ARCHITECT KRIS FERGUSON M.D. Performed By: #### A DDONUAPLUS, UHCG, URDS #### [address] Cocaine Screen,Urine Negative Normal Negative [facility] Comment on above: Performed By: #### A DDONUAPLUS, UHCG, URDS #### [address] Opiate Screen,Urine Negative Normal Negative [facility] Comment on above: Performed By: #### A DDONUAPLUS, CG, URDS #### [facility] [address] Phencyclidine Screen,Urine Negative Normal Negative [facility] Comment on above: Performed By: #### A DDONUAPLUS, CG, URDS #### [facility] [address] ECG 12 lead ECGon 01-28-2022 ECG 12 lead ECG [facility] [address] [place] [address] [place] [address] Electrocardiograph Report Signed Patient: Tarik Gonzalez MR#: [id number] 53 : 1980 Acct:[id number] Age/Sex: 41 / F ADM Date: 01/28/22 Loc: ER Room: Type: [facility] ER Attending Dr: Ordering Provider: MODE Ann Date of Service: 01/28/22 ECG/ECG 12 lead ECG: Dizziness Copies to: Test Reason : Blood Pressure : / mmHG Vent. Rate : 086 BPM Atrial Rate : 086 BPM P-R Int : 146 ms QRS Dur : 076 ms QT Int : 370 ms P-R-T Axes : 054 049 034 degrees QTc Int : 442 ms Normal sinus rhythm Confirmed by Rodrick TAN DO ([id number]) on 01/28/2022 4:35:01 PM Referred By: Electronically Signed By:Rodrick TAN DO Transcribed By: MUS Signed By Rodrick Tan DO 0 01/28/22 1635 Normal [facility] Eosinophils Auto (Bld) [#/Vo l]Ordered By: Martha Nunez on 01-28-2022 Eosinophils (Bld) [#/Vol] 0.1 10*3/uL 0.0-0.45 [facility] Eosinophils/100 WBC Auto (Bl d)Ordered By: Martha Nunez on 01-28-2022 Eosinophils/100 WBC (Bld) 1.5 % [facility] Erythrocyte distribution wid th Auto (RBC) [Ratio]Ordered By: Martha Nunez on 01-28-2022 Erythrocyte distribution width (RBC) [Ratio] 13.6 % 11.9-15.3 [facility] Estimated glomerular filtrat ion rate (GFR) non- AmericanOrdered By: Martha Nunez on 01-28-2022 GFR/1.73 sq M.predicted among non-blacks MDRD (S/P/Bld) [Vol rate/Area] > 60 mL/Min [facility] Globulin Calc (S) [Mass/Vol] Ordered By: Martha Nunez on 01-28-2022 Globulin (S) [Mass/Vol] 2.6 g/dL [facility] HCG ( test) IA.rapi d Ql (U)Ordered By: Martha Nunez on 01-28-2022 HCG ( test) Ql (U) Negative [facility] HCG,Urineon 01-28-2022 Beta HCG ( test) Ql (U) Negative Normal [facility] Comment on above: Order Comment: Name Collection Type:: Clean-Voided Midstream Result Comment: PERF ORMED BY: [place] [address] PATHOLOGIST TEST ARCHITECT KRIS FERGUSON M.D. Performed By: #### A DDONUAPLUS, [facility] [place] #### [address] Hematocrit Auto (Bld) [Volum e fraction]Ordered By: Martha Nunez on 01-28-2022 Hematocrit (Bld) [Volume fraction] 40.6 % 34.0-46.4 [facility] Ketones Auto test strip (U) [Mass/Vol]Ordered By: Martha Nunez on 01-28-2022 Ketones (U) [Mass/Vol] Trace Negative [facility] Laboratory - Drug toxicology Ordered By: Martha Nunez on 01-28-2022 Opiates Ql (U) Negative Negative [facility] Laboratory - Hematology and Cell countsOrdered By: Martha Nunez on 01-28-2022 Nucleated RBC/100 WBC (Bld) [Ratio] 0.0 % 0-0.5 [facility] Laboratory - UrinalysisOrder ed By: Martha Nunez on 01-28-2022 Hyaline casts LM Ql (Urine sed) 0-8 [LPF] [facility] Lymphocytes Auto (Bld) [#/Vo l]Ordered By: Martha Bullimore on 01-28-2022 Lymphocytes (Bld) [#/Vol] 1.6 10*3/uL 1.00-4.8 [facility] Lymphocytes/100 WBC Auto (Bl d)Ordered By: Martha Bullimore on 01-28-2022 Lymphocytes/100 WBC (Bld) 22.9 % [facility] MCH Auto (RBC) [Entitic mass ]Ordered By: Martha Bullimore on 01-28-2022 MCH (RBC) [Entitic mass] 28.5 pg 24.7-34.3 [facility] MCHC Auto (RBC) [Mass/Vol]Or dered By: Martha Bullimore on 01-28-2022 MCHC (RBC) [Mass/Vol] 33.0 g/dL 32.0-35.0 [facility] MCV Auto (RBC) [Entitic vol] Ordered By: Martha Bullimore on 01-28-2022 MCV (RBC) [Entitic vol] 86.4 fL 80-100 [facility] Monocytes Auto (Bld) [#/Vol] Ordered By: Martha Bullimore on 01-28-2022 Monocytes (Bld) [#/Vol] 0.5 10*3/uL 0.0-0.8 [facility] Monocytes/100 WBC Auto (Bld) Ordered By: Martha Bullimore on 01-28-2022 Monocytes/100 WBC (Bld) 7.3 % [facility] Neutrophils Auto (Bld) [#/Vo l]Ordered By: Martha Bullimore on 01-28-2022 Neutrophils (Bld) [#/Vol] 4.7 10*3/uL 1.8-7.7 [facility] Neutrophils/100 WBC Auto (Bl d)Ordered By: Martha Connellimore on 01-28-2022 Neutrophils/100 WBC (Bld) 67.9 % [facility] Nitrite Test strip Ql (U)Ord ered By: Martha Nunez on 01-28-2022 Nitrite Ql (U) Negative Negative [facility] No Panel InformationOrdered By: Martha Nunez on 01-28-2022 Estimated GFR () > 60 mL/Min [facility] Comment on above: GFR estimated refere nce range: According to KDOQI guidelines, <60 ml/min/1.73m2 is sufficient to diagnose a patient with chronic kidney disease. Pharmacy Creatinine Clearance (Chem 103.21 [facility] Phencyclidine Screen Ql (U)O rdered By: Martha Nunez on 01-28-2022 Phencyclidine Ql (U) Negative Negative [facility] Platelet mean volume Auto (B ld) [Entitic vol]Ordered By: Martha Nunez on 01-28-2022 Platelet mean volume (Bld) [Entitic vol] 8.8 fL 6.3-10.7 [facility] Platelets Auto (Bld) [#/Vol] Ordered By: Martha Nunez on 01-28-2022 Platelets (Bld) [#/Vol] 301 10*3/uL 150-450 [facility] Protein Auto test strip (U) [Mass/Vol]Ordered By: Martha Nunez on 01-28-2022 Protein (U) [Mass/Vol] Negative Negative [facility] Protein [Mass/volume] in Ser um or PlasmaOrdered By: Martha Nunez on 01-28-2022 Protein [Mass/Vol] 6.4 g/dL 6.1-7.9 [facility] RBC Auto (Bld) [#/Vol]Ordere d By: Martha Nunez on 01-28-2022 RBC (Bld) [#/Vol] 4.69 10*6/uL 3.60-5.00 [facility] Serum or plasma alanine pinto otransferase measurement without P-5'-P (enzymatic activiOrdered By: Martha Nunez on 01-28-2022 ALT No additional P-5'-P [Catalytic activity/Vol] 16 U/L 10-60 [facility] Serum or plasma albumin/glob ulin mass ratioOrdered By: Martha Nunez on 01-28-2022 Albumin/Globulin [Mass ratio] 1.5 {ratio} [facility] Serum or plasma alkaline sanchez sphatase measurement (enzymatic activity/volume)Ordered By: Martha Nunez on 01-28-2022 ALP [Catalytic activity/Vol] 32 U/L 32-92 [facility] Serum or plasma aspartate am inotransferase measurement (enzymatic activity/volume)Ordered By: Martha Nunez on 01-28-2022 AST [Catalytic activity/Vol] 16 U/L 10-42 [facility] Serum or plasma calcium pedro luis urement (mass/volume)Ordered By: Martha Nunez on 01-28-2022 Calcium [Mass/Vol] 8.8 mg/dL 8.2-10.2 [facility] Serum or plasma chloride osito surement (moles/volume)Ordered By: Martha Nunez on 01-28-2022 Chloride [Moles/Vol] 102 mmol/L 95-114 [facility] Serum or plasma creatine kin ase MB (CKMB)/total creatine kinase (CK) ratio by calculaOrdered By: Marthaalysha Nunez on 01-28-2022 CK.MB Calc [Catalytic fraction] 1.3 % 0.00-2.50 [facility] Serum or plasma creatine kin ase MB measurement (mass/volume)Ordered By: Martha Nunez on 01-28-2022 CK.MB [Mass/Vol] 1.0 ng/mL 0.6-6.3 [facility] Serum or plasma glucose pedro luis urement (mass/volume)Ordered By: Martha Nunez on 01-28-2022 Glucose [Mass/Vol] 111 mg/dL 70-100 [facility] Comment on above: ADA recommended refe rence rangeRandom Glucose Reference Range is dependent on time and content of last meal. Glucose of more than 200 mg/dL in a nonstressed, ambulatory subject supports the diagnosis of Diabetes Mellitus. Serum or plasma potassium me asurement (moles/volume)Ordered By: Martha Nunez on 01-28-2022 Potassium [Moles/Vol] 3.5 mmol/L 3.5-5.1 [facility] Serum or plasma sodium measu rement (moles/volume)Ordered By: [facility] on 01-28-2022 Sodium [Moles/Vol] 135 mmol/L 136-146 [facility] Serum or plasma total biliru bin measurement (mass/volume)Ordered By: [facility] on 01-28-2022 Bilirubin [Mass/Vol] 0.3 mg/dL 0.3-1.2 [facility] Serum or plasma total carbon dioxide measurement (moles/volume)Ordered By: [facility] on 01-28-2022 CO2 [Moles/Vol] 24.0 mmol/L 22.0-30.0 [facility] Serum or plasma urea nitroge n measurement (mass/volume)Ordered By: [facility] on 01-28-2022 Urea nitrogen [Mass/Vol] 6 mg/dL 08-02 [facility] Specific gravity Auto test s trip (U) [Rel density]Ordered By: [facility] on 01-28-2022 Specific gravity (U) [Rel density] 1.019 1.001-1.030 [facility] Squamous epithelial cells de tection in urine sediment by light microscopyOrdered By: [facility] on 01-28-2022 Epithelial cells.squamous LM Ql (Urine sed) 1-2 [HPF] [facility] THYROID SCREENon 01-28-2022 Free T4 [Mass/Vol] 1.09 ng/dL Normal 0.61-1.12 [facility] Comment on above: Performed By: #### H S TROP, CBC, CMP, CK, CKMB #### [facility] [address] TSH Qn 0.27 m[IU]/L Low 0.45-5.33 [facility] Comment on above: Result Comment: PERF ORMED BY: [place] [address] PATHOLOGIST TEST ARCHITECT KRIS FERGUSON M.D. Performed By: #### H S TROP, CBC, CMP, CK, CKMB #### [facility] [address] TSH DL <= 0.005 mIU/L QnOrde red By: Martha Nunez on 01-28-2022 TSH Qn 0.27 m[IU]/L 0.45-5.33 [facility] Thyroxine (T4) free [Mass/vo lume] in Serum or PlasmaOrdered By: Martha Nunez on 01-28-2022 Free T4 [Mass/Vol] 1.09 ng/dL 0.61-1.12 [facility] Troponin I High Sensitivityo n 01-28-2022 Troponin I High Sensitivity 5 pg/mL Normal 0-15 [facility] Comment on above: Result Comment: PERF ORMED BY: [place] [address] PATHOLOGIST TEST ARCHITECT KRIS FERGUSON M.D. Performed By: #### H S TROP, CBC, CMP, CK, CKMB #### [facility] [address] [place] [address] Troponin I High Sensitivity 4 pg/mL Normal 0- [facility] Comment on above: Result Comment: PERF ORMED BY: [place] [address] PATHOLOGIST TEST ARCHITECT KRIS FERGUSON M.D. Performed By: #### H S TROP, CBC, CMP, CK, CKMB #### [facility] [address] [place] [address] [place] Troponin I.cardiac [Mass/vol ume] in Serum or Plasma by High sensitivity methodOrdered By: Martha Nunez on 01-28-2022 Troponin I.cardiac High sensitivity method [Mass/Vol] 4 pg/mL 0-15 [facility] Urine bacteria detection by automated methodOrdered By: Martha Nunez on 01-28-2022 Bacteria Auto Ql (U) None seen None Seen [facility] Urine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 ORAL Take by mouth once daily. Yes levothyroxine (SYNTHROID) 75 mcg tablet Take 75 mcg by mouth daily before breakfast. Yes montelukast (SINGULAIR) 10 mg tablet Take 10 mg by mouth once daily. Yes No medication comments found. ALLERGIES Allergen Reactions - Codeine - Latex Other: See Comments Red and burning sensation - Nsaids (Non-Steroid* Other: See Comments MTHFR mutation - Nubain [Nalbuphine * Vomiting - Watermelon Flavor Other: See Comments Welting around joints, with watermelon artificial flavoring only REVIEW OF SYSTEMS: PAIN ASSESSMENT: Pain Pain Level: 3 Pain Location: Abdomen Description: Sore Frequency: Continuous Intervention: Declined General: No weight loss, malaise or fevers. Neuro: No history of TIA's, stroke, AUTOMOTIVE DESIGN DRAFTER tumor, impaired sensorium, hemiplegia, paraplegia or quadraplegia. No neurological symptoms or problems. Respiratory: Positive for former smoker , Negative for Asthma, COPD, Current cough, Dyspnea, Pneumonia within 6 weeks (date), URI < 2 weeks Cardiovascular: No history of HTN requiring medication, no history of angina, CHF, OK, cardiac surgery or stents. Denies rest pain, gangrene or revascularization/am putation for PVD. No history of cardiovascular symptoms or problems. GI: Positive for GERD, Negative for Liver disease : No history of dysuria, frequency or incontinence,, stones or chronic kidney disease MANAGER PROGRAMMING: Negative for abnormal vaginal bleeding, abnormal vaginal discharge. : Denies, Patient's last menstrual period was 02/24/2019. Endocrine: Hypothyroidism Denies h/o DM Hematology: +MTHFR mutation Oncology: No history of CA metastasis, chemo within 30 days, or radiotherapy within 90 days. Has not lost 10% of body wt in 6 months. No history of oncological symptoms or problems. Psych: No history of psychiatric symptoms or problems. Musculoskeletal: +low back pain Skin: Negative for lesions, rash and itching. Objective PHYSICAL EXAM: VITALS: BP 109/64 Pulse 78 Temp (Src) 98 (Temporal) Resp 16 Ht 5' 5 (1.65m) Wt 184 lb (83.5kg) SpO2 98% LMP 02/24/2019 BMI 30.62 kg/(m2). General: Alert and oriented Skin: Normal color, no rash, no lesions. HEENT: EOM, pupils equal, round and reactive. Cardiovascular: Normal S1 AND S2, no rubs, murmurs or gallops. No JVD. Pulse regular. Lungs: Normal breath sounds, no wheezes or crackles. Abdomen: Soft, non-tender, no rigidity. Extremities: No deformity, no edema or tenderness, no joint swelling or clubbing. Neurological: Normal cognition and motor skills. Pulses: Carotid and radial pulses normal +2. Diagnostic tests reviewed for today's visit: No new labs or tests Assessment/Plan Former smoker Assessment: quit 2010; 12 pack year history Other specified acquired hypothyroidism Assessment: on synthroid METS: Walk a block or two on level ground (2.75 METs) Climb a flight of stairs or walk up a hill (5.50 METs) Patient denies any chest pain or undue shortness of breath with the above physical activity. ASA Class: 2 ANESTHESIA FINDINGS: Intubation History: No history of difficult intubation Significant Anesthesia Considerations: +sensitive to medication; +H/O difficulty with IV/vein access (prefers to use antecubital space) Airway Exam: General: Normal appearance Mallampati Score is CLASS II ULBT: Class II - Lower incisors can bite the upper lip below the rick line Neck: Normal appearance and function, Distance from hyoid to mentum during neck extension is at least 3 finger breaths Mouth: Normal tongue size, Mouth opening greater than 2 finger breaths and +TMJ pain right side Dentition: Caps/crowns Airway History: No abnormal airway history STOP BANG Score: Criteria: None Score = 0 PLAN This patient is optimally prepared for surgery. CONSULTS: Patient does not require consults for optimization at this time. The Following Tests/Procedures Have Been Initiated: Labs not indicated per [facility] protocol, EKG not indicated per [facility] protocol Planned Anesthetic: General Instructions Given to Patient: Patient given verbal and written preop instructions and voices comprehension and compliance. @ASSESSEND@ SIGNATURE: Jane Louis PA-C PATIENT NAME: Tarik Gonzalez DATE: March 17, 2019 TIME: 10:20 AM PAGER/CONTACT #: Previous Version Miley Hernandez LPN, [place] 03/17/2019 2:51 PM Signed Advance Directives discussed with patient: Advance directives obtained and scanned. Miley Hernandez LPN March 17, 2019 2:51 PM Jane Louis PA-C 03/17/2019 2:56 PM Signed PATIENT PREOPERATIVE INSTRUCTIONS Joe Sheffield DO has scheduled you for your procedure at this surgery center: [facility]: [phone] --[id number] [place] [address]. Please enter through the entrance closest to [facility]. Please read below carefully for your personalized instructions. Blood Thinning Medications: - Stop NSAIDS (Ibuprofen, Advil, Aleve, Motrin, Celebrex, Mobic, etc.) 7 days before surgery, as directed by your surgeon. - Stop Aspirin 7 days before surgery, as directed by your surgeon. - Stop Vitamin E, ALL multi-vitamins, herbals and dietary supplements 7 days before surgery. - You may take Tylenol (Acetaminophen) or any of your pain medications that do not contain aspirin or NSAIDS as needed. Dietary Restrictions: - No solid food after midnight. - You may have 12 ounces of clear liquids (water, clear juices such as apple juice or gatorade, carbonated beverages, clear tea, black coffee, jello) until 2 hours before scheduled arrival at facility. Medications: Approved medications to take the morning of surgery with a sip of water: SYNTHROID If you start any new medications after today's visit, please contact the surgeon's office. Important Reminders: - Candy, mints, and tobacco products are NOT permitted the morning of surgery. - Hearing aids, dentures and glasses may be worn the morning of surgery. - NO jewelry, body piercings, makeup, hairpins or contacts are to be worn the day of surgery. If you develop symptoms such as a fever, cold, or flu, or have other changes to your health within TWO DAYS of scheduled surgery or the morning of surgery, please contact the surgery center above. Personal Belongings: - Leave ALL valuables and money at home or with family members. For Outpatient Procedures: - YOU MUST HAVE A RESPONSIBLE BOX CAR BRACER TAKE YOU HOME. A HEAVY DUTY PRESS OPERATOR OR PIPE TESTING TECHNICIAN CANNOT BE MADE A RESPONSIBLE BOX CAR BRACER. - We recommend that a responsible person stays with you overnight to take care of you. - You cannot stay in a hotel alone after outpatient surgery. You will not be permitted to have your surgery, if you do not have someone to take care of you. Arrival Time for Surgery: - The Surgery Center or hospital where you are having surgery will call the afternoon before surgery (or Friday for Friday surgery) with a scheduled arrival time. - If you have not heard by 4 pm, please contact the surgery center above. Please be aware that emergency situations arise, which may delay or change your surgical time. If this happens, we will notify you as soon as possible and regret any inconvenience. SUZETTE Smiley PA-C 03/17/2019 4:06 PM Written Assessment: quit 2010; 12 pack year history Jane Louis PA-C 03/17/2019 4:06 PM Written Assessment: on synthroid Progress Notes (AV PROVIDER ADULT): Karrie Sheffield DO 03/11/2019 12:46 PM Signed Called and left voicemail on patient's number [phone], verified by her name. I want to update her MRI result. I left office number for her to call me back to discuss surgery. Karrie Sheffield DO March 11, 2019 12:46 PM Darya Healy [facility] 03/11/2019 1:12 PM Signed Patient called back, please return her call, she'll be watching her phone. Thank you. Karrie Sheffield DO 03/11/2019 1:58 PM Signed Called and spoke to patient, updated her MRI result - 3.6 x 3 cm defect of recurrent umbilical hernia. I recommend lap VHR with mesh. Risks, benefits and alternatives were discussed. Risks including but not limited to bleeding, pain, infection, scar(s), chronic pain after surgery, repeat procedure, injuries to soft tissue, intra-abdominal organs such as colon, bowel, liver, stomach, spleen, mesh complication, hernia recurrence, possible recurrence of symptoms, prolong hospital/surgical stay, cardiopulmonary event, seizure, stroke, allergic reaction to administered medication and . Patient's questions were answered to her satisfaction. Patient understands and wishes to proceed with surgery. Will schedule surgery at her convenience. Patient was also made aware of weight limiting restriction - 20 lbs for first 2 weeks and 40 lbs for 4 more weeks after that. Karrie Sheffield DO March 11, 2019 1:57 PM Rhonda Sydney 03/11/2019 3:07 PM Signed Patient requesting call back to further discuss surgery with Dr. Sheffield. Patient is requesting to know if there is the option for mechanical surgery . Patient also requesting to schedule surgery immediately. Advised patient that we would call to schedule once we receive orders for surgery. Please forward CURING OVEN ATTENDANT, when available. Allison Adarsh 03/11/2019 3:37 PM Signed Cur form received for [facility]. Will call to schedule. Amelia Moya PA-C 03/11/2019 4:27 PM Signed I called and spoke with patient and she is asking how she can get surgery sooner. She asked if Dr. Sheffield does emergency surgery after hours. I advised that she would have to present to the ED with a true emergency (incarceration resulting in obstruction, strangulation, etc) and then surgery would be done by whoever is available, not necessarily Dr. Sheffield. Per her MRI done today, hernia was fat-containing, so I advised at this point nothing to indicate that it is an emergency, although I recognized and acknowledged that she is having discomfort. She asked about risk of organ/bowel injury with laparoscopic repair. I advised this is a risk with any laparoscopic surgery, much like the laparoscopic cholecystectomy she had and the MANAGER PROGRAMMING laparoscopies. If bowel involvement in the hernia, increased risk but no evidence of that at this time. She asked if she should have a bowel prep. I advised that I would have to check with Dr. Sheffield if she is requesting this. She asked about risks of open vs laparoscopic. I advised that open associated with greater risk of wound issues, post op pain. I advised there can still be bowel injury risk with open as well. I advised there can still be expected significant pain after laparoscopic. Patient concerned about mesh erosion and wanted to know symptoms. I advised this is not a common occurrence, but would involve pain, skin breakdown, drainage. Patient asking to see if any way she can be scheduled sooner. She is going to check with her surgeon she had do her original surgery to see if she could get in sooner there and is requesting MRI be faxed. She would still like to see if there is a sooner date available with Dr. Sheffield. She is willing to go to any location. I advised would pass on info to schedulers and Dr. Sheffield. Allison Altamirano 03/12/2019 8:28 AM Signed [place]est in [place] is 03-30-19. Tatiana can you accomidate sooner, if so i will send cur to [place]. Darya REDDY 03/12/2019 8:57 AM Signed I checked [place], our next available is on 04/19/19 for 1.5 case. Allison Adarsh 03/12/2019 9:02 AM Signed Will call pt to offer 03-30-19 at [facility] and offer to place pt on cancel list. Allison Altamirano 03/12/2019 9:06 AM Signed Spoke with pt scheduled for surgery. Normal [facility] Vital Signs Date Time Vital Sign Value Performing Clinician Facility 07-06-2023 22:45-0400 Diastolic blood pressure 73 mm[Hg] [facility] 07-06-2023 22:45-0400 Heart rate 67 /min [facility] 07-06-2023 22:45-0400 Mean blood pressure 87 mm[Hg] [facility] 07-06-2023 22:45-0400 SaO2% (BldA) [Mass fraction] 97 % [facility] 07-06-2023 22:45-0400 Systolic blood pressure 114 mm[Hg] [facility] 07-06-2023 21:02-0400 Body temperature 97.7 [degF] [facility] 07-06-2023 21:02-0400 Diastolic blood pressure 73 mm[Hg] [facility] 07-06-2023 21:02-0400 Heart rate 80 /min [facility] 07-06-2023 21:02-0400 Respiratory rate 16 /min [facility] 07-06-2023 21:02-0400 SaO2% (BldA) [Mass fraction] 99 % [facility] 07-06-2023 21:02-0400 Systolic blood pressure 111 mm[Hg] [facility] 06-30-2023 12:05-0400 Diastolic blood pressure 66 mm[Hg] Reggie Jax [facility] 06-30-2023 12:05-0400 Heart rate 81 /min Reggie Jax [facility] 06-30-2023 12:05-0400 Mean blood pressure 80 mm[Hg] Reggie Jax [facility] 06-30-2023 12:05-0400 Respiratory rate 11 /min Reggie Jax [facility] 06-30-2023 12:05-0400 SaO2% (BldA) [Mass fraction] 96 % Reggie Jax [facility] 06-30-2023 12:05-0400 Systolic blood pressure 109 mm[Hg] Reggie Jax [facility] 06-30-2023 11:19-0400 Hourly Rounding Reggie Jax [facility] 06-30-2023 11:19-0400 Promise to Return Reggie Jax [facility] 06-30-2023 11:11-0400 Diastolic blood pressure 67 mm[Hg] Reggie Jax [facility] 06-30-2023 11:11-0400 Heart rate 75 /min Reggie Jax [facility] 06-30-2023 11:11-0400 Mean blood pressure 81 mm[Hg] Reggie Jax [facility] 06-30-2023 11:11-0400 Respiratory rate 17 /min Reggie Jax [facility] 06-30-2023 11:11-0400 SaO2% (BldA) [Mass fraction] 94 % Reggie Jax [facility] 06-30-2023 11:11-0400 Systolic blood pressure 108 mm[Hg] Reggie Camara [facility] 06-30-2023 10:29-0400 gluc 106 mg/dL Reggie Camara [facility] 06-30-2023 10:29-0400 gluc Reggie Camara [facility] 06-30-2023 10:11-0400 Body temperature 98.06 [degF] Reggie Camara [facility] 06-30-2023 10:11-0400 Diastolic blood pressure 83 mm[Hg] Reggie Camara [facility] 06-30-2023 10:11-0400 Heart rate 129 /min Reggie Camara [facility] 06-30-2023 10:11-0400 SaO2% (BldA) [Mass fraction] 99 % Reggie Camara [facility] 06-30-2023 10:11-0400 Systolic blood pressure 124 mm[Hg] Reggie Camara [facility] 03-17-2023 15:37-0400 Blood Pressure Location Otoniel MOTLEY [facility] 03-17-2023 15:37-0400 Body temperature 97.52 [degF] Otoniel MOTLEY [facility] 03-17-2023 15:37-0400 Diastolic blood pressure 76 mm[Hg] Otoniel MOTLEY [facility] 03-17-2023 15:37-0400 Heart rate 113 /min Otoniel MOTLEY [facility] 03-17-2023 15:37-0400 SaO2% (BldA) [Mass fraction] 98 % Otoniel MOTLEY [facility] 03-17-2023 15:37-0400 Systolic blood pressure 124 mm[Hg] Otoniel MOTLEY [facility] 12-12-2022 09:19-0500 Body temperature 97.88 [degF] Ish Dean [facility] 12-12-2022 09:19-0500 Diastolic blood pressure 67 mm[Hg] Ish Dean [facility] 12-12-2022 09:19-0500 Heart rate 86 /min Ish Dean [facility] 12-12-2022 09:19-0500 Respiratory rate 16 /min Ish Dean [facility] 12-12-2022 09:19-0500 SaO2% (BldA) [Mass fraction] 100 % Ish Dean [facility] 12-12-2022 09:19-0500 Systolic blood pressure 104 mm[Hg] Ish Dean [facility] 11-18-2022 08:56-0500 Heart rate 73 /min [facility] 11-18-2022 08:56-0500 Respiratory rate 18 /min [facility] 11-18-2022 08:56-0500 SaO2% (BldA) [Mass fraction] 97 % [facility] 11-18-2022 08:20-0500 Diastolic blood pressure 68 mm[Hg] [facility] 11-18-2022 08:20-0500 Heart rate 77 /min [facility] 11-18-2022 08:20-0500 Mean blood pressure 87 mm[Hg] [facility] 11-18-2022 08:20-0500 Respiratory rate 18 /min [facility] 11-18-2022 08:20-0500 SaO2% (BldA) [Mass fraction] 96 % [facility] 11-18-2022 08:20-0500 Systolic blood pressure 125 mm[Hg] [facility] 11-18-2022 07:50-0500 Body temperature 97.7 [degF] [facility] 11-18-2022 07:50-0500 Diastolic blood pressure 64 mm[Hg] [facility] 11-18-2022 07:50-0500 Heart rate 80 /min [facility] 11-18-2022 07:50-0500 Mean blood pressure 84 mm[Hg] [facility] 11-18-2022 07:50-0500 Respiratory rate 20 /min [facility] 11-18-2022 07:50-0500 SaO2% (BldA) [Mass fraction] 95 % [facility] 11-18-2022 07:50-0500 Systolic blood pressure 123 mm[Hg] [facility] 09-20-2022 22:29-0500 Diastolic blood pressure 78 mm[Hg] [employer] Dokken [facility] 09-20-2022 22:29-0500 Heart rate 98 /min [email or web address] Dokken [facility] 09-20-2022 22:29-0500 Mean blood pressure 90 mm[Hg] [email or web address] Dokken [facility] 09-20-2022 22:29-0500 SaO2% (BldA) [Mass fraction] 98 % [facility] [employer] D[facility] 09-20-2022 22:29-0500 Systolic blood pressure 114 mm[Hg] Annaleeinn Dokken [facility] 09-20-2022 21:16-0500 Body temperature 98.24 [degF] Annaleeinn Dokken [facility] 09-20-2022 21:16-0500 Diastolic blood pressure 85 mm[Hg] Annaleeinn Dokken [facility] 09-20-2022 21:16-0500 Heart rate 104 /min Yunn Varshaen [facility] 09-20-2022 21:16-0500 Respiratory rate 16 /min Annaleeinn Dokken [facility] 09-20-2022 21:16-0500 SaO2% (BldA) [Mass fraction] 98 % Yunn Roxanna [facility] 09-20-2022 21:16-0500 Systolic blood pressure 148 mm[Hg] Annaleeinn Dodenveren [facility] 06-22-2022 08:41-0400 Body temperature 98.24 [degF] Alan Benedict [facility] 06-22-2022 08:41-0400 Diastolic blood pressure 70 mm[Hg] Alan Benedict [facility] 06-22-2022 08:41-0400 Heart rate 89 /min Alan Benedict [facility] 06-22-2022 08:41-0400 Respiratory rate 16 /min Alan Benedict [facility] 06-22-2022 08:41-0400 SaO2% (BldA) [Mass fraction] 97 % Alan Benedict [facility] 06-22-2022 08:41-0400 Systolic blood pressure 103 mm[Hg] Alan Benedict [facility] 06-03-2022 00:30-0400 Body temperature 98.24 [degF] Chato Jackie [facility] 06-03-2022 00:30-0400 Diastolic blood pressure 86 mm[Hg] Chato Jackie [facility] 06-03-2022 00:30-0400 Heart rate 78 /min Chato Jackie [facility] 06-03-2022 00:30-0400 Mean blood pressure 93 mm[Hg] Chato Jackie [facility] 06-03-2022 00:30-0400 Respiratory rate 15 /min Chato Jackie [facility] 06-03-2022 00:30-0400 SaO2% (BldA) [Mass fraction] 96 % Chato Jackie [facility] 06-03-2022 00:30-0400 Systolic blood pressure 108 mm[Hg] Chato Jackie [facility] 06-03-2022 00:00-0400 Body temperature 98.6 [degF] Chato Jackie [facility] 06-03-2022 00:00-0400 Diastolic blood pressure 68 mm[Hg] Chato Jackie [facility] 06-03-2022 00:00-0400 Heart rate 70 /min Chato Jackie [facility] 06-03-2022 00:00-0400 Mean blood pressure 82 mm[Hg] Chato Jackie [facility] 06-03-2022 00:00-0400 SaO2% (BldA) [Mass fraction] 98 % Chato Jackie [facility] 06-03-2022 00:00-0400 Systolic blood pressure 110 mm[Hg] Chato Jackie [facility] 06-02-2022 23:08-0400 Diastolic blood pressure 74 mm[Hg] Chato Jackie [facility] 06-02-2022 23:08-0400 Heart rate 86 /min Chato Jackie [facility] 06-02-2022 23:08-0400 Mean blood pressure 88 mm[Hg] Chato Jackie [facility] 06-02-2022 23:08-0400 Respiratory rate 10 /min Chato Jackie [facility] 06-02-2022 23:08-0400 SaO2% (BldA) [Mass fraction] 99 % Chato Jackie [facility] 06-02-2022 23:08-0400 Systolic blood pressure 117 mm[Hg] Chato Jackie [facility] 06-02-2022 22:41-0400 Respiratory rate 16 /min Chato Jackie [facility] 03-28-2022 15:57-0400 Blood Pressure Location LAURIE SIDELL [facility] 03-28-2022 15:57-0400 Diastolic blood pressure 70 mm[Hg] LAURIE SIDELL [facility] 03-28-2022 15:57-0400 Heart rate 91 /min LAURIE SIDELL [facility] 03-28-2022 15:57-0400 SaO2% (BldA) [Mass fraction] 98 % LAURIE SIDELL [facility] 03-28-2022 15:57-0400 Systolic blood pressure 110 mm[Hg] LAURIE SIDELL [facility] 03-20-2022 10:56-0400 Blood Pressure Location Otoniel TOLU [facility] 03-20-2022 10:56-0400 Body temperature 97.34 [degF] Otoniel TOLU [facility] 03-20-2022 10:56-0400 Diastolic blood pressure 74 mm[Hg] Otoniel TOLU [facility] 03-20-2022 10:56-0400 Heart rate 85 /min Otoniel TOLU [facility] 03-20-2022 10:56-0400 SaO2% (BldA) [Mass fraction] 99 % Otoniel TOLU [facility] 03-20-2022 10:56-0400 Systolic blood pressure 124 mm[Hg] Otoniel TOLU [facility] 01-28-2022 17:30-0400 Diastolic blood pressure 65 mm[Hg] DO Otoniel Tolu Work Phone: [facility] 01-28-2022 17:30-0400 Heart rate 80 /min DO Otoniel Tolu Work Phone: [facility] 01-28-2022 17:30-0400 Respiratory rate 20 /min DO Otoniel Tolu Work Phone: [facility] 01-28-2022 17:30-0400 SaO2% (BldA) [Mass fraction] 97 % DO Otoniel Tolu Work Phone: [facility] 01-28-2022 17:30-0400 Systolic blood pressure 110 mm[Hg] DO Otoniel Motley Work Phone: [facility] 01-28-2022 15:10-0400 Body temperature 98 [degF] DO Otoniel Motley Work Phone: [facility] 01-28-2022 15:07-0400 Body height 165.1 cm DO Otoniel Motley Work Phone: [facility] 01-28-2022 15:07-0400 Body mass index (BMI) [Ratio] 31.8 kg/m2 DO Otoniel Motley Work Phone: [facility] 01-28-2022 15:07-0400 Body weight 86.7 kg DO Otoniel Motley Work Phone: [facility] 1980 01:00-0400 >na< Rylee Long Dept. of Max fontenot Encounters Encounter Date Encounter Type Care Provider Facility Start: 11-17-2023 End: 11-17-2023 Emergency department patient visit Reggie Camara Facility:[facility] Start: 09-14-2023 End: 09-15-2023 ambulatory Otoniel MOTLEY Facility:[facility] Start: 09-14-2023 End: 09-14-2023 Patient encounter procedure Otoniel MOTLEY [facility] Start: 07-30-2023 End: 07-31-2023 ambulatory Emily Montejo Facility:[facility] Start: 07-30-2023 End: 07-30-2023 Patient encounter procedure Emily Montejo [facility] Start: 07-17-2023 End: 07-18-2023 ambulatory LAURIE VERNON Facility:[facility] Start: 07-17-2023 End: 07-17-2023 Patient encounter procedure LAURIE VERNON [facility] Start: 07-06-2023 End: 07-07-2023 Emergency department patient visit Chato Mejia Facility:[facility] Start: 07-06-2023 End: 07-06-2023 Emergency department patient visit Tonie King [facility] Start: 06-30-2023 End: 06-30-2023 Emergency department patient visit Reggie Camara Facility:[facility] Start: 06-30-2023 End: 06-30-2023 Emergency department patient visit Reggie Camara [facility] Start: 06-17-2023 End: 06-18-2023 ambulatory Raphael Osvaldo Facility:[facility] Start: 06-17-2023 ambulatory Ish Dean Facility:[facility] Start: 06-03-2023 End: 06-04-2023 ambulatory LAURIE W SIDELL Facility:[facility] Start: 04-25-2023 End: 04-26-2023 ambulatory LAURIE W SIDELL Facility:[facility] Start: 04-25-2023 End: 04-25-2023 Patient encounter procedure LAURIE VERNON [facility] Start: 04-22-2023 End: 04-23-2023 ambulatory Otoniel MOTLEY [facility] Start: 04-16-2023 End: 04-17-2023 ambulatory Otoniel NUNO [facility] Start: 04-16-2023 End: 04-16-2023 Patient encounter procedure Otoniel NUNO [facility] Start: 03-26-2023 ambulatory Otoniel MOTLEY Facilit y:[facility] Start: 03-17-2023 End: 03-18-2023 ambulatory Otoniel MOTLEY Facility: [facility] Start: 03-17-2023 End: 03-17-2023 Patient encounter procedure Otoniel MOTLEY [facility] Start: 02-07-2023 End: 02-08-2023 Emergency department patient visit Chato Mejia Facility:[facility] Start: 12-12-2022 End: 12-12-2022 Emergency department patient visit Ish Dean Facility:[facility] Start: 12-12-2022 End: 12-12-2022 Emergency department patient visit Ish Dean [facility] Start: 12-11-2022 End: 12-12-2022 ambulatory Florinda Mercado Facility:[facility] Start: 12-11-2022 End: 12-11-2022 Patient encounter procedure Florinda Mercado [facility] Start: 12-05-2022 ambulatory UNKNOWN UNKNOWN Facilit [id number] Start: 12-05-2022 Office outpatient vi sit 15 minutes Rylee Long Dept. of Dermatology Start: 12-02-2022 End: 12-02-2022 Lab Drop off Florinda Pizarromons [facility] Start: 12-02-2022 End: 12-03-2022 ambulatory Florinda Mercado Facility:[facility] Start: 12-02-2022 End: 12-02-2022 Patient encounter procedure Florinda Mercado [facility] Start: 11-26-2022 End: 11-27-2022 ambulatory Otoniel MOTLEY Facility:[facility] Start: 11-26-2022 End: 11-26-2022 Patient encounter procedure Otoniel MOTLEY [facility] Start: 11-19-2022 End: 11-20-2022 ambulatory Otoniel MOTLEY Facility:[facility] Start: 11-18-2022 End: 11-18-2022 Emergency department patient visit Tonie King [facility] Start: 09-20-2022 End: 09-20-2022 Emergency department patient visit Marnie Mcknight [facility] Start: 06-22-2022 End: 06-22-2022 Emergency department patient visit Alan Mcmullen [facility] Start: 06-07-2022 Telephone encounter Joe Sheffield DO Work Phone: General Surgery Comment on above: Appointment Start: 06-04-2022 End: 06-04-2022 Patient encounter procedure LAURIE VERNON [facility] Start: 06-04-2022 End: 06-04-2022 Off-Site LAURIE W SIDERAFFAELE [facility] Start: 06-02-2022 End: 06-03-2022 Emergency department patient visit Chato Mejia [facility] Start: 05-21-2022 End: 05-21-[address] DONY NIELSEN Facility: Start: 03-28-2022 End: 03-28-2022 Patient encounter procedure LAURIE W SIDELL [facility] Start: 03-22-2022 End: 03-22-2022 Patient encounter procedure Otoniel MOTLEY [facility] Start: 03-20-2022 End: 03-20-2022 Patient encounter procedure Otoniel Torrez TOLU [facility] [place] Start: 03-18-2022 End: 03-18-2022 Patient encounter procedure LAURIE Gee KARINARAFFAELE [facility] Start: 01-28-2022 End: 01-28-2022 Emergency department patient visit Otoniel S Tolu Facility:[facility] Start: 01-28-2022 End: 01-28-2022 Emergency department patient visit DO Otoniel Motley Work Phone: [facility] Start: 12-20-2021 ambulatory RYLEE LONG Facil [id number] Start: 12-20-2021 ambulatory RYLEE LONG Facil [id number] Start: 12-20-2021 Office outpatient vi sit 15 minutes Rylee Long Dept. of Dermatology Start: 11-21-2021 End: 02-19-2022 Recurring Cristiano Be [facility] Start: 07-19-2021 ambulatory ANDREEA BARRETT Facility: [facility] Start: 12-21-2020 Office outpatient vi sit 15 minutes Rylee Long Dept. of Dermatology Start: 12-21-2020 Office outpatient vi sit 25 minutes Rylee Long Dept. of Dermatology Start: 12-21-2019 Office outpatient vi sit 15 minutes Rylee Long Dept. of Dermatology Start: 12-11-2018 Office outpatient vi sit 15 minutes Rylee Long Dept. of Dermatology Start: 12-11-2018 Office outpatient vi sit 25 minutes Rylee Long Dept[facility] of Dermatology Start: 01-13-2018 Office outpatient ne w 30 minutes Rylee Long Dept. of Dermatology Start: 01-13-2018 Office outpatient vi sit 15 minutes Rylee Long Dept. of Dermatology Procedures Date Procedure Procedure Detail Performing Clinician Start: 01-28-2022 Plain chest X-ray DO Teo Motley Work Phone: Start: 12-20-2021 Established Office V isit Level 3 Rylee Long Start: 12-20-2021 Tangential biopsy sk in single lesion Rylee Logn Start: 10-19-2020 Colonoscopy and biop sy of colon Cristiano Be Start: 10-14-2018 Hernia repair Cristiano meeks Comment on above: umbilical hernia rep air Start: 01-02-2017 Cystoscopy with uret hral dilation Cristiano Be Start: 01-06-2014 cystoscopy and urete ral dilation Cristiano Be Ankle right Cristiano Be Cholecystectomy Cristiano Vasquez ey Dilation & curettage Cristiano Be Entire plantar apone urosis (body structure) Cristiano Be History of nasal sin us surgery Cristiano Be Laparoscopy Cristiano Be Nose x4 surgeries Cristiano beltrán Repair of umbilical hernia D LESLY JANEEN Tonsillectomy Cristiano Be vocal cord nodules r emoved x3 Cristiano Be Plan of Treatment Date Care Activity Detail Author Start: 07-11-2022 Influenza vaccination INFLUENZA (#1) [facility] Start: 2020 Mammography MAMMOGRAM [facility] Start: 2010 HPV TESTING HPV TESTING [facility] Start: 2001 PAP TESTING PAP TESTING [facility] Start: 1999 Urine microalbumin profile DTAP,TDAP,TD (1 - Tdap) [facility] Start: 1998 ANNUAL 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 Start: 1992 Adult depression screening assessment DEPRESSION SCREENING [facility] Start: 02-05-1981 COVID-19 VACCINE (#1) COVID-19 VACCI NE (#1) [facility] Patient Education Chest Pain Bret t Is Not Caused by the Heart (DC) Adverse Drug Reactions, Adult ED [facility] Work Phone: Patient referral [facility] Work Phone: Troponin I.cardiac [Mass/volume] in Serum or Plasma by High sensitivity method [facility] Work Phone: Immunizations Immunization Date Immunization Notes Care Provider Brian lopez 05-04-2016 tetanus toxoid, reduced diphtheria toxoid, and acellular pertussis vaccine, adsorbed Cristiano Be [facility] 09-24-2010 influenza virus vaccine, unspecified formulation Otoniel MOTLEY [facility] 1980 pneumococcal conjugate vaccine, 7 valent Rylee Long Dept. of Dermatology NEGATED: Highlighted row has not occurred!11-19-2022 influenza virus vaccine, unspecified formulation Otoniel MOTLEY [facility] Payers Date Payer Category Payer Unknown [id number] 2022 Self-pay [id number] 2016 Medicaid [employer] [id number] 2016-Present [phone] [address] [place] [address] Medicaid [id number]. [id number] 1980 Unknown [id number] 2.16.840.1.844539.3.579.2.593 1980 Unknown [id number] 2.16.840.1.649880.3.579.2.593 1980 Unknown [id number] 2.16.840.1.741446.3.579.2.356 1980 Unknown [id number] 2.16.840.1.500273.3.579.2.356 1980 Unknown [id number] 2.16.840.1.164204.3.579.2.356 1980 Unknown [id number] 2.16.840.1.633628.3.579.2.727 1980 Unknown [id number] 2.16.840.1.793746.3.579.2. 1980 Unknown [id number] 2.16.840.1.427077.3.579.2.72 1980 Unknown [id number] 2.16.840.1.402365.3.579.2. 1980 Unknown [id number] 2.16.840.1.273483.3.579.2. 1980 Unknown [id number] 2.16.840.1.260852.3.579.2. 1980 Unknown [id number] 2.16.840.1.148942.3.579.2. 1980 Unknown [id number] 2.16.840.1.197226.3.579.2. 1980 Unknown [id number] 2.16.840.1.052508.3.579.2. 1980 Unknown [id number] 2.16.840.1.476975.3.579.2. 1980 Unknown [id number] 2.16.840.1.168601.3.579.2. 1980 Unknown [id number] 2.16.840.1.939578.3.579.2. 1980 Unknown [id number] 2.16.840.1.243426.3.579.2. 1980 Unknown [id number] 2.16.840.1.410304.3.579.2. 1980 Unknown [id number] 2.16.840.1.209275.3.579.2.727 1980 Unknown [id number] 2.16.840.1.192782.3.579.2.727 1980 Unknown [id number] 2.16.840.1.788276.3.579.2.727 1980 Unknown [id number] 2.16.840.1.727906.3.579.2.727 1980 Unknown [id number] 2.16.840.1.595571.3.579.2.727 1980 Unknown [id number] 2.16.840.1.164706.3.579.2.727 1980 Unknown [id number] 2.16.840.1.503857.3.579.2.727 1959 Unknown [id number] Unknown [id number] 2.16.840.1.756180.3.579.2.531 Social History Date Type Detail Facility Start: 12-21-2020 Dept. of D ermatology Start: 1980 End: 1980 Sex Assigned At Female [facility] Start: 01-28-2022 Tobacco smoking status NHIS Never smoked tobacco (finding) [facility] Start: 01-21-2022 End: 07-06-2023 Tobacco smoking status Ex-smoker (finding) [facility] Tobacco smoking status Never [facility] Sex Assigned At Female [facility] End: 11-10-2010 History of tobacco use Current smoker [facility] Work Phone: End: 11-10-2010 History of tobacco use Cigarette Smoker [facility] Work Phone: Start: 01-26-2020 Alcohol intake 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 (finding) [facility] Start: 1980 Sex Assigned At Not on file [facility] Tobacco [facility] Comment on above: denies Tobacco smoking status No Smoking Status Entered [facility] Medical Equipment Procedure Code Equipment Code Equipment Origin al Text Equipment Identifier Dates Raudel torrez [id number] - [id number] Start: 03-30-2019 Goals Date Patient Goal Desired Activity /State Functional Status Date Assessment Result Facility 07-06-2023 Functional Status N/A [facility] 06-30-2023 Functional Status N/A [facility] 03-17-2023 Functional Status N/A [facility] [place] 12-12-2022 Functional Status N/A [facility] 12-02-2022 Functional Status N/A [facility] 11-18-2022 Functional Status N/A [facility] 09-20-2022 Functional Status N/A [facility] 06-22-2022 Functional Status N/A [facility] 06-02-2022 Functional Status Yes [facility] Clinical Notes 01-25-2022 to 09-14-2023 RadiologyLaboratoryRadiology Note Date & Type Note Facility 09-14-2023 Evaluation + Plan note Diagnostic Tests PendingEstrogens Total 09/14/23 Future Scheduled TestsUS Extremity Non-Vascular Limited Right 06/03/23 [facility] 07-07-2023 Hospital Discharg e instructions Patient Education 07/06/2023 22:56:38 Abdominal Pain, Adult Abdominal Pain, Adult Pain in the abdomen (abdominal pain) can be caused by many things. Often, abdominal pain is not serious and it gets better with no treatment or by being treated at home. However, sometimes abdominal pain is serious. Your health care provider will ask questions about your medical history and do a physical exam to try to determine the cause of your abdominal pain. Follow these instructions at home: Medicines Take nlge-avh-xnwhbwe and prescription medicines only as told by your health care provider. Do not take a laxative unless told by your health care provider. General instructions Watch your condition for any changes. Drink enough fluid to keep your urine pale yellow. Keep all follow-up visits as told by your health care provider. This is important. Contact a health care provider if: Your abdominal pain changes or gets worse. You are not hungry or you lose weight without trying. You are constipated or have diarrhea for more than 2 3 days. You have pain when you urinate or have a bowel movement. Your abdominal pain wakes you up at night. Your pain gets worse with meals, after eating, or with certain foods. You are vomiting and cannot keep anything down. You have a fever. You have blood in your urine. Get help right away if: Your pain does not go away as soon as your health care provider told you to expect. You cannot stop vomiting. Your pain is only in areas of the abdomen, such as the right side or the left lower portion of the abdomen. Pain on the right side could be caused by appendicitis. You have bloody or black stools, or stools that look like tar. You have severe pain, cramping, or bloating in your abdomen. You have signs of dehydration, such as: ?Dark urine, very little urine, or no urine. ?Cracked lips. ?Dry mouth. ?Sunken eyes. ?Sleepiness. ?Weakness. You have trouble breathing or chest pain. Summary Often, abdominal pain is not serious and it gets better with no treatment or by being treated at home. However, sometimes abdominal pain is serious. Watch your condition for any changes. Take gjpd-wqd-yqqbqka and prescription medicines only as told by your health care provider. Contact a health care provider if your abdominal pain changes or gets worse. Get help right away if you have severe pain, cramping, or bloating in your abdomen. This information is not intended to replace advice given to you by your health care provider. Make sure you discuss any questions you have with your health care provider. Document Revised: 12/15/2020 Document Reviewed: 03/06/2020 [employer] Patient Education 2022 [employer]. Follow Up Care 07/06/2023 20:53:46 With:Otoniel MOTLEY Address: [address] [place] [phone] Business (1) When:07/09/2023 Comments:Follow-up with your primary care provider in 3 to 5 days. If symptoms worsen, do not improve, or new symptoms arise please report back to emergency department for further evaluation. [facility] 07-06-2023 Evaluation + Plan note Diagnostic Tests PendingUA With Cult Reflex 07/06/23 Future Scheduled TestsBasic Metabolic Panel 06/27/23CBC w/ Auto Diff 06/27/23Lipid Panel 06/27/23Thyroid Stimulating Hormone 06/27/23US Extremity Non-Vascular Limited Right 06/03/23 [facility] 06-30-2023 Hospital Discharg e instructions Patient Education 06/30/2023 12:04:46 Weakness, Jzat-wq-Rqhd Weakness Weakness is a lack of strength. You may feel weak all over your body (generalized), or you may feel weak in one part of your body (focal). There are many potential causes of weakness. Sometimes, the cause of your weakness may not be known. Some causes of weakness can be serious, so it is important to see your doctor. Follow these instructions at home: Activity Rest as needed. Try to get enough sleep. Most adults need 7 8 hours of sleep each night. Talk to your doctor about how much sleep you need. Do exercises, such as arm curls and leg raises, for 30 minutes at least 2 days a week or as told by your doctor. Think about working with a physical therapist or sales trainer to help you get stronger. General instructions Take kccc-zkt-erpansp and prescription medicines only as told by your doctor. Eat a healthy, well-balanced diet. This includes: ?Proteins to build muscles, such as lean meats and fish. ?Fresh fruits and vegetables. ?Carbohydrates to boost energy, such as whole grains. Drink enough fluid to keep your pee (urine) pale yellow. Keep all follow-up visits. Contact a doctor if: Your weakness does not get better or it gets worse. Your weakness affects your ability to: ?Think clearly. ?Do your normal daily activities. Get help right away if: You have sudden weakness on one side of your face or body. You have chest pain. You have trouble breathing or shortness of breath. You have problems with how you see (vision). You have trouble talking or swallowing. You have trouble standing or walking. You are light-headed or faint. These symptoms may be an emergency. Get help right away. Call 911. Do not wait to see if the symptoms will go away. Do not drive yourself to the hospital. Summary Weakness is a lack of strength. You may feel weak all over your body or just in one part of your body. There are many potential causes of weakness. Sometimes, the cause of your weakness may not be known. Rest as needed, and try to get enough sleep. Most adults need 7 8 hours of sleep each night. Eat a healthy, well-balanced diet. This information is not intended to replace advice given to you by your health care provider. Make sure you discuss any questions you have with your health care provider. Document Revised: 09/29/2022 Document Reviewed: 09/29/2022 [employer] Patient Education 2022 [employer]. Follow Up Care 06/30/2023 10:11:01 With:Dony NIELSEN Address: [address] , [place] [address]- Business (1) When:07/03/2023 12:04:13 With:Otoniel MOTLEY Address: [address] [place] [address]- [phone] Business (1) When:Within 3 Day(s) [facility] 06-30-2023 Evaluation + Plan note Extrac anoop from: Title:ED Note Author:Reggie Camara DO Date:06/11 12/02 Arm pain (M79.603: Pain in a rm, unspecified) Medication side effect (T88.7XXA: Unspecified adverse effect of drug or medicament, initial encounter) Weakness (R53.1: Weakness) Orders: Automated Diff B-Type Natriuretic Peptide Basic Metabolic Panel Beta hCG Qual CBC w/ Auto Diff D-Dimer ED Cardiac Monitoring eGFR Hepatic Function Panel Lactic Acid Lipase Level Oxygen Saturation Oxygen Therapy PT & PTT Saline Lock Insert Troponin 0 Hr. Troponin 3 Hr. Troponin 6 Hr. Troponin 9 Hr. TSH With T4fr Reflex UA With Cult Reflex XR Chest Single View Future Scheduled Tests Laboratory* Basic Metabolic Panel 06/27/23 * CBC w/ Auto Diff 06/27/23 * Lipid Panel 06/27/23 * Thyroid Stimulating Hormone 06/27/23 Radiology* US Extremity Non-Vascular Limited Right 06/03/23 [facility]07-[facility]2023 Evaluation + Plan note Future Scheduled Tests Radiology* US Extremity Non-Vascular Limited Right 06/03/23 [facility]07-25-2023 NoteHPI Staff Tarik is a 42 year old female who presents for a referral to Ortho for her left thumb. Pt reports her right thumb at the base where there is a bump present, it used to be soft and movehowever now it is hard and does not move. The area is about 0.75x1cm in size. Also she reports a small area on her right index finger that is irritated, pt feels it may be from soap getting under her ring. She does recall working in the garden as well so she is not positive what is it from. Pt would like to have a lipid panel, a1c, and hormone labs ordered. History of Present Illness I have reviewed and verified the staff HPI to be accurate for this encounter. Patient states has also been having significant headaches that correlate with her menstrual cycle. Denies any specific or significant changes in the menstrual cycle.. Would like to have hormone levels completed to assess for any possible changes. Review of Systems PHQ Score Initial Depression Screen Score: 0 ROS - Provider Constitutional: fever no, chills no, sweats no, weakness no Skin: rash no, lesions no, petechiae no Eye: eye pain no, discharge no, light sensitivity no, eye irritation no, double vision no, blurringno, vision loss no ENMT: ear pain no, ear drainage no, sore throat no, nasal congestion no , nasal drainage no hoarseness no Respiratory: chest discomfort no, shortness of breath no, cough no, orthopnea no, wheezing no Cardiovascular: chest pain no, palpitations no, edema no Gastrointestinal: nausea no, vomiting no, diarrhea no Genitourinary: dysuria no, hematuria no, discharge no, urinary frequency no, urinary urgency no Neurologic: headache yes with menstrual cycle, dizziness no, numbness/tingling no, weakness no Physical Exam Vitals & Measurements HR: 84(Peripheral) BP: 108/72 SpO2: 98% HT: 65 in HT: 165 cm WT: 90.7 kg WT: 199.54 lb BMI: 33.31 General: Well developed, well nourished, in no acute distress Neck: Neck supple. No masses or palpable cervical nodes. Trachea midline. Thyroid without nodules, masses, tenderness, or enlargement Lungs: Normal respiratory effort and clear to auscultation Cardio: Regular rate and rhythm, normal S1 and S2, no murmur, no rub Extremity: There is a subcutaneous nodule that is firm to touch noted at the base of right thumb and dorsal aspect. There is no significant pain/tenderness with palpation, no erythema or warmth noted. Neurologic: Grossly normal Skin: No rashes, ulcerations, or suspicious lesions to visible skin Mental Status: Alert and oriented x3. Normal mood and affect Assessment/Plan 1. Subcutaneous mass of right thumb (R22.31: Localized swelling, mass and lump, right upper limb) Obtain ultrasound of the area for further diagnosis as discussed. The area is not bothersome/painful at this time we will continue to observe Ordered: US Extremity Non-Vascular Limited Right 2. Rib pain on left side (R07.81: Pleurodynia) Refer to physical therapy as has been worked up by general surgeon almost suspected symptoms were caused by musculoskeletal causes. Ordered: [facility] Outpatient Physical Therapy Evaluate Patient, Develop a Plan of Care, & Implement Plan 3. Irregular menses (N92.6: Irregular menstruation, unspecified) Laboratory work discussed and ordered today in office. 4. BMI 33.0-33.9,adult (Z68.33: Body mass index [BMI] 33.0-33.9, adult) Education attached on health risks of obesity and discusses healthy, balanced diet low in sugar, fat, carbs and exercise regimen Orders: triamcinolone topical, 1 ekaterina, Topical, TID, 15 gram, Refill(s) 0, [id number], 165, cm, 06/03/23 8:18:00 EDT, Height/Length Dosing, 90.7, kg, 06/03/23 8:18:00 EDT, Weight Dosing Follow-up With When Contact Information Otoniel MOTLEY DO, [facility] [address] [facility] [place] [address]- Additional Instructions: Problem List/Past Medical History Ongoing Attention deficit disorder (ADD) in adult BMI 34.0-34.9,adult Chronic idiopathic constipation Chronic venous insufficiency COVID-19 Dercum disease Dysuria Generalized anxiety disorder Geographic tongue Clay thyroiditis HTN - Hypertension Hypersensitivity disorder Irregular menses Mixed hyperlipidemia Obesity Occipital neuralgia of left side Rib pain on left side Subcutaneous mass of right thumb Historical Anxiety Depression Endometriosis Migraine Smoker Urethral stricture UTI (lower urinary tract infection) Procedure/Surgical History Colonoscopy and biopsy of colon (10/19/2020), Repair of umbilical hernia (10/14/2018), Cystoscopy with urethral dilation (01/02/2017), cystoscopy and ureteral dilation (01/06/2014), Ankle, Cholecystectomy, Dilation & curettage, History of nasal sinus surgery, Laparoscopy, Plantar fascia, Repairof umbilical hernia, Tonsillectomy, vocal cord nodules removed x3. Medications baclofen 10 mg Tab, 5 mg= 0.5 tab(s), Oral, TID, 5 refills cyclobenzaprine 10 (more content not included)...[facility] Comment on above:Result Comment: Electronically Signed By: JANEEN DAVIS, LAURIE Gee\.br\Date and Time Signed: 06/03/23 09:01 [id number] NoteChief Complaint consultation for possible hernia HPI Staff 42 year old female presents on consultation from Dr. Motley for possible hernia. Reports long standing history of left flank pain. Reports pain is primarily positional. States pain feels sharp and stabbing and will develop a knot . She is able to massage knot away. After pain subsides, she can experience muscle soreness for several days. Previous umbilical hernia repair without mesh 2018; revision with mesh later completed at [facility]. LUQ US completed 03/2022-negative. History of Present Illness 42 yo female with h/o htn, hyperlipidemia, hypothyroidism, ADD, EVA referred for LUQ pain, possiblehernia; reports intermittent knot in LUQ, positional, has sharp pain associated with it; able to massage area with improvement; no skin changes, no N/V, no bowel changes; muscle soreness after knotgoes away; recent normal LUQ US; last abd ct scan 2019, wnl; abdominal operations significant for cholecystectomy, laparoscopy, primary umbilical hernia repair in 2018, followed by repair with mesh at [facility]; no asa or NSAID use. no tobacco use. Review of Systems PHQ Score Initial Depression Screen Score: 0 ROS - Provider Constitutional: no fever, no sweats, no weight loss. Eyes: no glasses, no blurred vision, no visual loss. ENMT: no dentures, no hoarseness, no swallowing difficulties, no hearing loss, no ear infection(s),no nose bleeds. Cardiovascular: normal blood pressure, no chest pain, regular heartbeat, no heart murmur. Respiratory: no shortness of breath, no cough, no asthma, no wheezing. Gastrointestinal: no nausea, no vomiting, no diarrhea, no constipation, no blood in stool, no change in bowel habits, yes abdominal pain, no hepatitis. Genitourinary: no kidney stones, no urine infection, no dysuria. Musculoskeletal: no pain, no weakness. Skin: no changing moles, no rash, no skin lumps. Neurologic: no seizures, no epilepsy, no headache. Psychiatric: no emotional or psychiatric problem. Heme/Lymph: no bleeding problems, no anemia, no blood clots, no transfusions. Allergy/Immunologic: no swollen lymph nodes/glands, no IV drug abuse. Other: Additional ROS info: Except as noted in the above Review of Systems and in the History of Present Illness, all other systems have been reviewed and are negative or noncontributory. Physical Exam Vitals & Measurements RR: 16 HT: 65 in HT: 165 cm WT: 92.7 kg WT: 203.94 lb BMI: 34.05 HEENT: normal conjunctiva, sclera clear, no scleral icterus, EOM intact, PERRLA, oral mucosa moist without lesions. Neck: trachea midline, no mass, symmetric, no thyromegaly or nodules, no adenopathy Respiratory: lungs CTA, respirations non labored. Cardiovascular: regular rate and rhythm, no murmur, no pedal edema or varicosities. Gastrointestinal: obese, soft, non distended, no tenderness, no masses, well- healed incisions; no palpable hernias, diastasis recti no, no hepatosplenomegaly; normal bs Lymphatic: no cervical adenopathy, no supraclavicular adenopathy. Musculoskeletal: normal gait, digits and nails without infection, nodes, cyanosis, clubbing. Skin: no rashes, no lesions, no ulcers, no subcutaneous nodules, induration. Psychiatric/Neuro: oriented to time, place, person, judgement normal, affect appropriate for age, insight intact, no focal deficits. Tests: , x-rays reviewed, review of old records completed, Assessment/Plan 1. Left upper quadrant abdominal tenderness (R10.812: Left upper quadrant abdominal tenderness) no evidence of hernia sac or fascial defect on exam; likely related to scar tissue, verses musculoskeletal issue from back or muscle spasm; call with problems/questions. 2. BMI 34.0-34.9,adult (Z68.34: Body mass index [BMI] 34.0-34.9, adult) recommend diet and exercise. Follow-up No qualifying data available Problem List/Past Medical History Ongoing Attention deficit disorder (ADD) in adult BMI 34.0-34.9,adult Chronic idiopathic constipation Chronic venous insufficiency COVID-19 Dercum disease Dysuria Generalized anxiety disorder Geographic tongue Clay thyroiditis HTN - Hypertension Hypersensitivity disorder Left upper quadrant abdominal tenderness Mixed hyperlipidemia Obesity Occipital neuralgia of left side Historical Anxiety Depression Endometriosis Migraine Smoker Urethral stricture UTI (lower urinary tract infection) Procedure/Surgical History Colonoscopy and biopsy of colon (10/19/2020), Repair of umbilical hernia (10/14/2018), Cystoscopy with urethral dilation (01/02/2017), cystoscopy and ureteral dilation (01/06/2014), Ankle, Cholecystectomy, Dilation & curettage, History of nasal sinus surgery, Laparoscopy, Plantar fascia, Repairof umbilical hernia, Tonsillectomy, vocal cord nodules removed x3. Medications baclofen 10 mg Tab, 5 mg= 0.5 tab(s), Oral, TID, 5 refills cyclobenzaprine 10 mg Tab, 10 mg= 1 tab(s), Oral, TID, PRN EpiPen 2-Garry 0.3 mg injectab (more content not included)...[facility]:Result Comment: Electronically Signed By: RANI BARBER, Supa Adorno\Date and Time Signed: 05/11/23 19:22 [id number] Evaluation + Plan noteExtracted from: Title:ED Note Author:Ihsan Gaytan PA-C te:12/12/22 Knee sprain (S83.90XA: Sprai n of unspecified site of unspecified knee, initial encounter) Ordered: acetaminophen-hydrocodone, 1 tab(s), Oral, q6hr for pain for 3 day(s), 10 tab(s), Refill(s) 0, [id number], 165, cm, 12/12/22 9:23:00 EST, Height/Length Dosing, 89, kg, 12/12/22 9:23:00 EST, Weight Dosing Orders: acetaminophen-hydrocodone, 1 tab(s), Tab, Oral, Once, Stop date 12/12/22 9:23:00 EST, STAT, Start date 12/12/22 9:23:00 EST XR Knee Complete 4+ Views Left XR Tib/Fib Left 2 View Future Appointments Appointment Date:04/16/2023 09:30:00 AM Scheduled Provider:Otoniel NUNO MD Location:[facility] Appointment Type:URO Office Visit Future Scheduled Tests Laboratory* T3 Free 05/22/22 * Thyroid Stimulating Hormone 05/22/22 * Free T4 05/22/22 [facility] Hospital Discharge instructions Patient Education 12/12/2022 10:04:21 Knee Sprain, Adult Knee Sprain, Adult A knee sprain is a stretch or tear in a knee ligament. Knee ligaments are bands of tissue that connect bones in the knee to each other. What are the causes? This condition often results from: A fall. An injury to the knee. What are the signs or symptoms? Symptoms of this condition include: Trouble bending the leg. Swelling in the knee. Bruising around the knee. Tenderness or pain in the knee. Muscle spasms around the knee. How is this diagnosed? This condition may be diagnosed based on: A physical exam. What happened just before you started to have symptoms. Tests, including: ?An X-ray. This may be done to make sure no bones are broken. ?An MRI. This may be done to check if the ligament is torn. ?Stress testing of the knee. This may be done to check ligament damage. How is this treated? Treatment for this condition may involve: Keeping the knee still (immobilized) with a cast, brace, or splint. Applying ice to the knee. This helps with pain and swelling. Keeping the knee raised (elevated) above the level of your heart when you are resting. This helps with pain and swelling. Taking medicine for pain. Exercises to prevent or limit permanent weakness or stiffness in your knee. Surgery to reconnect the ligament to the bone or to reconstruct it. This may be needed if the ligament tore all the way. Follow these instructions at home: If you have a splint or brace: Wear the splint or brace as told by your health care provider. Remove it only as told by your health care provider. Loosen the splint or brace if your toes tingle, become numb, or turn cold and blue. Keep the splint or brace clean. If the splint or brace is not waterproof: ?Do not let it get wet. ?Cover it with a watertight covering when you take a bath or a shower. If you have a cast: Do not stick anything inside the cast to scratch your skin. Doing that increases your risk of infection. Check the skin around the cast every day. Tell your health care provider about any concerns. You may put lotion on dry skin around the edges of the cast. Do not put lotion on the skin underneath the cast. Keep the cast clean. If the cast is not waterproof: ?Do not let it get wet. ?Cover it with a watertight covering when you take a bath or a shower. Managing pain, stiffness, and swelling If directed, put ice on the injured area. ?If you have a removable splint or brace, remove it as told by your health care provider. ?Put ice in a plastic bag. ?Place a towel between your skin and the bag or between your cast and the bag. ?Leave the ice on for 20 minutes, 2 3 times a day. Gently move your toes often to avoid stiffness and to lessen swelling. Elevate the injured area above the level of your heart while you are sitting or lying down. Take crxm-otb-zwfdojb and prescription medicines only as told by your health care provider. General instructions Do exercises as told by your health care provider. Keep all follow-up visits as told by your health care provider. This is important. Contact a health care provider if: You have pain that gets worse. The cast, brace, or splint does not fit right. The cast, brace, or splint gets damaged. Get help right away if: You cannot use your injured joint to support any of your body weight (cannot bear weight). You cannot move the injured joint. You cannot walk more than a few steps without pain or without your knee buckling. You have significant pain, swelling, or numbness below the cast, brace, or splint. This information is not intended to replace advice given to you by your health care provider. Make sure you discuss any questions you have with your health care provider. Document Released: 10/27/2006 Document Revised: 02/18/2020 Document Reviewed: 05/16/2017 [employer] Patient Education 2020 [employer]. Follow Up Care 12/12/2022 09:16:05 With:Otoniel MOTLEY Address: [address] [place] [phone]- Business (1) When:12/15/2022 09:55:32 [facility] Hospital Discharge instructions Follow Up Care 12/02/2022 10:32:37 With:Otoniel NUNO MD, URL Address: [facility] [employer] [address] [place] [phone]- When: Unknown [facility] 01-12-2023 Hospital Discharge instructions Follow Up Care 11/21/2022 14:01:16 With:Otoniel NUNO MD, URL Address: [address] [employer] [address] [place] [phone]- When:Within 3 Month(s) [facility] 01-09-2023 Evaluation + Plan noteExtracted from: Title:ED Note Author:Shemar BRADFORD, Kian Robles te:11/18/22 UTI (urinary tract infection ) (N39.0: Urinary tract infection, site not specified) Orders: cephalexin, 500 mg = 1 cap(s), Oral, QID, X 7 day(s), # 28 cap(s), Refills(s) 0, Pharmacy: [id number], 165, cm, 11/18/22 7:53:00 EST, Height/Length Dosing, 84, kg, 11/18/22 7:53:00 EST, Weight Dosing phenazopyridine, 95 mg = 1 tab(s), Oral, TID, with food, X 2 day(s), # 6 tab(s), Refills(s) 0, Pharmacy: [id number], 165, cm, 11/18/22 7:53:00 EST, Height/Length Dosing, 84, kg, 11/18/22 7:53:00 EST, Weight Dosing Automated Diff Basic Metabolic Panel CBC w/ Auto Diff eGFR Extra Blue Tube Extra SST Tube U Beta Hcg Qual UA With Cult Reflex Urine Culture XR Abdomen 1 View Diagnostic Tests Pending * Urine Culture 11/18/22 Future Scheduled Tests Laboratory* T3 Free 7/13/22 * Thyroid Stimulating Hormone 05/22/22 * Free T4 05/22/22 [facility] Hospital Discharge instructions Patient Education 11/18/2022 08:57:27 Urinary Tract Infection, Adult, Xgvz-yk-Hbcc Urinary Tract Infection, Adult A urinary tract infection (UTI) is an infection of any part of the urinary tract. The urinary tractincludes: The kidneys. The ureters. The bladder. The urethra. These organs make, store, and get rid of pee (urine) in the body. What are the causes? This is caused by germs (bacteria) in your genital area. These germs grow and cause swelling (inflammation) of your urinary tract. What increases the risk? You are more likely to develop this condition if: You have a small, thin tube (catheter) to drain pee. You cannot control when you pee or poop (incontinence). You are female, and: ?You use these methods to prevent : ?A medicine that kills sperm (spermicide). ?A device that blocks sperm (diaphragm). ?You have low levels of a female hormone (estrogen). ?You are . You have genes that add to your risk. You are sexually active. You take antibiotic medicines. You have trouble peeing because of: ?A prostate that is bigger than normal, if you are male. ?A blockage in the part of your body that drains pee from the bladder (urethra). ?A kidney stone. ?A nerve condition that affects your bladder (neurogenic bladder). ?Not getting enough to drink. ?Not peeing often enough. You have other conditions, such as: ?Diabetes. ?A weak disease-fighting system (immune system). ?Sickle cell disease. ?Gout. ?Injury of the spine. What are the signs or symptoms? Symptoms of this condition include: Needing to pee right away (urgently). Peeing often. Peeing small amounts often. Pain or burning when peeing. Blood in the pee. Pee that smells bad or not like normal. Trouble peeing. Pee that is cloudy. Fluid coming from the vagina, if you are female. Pain in the belly or lower back. Other symptoms include: Throwing up (vomiting). No urge to eat. Feeling mixed up (confused). Being tired and grouchy (irritable). A fever. Watery poop (diarrhea). How is this treated? This condition may be treated with: Antibiotic medicine. Other medicines. Drinking enough water. Follow these instructions at home: Medicines Take kzeh-fes-zjsxgyn and prescription medicines only as told by your doctor. If you were prescribed an antibiotic medicine, take it as told by your doctor. Do not stop taking it even if you start to feel better. General instructions Make sure you: ?Pee until your bladder is empty. ?Do not hold pee for a long time. ?Empty your bladder after sex. ?Wipe from front to back after pooping if you are a female. Use each tissue one time when you wipe. Drink enough fluid to keep your pee pale yellow. Keep all follow-up visits as told by your doctor. This is important. Contact a doctor if: You do not get better after 1 2 days. Your symptoms go away and then come back. Get help right away if: You have very bad back pain. You have very bad pain in your lower belly. You have a fever. You are sick to your stomach (nauseous). You are throwing up. Summary A urinary tract infection (UTI) is an infection of any part of the urinary tract. This condition is caused by germs in your genital area. There are many risk factors for a UTI. These include having a small, thin tube to drain pee and notbeing able to control when you pee or poop. Treatment includes antibiotic medicines for germs. Drink enough fluid to keep your pee pale yellow. This information is not intended to replace advice given to you by your health care provider. Make sure you discuss any questions you have with your health care provider. Document Released: 04/14/2009 Document Revised: 10/14/2019 Document Reviewed: 05/06/2019 [employer] Patient Education 2020 [employer] Follow Up Care 11/18/2022 07:49:01 With:Otoniel NUNO Address: [address] [phone]- Business (1) When:11/21/2022 08:52:08 With:Otoniel MOTLEY Address: [address] [address]- [facility] (1) When:11/21/2022 08:51:56 Comments:Follow-up with your primary care provider in 3 to 5 days. If symptoms worsen, do not improve, or new symptoms arise please report back to emergency department for further evaluation. [facility] Hospital Discharge instructions Patient Education 09/20/2022 22:32:18 Palpitations, Arjx-fb-Cwwb Palpitations Palpitations are feelings that your heartbeat is not normal. Your heartbeat may feel like it is: Uneven. Faster than normal. Fluttering. Skipping a beat. This is usually not a serious problem. In some cases, you may need tests to rule out any serious problems. Follow these instructions at home: Pay attention to any changes in your condition. Take these actions to help manage your symptoms: Eating and drinking Avoid: ?Coffee, tea, soft drinks, and energy drinks. ?Chocolate. ?Alcohol. ?Diet pills. Lifestyle Try to lower your stress. These things can help you relax: ?Yoga. ?Deep breathing and meditation. ?Exercise. ?Using words and images to create positive thoughts (guided imagery). ?Using your mind to control things in your body (biofeedback). Do not use drugs. Get plenty of rest and sleep. Keep a regular bed time. General instructions Take qeiy-fxq-rwjjtbw and prescription medicines only as told by your doctor. Do not use any products that contain nicotine or tobacco, such as cigarettes and e-cigarettes. If you need help quitting, ask your doctor. Keep all follow-up visits as told by your doctor. This is important. You may need more tests if palpitations do not go away or get worse. Contact a doctor if: Your symptoms last more than 24 hours. Your symptoms occur more often. Get help right away if you: Have chest pain. Feel short of breath. Have a very bad headache. Feel dizzy. Pass out (faint). Summary Palpitations are feelings that your heartbeat is uneven or faster than normal. It may feel like your heart is fluttering or skipping a beat. Avoid food and drinks that may cause palpitations. These include caffeine, chocolate, and alcohol. Try to lower your stress. Do not smoke or use drugs. Get help right away if you faint or have chest pain, shortness of breath, a severe headache, or dizziness. This information is not intended to replace advice given to you by your health care provider. Make sure you discuss any questions you have with your health care provider. Document Released: 08/05/2009 Document Revised: 12/09/2018 Document Reviewed: 12/09/2018 [employer] Patient Education 2020 [employer]. Follow Up Care 09/20/2022 21:14:58 With:Colin Smart Address: [address] [place] [phone]- Business (1) When:09/23/2022 Comments:Please follow-up with your primary care doctor next 2 to 3 days for further evaluation management. Please return to the ED for any new or worsening symptoms. With:Otoniel MOTLEY Address: [address] [facility] [address] [place] [address]- Business (1) When:Within 3 Day(s) [facility]11-11-20[facility] Evaluation + Plan noteExtracted from: Title:ED Note Author:Marnie Mcknight DO Date :09/20/22 Palpitations (R00.2: Palpita tions) Orders: Sodium Chloride 0.9% intravenous solution, 1,000 mL, Soln-IV, IV, Once, Stop date 09/20/22 21:23:00 EST, STAT, Start date 09/20/22 21:23:00 EST, mL/hr, Infuse over 61, minute(s) Automated Diff Basic Metabolic Panel CBC w/ Auto Diff ECG 12 Lead Adult ED Cardiac Monitoring eGFR Hepatic Function Panel Magnesium Level Oxygen Saturation Oxygen Therapy PT & PTT Saline Lock Insert Troponin 0 Hr. Troponin 3 Hr. Troponin 6 Hr. Troponin 9 Hr. TSH With T4fr Reflex XR Chest Single View Future Scheduled Tests Laboratory* T3 Free 05/22/22 * Thyroid Stimulating Hormone 05/22/22 * Free T4 05/22/22 [facility] Hospital Discharge instructions Patient Education 06/22/2022 10:39:16 Musculoskeletal Pain Musculoskeletal Pain Musculoskeletal pain refers to aches and pains in your bones, joints, muscles, and the tissues thatsurround them. This pain can occur in any part of the body. It can last for a short time (acute) ora long time (chronic). A physical exam, lab tests, and imaging studies may be done to find the cause of your musculoskeletal pain. Follow these instructions at home: Lifestyle Try to control or lower your stress levels. Stress increases muscle tension and can worsen musculoskeletal pain. It is important to recognize when you are anxious or stressed and learn ways to manageit. This may include: ?Meditation or yoga. ?Cognitive or behavioral therapy. ?Acupuncture or massage therapy. You may continue all activities unless the activities cause more pain. When the pain gets better, slowly resume your normal activities. Gradually increase the intensity and duration of your activities or exercise. Managing pain, stiffness, and swelling Take kgxx-jyi-sgljaex and prescription medicines only as told by your health care provider. When your pain is severe, bed rest may be helpful. Lie or sit in any position that is comfortable, but get out of bed and walk around at least every couple of hours. If directed, apply heat to the affected area as often as told by your health care provider. Use theheat source that your health care provider recommends, such as a moist heat pack or a heating pad. ?Place a towel between your skin and the heat source. ?Leave the heat on for 20 30 minutes. ?Remove the heat if your skin turns bright red. This is especially important if you are unable to feel pain, heat, or cold. You may have a greater risk of getting burned. If directed, put ice on the painful area. ?Put ice in a plastic bag. ?Place a towel between your skin and the bag. ?Leave the ice on for 20 minutes, 2 3 times a day. General instructions Your health care provider may recommend that you see a physical therapist. This person can help youcome up with a safe exercise program. Do any exercises as told by your physical therapist. Keep all follow-up visits, including any physical therapy visits, as told by your health care providers. This is important. Contact a health care provider if: Your pain gets worse. Medicines do not help ease your pain. You cannot use the part of your body that hurts, such as your arm, leg, or neck. You have trouble sleeping. You have trouble doing your normal activities. Get help right away if: You have a new injury and your pain is worse or different. You feel numb or you have tingling in the painful area. Summary Musculoskeletal pain refers to aches and pains in your bones, joints, muscles, and the tissues thatsurround them. This pain can occur in any part of the body. Your health care provider may recommend that you see a physical therapist. This person can help youcome up with a safe exercise program. Do any exercises as told by your physical therapist. Lower your stress level. Stress can worsen musculoskeletal pain. Ways to lower stress may include meditation, yoga, cognitive or behavioral therapy, acupuncture, and massage therapy. This information is not intended to replace advice given to you by your health care provider. Make sure you discuss any questions you have with your health care provider. Document Released: 10/27/2006 Document Revised: 10/09/2018 Document Reviewed: 11/26/2017 [employer] Patient Education 2020 [employer]. Follow Up Care 06/22/2022 08:39:38 With:Otoniel MOTLEY Address: [address] [place] [phone]- Business (1) When:06/25/2022 10:33:30 [facility]07-29-2022 Miscellaneous Notes* Telephone Encounter - Darya Reddy - 06/07/2022 8:22 AM EDT Tried calling patient, madeleine to return my call at [phone] option [address] Sheffield. Thank you. [facility] Discharge instructions Patient Education 06/03/2022 00:44:16 Palpitations Palpitations Palpitations are feelings that your heartbeat is irregular or is faster than normal. It may feel like your heart is fluttering or skipping a beat. Palpitations are usually not a serious problem. Theymay be caused by many things, including smoking, caffeine, alcohol, stress, and certain medicines or drugs. Most causes of palpitations are not serious. However, some palpitations can be a sign of a serious problem. You may need further tests to rule out serious medical problems. Follow these instructions at home: Pay attention to any changes in your condition. Take these actions to help manage your symptoms: Eating and drinking Avoid foods and drinks that may cause palpitations. These may include: ?Caffeinated coffee, tea, soft drinks, diet pills, and energy drinks. ?Chocolate. ?Alcohol. Lifestyle Take steps to reduce your stress and anxiety. Things that can help you relax include: ?Yoga. ?Mind-body activities, such as deep breathing, meditation, or using words and images to create positive thoughts (guided imagery). ?Physical activity, such as swimming, jogging, or walking. Tell your health care provider if your palpitations increase with activity. If you have chest pain or shortness of breath with activity, do not continue the activity until you are seen by your health care provider. ?Biofeedback. This is a method that helps you learn to use your mind to control things in your body, such as your heartbeat. Do not use drugs, including cocaine or ecstasy. Do not use marijuana. Get plenty of rest and sleep. Keep a regular bed time. General instructions Take hgmp-hml-tvhllyz and prescription medicines only as told by your health care provider. Do not use any products that contain nicotine or tobacco, such as cigarettes and e-cigarettes. If you need help quitting, ask your health care provider. Keep all follow-up visits as told by your health care provider. This is important. These may include visits for further testing if palpitations do not go away or get worse. Contact a health care provider if you: Continue to have a fast or irregular heartbeat after 24 hours. Notice that your palpitations occur more often. Get help right away if you: Have chest pain or shortness of breath. Have a severe headache. Feel dizzy or you faint. Summary Palpitations are feelings that your heartbeat is irregular or is faster than normal. It may feel like your heart is fluttering or skipping a beat. Palpitations may be caused by many things, including smoking, caffeine, alcohol, stress, certain medicines, and drugs. Although most causes of palpitations are not serious, some causes can be a sign of a serious medical problem. Get help right away if you faint or have chest pain, shortness of breath, a severe headache, or dizziness. This information is not intended to replace advice given to you by your health care provider. Make sure you discuss any questions you have with your health care provider. Document Released: 10/24/2001 Document Revised: 12/09/2018 Document Reviewed: 12/09/2018 [employer] Patient Education 2020 [employer] Follow Up Care 06/02/2022 22:39:51 With:Otoniel MOTLEY Address: [address] [phone] Business (1) When:Within 3 Day(s) [facility]07-24-2022 Evaluation + Plan noteExtracted from: Title:ED Note Author:Jackie Chato GUSTAFSONSonya Date :06/02/22 COVID-19 (U07.1: COVID-19) Palpitations (R00.2: Palpitations) Orders: benzonatate, 100 mg = 1 cap(s), Oral, TID, X 7 day(s), # 21 cap(s), Refills(s) 0 Sodium Chloride 0.9% intravenous solution, 500 mL, IV, Once, Stop date 06/02/22 22:50:00 EDT, STAT, Start date 06/02/22 22:50:00 EDT, 500 mL/hr, Infuse over 1, hour(s) Sodium Chloride 0.9% intravenous solution, Soln-IV, Misc, Once, Stop date 06/02/22 23:04:46 EDT, Physician Stop, 06/02/22 23:04:46 EDT Add on Test Automated Diff Basic Metabolic Panel CBC w/ Auto Diff ED Cardiac Monitoring eGFR Magnesium Level Oxygen Saturation Oxygen Therapy Saline Lock Insert T4 & TSH Troponin 0 Hr. XR Chest Single View Future Scheduled Tests Laboratory* T3 Free 05/22/22 * Thyroid Stimulating Hormone 05/22/22 * Free T4 05/22/22 [facility]07-13-2022 Evaluation + Plan note Future Scheduled Tests Laboratory* T3 Free 05/22/22 * Thyroid Stimulating Hormone 05/22/22 * Free T4 05/22/22 [facility] [place] 05-09-2022 Evaluation + Plan note Diagnostic Tests Pending * T3 Free 03/18/22 * BRADY w/Reflex if POS 03/18/22 [facility]03-18-2022 Evaluation + Plan note Future Scheduled Tests Laboratory* BRADY w/Reflex if POS 01/25/22 * T4 Total 01/25/22 * CBC w/ Auto Diff 02/14/22 * T3 Free 01/25/22 * T3 Uptake 01/25/22 * Thyroid Stimulating Hormone 01/25/22 * Free T4 01/25/22 [facility]ments Appointment Date:03/22/2022 10:30:00 AM Scheduled Provider: [facility] Appoint[facility] Type:US Abdominal/Pelvis (FT) Future Scheduled Tests Radiology* US Spleen 03/22/22 [facility] Evaluation + Plan note Future Appointments Appointment Date:12/02/2022 09:00:00 AM Scheduled Provider:Florinad Segal Location:[facility] Appointment Type:URO New Patient Future Scheduled Tests Laboratory* T3 Free 05/22/22 * Thyroid Stimulating Hormone 05/22/22 * Free T4 05/22/22 [facility] Evaluation + Plan note Future Appointments Appointment Date:12/11/2022 08:00:00 AM Scheduled Provider: [facility] Appointment Type:US Abdominal/Pelvis (FT) Appointment Date:04/16/2023 09:30:00 AM Scheduled Provider:Otoniel NUNO MD Location:[facility] Appointment Type:URO Office Visit Future Scheduled Tests Laboratory* T3 Free 05/22/22 * Thyroid Stimulating Hormone 05/22/22 * Free T4 05/22/22 Radiology* US Renal 12/11/22 * US Bladder 12/11/22 [facility] Evaluation + Plan note Future Appointments Appointment Date:04/16/2023 09:30:00 AM Scheduled Provider:Otoniel NUNO MD Location:[facility] Appointment Type:URO Office Visit Future Scheduled Tests Laboratory* T3 Free 05/22/22 * Thyroid Stimulating Hormone 05/22/22 * Free T4 05/22/22 [facility] App[facility]ments Appointment Date:04/22/2023 11:00:00 AM Scheduled Provider:Supa SARAVIA MD Location:[facility] Appointment Type:GS New 30 Future Scheduled Tests Laboratory* T3 Free 05/22/22 * Thyroid Stimulating Hormone 05/22/22 * Free T4 7/13/22 [facility] Evaluation noteN/ADept. of Dermatology Evaluation noteNo assessment information available [facility] Work Phone: Hospital course Narrative No data available for this section [facility] Additional Instructions We will call you if your troponin is elevated Continue your regular medication but do not take supplement Follow-up with your family doctor for recheck Return to the ER immediately for any worsening chest pain shortness of breath fever chills vomiting or any other [facility] Work Phone: Hospital Discharge instructions No data available for this section [facility] No data available for this section [facility] for [facility]arrative)* Name Reason for referral NA NA Dept. of Dermatology Summary Purpose Family History No Family History Records FoundNo Family History Records FoundNo Family History Records FoundNo Family History Records FoundNo Family History Records Found No data available for this section No Family History Records Found Advance Directives No Advanced Directives Records Found Advance Directive Response Recorded Date/ Time Advance Directives No January 28, 2 022 4:31pm Documents on File Type Date Recorded Patient Final Application Reviewer Expl anation Advance Directive(s) 06/07/2019 7:39 AM Advance Directive(s) 03/30/2019 11:21 AM Advance Directive(s) 03/17/2019 3:03 PM Hospital Course Note HNO ID: [id number] Author: Cecil Stover (Pa) Service: General Surgery Author Type: Physician Campaign Associate Type: Discharge Summary Filed: 03/31/2019 11:08 AM Note Text: DISCHARGE SUMMARY PATIENT NAME: Tarik Gonzalez ADMISSION DATE: 03/30/2019 DISCHARGE DATE: 03/31/2019 Attending Physician: Joe Sheffield Code Status: Not on file Highest Readmission Risk Score: 8 The 30 day readmissions risk score is derived from an internally validated risk model which evaluates patient level characteristics, utilization history, medication orders and lab results up until the day of discharge. Patients with a score of 40 or above are considered highest risk for readmission. Specific patient level drivers will be listed at the bottom of the summary. Reason for Hospitalization: Laparoscopic Ventral Hernia repair Diagnosis: Principal Problem: Recurrent umbilical hernia Resolved Problems: * No resolved hospital problems. * Hospital Course as Described to the Patient: You were admitted for Lapar (more content not included)... Note HNO ID: [id number] Author: Saurav Sheffield Service: General Surgery Author Type: Physician Type: Brief Op Note Filed: 03/30/2019 2:36 PM Note Text: BRIEF OPERATIVE / PROCEDURE NOTE LOG ID: [id number] SURGERY/PROCEDURE DATE: 03/30/2019 INCISION/PROCEDURE START TIME: 1:29 PM INCISION CLOSE/PROCEDURE END TIME: 2:35 PM SURGEON(S)/PROCEDURALIST(S) AND THREAD GRINDER TOOL(S): Surgeon(s) and Role: * Joe Sheffield - Primary Physician Campaign Associate: Nydia Ribeiro (Pa) SURGERY/PROCEDURE(S): Lap ventral hernia repair with mesh ANESTHESIA: General FINDINGS: 5 x 3.5 cm hernia defect ESTIMATED BLOOD LOSS: minimal SPECIMENS: None COMPLICATIONS: None PRE-OP/PRE-PROCEDURE DIAGNOSIS: Recurrent ventral hernia POST-OP/POST-PROCEDURE DIAGNOSIS: Recurrent ventral hernia SIGNATURE: Karrie Sheffield DO PATIENT NAME: Tarik Gonzalez DATE: March 30, 2019 TIME: 2:36 PM PAGER/CONTACT #: Procedure Findings Note HNO ID: [id number] Author: Saurav Sheffield Service: General Surgery Author Type: Physician Type: Brief Op Note Filed: 03/30/2019 2:36 PM Note Text: BRIEF OPERATIVE / PROCEDURE NOTE LOG ID: [id number] SURGERY/PROCEDURE DATE: 03/30/2019 INCISION/PROCEDURE START TIME: 1:29 PM INCISION CLOSE/PROCEDURE END TIME: 2:35 PM SURGEON(S)/PROCEDURALIST(S) AND THREAD GRINDER TOOL(S): Surgeon(s) and Role: * Joe Sheffield - Primary Physician Campaign Associate: Nydia Ribeiro (Pa) SURGERY/PROCEDURE(S): Lap ventral hernia repair with mesh ANESTHESIA: General FINDINGS: 5 x 3.5 cm hernia defect ESTIMATED BLOOD LOSS: minimal SPECIMENS: None COMPLICATIONS: None PRE-OP/PRE-PROCEDURE DIAGNOSIS: Recurrent ventral hernia POST-OP/POST-PROCEDURE DIAGNOSIS: Recurrent ventral hernia SIGNATURE: Karrie Sheffield DO PATIENT NAME: Tarik Gonzalez DATE: March 30, 2019 TIME: 2:36 PM PAGER/CONTACT #: Assessments N/A Reason for Referral Name Reason for referral NA NA Chief Complaint and Reason for Visit Chief Complaint Feeling flush,Took n ew suppliment Additional Source Comments INFORMATION SOURCE (unrecogn ized section and content) DATE CREATED AUTHOR 04/12/2019 [facility] DATE CREATED AUTHOR AUTHOR'S ORGANIZ ATION 05/29/2022 [facility] DATE CREATED AUTHOR AUTHOR'S ORGANIZ ATION 06/14/2022 [facility] DATE CREATED AUTHOR AUTHOR'S ORGANIZ ATION 12/05/2022 [facility] DATE CREATED AUTHOR AUTHOR'S ORGANIZ ATION 12/14/2022 [facility] DATE CREATED AUTHOR AUTHOR'S ORGANIZ ATION 11/18/2023 [facility] Care Teams (unrecognized sec tion and content) Team Status: Inactive Member Role Status Dates Otoniel Motley DO Primary Care Provider [facility] Active Team Status: Active Member Role Status Dates Otoniel Motley DO Primary Care Provider Active Inward Toll Operator Relationship Specialty Start Date End Date Otoniel Motley DO PCP - General 08/05/08 Goals (unrecognized section and content) Goals may be documented in a n alternate section No data available for this section No data available for this section No data available for this section No data available for this section No data available for this section No data available for this section No data available for this section No data available for this section No data available for this section No data available for this section No data available for this section No data available for this section No data available for this section No data available for this section No data available for this section No data available for this section No data available for this section No data available for this section No data available for this section No data available for this section No data available for this section No data available for this section No data available for this section No data available for this section Source Comments (unrecognize d section and content) In the event this informatio n is protected by the Federal Confidentiality of Alcohol and Drug Abuse Patient Records regulations: The Federal rules restrict any use of the information to criminally investigate or prosecute any alcohol or drug abuse patient.[facility] Reason for Visit (unrecogniz ed section and content) Reason Comments Appointment FOR RECORDS PERTAINING TO PATIENTS WHO ARE OR HAVE BEEN ENROLLED IN A CHEMICAL DEPENDENCY/SUBSTANCEABUSE PROGRAM, SOME INFORMATION MAY BE OMITTED. This clinical summary was aggregated from multiple sources. Caution should be exercised in using it in the provision of clinical care. This summary normalizes information from multiple sources, and as a consequence, information in this document may materially change the coding, format and clinical context of patient data. In addition, data may be omitted in some cases. CLINICAL DECISIONS SHOULD BE BASED ON THE PRIMARY CLINICAL RECORDS. [employer] [facility]. provides no warranty or guarantee of the accuracy or completeness of information in this document.
--- NOTE | 2023-11-20 09:36 | US_ITS ---
The [address] [address] Patient Name: TARIK JONES MRN: [id number] date: 1980 Sex: F Assigned Patient Location: [facility]MO Current Patient Location: [facility] Accession/Order Number: [id number] Exam Date: 11/20/2023 10:00 Report Date: 11/20/2023 11:11 At the request of: ELIZABETH GIANG Procedure: US pelvis transvaginal EXAMINATION: US pelvis transvaginal HISTORY: irregular menses N92.6 COMPARISON: No relevant comparison available. FINDINGS: Transvaginal images The uterus is normal in size, contour and myometrial echotexture measuring 8.7 x 5.4 x 4.4 cm. No focal myometrial mass Areas of anechoic echogenicity in the cervix measuring up to 1.1 cm, nabothian cysts Endometrium measures 8 mm, normal The right ovary is not visualized. The left ovary measures 3.0 x 3.1 x 3.4 cm. Area of anechoic echogenicity measuring 2.3 cm, simple cyst. Doppler flow could not be obtained likely related to position of the ovary No ascites US/US pelvis transvaginal IMPRESSION: 2.3 cm left ovarian simple cyst Electronically authenticated by: CINDY ANGELA Date: 11/20/2023 11:11
--- NOTE | 2023-11-20 09:36 | MM_ITS ---
Patient Name: TARIK JONES MR#: [id number] : 1980 Exam Date: 11/20/2023 Ordering Doctor: DR Dony Nielsen . RADIOLOGY REPORT PROCEDURE: MM TOMOSYNTHESIS SCREENING BI COMPARISON: MG MAMM SCREEN 3D ESTER CAD, 05/22/2021. MG MAMM SCREEN 3D ESTER CAD, 11/14/2022. INDICATIONS: screening Calculator Name NCI Breast Cancer Risk Assessment Tool 5 Year Breast Cancer Risk 0.50% Lifetime Breast Cancer Risk 7.10% Personal Breast Cancer No Personal Ovarian Cancer No Treatments None Family Cancers Aunt-maternal with breast cancer at age 50. LOCATION: [facility] BREAST COMPOSITION: Scattered areas fibroglandular density. FINDINGS: DIAGNOSTIC CATEGORY 2--BENIGN FINDING. NO CHANGE FROM COMPARISON. Scattered benign-appearing calcifications are present. RIGHT BREAST: No significant suspicious finding. Stable asymmetry upper-outer quadrant LEFT BREAST: No significant suspicious finding. Stable focal asymmetry upper outer quadrant RECOMMENDATIONS: ROUTINE MAMMOGRAM AND CLINICAL EVALUATION IN 12 MONTHS. PLEASE NOTE: A NORMAL MAMMOGRAM DOES NOT EXCLUDE THE POSSIBILITY OF BREAST CANCER. A CLINICALLY SUSPICIOUS PALPABLE LUMP SHOULD BE BIOPSIED. Dictated by: Zi Mittal MD on 11/20/2023 at 10:34 Approved by: Zi Mittal MD on 11/20/2023 at 10:40
== END 2023-11-20 09:33 | disposition home or self-care (01) ==
LOC: MAMMO 09:32
PROVIDERS: PCP Family Medicine; Visit Provider Obstetrics & Gynecology
DX: N92.6 Irregular menstruation, unspecified (principal); Z12.31 Encounter for screening mammogram for malignant neoplasm of breast; Z80.3 Family history of malignant neoplasm of breast
CPT/HCPCS: 76830; 77063; 77067

== ENCOUNTER 2024-10-11 19:58 | Outpatient (REF) | payer OTHER, SELFPAY ==
--- OUTSIDE RECORDS SUMMARY | 2024-10-11 20:04 | XMS_ITS | CCD ---
Author Organization [facility] Care Team Providers Care Tanning Consultant Name Role Phone Rylee Long Unavailable Unavailable DO Carina Motley Primary Care Provider Mayra COMMUNICATIONS OFFICER-BC Martha Ramirez Emergency Provider 1( [phone] Carina MOTLEY Primary Care Physician DR DONY NIELSEN Admitting Unavailable MORALES, DR JOHNSON Consulting Unavailable MORALES, DR JOHNSON Attending Unavailable ANDREEA BARRETT Attending Unavailable ANDREEA BARRETT Admitting Unavailable Carina Motley DO Primary Care Provider Rylee Long Unavailable Unavailable UNKNOWN, UNKNOWN Referring Unavailable Carina Motley Primary Care Unavailabl RYLEE Barber Attending Unavailable RYLEE LONG Attending Unavailable Self, Referral Referring Unavailable Carina Motley Sergio Primary Care Unavailabl RYLEE Barber Referring Unavailable Dr. APOLLO BAY Attending Unavailable Carina Motley [facility] Unavailabl Carina Newell Primary Care Unavailable Martha Nunez Attending Unavailable Martha Nunez Admitting Unavailable Carina MOTLEY Primary Care Physician [phone] NONE, XXXX Primary Care Physician Unavailab le Carina Motley DO Primary Care Provider RYLEE LONG Attending Unavailable CARINA MOTLEY Primary Care Unavailabl Tonie German Attending Unavailable DO Chato Mejia Attending Unavailable DO Chato Mejia Attending Unavailable Marnie Mcknight Attending Unavailable Carina MOTLEY Admitting Unavailable Carina MOTLEY Attending Unavailable Reggie Camara Attending Unavailable Carina Motley MD Primary Care Provider [phone] Dony Nielsen DO Allergies Allergy Classification Reported Allergen(s) Allergy Type Date of Onset Reaction(s) Facility (20 sources) Codeine; Translations: [codeine] Drug Allergy 09-15-20 09 Chest Pain, nausea vomiting hives [facility] (20 sources) Acetaminophen / Codeine; Translations: [acetaminophen-co deine] Drug Allergy Unknown (qualifier value) [facility] (20 sources) Bee/Wasp/Ant venom; Translations: [Bee Stings] Drug allergy Anaphylactic reaction [facility] (20 sources) Latex; Translations: [latex] Drug allergy 08-24-20 Other: See Comments [facility] (20 sources) Methylphenidate; Translations: [methylphenidate] Drug Allergy Altered mental status (finding) [facility] (20 sources) Nalbuphine; Translations: [nalbuphine] Drug Allergy 06-04-20 23 nausea and vomiting [facility] (20 sources) NSAIDs; Translations: [NSAIDs] Drug allergy 06-04-20 23 Muscle weakness (finding) [facility] (20 sources) traMADol; Translations: [tramadol] Drug Allergy 06-11-20 19 Vomiting [facility] (20 sources) Trace Metals; Translations: [Trace Metals] Drug allergy infection [facility] (20 sources) Glutens 1 Propensity to adverse reactions to food thyroiditis [facility] Comment on above: thyroiditis (2 sources) Codeine Drug Allergy 08-24-20 15 [facility] (2 sources) Nalbuphine Drug Allergy 08-24-20 15 [facility] (1 source) Nalbuphine Drug Allergy 11-16-19 15 Vomiting [facility] (1 source) Non-steroidal anti-inflammatory agent Propensity to adverse reactions to drug 03-17-20 Other: See Comments [facility] Work Phone: (1 source) Wheat gluten extract Drug Allergy 03-30-20 19 Unknown [facility] Work Phone: (1 source) Watermelon Flavor Propensity to adverse reactions to drug 03-17-20 Other: See Comments [facility] Work Phone: (1 source) Codeine Drug Allergy 01-29-20 [facility] (1 source) EPINEPHrine; Translations: [epinephrine] Drug Allergy [facility] (1 source) Gluten; Translations: [Glutens] Food allergy (disorder) [facility] (1 source) watermelon allergenic extract; Translations: [Watermelon] Drug Allergy [facility] (1 source) Wound Dressing Adhesive Propensity to adverse reactions 06-04-20 [facility] Medications Current Medications Medication Drug Class(es) Dates Sig (Normalized) Sig (Original) acetaminophen 325 mg / HYDROcodone bitartrate 5 mg oral tablet (1 source) Opioid Agonist Start: 12-12-2022 End: 12-15-2022 [place] 325 mg-5 mg oral tablet 1 tab(s), Oral, q6hr for pain for 3 day(s), 10 tab(s), Refill(s) 0, [facility], 165, cm, 12/12/22 9:23:00 EST, Height/Length Dosing, 89, kg, 12/12/22 9:23:00 EST, Weight Dosing Start Date: 12/12/22 Stop Date: 12/15/22 Status: Ordered azithromycin 250 mg oral tablet (2 sources) Macrolide Antimicrobial Start: 06-04-2022 End: 06-09-2022 azithromycin 250 mg Tab = 1 packet(s), Oral, As Directed, as directed on package labeling, X 5 day(s), # 6 tab(s), Refills(s) 0, Pharmacy: [id number], 165, cm, 06/02/22 22:46:00 EDT, Height/Length Dosing, 86, kg, 06/02/22 22:46:00 EDT, Weight Dosing Start Date: 06/04/22 Stop Date: 06/09/22 Status: Ordered baclofen 10 mg oral tablet (20 sources) gamma-Aminobutyric Acid-ergic Agonist Start: 05-06-2022 take 5 mg by mouth three times daily baclofen 10 mg Tab 5 mg = 0.5 tab(s), Oral, TID, # 45 tab(s), Refills(s) 5, Pharmacy: [facility]/pharmacy #[id number], 165, cm, 03/28/22 16:01:00 EDT, Height/Length Dosing, 86, kg, 03/28/22 16:01:00 EDT, Weight Dosing Start Date: 05/06/22 Status: Ordered Start: 03-28-2022 take 5 mg by mouth t hree times daily baclofen 10 mg Tab 5 mg = 0.5 tab(s), Oral, TID, # 30 tab(s), Refills(s) 0, Pharmacy: [facility]/pharmacy #[id number], 165, cm, 03/28/22 16:01:00 EDT, Height/Length Dosing, 86, kg, 03/28/22 16:01:00 EDT, Weight Dosing Start Date: 03/28/22 Status: Ordered benzonatate 100 mg oral capsule (5 sources) Non-narcotic Antitussive Start: 10-07-2024 End: 10-17-2024 take 1 capsule by mouth three times daily Tessalon 100 mg Cap 100 mg = 1 cap(s), Oral, TID, X 10 day(s), # 30 cap(s), Refills(s) 0, Pharmacy: [facility]/pharmacy #[id number], 165.1, cm, 10/07/24 0:46:00 EST, Height/Length Dosing, 91.4, kg, 10/07/24 0:46:00 EST, Weight Dosing Start Date: 10/07/24 Stop Date: 10/17/24 Status: Ordered Start: 01-26-2020 End: 06-10-2022 take 1 capsule by mouth three times daily Tessalon 100 mg Cap 100 mg = 1 cap(s), Oral, TID, X 7 day(s), # 21 cap(s), Refills(s) 0 Start Date: 06/03/22 Stop Date: 06/10/22 Status: Ordered Comment on above: Take 1 capsule by [facility] three times daily as needed for Cough. cephalexin 500 mg oral capsule (1 source) Cephalosporin Antibacterial Start: 023 End: 023 take 1 capsule by mouth four times daily Keflex 500 mg Cap 500 mg = 1 cap(s), Oral, QID, X 7 day(s), # 28 cap(s), Refills(s) 0, Pharmacy: [facility]/pharmacy #[id number], 165, cm, 11/18/22 7:53:00 EST, Height/Length Dosing, 84, kg, 11/18/22 7:53:00 EST, Weight Dosing Start Date: 11/18/22 Stop Date: 11/25/22 Status: Ordered clindamycin 10 mg/ml topical solution (1 source) Lincosamide Antibacterial Start: 024 End: clindamycin (Cleocin T) 1 % external solution Indications: Acne vulgaris Apply topically 2 times a day. 60 mL 11 12/11/2023 12/10/2024 Active clonazePAM 0.5 mg oral tablet (20 sources) Benzodiazepine Start: Klonopin 0.5 mg Tab As Directed, Refills(s) 0 Start Date: 06/25/21 Status: Ordered cobamamide 0.1 mg / vitamin b12 5 mg sublingual tablet (1 source) Vitamin B12 Start: Cyanocobalamin-Cobama mide (B12) 5,000-100 mcg Lozenge Active 1000 [employer] Daily January 28, 2022 3:54pm cyclobenzaprine hydrochloride 10 mg oral tablet (20 sources) Muscle Relaxant Start: take 1 tablet by mouth three times daily as needed for pain cyclobenzaprine 10 mg Tab 10 mg = 1 tab(s), Oral, TID, PRN Muscle pain, # 14 tab(s), Refills(s) 0, Pharmacy: [facility]/pharm[facility] #[id number], 166, cm, 08/19/24 19:23:00 EDT, Height/Length Dosing, 92, kg, 08/19/24 19:23:00 EDT, Weight Dosing Start Date: 08/19/24 Status: Ordered dexamethasone 1 mg oral tablet (2 sources) Corticosteroid Start: End: take 1 tablet by mouth twice daily dexamethasone 1 mg oral tablet 1 mg = 1 tab(s), Oral, BID, X 7 day(s), # 14 tab(s), Refills(s) 0, Pharmacy: [facility]/pharmacy #[id number], 165, cm, 06/02/22 22:46:00 EDT, Height/Length Dosing, 86, kg, 06/02/22 22:46:00 EDT, Weight Dosing Start Date: 06/04/22 Stop Date: 06/11/22 Status: Ordered [id number] 0.3 ml EPINEPHrine 1 mg/ml auto-injector (20 sources) alpha-Adrenergic Agonist, beta-Adrenergic Agonist, Catecholamine Start: 020 EPINEPHrine (EpiPen 2-Garry) 0.3 mg/0.3 mL injection syringe Inject 0.3 mL (0.3 mg) into the muscle. 0 06/21/2020 Active Start: 06-21-2020 EpiPen 2-Garry 0 .3 mg injectable kit 0.3 mg = 1 EA, IntraMuscular, As Directed, PRN Anaphylaxis, # 1 EA, Refills(s) 0, [id number], cm, 06/21/20 9:51:00 EDT, Height/Length Dosing, 84, kg, 06/21/20 9:51:00 EDT, Weight Dosing Start Date: 06/21/20 Status: Ordered Start: 06-21-2020 EpiPen 2-Garry 0 .3 mg injectable kit 0.3 mg = 1 EA, IntraMuscular, As Directed, PRN Anaphylaxis, # 1 EA, Refills(s) 0, Pharmacy: [facility] #[id number], 165, cm, 06/21/20 9:51:00 EDT, Height/Length Dosing, 84, kg, 06/21/20 9:51:00 EDT, Weight Dosing Start Date: 06/21/20 Status: Ordered famotidine 20 mg oral tablet (20 sources) Histamine-2 Receptor Antagonist Start: 01-12-2022 take 1 tablet by mouth once daily Pepcid 20 mg Tab 20 mg = 1 tab(s), Oral, Daily, # 14 tab(s), Refills(s) 0 Start Date: 01/12/22 Status: Ordered fluticasone (20 sources) Corticosteroid Start: 09-11-2022 take 2 puff(s) by inhalation twice daily Flovent HFA 110 Inhaler 2 puff(s), Inhalation, BID, 12 gram, Refill(s) 2, [id number], 165, cm, 06/22/22 8:45:00 EDT, Height/Length Dosing, 83.2, kg, 06/22/22 8:45:00 EDT, Weight Dosing Start Date: 09/11/22 Status: Ordered Start: 09-11-2022 take 2 puff(s) by in halation twice daily Flovent HFA 110 Inhaler 2 puff(s), Inhalation, BID, 12 gram, Refill(s) 2, [id number], 165, cm, 06/22/22 8:45:00 EDT, Height/Length Dosing, 83.2, kg, 06/22/22 8:45:00 EDT, Weight Dosing Start Date: 09/11/22 Status: Ordered Start: 06-04-2022 take 2 puff(s) by in halation twice daily Flovent HFA 110 Inhaler 2 puff(s), Inhalation, BID, 12 gram, Refill(s) 0, [id number], 165, cm, 06/02/22 22:46:00 EDT, Height/Length Dosing, 86, kg, 06/02/22 22:46:00 EDT, Weight Dosing Start Date: 06/04/22 Status: Ordered LDN 1.5 mg (12 sources) Start: 03-17-2023 take 1 capsule by mouth once daily LDN 1.5 mg LDN 1.5 mg, 1 cap, Oral, Daily, 30 cap(s), 2, [facility], Compound, 165, cm, 03/17/23 15:41:00 EDT, Height/Length Dosing, 91.5, kg, 03/17/23 15:41:00 EDT, Weight Dosing Start Date: 03/17/23 Status: Ordered magnesium oxide 400 mg oral tablet (1 source) Start: 09-16-2023 take 1 capsule by mouth before mealtime magnesium oxide (Mag-Ox) 400 mg tablet TAKE 1 CAPSULE (400 MG) BY MOUTH IN THE MORNING. TAKE BEFORE MEALS. 0 09/16/2023 Active metFORMIN hydrochloride 500 mg oral tablet (2 sources) Biguanide Start: 09-16-2023 take 2 tablets by mouth at mealtime metFORMIN (Glucophage) 500 MG tablet Indications: Encounter for weight management Take 2 tablets (1,000 mg) by mouth in the morning. Take with meals. 720 tablet 09/16/2023 Active phenazopyridine hydrochloride 200 mg oral tablet (2 sources) Start: 11-18-2022 End: 11-21-2022 take 1 tablet by mouth three times daily Pyridium 200 mg Tab 200 mg = 1 tab(s), Oral, TID, X 3 day(s), # 9 tab(s), Refills(s) 0, Pharmacy: [id number], 165, cm, 11/18/22 7:53:00 EST, Height/Length Dosing, 84, kg, 11/18/22 7:53:00 EST, Weight Dosing Start Date: 11/18/22 Stop Date: 11/21/22 Status: Ordered Start: 11-18-2022 End: 11-20-2022 take 1 tablet by mouth three times daily at mealtime Azo-Standard 95 mg oral tablet 95 mg = 1 tab(s), Oral, TID, with food, X 2 day(s), # 6 tab(s), Refills(s) 0, [id number] 165, cm, 11/18/22 7:53:00 EST, Height/Length Dosing, 84, kg, 11/18/22 7:53:00 EST, Weight Dosing Start Date: 11/18/22 Stop Date: 11/20/22 Status: Ordered predniSONE 20 mg oral tablet (1 source) Start: 08-19-2024 End: 08-24-2024 take 2 tablets by mouth once daily predniSONE 20 mg Tab 40 mg = 2 tab(s), Oral, Daily, X 5 day(s), # 10 tab(s), Refills(s) 0, [id number] 166, cm, 08/19/24 19:23:00 EDT, Height/Length Dosing, 92, kg, 08/19/24 19:23:00 EDT, Weight Dosing Start Date: 08/19/24 Stop Date: 08/24/24 Status: Ordered SELENIUM ORAL (2 sources) SELENIUM ORAL Ta ke by mouth once daily. 0 Active Comment on above: Take by mouth once d aily. silver sulfADIAZINE 10 mg/ml topical cream (20 sources) Sulfonamide Antibacterial Start: 12-31-2021 Silvadene 1% Cream 1 ekaterina, Topical, BID, 50 gram, Refill(s) 2, [id number], 165, cm, 12/29/21 14:15:00 EST, Height/Length Dosing, 86, kg, 12/29/21 14:15:00 EST, Weight Dosing Start Date: 12/31/21 Status: Ordered Start: 12-31-2021 Silvadene 1% C ream 1 ekaterina, Topical, BID, 50 gram, Refill(s) 2, [id number], 165, cm, 12/29/21 14:15:00 EST, Height/Length Dosing, 86, kg, 12/29/21 14:15:00 EST, Weight Dosing Start Date: 12/31/21 Status: Ordered triamcinolone acetonide 0.31880 mg/mg topical ointment (9 sources) Corticosteroid Start: 06-03-2023 triamcinolone topical 0.025% ointment 1 ekaterina, Topical, TID, 15 gram, Refill(s) 0, [id number], 165, cm, 06/03/23 8:18:00 EDT, Height/Length Dosing, 90.7, kg, 06/03/23 8:18:00 EDT, Weight Dosing Start Date: 06/03/23 Status: Ordered Zofran ODT 4 mg Tab-Dis (8 sources) Start: 07-06-2023 take 1 tablet by mouth every eight hours as needed for nausea Zofran ODT 4 mg Tab-Dis 4 mg = 1 tab(s), Oral, q8hr, PRN Nausea/Vomiting, # 12 tab(s), Refills(s) 0, [id number] 164, cm, 07/06/23 21:06:00 EDT, Height/Length Dosing, 90.6, kg, 07/06/23 21:06:00 EDT, Weight Dosing Start Date: 07/06/23 Status: Ordered Completed/Discontinued Medications Medication Drug Class(es) Dates Sig (Normalized) Sig (Original) adapalene 0.001 mg/mg topical gel (3 sources) Retinoid Start: 12-11-2018 [id number] Medication adapalene 0.1 % topical gel Differin 0.1 % topical gel 0.1 % 1 Application topically at bedtime 12/11/2018 Prior History No Longer Active [id number] 200 actuat albuterol 0.09 mg/actuat metered dose inhaler (20 sources) beta2-Adrenergic Agonist Start: 07-25-2021 take 1 [...] aily. docusate sodium 50 mg / sennosides, fdc 8.6 mg oral tablet (1 source) Start: 03-31-2019 take 2 tablets by mouth twice daily senna-docusate (SENOKOT-S) 8.6-50 mg per tablet Take 2 tablets by mouth twice daily. 20 tablet 0 03/31/2019 Active Comment on above: Take 2 tablets by [facility] twice daily. fluconazole 150 mg oral tablet (20 sources) Azole Antifungal Start: 01-21-2022 End: 01-26-2022 take 1 tablet by mouth once daily fluconazole 150 mg Tab 150 mg = 1 tab(s), Oral, Daily, # 5 tab(s), Refills(s) 0, Pharmacy: [id number], 165, cm, 01/21/22 14:47:00 EDT, Height/Length Dosing, 86.4, kg, 01/21/22 14:47:00 EDT, Weight Dosing Start Date: 01/21/22 Stop Date: 01/26/22 Status: Ordered ketoconazole 20 mg/ml medicated shampoo (3 sources) Azole Antifungal Start: 12-11-2018 [id number] Medication ketoconazole 2 % shampoo ketoconazole 2 % shampoo 2 % 1 Application topically daily 12/11/2018 Prior History No Longer Active levothyroxine sodium 0.075 mg oral tablet (20 sources) l-Thyroxine Start: 11-17-2023 take 1 tablet by mouth once daily levothyroxine 75 mcg (0.075 mg) Tab 75 microgram = 1 tab(s), Oral, Daily, alternate with 50 mcg, # 90 tab(s), Refills(s) 4, MILY, Pharmacy: [id number], 164, cm, 11/17/23 17:02:00 EST, Height/Length Dosing, 89.6, kg, 11/17/23 17:02:00 EST, Weight Dosing Start Date: 11/17/23 Status: Ordered Start: 04-29-2023 take 1 tablet by arpan once daily levothyroxine 75 mcg (0.075 mg) Tab 75 microgram = 1 tab(s), Oral, Daily, alternate with 50 mcg, # 30 tab(s), Refills(s) 5, MILY, Pharmacy: [id number], 165, cm, 04/22/23 11:17:00 EDT, Height/Length Dosing, 92.7, kg, 04/22/23 11:17:00 EDT, Weight Dosing Start Date: 04/29/23 Status: Ordered Start: 11-06-2022 take 1 tablet by [facility] once daily levothyroxine 75 mcg (0.075 mg) Tab 75 microgram = 1 tab(s), Oral, Daily, alternate with 50 mcg, # 30 tab(s), Refills(s) 5, MILY, Pharmacy: [id number], 165, cm, 09/20/22 21:21:00 EST, Height/Length Dosing, 84, kg, 09/20/22 21:21:00 EST, Weight Dosing Start Date: 11/06/22 Status: Ordered Start: 04-29-2022 take 1 tablet by [facility] once daily levothyroxine 75 mcg (0.075 mg) Tab 75 microgram = 1 tab(s), Oral, Daily, alternate with 50 mcg, # 30 tab(s), Refills(s) 5, MILY, Pharmacy: [id number], 165, cm, 03/28/22 16:01:00 EDT, Height/Length Dosing, 86, kg, 03/28/22 16:01:00 EDT, Weight Dosing Start Date: 04/29/22 Status: Ordered Start: 11-21-2021 Synthroid 75 m cg (0.075 mg) Tab 30 EA, Refills(s) 0 Start Date: 11/21/21 Status: Ordered Start: 11-21-2021 Synthroid 75 m cg (0.075 mg) Tab 30 EA, Refills(s) 0 Start Date: 11/21/21 Status: Ordered Start: 11-21-2021 Synthroid 75 m cg (0.075 mg) Tab 30 EA, Refills(s) 0 Start Date: 11/21/21 Status: Ordered Start: 01-13-2018 [id number] Medicat ion levothyroxine 200 mcg tablet Synthroid 200 mcg 01/13/2018 Active (Outside) Start: 06-21-2014 take 1 tablet by arpan th once daily Levothyroxine (Synthroid) 75 mcg tablet Active 75 MCG PO Daily January 28, 2022 3:52pm Comment on above: Take 75 mcg by [...] water, # 160 cap(s), Refills(s) 4, Pharmacy: [id number], 165, cm, 11/08/20 12:01:00 EST, Height/Length Dosing, 87.7, kg, 11/08/20 12:01:00 EST, Weight Dosing Start Date: 11/08/20 Status: Ordered tretinoin 0.25 mg/ml topical cream (3 sources) Retinoid Start: 12-21-19 [id number] Medication tretinoin 0.025 % topical cream tretinoin [...] Translations: [Left upper quadrant abdominal tenderness] Onset: 03-20-2022 Episodic Allergic reactions (20 sources) Other specified acute skin changes due to ultraviolet radiation; Translations: [Hypersensitivity condition] Onset: 12-21-2019 07-20-2020 Episodic Anxiety disorders (20 sources) Anxiety; Translations: [Generalized anxiety disorder] 10-13-2018 Chronic Attention-deficit, conduct, and disruptive behavior disorders (20 sources) Adult attention deficit hyperactivity disorder 08-10-2019 Chronic Cardiac dysrhythmias (4 sources) Palpitations; Translations: [Palpitations] Onset: 06-03-2022 01-29-2022 Episodic Complications of surgical procedures or medical care (1 source) Complication of procedure; Translations: [Unspecified adverse effect of drug or medicament, initial encounter] Onset: 06-30-2023 Episodic Conditions associated with dizziness or vertigo (1 source) Conditions associated with dizziness or vertigo; Translations: [R42 - Dizziness and giddiness] Onset: 01-28-2022 Diseases of mouth; excluding dental (20 sources) 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 Episodic Diseases of white blood cells (2 sources) Leukocytosis 02-14-2022 Chronic Disorders of lipid metabolism (20 sources) Mixed hyperlipidemia 08-10-2019 Chronic Endometriosis (20 sources) Endometriosis (clinical) 10-13-2018 Chronic Essential hypertension (20 sources) Hypertensive disorder 01-25-2020 Chronic Genitourinary symptoms and ill-defined conditions (20 sources) Dysuria; Translations: [Dysuria] Onset: 11-26-2022 Episodic Headache; including migraine (20 sources) Migraine 01-21-2014 Chronic Immunizations and screening for infectious disease (1 source) Encounter for screening for human papillomavirus (HPV); Translations: [ENC SCREENING HUMAN PAPILLOMAVIRUS] Onset: 05-22-2022 Episodic Malaise and fatigue (1 source) Asthenia; Translations: [Weakness] Onset: 06-30-2023 Episodic Menstrual disorders (9 sources) Irregular periods 06-03-2023 Chronic Mood disorders (20 sources) Depressive disorder 10-13-2018 Chronic Nausea and vomiting (1 source) Nausea; Translations: [Nausea] Onset: 07-06-2023 Episodic Neoplasms of unspecified nature or uncertain behavior (4 sources) Neoplasm of uncertain behavior of skin Onset: 12-20-2021 Episodic Nonspecific chest pain (2 sources) Chest pain; Translations: [Chest pain, unspecified] Onset: 03-07-2024 01-28-2022 Episodic Other and unspecified benign neoplasm (5 sources) Hemangioma of skin and subcutaneous tissue; Translations: [Hemangioma of skin and subcutaneous tissue] Onset: 12-21-2020 Episodic Other and unspecified benign neoplasm (9 sources) Melanocytic nevi of unspecified upper limb, including shoulder; Translations: [Melanocytic nevi of unspecified upper limb, including shoulder] Onset: 01-13-2018 Episodic Other and unspecified benign neoplasm (3 sources) Melanocytic nevi of trunk Onset: 12-21-2020 Episodic Other and unspecified benign neoplasm (3 sources) Melanocytic nevi of right upper limb, including shoulder Onset: 12-21-2020 Episodic Other and unspecified benign neoplasm (3 sources) Melanocytic nevi of left upper limb, including shoulder Onset: 12-21-2020 Episodic Other and unspecified benign neoplasm (3 sources) Melanocytic nevi of unspecified lower limb, including hip Onset: 12-21-2020 Episodic Other and unspecified benign neoplasm (3 sources) Melanocytic nevi of right lower limb, including hip Onset: 12-21-2020 Episodic Other and unspecified benign neoplasm (3 sources) Melanocytic nevi of left lower limb, including hip Onset: 12-21-2020 Episodic Other and unspecified benign neoplasm (7 sources) Melanocytic nevi of other parts of face; Translations: [Melanocytic nevi other parts of face] Onset: 12-21-2020 Episodic Other and unspecified benign neoplasm (1 source) Hemangioma of skin; Translations: [Hemangioma of skin and subcutaneous tissue] 12-11-2023 Episodic Other and unspecified benign neoplasm (1 source) Melanocytic nevus; Translations: [Melanocytic nevi, unspecified] 12-11-2023 Episodic Other and unspecified benign neoplasm (2 sources) Melanocytic nevi, unspecified; Translations: [Melanocytic nevi, unspecified] Onset: 12-11-2023 Episodic Other connective tissue disease (1 source) Muscle pain; Translations: [Myalgia, other site] Onset: 06-22-2022 Episodic Other connective tissue disease (1 source) Pain in upper limb; Translations: [Pain in arm, unspecified] Onset: 06-30-2023 Episodic Other diseases of bladder and urethra (20 sources) Urethral stricture 10-13-2018 Episodic Other diseases of veins and lymphatics (20 sources) Peripheral venous insufficiency 06-14-2021 Episodic Other gastrointestinal disorders (20 sources) Chronic idiopathic constipation 09-07-2020 Chronic Other gastrointestinal disorders (1 source) Diarrhea; Translations: [Diarrhea, unspecified] Onset: 07-06-2023 Episodic Other inflammatory condition of skin (9 sources) Other seborrheic dermatitis; Translations: [Other Seborrheic dermatitis] Onset: 01-13-2018 Episodic Other lower respiratory disease (9 sources) Rib pain 06-03-2023 Episodic Other nutritional; endocrine; and metabolic disorders (20 sources) Body mass index 30+ - obesity 01-25-2020 Chronic Other nutritional; endocrine; and metabolic disorders (20 sources) 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 Other nutritional; endocrine; and metabolic disorders (2 sources) Obese class I; Translations: [Body mass index (BMI) 30.0-30.9, adult] Onset: 03-31-2019 Chronic Other nutritional; endocrine; and metabolic disorders (10 sources) Obesity 04-22-2023 Chronic Other nutritional; endocrine; and metabolic disorders (4 sources) 5,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 Other screening for suspected conditions (not mental disorders or infectious disease) (7 sources) Encounter for screening for malignant neoplasm of cervix; Translations: [Patient encounter status] Onset: 05-21-2022 Episodic Other skin disorders (9 sources) Other specified disorders of the skin and subcutaneous tissue; 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] Onset: 12-21-2020 Episodic Other skin disorders (3 sources) Scar conditions and fibrosis of skin Onset: 12-21-2020 Episodic Other skin disorders (8 sources) Acne vulgaris; Translations: [Acne vulgaris] Onset: 12-11-2018 Episodic Other skin disorders (8 sources) Other seborrheic keratosis; Translations: [Other seborrheic keratosis] Onset: 12-11-2018 Episodic Other skin disorders (5 sources) Other melanin hyperpigmentation; Translations: [Other melanin hyperpigmentation] Onset: 12-21-2020 Episodic Other skin disorders (9 sources) Mass of subcutaneous tissue of right thumb 06-03-2023 Episodic Other skin disorders (1 source) Acne vulgaris; Translations: [Acne vulgaris] 12-11-2023 Episodic Other skin disorders (1 source) Lentiginosis; Translations: [Other melanin hyperpigmentation] 12-11-2023 Episodic Other skin disorders (1 source) Seborrheic keratosis; Translations: [Other seborrheic keratosis] 12-11-2023 Episodic Other upper respiratory infections (2 sources) Acute upper respiratory infection; Translations: [Acute upper respiratory infection, unspecified] Onset: 10-07-2024 Episodic Poisoning by other medications and drugs (1 source) Adverse reaction to drug 01-28-2022 Episodic Residual codes; unclassified (3 sources) Family history of malignant neoplasm of other organs or systems Onset: 12-21-2020 Episodic Residual codes; unclassified (2 sources) Bruises easily 12-07-2020 Episodic Spondylosis; intervertebral disc disorders; other back problems (14 sources) Cervico-occipital neuralgia; Translations: [Occipital neuralgia] Onset: 03-17-2023 Episodic Sprains and strains (1 source) Sprain of knee; Translations: [Sprain of unspecified site of unspecified knee, initial encounter] Onset: 12-12-2022 Episodic Substance-related disorders (20 sources) Smoker 11-21-2021 Chronic Comment on above: Added secondary to d ocumentation in Social History. Superficial injury; contusion (1 source) Contusion of left forearm; Translations: [Contusion of left forearm, initial encounter] Onset: 03-28-2024 Episodic Thyroid disorders (20 sources) Clay thyroiditis; Translations: [Autoimmune thyroiditis] Onset: 03-02-2014 02-07-2020 Chronic Comment on above: Pt states she fluctu ates between hypothyroidism & hyperthyroidism with seasonal changes Unclassified (4 sources) Exposure to 2019 novel coronavirus; Translations: [Contact with and (suspected) exposure to COVID19] Onset: 06-04-2022 Unclassified (2 sources) Patient encounter status 08-01-2021 Urinary tract infections (20 sources) Lower urinary tract infectious disease; Translations: [Urinary tract infectious disease] Onset: 11-18-2022 10-13-2018 Episodic Varicose veins of lower extremity (3 sources) Varicose veins of bilateral lower extremities with pain Onset: 12-21-2020 Episodic Viral infection (20 sources) Disease caused by 2019-nCoV; Translations: [COVID-19] Onset: 06-03-2022 Past or Other Problems Problem Classification Problem [...] Test Name Value Interpretation Reference Range Facility ED Clinical Summaryon 2023 ED Clinical Summary ED Clinical Summary [address] [address] ED Clinical Summary Person Information Name: TARIK GONZALEZ Sadia/[facility] Age: 44 Years : 1980 Sex: Female Language: Citizen Of [place] PCP: Carina MOTLEY DO Marital Status: Single Visit Id: Visit Reason: Respiratory problem; Cough; COUGH Speciality: Acuity: 3 Enc Type: Emergency Med Service: Emergency Arrival: 10/07/2024 00:37:11 Discharge: 10/07/2024 03:08:14 LOS: 000 02:31 Checkin: 10/07/2024 00:37:11 Checkout: 10/07/2024 03:08:14 Dispo Type: Home (Routine DC) EVENTS: Event Name Event Status Request Date/Time Start Date/Time Complete Date/Time Arrive Complete 10/07/2024 00:37:11 10/07/2024 00:37:11 10/07/2024 00:37:11 Document Home Meds Request 10/07/2024 00:37:11 Triage Complete 10/07/2024 00:37:11 10/07/2024 00:46:55 10/07/2024 00:46:55 Dr Exam Complete 10/07/2024 00:39:26 10/07/2024 00:39:26 10/07/2024 00:39:26 Registration Complete 10/07/2024 00:39:26 10/07/2024 00:40:47 10/07/2024 00:40:47 Reg Complete Request 10/07/2024 00:40:47 Reg Bed Request Complete 10/07/2024 00:40:47 10/07/2024 00:40:47 10/07/2024 00:40:47 Bed Assign Complete 10/07/2024 00:47:18 10/07/2024 00:47:18 10/07/2024 00:47:18 RN Exam Complete 10/07/2024 00:47:18 10/07/2024 01:58:30 10/07/2024 01:58:30 X-Ray Complete 10/07/2024 00:58:04 10/07/2024 02:06:28 10/07/2024 02:22:29 Wet Read Request 10/07/2024 02:22:29 Discharge Complete 10/07/2024 02:38:27 10/07/2024 03:08:22 10/07/2024 03:08:22 Transfer Complete 10/07/2024 03:08:22 10/07/2024 03:08:22 10/07/2024 03:08:22 ADDRESS: [address] [place] [phone] PHYS DOC NOTES: MEDICAL INFORMATION: Prescriptions Given: New Medications [id number], [address] [place], [place] [phone], [phone] benzonatate (Tessalon 100 mg Cap) 1 Capsules By Mouth 3 times a day for 10 Days. Refills: 0. Medications [...] day as needed for spasm. Refills: 0. cyclobenzaprine (cyclobenzaprine 10 mg Tab) 1 Tablets By Mouth 3 times a day as needed Muscle pain. Refills: 0. epinephrine (EpiPen 2-Garry 0.3 mg [...] every day. alternate with 50 mcg. Refills: 4. Misc Prescription (LDN 1.5 mg) 1 cap [...] day. Refills: 0. PATIENT EDUCATION INFORMATION: Instructions: Upper Respiratory Infection, Adult, Nuay-fv-Hcca Follow up: With: Address: When: Carina MOTLEY [address] [facility], [facility] [place] [phone] [employer] (1) In 3 days 10/10/2024 Comments: You can use the Tessalon Perles as prescribed as needed for cough and congestion you can use ibuprofen, Tylenol for 6 hours as needed for pain and fever. Please follow-up with your primary care doctor for further evaluation management. Return to the ED for any new or worsening symptoms. DIAGNOSIS: Acute URI Normal [facility] ED Note-Physicianon 10-07-20 ED Note-Physician ED Note-Physician Basic Information Time Seen: Marnie Mcknight DO 10/07/2024 00:39 Chief Complaint Cough, crackling in throat , mucus and hoarseness for 24 hours. History of Present Illness Patient is a 44-year-old female with past medical history of hypertension presenting to the ED for evaluation of cough, congestion and feeling like since then her throat. Patient states her daughter has been sick with similar symptoms for the last week and a half patient symptoms started yesterday. Patient states she has had a hoarse voice that started in the last 24 hours. Denies any chills, chest pain, nausea or vomiting. Patient feels like phlegm is getting stuck in her throat. Review of Systems A 10 point review of systems is negative except as noted above. Medical and Surgical History: Reviewed and noted Social history: Lives at home Tobacco: Denies Physical Exam Vitals & Measurements T: 36.7 ???C(Oral) HR: 101(Peripheral) RR: 20 BP: 114/78 SpO2: 98% HT: 165.1 cm WT: 91.4 kg BMI: 33.53 General: Well developed, non toxic appearing, no acute distress HEENT: Head atraumatic, Mucosa moist, hearing grossly normal no effusion behind the TMs bilaterally, no pharyngeal erythema no unilateral tonsillar swelling Neck: No JVD, tracheal deviation Cardiac: Regular rate, rhythm, no murmurs, or gallops, 2+ radial pulses Respiratory: Lungs clear to auscultation B/L, normal respiratory effort Abdomen: Soft non tender, no rebound or guarding, no peritoneal signs Extremities: No edema noted in the LE B/L, no tenderness to palpation Neurologic: Alert and oriented, speech clear Skin: No rashes or lesions Psych: Appropriate mood and behavior Medical Decision Making MEDICAL DECISION MAKING Number and Complexity of Problems Differential Diagnosis: [] [facility] Data External documents reviewed: [] My EKG interpretation: [] My CT interpretation: [] My X-ray interpretation: [] My Ultrasound interpretation: [] Decision rules/scores evaluated: [] Discussed with: [] Treatment and Disposition ED Course: Patient is a 44-year-old female presenting to the ED for evaluation of cough, congestion, hoarseness. Patient is nontoxic and on arrival, no acute distress. Due to her complaints I did offer flu and COVID swab which patient declined chest x-ray is obtained. Patient declined cough medication. Chest x-ray is unremarkable. Discussed findings with patient this is viral URI. She is started on Tessalon Perles as she states Bromfed does not work for her. She is to follow-up with her primary care doctor for further evaluation management. She is to return to the ED for any new or worsening symptoms. Shared decision making: [] Code status: [] [ X] The patient was diagnosed with upper respiratory infection and was not prescribed an antibiotic. [SATISFIES MIPS PERFORMANCE] [ ] The patient has competing comorbid condition within the last 12 months. The comorbid condition was [] (e.g., neutropenia, cystic fibrosis, chronic bronchitis, pulmonary edema, respiratory failure, rheumatoid lung disease). [MIPS PERFORMANCE EXCEPTION/EXCLUSION [ ] The patient is already on antibiotics, or has taken them within the last 30 days. [MIPS PERFORMANCE EXCEPTION/EXCLUSION] [ ] The patient had a competing diagnosis of [] (e.g. acute otitis media, chronic sinusitis, UTI, etc.) [MIPS PERFORMANCE EXCEPTION/EXCLUSION] [ ] The patient was diagnosed with upper respiratory infection and was prescribed or dispensed an antibiotic. [DOES NOT SATISFY MIPS PERFORMANCE] Assessment/Plan Acute URI (J06.9: Acute upper respiratory infection, unspecified) Orders: benzonatate, 100 mg = 1 cap(s), Oral, TID, X 10 day(s), # 30 cap(s), Refills(s) 0, Pharmacy: [id number], 165.1, cm, 10/07/24 0:46:00 EST, Height/Length Dosing, 91.4, kg, 10/07/24 0:46:00 EST, Weight Dosing XR Chest 2 Views Disposition Plan Discharge Prescription List Prescriptions Tessalon 100 mg Cap, 100 mg= 1 cap(s), Oral, TID Follow-up With When Contact Information Carina MOTLEY In 3 days 10/10/2024 EST [address] [facility] [address] [facility] [place] [phone] Business (1) Additional Instructions: You can use the Tessalon Perles as prescribed as needed for cough and congestion you can use ibuprofen, Tylenol for 6 hours as needed for pain and fever. Please follow-up with your primary care doctor for further evaluation management. Return to the ED for any new or worsening symptoms. Patient Education Upper Respiratory Infection, Adult, Pptg-hu-Nzmv Problem List/Past Medical History Ongoing Attention deficit disorder (ADD) in adult BMI 34.0-34.9,adult Chronic idiopathic constipation Chronic venous insufficiency COVID-19 Dercum disease Dysuria Generalized anxiety disorder Geographic tongue Clay thyroiditis HTN - Hypertension Hypersensitivity disorder Irregular menses Mixed hyperlipidemia Obesity Occipital neura (more content not included)... Normal [facility] Comment on above: Result Comment: Elec tronically Signed By: Marnie Mcknight DO\.luke\Date and Time Signed: 10/07/24 02:43 EST ED Patient Summaryon 024 ED Patient Summary ED Patient Summary [place] [id number] Patient Discharge Instructions Person Information Name: TARIK GONZALEZ Age: 44 Years Arrival Date: 10/07/2024 00:37:11 Discharge Diagnosis: Acute URI Primary Care Physician: Carina MOTLEY DO Provider Information Primary Provider: Marnie Mcknight DO [employer] Manager:None The exam and treatment you received in the Emergency Department were for an urgent problem and are not intended as complete care. It is important that you follow up with a doctor, nurse practitioner, or physician???s administrative assistant front desk for ongoing care. If your symptoms become worse or you do not improve as expected and you are unable to reach your usual health care provider, you should return to the Emergency Department. We are available 24 hours a day. TARIK GONZALEZ has been given the following list of patient education materials, prescriptions and follow-up instructions: Follow-up Instructions: With: Address: When: Carina MOTLEY [address] [facility], [facility] [place] [phone] Business (1) In 3 days 10/10/2024 Comments: You can use the Tessalon Perles as prescribed as needed for cough and congestion you can use ibuprofen, Tylenol for 6 hours as needed for pain and fever. Please follow-up with your primary care doctor for further evaluation management. Return to the ED for any new or worsening symptoms. In the event that this physician does not participate in your insurance network, please consult with your insurance company to find a nearby participating provider. Patient Education Materials: Upper Respiratory Infection, Adult, Czlq-xi-Xkaw A MESSAGE TO ALL PATIENTS REGARDING OPIOIDS PRESCRIPTION OPIOIDS: WHAT YOU NEED TO KNOW Prescription opioids can be used to help relieve oilvmhxk-oe-emxrhm pain and are often prescribed following a [...] as well, even when taken as directed: ??? Tolerance???meaning you might need to take more of the medication for the same pain relief ??? Physical dependence???meaning you have symptoms of withdrawal when a medication is stopped ??? Increased sensitivity to pain ??? Constipation ??? Nausea, vomiting, and dry mouth ??? Sleepiness and dizziness ??? Confusion ??? Depression ??? Low levels of testosterone that can result in lower sex drive, energy, and strength ??? Itching and sweating RISKS ARE GREATER WITH: ??? History of drug misuse, substance use disorder, or overdose ??? Mental health conditions (such as depression or anxiety) ??? Sleep apnea ??? Older age (65 years and older) ??? Avoid alcohol while taking prescription opioids. Also, unless specifically advised by your health care provider, medications to avoid include: ??? Benzodiazepines (such as Xanax or Valium) ??? Muscle relaxants (such as Soma or Flexeril) ??? Hypnotics (such as Ambien or Lunesta) ??? Other prescription opioids KNOW YOUR OPTIONS Talk to your health care provider about ways to manage your pain that don???t involve prescription opioids. Some of these options may actually work better and have fewer risks and side effects. Options may include: ??? Pain relievers such as acetaminophen, ibuprofen, and naproxen ??? Some medication that are also used for depression or seizures ??? Physical therapy and exercise ??? Cognitive behavioral therapy, a psychological, goal-directed approach, in which patients learn how to modify physical, behavioral, and emotional triggers of pain and stress. IF YOU ARE PRESCRIBED OPIOIDS FOR PAIN: ??? Never take opioids in greater amounts or more often than prescribed. ??? Follow up with your primary health care provider. o Work together to create a plan on how to manage your pain. o Talk about ways to help manage your pain that don???t involve prescription opioids. o Talk about any and all concerns and side effects. ??? Help prevent misuse and abuse o Never sell or share prescription opioids. o Never use another person???s prescription opioids. ??? Store prescription opioids in a secure place and out of reach of others (this may include visitors, children, friends, and family). ??? Safely dispose of unused prescription opioids: Find your community drug take-back program or your pharmacy mail-back progr (more content not included)... Normal [facility] XR Chest 2 Viewson XR Chest 2 Views Exam Date/Time: 10/07/2024 02:22 EST Reason for Exam: Cough Report IMPRESSION: NO RADIOGRAPHIC EVIDENCE OF ACTIVE DISEASE IN THE CHEST. CLINICAL INFORMATION: Cough COMPARISON: None available. FINDINGS: Two views of the chest were obtained. Heart and mediastinum appear normal. The lungs appear clear. Visualized bony thorax and remainder of the chest appears unremarkable. Ordering Provider: Marnie Mcknight FINAL REPORT Dictated: 10/07/2024 8:39 am Trent Harris MD Signed (Electronic Signature): 10/07/2024 8:39 am Signed by: Trent Harris MD Transcribed by: TEJAL Technologist: URI Technical Comments Radiation Dose: Ka,r in mGy = 0 DAP = 0 Normal [facility] ED Clinical Summaryon 2023 ED Clinical Summary ED Clinical Summary [place] [id number] ED Clinical Summary Person Information Name: TARIK GONZALEZ Sadia/[facility] Age: 44 Years : 1980 Sex: Female Language: Citizen Of [place] PCP: Carina MOTLEY DO Marital Status: Single Visit Id: Visit Reason: Arm pain-swelling; Neck pain; TINGLING IN LEFT ARM Speciality: Acuity: 4 Enc Type: Emergency Med Service: Emergency Arrival: 08/19/2024 19:15:28 Discharge: 08/19/2024 20:20:43 LOS: 000 01:05 Checkin: 08/19/2024 19:15:28 Checkout: 08/19/2024 20:20:43 Dispo Type: Home (Routine DC) EVENTS: Event Name Event Status Request Date/Time Start Date/Time Complete Date/Time Arrive Complete 08/19/2024 19:15:28 08/19/2024 19:15:28 08/19/2024 19:15:28 Document Home Meds Request 08/19/2024 19:15:28 Triage Complete 08/19/2024 19:15:28 08/19/2024 19:23:34 08/19/2024 19:23:34 Registration Complete 08/19/2024 19:18:38 08/19/2024 19:18:38 08/19/2024 19:18:38 Reg Complete Request 08/19/2024 19:18:38 Reg Bed Request Complete 08/19/2024 19:18:38 08/19/2024 19:18:38 08/19/2024 19:18:38 Bed Assign Complete 08/19/2024 19:18:42 08/19/2024 19:18:42 08/19/2024 19:18:42 Dr Exam Complete 08/19/2024 19:18:42 08/19/2024 19:32:08 08/19/2024 19:32:08 RN Exam Request 08/19/2024 19:18:42 Registration Request 08/19/2024 19:32:08 Dr Exam Complete 08/19/2024 19:32:19 08/19/2024 19:32:19 08/19/2024 19:32:19 Discharge Complete 08/19/2024 20:13:16 08/19/2024 20:20:48 08/19/2024 20:20:48 Transfer Complete 08/19/2024 20:20:48 08/19/2024 20:20:48 08/19/2024 20:20:48 ADDRESS: [address] [place] [phone] PHYS DOC NOTES: MEDICAL INFORMATION: Prescriptions Given: New Medications [id number], [address] [place], [place] [phone], [phone] predniSONE (predniSONE 20 mg Tab) 2 Tablets By Mouth every day for 5 Days. Refills: 0. Medications to Continue Taking That Have Changed [id number], [address] [place], [place] [phone], [phone] START: cyclobenzaprine (cyclobenzaprine 10 mg Tab) 1 Tablets By Mouth 3 times a day as needed Muscle pain. Refills: 0. Other Medications START: cyclobenzaprine (cyclobenzaprine 10 mg Tab) 1 Tablets By Mouth 3 times a day as needed for spasm. Refills: 0. Medications to Continue with No Changes Other Medications albuterol (Proventil HFA 90 mcg/inh Aerosol) 2 Puffs Inhalation 4 times a day. Refills: 0. baclofen (baclofen 10 mg Tab) 0.5 Tablets By Mouth 3 times a day. Refills: 5. clonazepam (Klonopin 0.5 mg Tab) As Directed. epinephrine (EpiPen 2-Garry 0.3 mg injectable kit) [...] every day. alternate with 50 mcg. Refills: 4. Misc Prescription (LDN 1.5 mg) 1 cap [...] day. Refills: 0. PATIENT EDUCATION INFORMATION: Instructions: Cervical Radiculopathy Follow up: With: Address: When: Carina TOLU [address] [facility] [address], [facility] [place] [phone] Business (1) In 3 days DIAGNOSIS: Acute cervical radiculopathy Normal [facility] ED Note-Physicianon 08-19-20 ED Note-Physician ED Note-Physician Basic Information Time Seen: Jackie Chato 08/19/2024 19:32 Chief Complaint Pt states left neck pain and left arm pain for an hour. pt states she was turned in a weird way at work all day and now has intermittnet tingling down arm. feels like neck muscles are tight. denies vision, speech, unilateral weakness. History of Present Illness HPI: Patient is a 44-year-old female with a history of anxiety, Clay's, hypertension, hyperlipidemia, migraines who presents to the ED for numbness and tingling of her left arm. Patient states that she had been sitting on a couch with her head propped up on several pillows and in a different position that she was usually used to and since then has had worsening tingling like her left arm has fallen asleep. This goes from the base of her left neck down to her fingertips. She denies any weakness. She denies any other symptoms associated with this. ROS: Pertinent review of systems conducted and is negative except as noted above. Physical exam: General: nontoxic appearing and in no distress HEENT: Mucous membranes moist Neuro: awake and alert. Gross motor and sensation to bilateral upper extremities intact. Neck: supple, trachea midline. Slight fullness and tenderness in the left lower paraspinal cervical muscles. No midline tenderness. Card: Heart regular rate and rhythm no murmur. Radial pulses 2+ and equal bilaterally. Resp: Lungs clear to auscultation no wheeze or rhonchi Ext: Range of motion of the left upper extremity intact. No focal tenderness or deformity on palpation. Physical Exam Vitals & Measurements T: 36.6 ?C(Oral) HR: 100(Peripheral) RR: 16 BP: 119/78 SpO2: 99% HT: 166 cm WT: 92 kg BMI: 33.39 Medical Decision Making MEDICAL DECISION MAKING Number and Complexity of Problems Differential Diagnosis: [] [facility] Data External documents reviewed: N/A My EKG interpretation: Noted in chart if applicable My CT interpretation: N/A My X-ray interpretation: Noted in chart if applicable My Ultrasound interpretation: N/A Decision rules/scores evaluated: N/A Discussed with: N/A Treatment and Disposition ED Course: Is nontoxic-appearing no distress. She has no focal deficits on exam. Her symptoms are more consistent consistent with a cervical radiculopathy. I discussed the diagnosis with the patient at bedside. She is allergic to NSAIDs so we will put her on a short course of prednisone as well as muscle relaxers as needed. We discussed some stretching and she has a person who she sees for manipulation who she will call tomorrow to see if she can get in. Discussed the need for follow-up with her primary care physician as well. We discussed return precautions. Patient is understanding agreement with plan was discharged stable condition. Shared decision making: As above Code status: N/A Assessment/Plan Acute cervical radiculopathy (M54.12: Radiculopathy, cervical region) Orders: cyclobenzaprine, 10 mg = 1 tab(s), Oral, TID, PRN Muscle pain, # 14 tab(s), Refills(s) 0, Pharmacy: [id number], 166, cm, 08/19/24 19:23:00 EDT, Height/Length Dosing, 92, kg, 08/19/24 19:23:00 EDT, Weight Dosing predniSONE, 40 mg = 2 tab(s), Oral, Daily, X 5 day(s), # 10 tab(s), Refills(s) 0, Pharmacy: [id number], 166, cm, 08/19/24 19:23:00 EDT, Height/Length Dosing, 92, kg, 08/19/24 19:23:00 EDT, Weight Dosing Disposition Plan Discharge Prescription List Prescriptions cyclobenzaprine 10 mg Tab, 10 mg= 1 tab(s), Oral, TID, PRN predniSONE 20 mg Tab, 40 mg= 2 tab(s), Oral, Daily Follow-up With When Contact Information Carina MOTLEY In 3 days [address] [facility] [address] [facility] [place] [phone] Business (1) Additional Instructions: Patient Education Cervical Radiculopathy Problem List/Past Medical History Ongoing Attention deficit disorder (ADD) in adult BMI 34.0-34.9,adult Chronic idiopathic constipation Chronic venous insufficiency COVID-19 Dercum disease Dysuria Generalized anxiety disorder Geographic tongue Clay thyroiditis HTN - Hypertension Hypersensitivity disorder Irregular menses Mixed hyperlipidemia Obesity Occipital neuralgia of left side Rib pain on left side Subcutaneous mass of right thumb Historical Anxiety Depression Endometriosis Methylenetetrahydrofo late reductase deficiency Migraine Smoker Urethral stricture UTI (lower urinary tract infection) Procedure/Surgical History Colonoscopy and biopsy of colon (10/19/2020), Repair of umbilical hernia (10/14/2018), Cystoscopy with urethral dilation (01/02/2017), cystoscopy and ureteral dilation (01/06/2014), Ankle, Cholecystectomy, Dilation & curettage, History of nasal sinus surgery, Laparoscopy, Plantar fascia, Repair of umbilical hernia, Tonsillectomy, vocal cord nodules removed x3. Medications Inpatient No active inpatient medications Home baclofen 10 mg Tab, 5 mg= 0.5 tab(s), Oral, TID, 5 refil (more content not included)... Normal [facility] Comment on above: Result Comment: Elec tronically Signed By: Chato Mejia DO\.br\Date and Time Signed: 08/19/24 20:17 EDT ED Patient Summaryon 024 ED Patient Summary ED Patient Summary [place] [id number] Patient Discharge Instructions Person Information Name: TARIK GONZALEZ Age: 44 Years Arrival Date: 08/19/2024 19:15:28 Discharge Diagnosis: Acute cervical radiculopathy Primary Care Physician: Carina MOTLEY DO Provider Information Primary Provider: Chato Mejia DO [employer] Manager:None The exam and treatment you received in the Emergency Department were for an urgent problem and are not intended as complete care. It is important that you follow up with a doctor, nurse practitioner, or physician?s administrative assistant front desk for ongoing care. If your symptoms become worse or you do not improve as expected and you are unable to reach your usual health care provider, you should return to the Emergency Department. We are available 24 hours a day. JUAN FRANCISCOCARLA VELASQUEZCecil Sherman has been given the following list of patient education materials, prescriptions and follow-up instructions: Follow-up Instructions: With: Address: When: Carina MOTLEY [address] [facility], [facility] [place] [address] [phone] Business (1) In 3 days In the event that this physician does not participate in your insurance network, please consult with your insurance company to find a nearby participating provider. Patient Education Materials: Cervical Radiculopathy A MESSAGE TO ALL PATIENTS REGARDING OPIOIDS PRESCRIPTION OPIOIDS: WHAT YOU NEED TO KNOW Prescription opioids can be used to help relieve teswidjj-qf-chrqmp pain and are often prescribed following a [...] guidance from the Food and Drug Administration (www.fda.gov/Drugs/Re sourcesForYou). ? Visit www.cdc.gov/drugoverd ose to learn about the risks of opioids abuse and overdose. ? If you believe you may be struggling with addiction, tell your health insurance healthcare representative and ask for guidance or call [facility]?S [employer] Helpline at 3-923-809-FTTS. (more content not included)... Normal [facility] XR Wrist 3+ Views Lefton XR Wrist 3+ Views Left Exam Date/Time: 03/28/2024 22:19 EDT Reason for Exam: Pain, Non Traumatic Report IMPRESSION: NO DISPLACED FRACTURE OR SIGNIFICANT POSTTRAUMATIC COMPLICATION IDENTIFIED. EXAM: XR Wrist 3+ Views Left DATE: 03/28/2024 10:18 PM CLINICAL HISTORY: Medial wrist pain after hitting it on a car door. COMPARISON: None available. TECHNIQUE: PA, lateral, and oblique radiographs of the left wrist were obtained. FINDINGS: There is no fracture, dislocation, worrisome bone destruction, radiodense foreign bodies, or other posttraumatic complication identified. A small nonunited left ulnar sensory ossicle is noted. Ordering Provider: Chato Mejia FINAL REPORT Dictated: 03/29/2024 9:44 am Tuan Rios MD Signed (Electronic Signature): 03/29/2024 9:44 am Signed by: Tuan Rios MD Transcribed by: TEJAL Technologist: ALEJANDRO Technical Comments Radiation Dose: Ka,r in mGy = na DAP = na [facility] Consent for Treatmenton 03-10 Consent for Treatment [id number] .00TIFF [facility] Discharge Instructionson Discharge Instructions [id number] 1.00TIFF Normal [facility] ED Clinical Summaryon 2023 ED Clinical Summary [address] [address] ED Clinical Summary Person Information Name: TARIK GONZALEZ Sadia/[facility] Age: 43 Years : 1980 Sex: Female Language: Citizen Of [place] PCP: Carina MOTLEY DO Marital Status: Single Visit Id: Visit Reason: Arm pain-swelling; LEFT ARM PAIN Speciality: Acuity: 4 Enc Type: Emergency Med Service: Emergency Arrival: 03/28/2024 21:52:34 Discharge: 03/28/2024 22:28:58 LOS: 000 00:36 Checkin: 03/28/2024 21:52:34 Checkout: 03/28/2024 22:28:58 Dispo Type: Home (Routine DC) EVENTS: Event Name Event Status Request Date/Time Start Date/Time Complete Date/Time Arrive Complete 03/28/2024 21:52:34 03/28/2024 21:52:34 03/28/2024 21:52:34 Document Home Meds Request 03/28/2024 21:52:34 Triage Complete 03/28/2024 21:52:34 03/28/2024 22:05:00 03/28/2024 22:05:00 Registration Complete 03/28/2024 21:54:33 03/28/2024 21:54:33 03/28/2024 21:54:33 Reg Complete Request 03/28/2024 21:54:33 Reg Bed Request Complete 03/28/2024 21:54:33 03/28/2024 21:54:33 03/28/2024 21:54:33 X-Ray Complete 03/28/2024 22:05:41 03/28/2024 22:18:38 03/28/2024 22:19:06 Bed Assign Complete 03/28/2024 22:08:25 03/28/2024 22:08:25 03/28/2024 22:08:25 Dr Exam Complete 03/28/2024 22:08:25 03/28/2024 22:13:12 03/28/2024 22:13:12 RN Exam Complete 03/28/2024 22:08:25 03/28/2024 22:09:44 03/28/2024 22:09:44 Registration Request 03/28/2024 22:13:12 Dr Exam Complete 03/28/2024 22:13:29 03/28/2024 22:13:29 03/28/2024 22:13:29 Wet Read Request 03/28/2024 22:19:06 Discharge Complete 03/28/2024 22:19:42 03/28/2024 22:29:06 03/28/2024 22:29:06 Patient Care Request 03/28/2024 22:23:34 Transfer Complete 03/28/2024 22:29:06 03/28/2024 22:29:06 03/28/2024 22:29:06 ADDRESS: [address] [place] [address] [phone] PHYS DOC NOTES: MEDICAL INFORMATION: Prescriptions Given: [...] every day. alternate with 50 mcg. Refills: 4. Misc Prescription (LDN 1.5 mg) 1 cap [...] day. Refills: 0. PATIENT EDUCATION INFORMATION: Instructions: Contusion, Psie-lj-Clzy Follow up: With: Address: When: Carina MOTLEY DO [address] [facility] [place] [address] [phone] In 3 days 03/31/2024 DIAGNOSIS: 1:Contusion of left forearm, initial encounter Normal [facility] ED Note-Physicianon 03-28-20 ED Note-Physician Basic Information Time Seen: Ambar Boone PA-C 03/28/2024 22:13 Chief Complaint pt c\o L lower forearm pain after hitting it on car door tonight History of Present Illness 43-year-old female presents with left forearm pain after she was walking on the car and her daughter opened the door and she hit it on the door. It only hurts to move the area. Denies swelling, temperature or sensation changes. Review of Systems Review of systems negative unless otherwise stated in HPI Physical Exam Vitals & Measurements T: 36.1 ?C(Oral) HR: 77(Peripheral) RR: 18 BP: 109/72 SpO2: 100% HT: 166 cm WT: 92 kg BMI: 33.39 PHYSICAL EXAM: GENERAL: ALERT, NO ACUTE DISTRESS SKIN: WARM, DRY, INTACT; NO CYANOSIS, NO RASH, NO ECCHYMOSIS HEAD: NORMOCEPHALIC, ATRAUMATIC NECK: SUPPLE, TRACHEA MIDLINE, FROM RESPIRATORY: NON-LABORED RESPIRATIONS, SYMMETRICAL EXPANSION EXTREMITIES: Tender to left distal forearm excluding the wrist, NO CYANOSIS, NO EDEMA, FROM ALL EXTREMITIES X 4, PULSES INTACT, NORMAL STRENGTH, NO DEFORMITY, CAPILLARY REFILL INTACT NEUROLOGICAL: A&OX3, SENSORY INTACT PSYCHIATRIC: COOPERATIVE, APPROPRIATE MOOD AND AFFECT Medical Decision Making I offered Toradol and she states that she cannot have this with the MTFR gene. No acute findings on prelim x-ray will be diagnosed with a contusion follow-up family doctor. Patient is requesting an Gabriel wrap for the area. Neurovascular intact. Afebrile, not tachycardic, not tachypneic, nontoxic-appearing, tolerating p.o. and ambulating at baseline and hemodynamically stable to be discharged home. Patient is instructed to return for any new or worsening symptoms. Answered all questions. Patient in agreement with treatment. Assessment/Plan 1. Contusion of left forearm, initial encounter (S50.12XA: Contusion of left forearm, initial encounter) Orders: Gabriel Wrap Disposition Plan Patient Discharge Condition Stable Discharge Disposition Home Discharge Prescription List Prescriptions No active prescription medications Follow-up With When Contact Information Carina MOTLEY DO In 3 days 03/31/2024 EDT [address] [facility] [place] [address] [phone] Additional Instructions: Patient Education Contusion, Zrsg-gr-Owuc Attestation I performed a substantive part of the MDM during the patient?s E/M visit. I personally made or approved the documented management plan and acknowledge its risk of complications. (Independent Interpretation) My (EKG/X-Ray/US/CT) interpretation as above. (Discussion) Management/test interpretation discussed with APC. Problem List/Past Medical History Ongoing Attention deficit disorder (ADD) in adult BMI 34.0-34.9,adult Chronic idiopathic constipation Chronic venous insufficiency COVID-19 Dercum disease Dysuria Generalized anxiety disorder Geographic tongue Clay thyroiditis HTN - Hypertension Hypersensitivity disorder Irregular menses Mixed hyperlipidemia Obesity Occipital neuralgia of left side Rib pain on left side Subcutaneous mass of right thumb Historical Anxiety Depression Endometriosis Methylenetetrahydrofo late reductase deficiency Migraine Smoker Urethral stricture UTI (lower urinary tract infection) Procedure/Surgical History Colonoscopy and biopsy of colon (10/19/2020), Repair of umbilical hernia (10/14/2018), Cystoscopy with urethral dilation (01/02/2017), cystoscopy and ureteral dilation (01/06/2014), Ankle, Cholecystectomy, Dilation & curettage, History of nasal sinus surgery, Laparoscopy, Plantar fascia, Repair of umbilical hernia, Tonsillectomy, vocal cord nodules removed x3. Medications Inpatient No active inpatient medications Home baclofen 10 mg Tab, 5 mg= [...] Tab, 75 mcg= 1 tab(s), Oral, Daily, 4 refills Metamucil 525 mg oral capsule, 1050 [...] Metals (infection) Tylenol with Codeine #3 (Unknown) Social History Alcohol - Denies Alcohol Use, 09/25/2018 Substance Abuse - Denies Substance Abuse, 03 (more content not included)... Normal [facility] Comment on above: Result Comment: Elec tronically Signed By: Ambar Boone PA-C\.br\Date and Time Signed: 03/28/24 22:24 EDT\.br\Electronically Co-Signed By: Chato Mejia DO\.br\Date and Time Co-Signed: 03/28/24 22:59 EDT ED Patient Education Noteon 03-28-2024 ED Patient Education Note Orthopedics Contusion A contusion is a deep bruise. This is a result of an injury that causes bleeding under the skin. Symptoms of bruising include pain, swelling, and discolored skin. The skin may turn blue, purple, or yellow. Follow these instructions at home: Managing pain, stiffness, and swelling You may use RICE. This stands for: ? Resting. ? Icing. ? Compression, or putting pressure. ? Elevating, or raising the injured area. To follow this method, do these actions: ? Rest the injured area. ? If told, put ice on the injured area. ? Put ice in a plastic bag. ? Place a towel between your skin and the bag. ? Leave the ice on for 20 minutes, 2?3 times per day. ? If told, put light pressure (compression) on the injured area using an elastic bandage. Make sure the bandage is not too tight. If the area tingles or becomes numb, remove it and put it back on as told by your doctor. ? If possible, raise (elevate) the injured area above the level of your heart while you are sitting or lying down. General instructions ? Take fiqg-usz-qpsyuxw and prescription medicines only as told by your doctor. ? Keep all follow-up visits as told by your doctor. This is important. Contact a doctor if: ? Your symptoms do not get better after several days of treatment. ? Your symptoms get worse. ? You have trouble moving the injured area. Get help right away if: ? You have very bad pain. ? You have a loss of feeling (numbness) in a hand or foot. ? Your hand or foot turns pale or cold. Summary ? A contusion is a deep bruise. This is a result of an injury that causes bleeding under the skin. ? Symptoms of bruising include pain, swelling, and discolored skin. The skin may turn blue, purple, or yellow. ? This condition is treated with rest, ice, compression, and elevation. This is also called RICE. You may be given bhco-grl-vvwcoff medicines for pain. ? Contact a doctor if you do not feel better, or you feel worse. Get help right away if you have very bad pain, have lost feeling in a hand or foot, or the area turns pale or cold. This information is not intended to replace advice given to you by your health care provider. Make sure you discuss any questions you have with your health care provider. Document Revised: 08/22/2022 Document Reviewed: 08/22/2022 Elsevier Patient Education ? 2022 [email or web address] Normal [facility] ED Patient Summaryon 024 ED Patient Summary [place] [id number] Patient Discharge Instructions Person Information Name: TARIK GONZALEZ Age: 43 Years Arrival Date: 03/28/2024 21:52:34 Discharge Diagnosis: 1:Contusion of left forearm, initial encounter Primary Care Physician: Carina MOTLEY DO Provider Information Primary Provider: Chato Mejia DO [employer] Manager:None The exam and treatment you received in the Emergency Department were for an urgent problem and are not intended as complete care. It is important that you follow up with a doctor, nurse practitioner, or physician?s administrative assistant front desk for ongoing care. If your symptoms become worse or you do not improve as expected and you are unable to reach your usual health care provider, you should return to the Emergency Department. We are available 24 hours a day. TARIK GONZALEZ has been given the following list of patient education materials, prescriptions and follow-up instructions: Follow-up Instructions: With: Address: When: Carina MOTLEY DO [address] [facility] [address] [facility] [place] [address] [phone] In 3 days 03/31/2024 In the event that this physician does not participate in your insurance network, please consult with your insurance company to find a nearby participating provider. Patient Education Materials: Contusion, Kwmr-he-Shzl A MESSAGE TO ALL PATIENTS REGARDING OPIOIDS PRESCRIPTION OPIOIDS: WHAT YOU NEED TO KNOW Prescription opioids can be used to help relieve kbkaqehj-ei-pwrypc pain and are often prescribed following a [...] guidance from the Food and Drug Administration (www.fda.gov/Drugs/Re sourcesForYou). ? Visit www.cdc.gov/drugoverd ose to learn about the risks of opioids abuse and overdose. ? If you believe you may be struggling with addiction, tell your health insurance healthcare representative and ask for guidance or call [facility]?S National Helpline at 2-186-740-RZAQ. (more content not included)... Normal [facility] CHEMISTRYOrdered By: SYSTEM SYSTEM on 03-07-2024 Troponin pg/mL Low 10.10 - 27.10 pg/mL Remisol Chem Comment on above: Interpretive Data: T he 95% CI (Confidence Interval) PPV (Positive Predictive Value) for myocardial infarction in females is 38 pg/mL, in males 51 pg/mL. The results should be used in conjunction with clinical conditions of myocardial infarction. (Access High Sensitivity Troponin I Instructions For Use, [employer] June 2018) Discharge Instructionson Discharge Instructions [id number] .00TIFF Normal [facility] ED Clinical Summaryon 2023 ED Clinical Summary [place] [id number] ED Clinical Summary Person Information Name: TARIK GONZALEZ Sadia/[facility] Age: 43 Years : 1980 Sex: Female Language: Citizen Of [place] PCP: Carina MOTLEY DO Marital Status: Single Visit Id: Visit Reason: Chest pain; CP Speciality: Acuity: 2 Enc Type: Emergency Med Service: Emergency Arrival: 03/06/2024 21:47:06 Discharge: 03/07/2024 02:24:47 LOS: 000 04:37 Checkin: 03/06/2024 21:47:06 Checkout: 03/07/2024 02:24:47 Dispo Type: Home (Routine DC) EVENTS: Event Name Event Status Request Date/Time Start Date/Time Complete Date/Time Arrive Complete 03/06/2024 21:47:06 03/06/2024 21:47:06 03/06/2024 21:47:06 Document Home Meds Request 03/06/2024 21:47:06 Triage Complete 03/06/2024 21:47:06 03/06/2024 21:54:41 03/06/2024 21:54:41 Bed Assign Complete 03/06/2024 21:47:06 03/06/2024 21:47:06 03/06/2024 21:47:06 Dr Exam Complete 03/06/2024 21:47:06 03/06/2024 22:08:13 03/06/2024 22:08:13 RN Exam Complete 03/06/2024 21:47:06 03/06/2024 22:15:06 03/06/2024 22:15:06 EKG Complete 03/06/2024 21:53:07 03/06/2024 21:54:33 EKG Cancel 03/06/2024 21:53:38 03/06/2024 22:22:13 Registration Complete 03/06/2024 22:08:13 03/06/2024 22:13:20 03/06/2024 22:13:20 Reg Complete Request 03/06/2024 22:13:20 Reg Bed Request Complete 03/06/2024 22:13:20 03/06/2024 22:13:20 03/06/2024 22:13:20 Pending Labs Request 03/06/2024 22:22:46 Lab Complete 03/06/2024 22:22:46 03/06/2024 23:13:03 Patient Care Request 03/06/2024 22:22:46 RT Request 03/06/2024 22:22:46 X-Ray Complete 03/06/2024 22:22:46 03/06/2024 22:40:10 03/06/2024 22:40:28 Pending Labs Complete 03/06/2024 22:34:14 03/06/2024 22:34:14 03/06/2024 23:13:03 Lab Complete 03/06/2024 22:34:14 03/06/2024 22:34:14 03/06/2024 23:13:03 Wet Read Request 03/06/2024 22:40:28 Discharge Complete 03/07/2024 02:13:58 03/07/2024 02:24:55 03/07/2024 02:24:55 Transfer Complete 03/07/2024 02:24:55 03/07/2024 02:24:55 03/07/2024 02:24:55 ADDRESS: [address] [place] [address] [phone] PHYS DOC NOTES: MEDICAL INFORMATION: Prescriptions Given: [...] every day. alternate with 50 mcg. Refills: 4. Misc Prescription (LDN 1.5 mg) 1 cap [...] day. Refills: 0. PATIENT EDUCATION INFORMATION: Instructions: Nonspecific Chest Pain, Adult Follow up: With: Address: When: Carina MOTLEY [address] [facility] [address], [facility] [place] [address] [phone] Business (1) In 3 days 03/10/2024 Comments: Return to the emergency room if your chest pain recurs or any new symptoms DIAGNOSIS: 1:Chest pain Normal [facility] ED Note-Physicianon 03-07-20 ED Note-Physician Basic Information Time Seen: Christine GarciaTonie 03/06/2024 22:08 Chief Complaint Sudden sharp chest pain accompanied by Left hand tingling, jaw and neck warmth, cotton mouth History of Present Illness The patient is a 43-year-old female past medical history of hypertension, MTHFR gene mutation, who presented to the emergency room via EMS for chest pain. The patient states she was playing cards with her family when she started developing tightness on her chest. The patient states that her pain lasted for 2 seconds then it went away. After that she started developing some tingling on the left hand and her hands got clammy. The patient states that 10 minutes after that patient felt warm over her entire body. The patient states she has been having this tightness on and off. She denies any nausea denies any vomiting. The patient states at that time initially her mild dry. The patient states EMS gave her 4 baby aspirin. The patient states 2 days ago she was short of breath however she attributes that to lifting her daughter. The patient states she has been under a lot of stress lately. She denies smoking. Denies any family history of coronary artery disease. The patient denies any other associated symptoms. Review of Systems Additional ROS info: Except as noted in the above Review of Systems and in the History of Present Illness all other systems have been reviewed and are negative or noncontributory. Physical Exam Vitals & Measurements HR: 93(Monitored) RR: 12 BP: 93/57 SpO2: 98% HT: 165.10 cm WT: 92 kg BMI: 33.75 General: alert, no acute distress Skin: warm, dry, Head: no trauma, normocephalic Neck: Trachea midline, Eye: normal conjunctiva, sclera clear, ENMT: Oral mucosa moist, Cardiovascular: regular rate and rhythm, Respiratory: Lungs CTA, respirations non labored, breath sounds equal, Gastrointestinal: soft, non distended, no tenderness, no guarding, Extremities: no deformity, no trauma Neurological: Alert and oriented, speech normal, no focal neuro deficits, Psychiatric: cooperative, affect anxious, Procedure Heart Score for Major Cardiac Event [...] and Complexity of Problems Differential Diagnosis: [] [facility] Data External documents reviewed: [] My EKG interpretation: [] My CT interpretation: [] My X-ray interpretation: [] My Ultrasound interpretation: [] Decision rules/scores evaluated: [] Discussed with: [] Treatment and Disposition ED Course: The patient presented with chest pain. Less likely her pain is of cardiac origin. EKG shows no acute ischemic changes. Heart score is 1. Less likely PE. The patient is not hypoxic. Her chest pain has resolved. Possible anxiety. The patient states she has been under a lot of stress. 3 troponins are negative. Chest x-ray shows no acute cardiopulmonary disease. Will discharge patient home follow-up with her primary care. She is instructed to return to the emergency room if her chest pain recurs or any new symptoms. Shared decision making: [] Code status: [] Assessment/Plan 1. Chest pain (R07.9: Chest pain, unspecified) Orders: Basic Metabolic Panel CBC w/ Auto Diff ED Cardiac Monitoring eGFR Hepatic Function Panel Magnesium Level Oxygen Saturation Oxygen Therapy PT & PTT Saline Lock Insert Troponin 0 Hr. Troponin 1 Hr. Troponin 3 Hr. Troponin 6 Hr. XR Chest Single View Disposition Plan Patient Discharge Condition Stable Discharge Disposition Discharge home Discharge Prescription List Prescriptions No active prescription medications Follow-up With When Contact Information Carina MOTLEY In 3 days 03/10/[address] [facility] [place] (more content not included)... Normal [facility] Comment on above: Result Comment: Elec tronically Signed By: Christine Garcia, Tonie Barksdale\.br\Date and Time Signed: 03/07/24 06:01 EDT ED Patient Education Noteon 03-07-2024 ED Patient Education Note Pulmonary Medicine Nonspecific Chest Pain, Adult Chest pain is an uncomfortable, tight, or painful feeling in the chest. The pain can feel like a crushing, aching, or squeezing pressure. A person can feel a burning or tingling sensation. Chest pain can also be felt in your back, neck, jaw, shoulder, or arm. This pain can be worse when you move, sneeze, or take a deep breath. Chest pain can be caused by a condition that is life-threatening. This must be treated right away. It can also be caused by something that is not life-threatening. If you have chest pain, it can be hard to know the difference, so it is important to get help right away to make sure that you do not have a serious condition. Some life-threatening causes of chest pain include: ? Heart attack. ? A tear in the body's main blood vessel (aortic dissection). ? Inflammation around your heart (pericarditis). ? A problem in the lungs, such as a blood clot (pulmonary embolism) or a collapsed lung (pneumothorax). Some non life-threatening causes of chest pain include: ? Heartburn. ? Anxiety or stress. ? Damage to the bones, muscles, and cartilage that make up your chest wall. ? Pneumonia or bronchitis. ? Shingles infection (varicella-zoster virus). Your chest pain may come and go. It may also be constant. Your health care provider will do tests and other studies to find the cause of your pain. Treatment will depend on the cause of your chest pain. Follow these instructions at home: Medicines ? Take icpn-bpv-xttpjzp and prescription medicines only as told by your health care provider. ? If you were prescribed an antibiotic medicine, take it as told by your health care provider. Do not stop taking the antibiotic even if you start to feel better. Activity ? Avoid any activities that cause chest pain. ? Do not lift anything that is heavier than 10 lb (4.5 kg), or the limit that you are told, until your health care provider says that it is safe. ? Rest as directed by your health care provider. ? Return to your normal activities only as told by your health care provider. Ask your health care provider what activities are safe for you. Lifestyle ? Do not use any products that contain nicotine or tobacco, such as cigarettes, e-cigarettes, and chewing tobacco. If you need help quitting, ask your health care provider. ? Do not drink alcohol. ? Make healthy lifestyle changes as recommended. These may include: ? Getting regular exercise. Ask your health care provider to suggest some exercises that are safe for you. ? Eating a heart-healthy diet. This includes plenty of fresh fruits and vegetables, whole grains, low-fat (lean) protein, and low-fat dairy products. A dietitian can help you find healthy eating options. ? Maintaining a healthy weight. ? Managing any other health conditions you may have, such as high blood pressure (hypertension) or diabetes. ? Reducing stress, such as with yoga or relaxation techniques. General instructions ? Pay attention to any changes in your symptoms. ? It is up to you to get the results of any tests that were done. Ask your health care provider, or the department that is doing the tests, when your results will be ready. ? Keep all follow-up visits as told by your health care provider. This is important. ? You may be asked to go for further testing if your chest pain does not go away. Contact a health care provider if: ? Your chest pain does not go away. ? You feel depressed. ? You have a fever. ? You notice changes in your symptoms or develop new symptoms. Get help right away if: ? Your chest pain gets worse. ? You have a cough that gets worse, or you cough up blood. ? You have severe pain in your abdomen. ? You faint. ? You have sudden, unexplained chest discomfort. ? You have sudden, unexplained discomfort in your arms, back, neck, or jaw. ? You have shortness of breath at any time. ? You suddenly start to sweat, or your skin gets clammy. ? You feel nausea or you vomit. ? You suddenly feel lightheaded or dizzy. ? You have severe weakness, or unexplained weakness or fatigue. ? Your heart begins to beat quickly, or it feels like it is skipping beats. These symptoms may represent a serious problem that is an emergency. Do not wait to see if the symptoms will go away. Get medical help right away. Call your local emergency services (911 in the [place] Do not drive yourself to the hospital. Summary ? Chest pain can be caused by a condition that is serious and requires urgent treatment. It may also be caused by something that is not life-threatening. ? Your health care provider may do lab tests and other studies to find the cause of your pain. ? Follow your health care provider's instructions on taking medicines, making lifestyle changes, and getting emergency treatment if symptoms become worse. ? Keep all follow-up visits as told by your (more content not included)... Normal [facility] ED Patient Summaryon 024 ED Patient Summary [place] [address] Patient Discharge Instructions Person Information Name: TARIK GONZALEZ Age: 43 Years Arrival Date: 03/06/2024 21:47:06 Discharge Diagnosis: 1:Chest pain Primary Care Physician: Carina MOTLEY DO Provider Information Primary Provider: Tonie King M.D. [employer] Manager:None The exam and treatment you received in the Emergency Department were for an urgent problem and are not intended as complete care. It is important that you follow up with a doctor, nurse practitioner, or physician?s administrative assistant front desk for ongoing care. If your symptoms become worse or you do not improve as expected and you are unable to reach your usual health care provider, you should return to the Emergency Department. We are available 24 hours a day. TARIK GONZALEZ has been given the following list of patient education materials, prescriptions and follow-up instructions: Follow-up Instructions: With: Address: When: Carina MOTLEY [address] [facility] [address] [phone] Business (1) In 3 days 03/10/2024 Comments: Return to the emergency room if your chest pain recurs or any new symptoms In the event that this physician does not participate in your insurance network, please consult with your insurance company to find a nearby participating provider. Patient Education Materials: Nonspecific Chest Pain, Adult A MESSAGE TO ALL PATIENTS REGARDING OPIOIDS PRESCRIPTION OPIOIDS: WHAT YOU NEED TO KNOW Prescription opioids can be used to help relieve wldietgw-dy-mtdiok pain and are often prescribed following a [...] guidance from the Food and Drug Administration (www.fda.gov/Drugs/Re sourcesForYou). ? Visit www.cdc.gov/drugoverd ose to learn about the risks of opioids abuse and overdose. ? If you believe you may be struggling with addiction, tell your health insurance healthcare representative and as (more content not included)... Normal [facility] EMS Documentationon 03-07-20 EMS Documentation Please click on link to see report Normal [facility] Comment on above: Result Comment: Miss ing Attachment - attachment exceeds size limitation [email or web address] Can be viewed in source system Monitor Recordon 03-07-2024 Monitor Record [id number] 1.00TIFF Normal [facility] Troponin 1 Hr.on 03-07-2024 Troponin I.cardiac [Mass/Vol] ng/mL Low 10.10-27.10 [facility] Comment on above: Result Comment: The 95% CI (Confidence Interval) PPV (Positive Predictive Value) for myocardial infarction in females is 38 pg/mL, in males 51 pg/mL. The results should be used in conjunction with clinical conditions of myocardial infarction. (Access High Sensitivity Troponin I Instructions For Use, [employer] June 2018) Performed By: #### 1 [id number] ####[facility] [address] [place] [address] Troponin 3 Hr.on 03-07-2024 Troponin I.cardiac [Mass/Vol] ng/mL Low 10.10-27.10 [facility] Comment on above: Result Comment: The 95% CI (Confidence Interval) PPV (Positive Predictive Value) for myocardial infarction in females is 38 pg/mL, in males 51 pg/mL. The results should be used in conjunction with clinical conditions of myocardial infarction. (Access High Sensitivity Troponin I Instructions For Use, [employer] June 2018) Performed By: #### 1 [id number] #### [facility] Laboratory [address] [place] [address] XR Chest Single Viewon 03-07 XR Chest Single View Exam Date/Time: 03/06/2024 22:40 EDT Reason for Exam: Chest pain Report IMPRESSION: No acute findings by portable radiography. EXAMINATION: XR Chest Single View Clinical History: Chest pain Comparison: 07/06/2023. RESULT: No consolidation. No pleural effusion. No pneumothorax. Normal cardiomediastinal silhouette. No acute osseous findings. Ordering Provider: Tonie King FINAL REPORT Dictated: 03/07/2024 10:28 am Rene Jose MD Signed (Electronic Signature): 03/07/2024 10:28 am Signed by: Rene Jose MD Transcribed by: TEJAL Technologist: ALEJANDRO Technical Comments Radiation Dose: Ka,r in mGy = na DAP = na Normal [facility] BMPon 03-06-2024 Anion gap [Moles/Vol] 13 mmol/L Normal 6-16 [facility] Comment on above: Performed By: #### 2 299849, 74303710, 92561806, 6983567, 81051540, 9063011, 0898688 ####[facility] [address] [place] [address] Calcium [Mass/Vol] 8.8 mg/dL Low 8.9-11.1 [facility] Comment on above: Performed By: #### 2 721144, 85902239, 24493927, 2351787, 14576938, 1696648, 9118339 ####[facility] [address] [place] [address] Chloride [Moles/Vol] 104 mmol/L Normal 101-111 [facility] Comment on above: Performed By: #### 2 426801, 99507258, 74703764, 9525768, 72189889, 4379968, 6528121 ####[facility] [address] [place] [address] CO2 [Moles/Vol] 25 mmol/L Normal 21-31 [facility] Comment on above: Performed By: #### 2 964408, 03460970, 01976359, 2463388, 09661539, 8449312, 7727118 ####[facility] [address] [place] [address] Creatinine [Mass/Vol] 0.9 mg/dL Normal 0.5-1.3 [facility] Comment on above: Performed By: #### 2 197471, 32530394, 37053459, 1281043, 97938193, 5938249, 1891230 ####[facility] [address] [place] [address] Glucose [Mass/Vol] 119 mg/dL Normal 55-199 [facility] Comment on above: Performed By: #### 2 477370, 44020255, 11890109, 3046072, 68349372, 7055648, 8226108 ####[facility] [address] [place] [address] Potassium [Moles/Vol] 3.5 mmol/L Normal 3.5-5.3 [facility] Comment on above: Performed By: #### 2 313649, 32626297, 84727635, 9531245, 00311371, 3110433, 1361153 ####[facility] [address] [place] [address] Sodium [Moles/Vol] 138 mmol/L Normal 135-145 [facility] Comment on above: Performed By: #### 2 523379, 58802999, 06897706, 0761691, 35780100, 8499976, 9025158 ####[facility] [address] [place] [address] Urea nitrogen [Mass/Vol] 15 mg/dL Normal 5-21 [facility] Comment on above: Performed By: #### 2 303950, 83392196, 99686673, 2347891, 44368319, 5502415, 9654481 ####[facility] [address] [place] [address] Urea nitrogen/Creatinine [Mass ratio] 17 No Units Normal 10-20 [facility] Comment on above: Performed By: #### 2 114906, 99544628, 67319754, 3457155, 58095308, 5662225, 0685303 ####[facility] [address] [place] [address] CBC w/ Auto Diffon 4 Basophils/100 WBC (Bld) 0.7 % Normal 0.0-2.0 [facility] Comment on above: Performed By: #### 2 787969, 93830193, 53633352, 6291650, 70664196, 6501678, 9812493 ####[place] [address] [place] [address] Basophils/Leukocytes Auto (Bld) [Pure # fraction] 0.1 E9/L Normal 0.0-0.2 [facility] Comment on above: Performed By: #### 2 694844, 23651539, 52875145, 2555410, 29186946, 7308290, 8807574 ####[place] [address] [place] [address] Eosinophils (Bld) [#/Vol] 0.1 E9/L Normal 0.0-0.5 [facility] Comment on above: Performed By: #### 2 520372, 01870989, 86911821, 3564790, 55982780, 7805608, 7274647 ####[address] [address] Eosinophils/100 WBC (Bld) 1.1 % Normal 0.0-8.0 [facility] Comment on above: Performed By: #### 2 711260, 79808707, 78234047, 8263012, 73582662, 6726865, 1291046 ####[address] [address] Erythrocyte distribution width (RBC) [Ratio] 13.6 % Normal 10.9-14.2 [facility] Comment on above: Performed By: #### 2 729041, 22757963, 48889867, 4173113, 11418637, 6970037, 8844071 ####[place] [address] [place] [address] Hematocrit (Bld) [Volume fraction] 38.9 % Normal 34.0-46.0 [facility] Comment on above: Performed By: #### 2 145260, 15241281, 74124729, 4411312, 93443229, 0498788, 3079934 ####[address] [address] Hemoglobin (Bld) [Mass/Vol] 12.9 g/dL Normal 12.0-16.0 [facility] Comment on above: Performed By: #### 2 484943, 73214922, 38073392, 0172565, 39738330, 3067337, 2411531 ####[facility] [address] [place] [address] Lymphocytes (Bld) [#/Vol] 1.8 E9/L Normal 1.0-4.0 [facility] Comment on above: Performed By: #### 2 980710, 93039079, 42483187, 9424816, 43514624, 2331417, 7023521 ####[place] [address] [place] [address] Lymphocytes/100 WBC (Bld) 18.6 % Normal 14.0-50.0 [facility] Comment on above: Performed By: #### 2 689900, 07772290, 78879330, 2741665, 29198971, 6324634, 0111242 ####[facility] [address] [place] [address] MCH (RBC) [Entitic mass] 28.9 pg Normal 27.0-34.0 [facility] Comment on above: Performed By: #### 2 536968, 72262784, 59141095, 0550774, 95854331, 3401734, 7325402 ####[place] [address] [place] [address] MCHC (RBC) [Mass/Vol] 33.1 g/dL Normal 31.4-36.0 [facility] Comment on above: Performed By: #### 2 210836, 38652754, 52095224, 2654714, 29725145, 7181609, 5698010 ####[facility] [address] [place] [address] MCV (RBC) [Entitic vol] 87.3 fL Normal 80.0-100.0 [facility] Comment on above: Performed By: #### 2 300400, 16333018, 03293551, 3870671, 70742886, 7309937, 1946151 ####[facility] [address] [place] [address] Monocytes (Bld) [#/Vol] 0.6 E9/L Normal 0.2-1.0 [facility] Comment on above: Performed By: #### 2 485471, 81989979, 08500416, 3817750, 33209224, 9942644, 7605096 ####[facility] [address] [place] [address] Neutrophils (Bld) [#/Vol] 7.1 E9/L Normal 2.0-7.5 [facility] Comment on above: Performed By: #### 2 740667, 25977567, 56375789, 7681353, 44883709, 4771050, 0323316 ####[address] [address] Neutrophils/100 WBC (Bld) 73.0 % Normal 36.0-75.0 [facility] Comment on above: Performed By: #### 2 152431, 85607434, 78039556, 9870961, 74755570, 4896030, 4085235 ####[place] [address] [place] [address] Platelet mean volume (Bld) [Entitic vol] 8.5 fL Normal 6.4-10.8 [facility] Comment on above: Performed By: #### 2 881115, 47610195, 77127764, 0890213, 54570785, 6335210, 2310683 ####[place] [address] [place] [address] Platelets (Bld) [#/Vol] 280.0 E9/L Normal 150.0-500.0 [facility] Comment on above: Performed By: #### 2 828567, 82313014, 03984249, 3530362, 05153245, 1200716, 2528467 ####[facility] [address] [place] [address] RBC (Bld) [#/Vol] 4.5 E12/L Normal 4.3-5.9 [facility] Comment on above: Performed By: #### 2 946607, 58743832, 09693145, 9384878, 54803141, 3935408, 4688652 ####[facility] [address] [place] [address] WBC corrected for nucl RBC Auto (Bld) [#/Vol] 9.7 E9/L Normal 4.0-11.0 [facility] Comment on above: Performed By: #### 2 266909, 10647151, 47787764, 4037174, 93908078, 5107359, 6381310 ####[facility] [address] [place] [address] CHEMISTRYOrdered By: SYSTEM SYSTEM on 03-06-2024 Troponin pg/mL Low 10.10 - 27.10 pg/mL [facility] Comment on above: Interpretive Data: T he 95% CI (Confidence Interval) PPV (Positive Predictive Value) for myocardial infarction in females is 38 pg/mL, in males 51 pg/mL. The results should be used in conjunction with clinical conditions of myocardial infarction. (Access High Sensitivity Troponin I Instructions For Use, [employer], June 2018) Albumin [Mass/Vol] 4.0 g/dL Normal 3.3 - 5.0 gm/dL [facility] Albumin/Globulin [Mass ratio] 1.6 {ratio} Normal 1.1 - 2.2 [facility] ALP [Catalytic activity/Vol] 36 [iU]/d Normal 21 - 98 Int._Unit/L [facility] ALT No additional P-5'-P [Catalytic activity/Vol] 10 [iU]/d Normal 6 - 46 Int._Unit/L [facility] Anion gap [Moles/Vol] 13 mmol/L Normal 6 - 16 mEq/L R emisol Chem AST [Catalytic activity/Vol] 10 [iU]/d Normal 5 - 43 Int._Unit/L [facility] Bilirubin [Mass/Vol] 0.2 mg/dL Normal 0.0 - 1 .1 mg/dL [facility] Bilirubin.direct [Mass/Vol] 0.1 mg/dL Normal 0.0 - 0.4 mg/dL [facility] Bilirubin.indirect [Mass or moles/Vol] 0.1 mg/dL Normal 0.1 - 0.9 mg/dL [facility] Calcium [Mass/Vol] 8.8 mg/dL Low 8.9 - 11. 1 mg/dL [facility] Chloride [Moles/Vol] 104 mmol/L Normal 101 - 1 11 mmol/L [facility] CO2 [Moles/Vol] 25 mmol/L Normal 21 - 31 mmol/L [facility] Creatinine [Mass/Vol] 0.9 mg/dL Normal 0.5 - 1.3 mg/dL [facility] eGFR 81 mL/min/1.73 m2 Normal >=59mL/min /1 .73 m2 [facility] Globulin (S) [Mass/Vol] 2.5 g/dL Normal 1.4 - 4.0 gm/dL [facility] Glucose [Mass/Vol] 119 mg/dL Normal 55 - 199 mg/dL [facility] Magnesium [Mass/Vol] 1.7 mg/dL Normal 1.3 - 2 .4 mg/dL [facility] Potassium [Moles/Vol] 3.5 mmol/L Normal 3.5 - 5.3 mmol/L [facility] Protein [Mass/Vol] 6.5 g/dL Normal 6.0 - 7.8 gm/dL [facility] Sodium [Moles/Vol] 138 mmol/L Normal 135 - 145 mmol/L [facility] Troponin pg/mL Low 10.10 - 27.10 pg/mL [facility] Comment on above: Interpretive Data: T he 95% CI (Confidence Interval) PPV (Positive Predictive Value) for myocardial infarction in females is 38 pg/mL, in males 51 pg/mL. The results should be used in conjunction with clinical conditions of myocardial infarction. (Access High Sensitivity Troponin I Instructions For Use, [employer], June 2018) Urea nitrogen [Mass/Vol] 15 mg/dL Normal 5 - 21 mg/dL [facility] Urea nitrogen/Creatinine [Mass ratio] 17 mg/mg Normal 10 - 20 [facility] COAGULATIONOrdered By: Nando Lechuga on 03-06-2024 aPTT Coag (PPP) [Time] 30.6 s Normal 25.1 - 36.5 second(s) [facility] Auto Coag Comment on above: Interpretive Data: Kanika tremayne 15 days - 4 weeks 1 - 5 months 6 - 11 months 1 - 5 years 6 - 10 years 11 - 17 years PTT Mean: 35.4 (27.6-45.6) Mean: 33.5 (24.8-40.7) Mean: 32.4 (25.1-40.7) Mean: 31.6 (24.0-39.2) Mean: 31.6 (26.9-38.7) Mean: 31.0 (24.6-38.4) Pediatric Reference ranges were obtained from a study by john Olvera prepared from 1437 samples obtained at 7 different centers using the same coagulation reagent and instrumentation as [facility]. Currently there are no coagulation studies available worldwide for children to 14 days, and no normal ranges. Heparin therapeutic range (represented by Anti-Factor Xa activity of 0.2 - 0.4 U/mL) corresponds to PTT of 56.6 - 109.0 sec. INR Coag (PPP) [Relative time] 0.89 {INR} Invalid Interpretation Code [facility] Auto Coag Comment on above: Interpretive Data: I NR results are specifically intended to assess patients stabilized on long-term Anticoagulation therapy suggested INR s Less Intensive Anticoagulation 2.0 3.0 Conventional Range 3.0 4.5 PT Coag (PPP) [Time] 10.0 s Normal 9.4 - 1 2.5 second(s) [facility] Auto Coag Comment on above: Interpretive Data: 1 5 days - 4 weeks 1 - 5 months 6 -11 months 1-5 years 6-10 years 11 -17 years Mean: 11.2 (9.5-12.6) Mean: 11.0 (9.7-12.8) Mean: 11.0 (9.8-13.0) Mean: 11.3 (9.9-13.4) Mean: 11.7 (10.0-14.6) Mean: 11.8 (10.0 - 14.1) Pediatric Reference ranges were obtained from a study by john Olvera prepared from 1437 samples obtained at 7 different centers using the same coagulation reagent and instrumentation as [facility]. Currently there are no coagulation studies available worldwide for children to 14 days, and no normal ranges. Consent for Treatmenton 02-09 Consent for Treatment [id number] .00TIFF Normal [facility] HEMATOLOGYOrdered By: SYSTEM SYSTEM on 03-06-2024 Basophils/100 WBC (Bld) 0.7 % Normal 0.0 - 2.0 % [facility] Basophils/Leukocytes Auto (Bld) [Pure # fraction] 0.1 E9/L Normal 0.0 - 0.2 E9/L [facility] Eosinophils (Bld) [#/Vol] 0.1 E9/L Normal 0.0 - 0.5 E9/L [facility] Eosinophils/100 WBC (Bld) 1.1 % Normal 0.0 - 8.0 % [facility] Erythrocyte distribution width (RBC) [Ratio] 13.6 % Normal 10.9 - 14.2 % [facility] Hematocrit (Bld) [Volume fraction] 38.9 % Normal 34.0 - 46.0 % [facility] Hemoglobin (Bld) [Mass/Vol] 12.9 g/dL Normal 12.0 - 16.0 gm/dL [facility] Lymphocytes (Bld) [#/Vol] 1.8 E9/L Normal 1.0 - 4.0 E9/L [facility] Lymphocytes/100 WBC (Bld) 18.6 % Normal 14.0 - 50.0 % [facility] MCH (RBC) [Entitic mass] 28.9 pg Normal 27.0 - 34.0 pg [facility] MCHC (RBC) [Mass/Vol] 33.1 g/dL Normal 31.4 - 36.0 gm/dL [facility] MCV (RBC) [Entitic vol] 87.3 fL Normal 80.0 - 100.0 fL [facility] Monocytes (Bld) [#/Vol] 0.6 E9/L Normal 0.2 - 1.0 E9/L [facility] Monocytes/100 WBC (Bld) 6.6 % Normal 4.0 - 14.0 % [facility] Neutrophils (Bld) [#/Vol] 7.1 E9/L Normal 2.0 - 7.5 E9/L [facility] Neutrophils/100 WBC (Bld) 73.0 % Normal 36.0 - 75.0 % [facility] Platelet mean volume (Bld) [Entitic vol] 8.5 fL Normal 6.4 - 10.8 fL [facility] Platelets (Bld) [#/Vol] 280.0 E9/L Normal 150.0 - 500.0 E9/L [facility] RBC (Bld) [#/Vol] 4.5 E12/L Normal 4.3 - 5.9 E12/L [facility] WBC corrected for nucl RBC Auto (Bld) [#/Vol] 9.7 E9/L Normal 4.0 - 11.0 E9/L [facility] Hep Func Panelon 03-06-2024 Albumin [Mass/Vol] 4.0 g/dL Normal 3.3-5.0 [facility] Comment on above: Performed By: #### 2 147098, 21732254, 25921866, 3415859, 42848183, 6766388, 6295542 ####[facility] [address] [place] [address] Albumin/Globulin (S) [Mass conc ratio] 1.6 Normal 1.1-2.2 [facility] Comment on above: Performed By: #### 2 493010, 00116344, 62011198, 4069244, 68569131, 5044335, 4578778 ####[facility] [address] [place] [address] ALP [Catalytic activity/Vol] 36 Int._Unit/L Normal 21-98 [facility] Comment on above: Performed By: #### 2 949311, 06106803, 34564327, 3162995, 69908826, 4202655, 5378364 ####[facility] [address] [place] [address] ALT No additional P-5'-P [Catalytic activity/Vol] 10 Int._Unit/L Normal 6-46 [facility] Comment on above: Performed By: #### 2 042990, 62351612, 43625281, 0208845, 34969215, 1446619, 8282053 ####[facility] [address] [place] [address] AST [Catalytic activity/Vol] 10 Int._Unit/L Normal 5-43 [facility] Comment on above: Performed By: #### 2 707337, 74230429, 91811845, 0087347, 50399602, 3947112, 1462673 ####[facility] [address] [place] [address] Bilirubin [Mass/Vol] 0.2 mg/dL Normal 0.0-1.1 [facility] Comment on above: Performed By: #### 2 977721, 61989442, 51950975, 5525595, 19315091, 5044250, 5579288 ####[place] [address] [place] [id number] Bilirubin.direct [Mass/Vol] 0.1 mg/dL Normal 0.0-0.4 [facility] Comment on above: Performed By: #### 2 898267, 11241282, 64587976, 0427993, 30060745, 8978786, 2609631 ####[place] [address] Bilirubin.indirect [Mass or moles/Vol] 0.1 mg/dL Normal 0.1-0.9 [facility] Comment on above: Performed By: #### 2 184911, 12946913, 97931185, 9069163, 21392998, 2683390, 9340517 ####[facility] [address] [place] [address] Globulin (S) [Mass/Vol] 2.5 g/dL Normal 1.4-4.0 [facility] Comment on above: Performed By: #### 2 280189, 95129742, 75549324, 5327714, 82538890, 0577577, 2402545 ####[place] [address] [place] [address] Protein [Mass/Vol] 6.5 g/dL Normal 6.0-7.8 [facility] Comment on above: Performed By: #### 2 593610, 72707708, 66454042, 2812886, 83642177, 0395360, 7331452 ####[facility] [address] [place] [address] Magnesiumon 03-06-2024 Magnesium [Mass/Vol] 1.7 mg/dL Normal 1.3-2.4 [facility] Comment on above: Performed By: #### 2 002458, 89794211, 06188763, 7950317, 70720274, 6255156, 5405207 ####[facility] [address] [place] [address] Monitor Recordon 03-06-2024 Monitor Record [id number]# 1.00TIFF Normal [facility] PT & PTTon 03-06-2024 aPTT Coag (PPP) [Time] 30.6 second(s) Normal 25.1-36.5 [facility] Comment on above: Result Comment: Para meter [...] the same coagulation reagent and instrumentation as [facility]. Currently there are no coagulation studies available worldwide for children to 14 days, and no normal ranges. Heparin therapeutic range (represented by Anti-Factor Xa activity of 0.2 - 0.4 U/mL) corresponds to PTT of 56.6 - 109.0 sec. Performed By: #### 2 489319, 32008358, 27975136, 3930327, 60813158, 9289077, 7056903 ####[facility] [address] [place] [address] INR Coag (PPP) [Relative time] 0.89 {INR} Invalid Interpretation Code [facility] Comment on above: Result Comment: INR results are specifically intended to assess patients stabilized on long-term Anticoagulation therapy suggested INR?s ?Less Intensive Anticoagulation? 2.0 ? 3.0 Conventional Range 3.0 ? 4.5 Performed By: #### 2 636678, 13782374, 63526374, 1664692, 22749430, 9467644, 7950606 ####[facility] [address] [place] [address] PT Coag (PPP) [Time] 10.0 second(s) Normal 9.4-12.5 [facility] Comment on above: Result Comment: 15 d [...] the same coagulation reagent and instrumentation as [facility]. Currently there are no coagulation studies available worldwide for children to 14 days, and no normal ranges. Performed By: #### 2 394637, 75683149, 50930229, 1289727, 65337633, 8193410, 8315583 ####[facility] [address] [place] [address] Pre-Arrival Noteon Pre-Arrival Note Pre-Arrival Summary Name: [facility], Current Date: 03/06/2024 21:47:31 EDT Gender: Date of : Age: Pre-Arrival Type: EMS ETA: 03/06/2024 22:03:00 EDT Primary Care Physician: Presenting Problem: CP Pre-Arrival User: Delphine Castaneda RN Referring Source: Location: PA Completion Date/Time: 03/06/2024 21:33:00 [facility] Emergency Department Pre-Hospital Report Form Vital Signs: Pre-Hospital Report: Treatment in Route: Response to Treatment: Misc. Issues: Normal [facility] Troponin 0 Hr.on 03-06-2024 Troponin I.cardiac [Mass/Vol] ng/mL Low 10.10-27.10 [facility] Comment on above: Result Comment: The 95% CI (Confidence Interval) PPV (Positive Predictive Value) for myocardial infarction in females is 38 pg/mL, in males 51 pg/mL. The results should be used in conjunction with clinical conditions of myocardial infarction. (Access High Sensitivity Troponin I Instructions For Use, Rachel Dupont, June 2018) Performed By: #### 2 972047, 17846552, 59851352, 2290971, 95256550, 7911924, 2274018 ####[facility] [address] [place] [address] eGFRon 03-06-2024 eGFR 81 mL/min/1.73 m2 Normal >=59 [facility] Comment on above: Order Comment: Order added by Discern Expert. Performed By: #### 2 814062, 80489187, 42763680, 6937502, 85626084, 7201873, 6241469 ####[facility] [address] [place] [address] Progesterone Quanton 024 Progesterone, hplc-ms/ms 1.10 ng/mL Normal [facility] Comment on above: Result Comment: Fema les, 17 years and older Cycle Days Reference Interval (ng/mL) 1 - 6 ............... Less than or equal to 0.17 7 - 12 .............. Less than or equal to 1.35 13 - 15 .............. Less than or equal to 15.63 16 - 28 .............. Less than or equal to 25.55 Post-Menopausal ...... Less than or equal to 0.10 Reference Intervals (ng/mL): 1st Trimester ...... 6.25 - 45.46 2nd Trimester ..... 15.40 - 52.10 3rd Trimester ..... 24.99 - 99.92 REFERENCE INTERVAL: Progesterone Quantitative by HPLC-MS/MS, Serum or Plasma Access complete set of age- and/or gender-specific reference intervals for this test in the [employer] ([employer]). This test was developed and its performance characteristics determined by [facility]. It has not been cleared or approved by the US Food and Drug Administration. This test was performed in a CLIA certified laboratory and is intended for clinical purposes. Performed By: [facility] [address] [place] [address] [employer] Representatives: Usman Cunningham MD, PhD CLIA Number: [id number] Ferritinon 02-11-2024 Ferritin [Mass/Vol] 28 ng/mL Normal 13-150 [facility] Comment on above: Result Comment: FERRITIN Reference Ranges: Adult Males 20 - 60 years: 30 - 400 ng/mL Adult females 17 - 60 years: 13 - 150 ng/mL Adults greater than 60 years: no established reference range Pediatrics: no established reference range Performed at [facility], [address] [place], [place] [id number] . Iron Binding Capon 4 % Fe Saturation 24 % Normal 20-55 [facility] Iron [Mass/Vol] 73 ug/dL Normal 37-145 [facility] Total Fe Binding Cap 304 ug/dL Normal 250-450 [facility] [place] Un[place] Fe Bind Cap 231 ug/dL Normal 112-347 [facility] Comment on above: Result Comment: Perf ormed at [facility], [address] [place] [address] . T3, Freeon 02-11-2024 Free T3 [Mass/Vol] 2.50 pg/mL Normal 2.00-4.40 [facility] Comment on above: Result Comment: Perf ormed at [facility], [address] [place] [address] . Testosterone, Free and Total on 02-11-2024 Sex Hormone Binding Globulin 30 nmol/L Normal 25-122 [facility] Testosterone [Mass/Vol] 22 ng/dL Normal 8-48 [facility] Testosterone, Free 4.2 pg/mL Normal 1.1-5.8 [facility] Comment on above: Result Comment: Post -menopausal range: 0.6-3.8 The concentration of free testosterone is derived from a mathematical expression based on the constant for the binding of testosterone to albumin and/or sex hormone binding globulin. Performed at [facility], [address] [place] [address] . Vitamin D 25 OHon 02-11-2024 Vitamin D 25 OH 18.8 ng/mL Low 30.0-100.0 [facility] Comment on above: Result Comment: Reference Range: Vitamin D status Range Deficiency <20 ng/mL Mild Deficiency 20-30 ng/mL Sufficiency 30-100 ng/mL Toxicity >100 ng/mL Performed at [facility], [address] [place] [address] . TSH w/out Reflexon TSH w/out Reflex 0.764 uIU/mL Normal 0.440-3.86 [facility] Comment on above: Performed By: #### T SH #### [facility] [address] [place] [address] Thyroxine Freeon 02-10-2024 Thyroxine Free 1.23 ng/dL Normal 0.84-1.68 [facility] Comment on above: Performed By: #### F RT4 #### [facility] [address] [place] [address] T3 Freeon 12-15-2023 Free T3 [Mass/Vol] 2.7 pg/mL Invalid Interpretation Code 2.0-4.4 [facility] Comment on above: Result Comment: Perf ormed at: [facility] [address] [place], [place] [id number] PhD Everett Tuttle Performed By: #### 2 527748, 6154109, 44701265, 2542663, 3311149 ####[facility] [address] [place] [address] Testosterone F&Ton Testosterone [Mass/Vol] 20 ng/dL Invalid Interpretation Code 4-50 [facility] Comment on above: Performed By: #### 2 924489, 7242242, 31367962, 5477013, 0087897 ####[place] [address] [place] [address] Testosterone Free [Mass/Vol] 1.7 pg/mL Invalid Interpretation Code 0.0-4.2 [facility] Comment on above: Result Comment: Perf ormed at: [facility] [address] [place], [place] [id number] PhD Everett Tuttle Performed at: [address] [id number] MD Gaurav Walden Performed By: #### 2 818261, 6595937, 84526209, 7232473, 4857541 ####[place] [address] [place] [address] Consent for Treatmenton 11-11 Consent for Treatment [id number] .00TIFF Normal [facility] Free T4on 12-04-2023 Free T4 [Mass/Vol] 0.87 ng/dL Normal 0.58-1.64 [facility] Comment on above: Performed By: #### 2 129160, 8500348, 13992153, 2568652, 8950940 ####[place] [address] [place] [address] Physician Orderon 12-04-2023 Physician Order [id number]#1 .00TIFF Normal [facility] Physician Order [id number]#1. 00TIFF Normal [facility] Progesteroneon 12-04-2023 Progesterone Lvl 10.87 ng/mL Invalid Interpretation Code [facility] Comment on above: Result Comment: 'F N ON FOLLICULAR = 0.10 - 0.60' 'LUTEAL = 3.00 - 17.5' 'MIDLUTEAL = 3.30 - 18.6' 'POST-MENOPAUSE = 0.10 - 0.40' '-FIRST TRIMESTER = 8.30 - 66.5' 'SECOND TRIMESTER = 18.9 - 66.1' 'THIRD TRIMESTER = 35.8 - 312.4' 'MALES = 0.14 - 2.06' Performed By: #### 2 897448, 4098030, 15294735, 3867259, 4227766 ####[facility] [address] [place] [address] TSHon 12-04-2023 TSH Qn 3.54 m[IU]/L Normal 0.34-5.60 [facility] Comment on above: Performed By: #### 2 782618, 3404773, 82921588, 0241350, 7152335 ####[facility] [address] [place] [address] Auto Diffon 11-17-2023 Basophils/100 WBC (Bld) 0.8 % Normal 0.0-2.0 [facility] Comment on above: Order Comment: Order Added by Discern Expert. Performed By: #### 2 6329796, 4390479, 31532124, 3136824, 4418906, 3402720, 65981024, 0062424 #### [facility] Laboratory [address] [place] [address] Basophils/Leukocytes Auto (Bld) [Pure # fraction] 0.1 E9/L Normal 0.0-0.2 [facility] Comment on above: Order Comment: Order Added by Discern Expert. Performed By: #### 2 2700963, 2656212, 98496817, 7727342, 4560963, 8182055, 96733470, 7759347 #### [facility] Laboratory [address] [place] [address] Eosinophils/100 WBC (Bld) 1.8 % Normal 0.0-8.0 [facility] Comment on above: Order Comment: Order Added by Discern Expert. Performed By: #### 2 2195826, 5738881, 70004767, 1483668, 2583162, 4205707, 43259287, 8214684 #### [facility] Laboratory [address] [place] [address] Eosinophils/Leukocytes Auto (Bld) [Pure # fraction] 0.1 E9/L Normal 0.0-0.5 [facility] Comment on above: Order Comment: Order Added by Discern Expert. Performed By: #### 2 7222156, 0009090, 15483824, 2284838, 7971888, 3643690, 27120951, 2035164 #### [facility] Laboratory [address] [place] [address] Lymphocytes/100 WBC (Bld) 29.6 % Normal 14.0-50.0 [facility] Comment on above: Order Comment: Order Added by Discern Expert. Performed By: #### 2 5202238, 0766538, 17875658, 6251712, 7741594, 4348304, 07651198, 3209969 #### [facility] Laboratory [address] [place] [address] Lymphocytes/Leukocytes Auto (Bld) [Pure # fraction] 2.3 E9/L Normal 1.0-4.0 [facility] Comment on above: Order Comment: Order Added by Discern Expert. Performed By: #### 2 7293783, 6693133, 31411936, 2598304, 6811781, 7826623, 34830769, 8979789 #### [facility] Laboratory [address] [place] [address] Monocytes/100 WBC (Bld) 7.1 % Normal 4.0-14.0 [facility] Comment on above: Order Comment: Order Added by Discern Expert. Performed By: #### 2 6782870, 6873891, 56778980, 3215993, 0862714, 7523846, 45420391, 1199462 #### [facility] Laboratory [address] [place] [address] Monocytes/Leukocytes Auto (Bld) [Pure # fraction] 0.5 E9/L Normal 0.2-1.0 [facility] Comment on above: Order Comment: Order Added by Discern Expert. Performed By: #### 2 8984839, 4279013, 22663079, 0534805, 4069780, 0111072, 59418117, 2050279 #### [facility] Laboratory [address] [place] [address] Neutrophils/100 WBC (Bld) 60.7 % Normal 36.0-75.0 [facility] Comment on above: Order Comment: Order Added by Discern Expert. Performed By: #### 2 6414934, 1900369, 70142519, 4790643, 6145504, 2971168, 19137042, 4353658 #### [facility] Laboratory [address] [place] [address] Neutrophils/Leukocytes Auto (Bld) [Pure # fraction] 4.7 E9/L Normal 2.0-7.5 [facility] Comment on above: Order Comment: Order Added by Discern Expert. Performed By: #### 2 5256268, 9111581, 78559711, 0313556, 0395506, 1203579, 12539726, 2410317 #### [facility] Laboratory [address] [place] [address] B hCG Qualon 11-17-2023 Beta HCG ( test) Ql Negative Normal [facility] Comment on above: Performed By: #### 2 4191954, 1240722, 45730715, 8116331, 9606193, 1024517, 13440409, 1503595 ####[facility] [address] [place] [address] BMPon 11-17-2023 Anion gap [Moles/Vol] 11 mmol/L Normal 6-16 [facility] Comment on above: Performed By: #### 2 6907961, 9483690, 14888577, 8100939, 5762852, 7844408, 33330155, 9865275 ####[facility] [address] [place] [address] BUN/Creat Ratio 15 No Units Normal 10-20 [facility] Comment on above: Performed By: #### 2 0978005, 9991583, 86377971, 2671814, 3447153, 0838661, 10346888, 8983299 ####[facility] [address] [place] [address] Calcium [Mass/Vol] 9.0 mg/dL Normal 8.9-11.1 [facility] Comment on above: Performed By: #### 2 8938619, 4666037, 17839189, 8762328, 2089587, 9245741, 14213415, 9312678 ####[facility] [address] [place] [address] Chloride [Moles/Vol] 103 mmol/L Normal 101-111 [facility] Comment on above: Performed By: #### 2 5432594, 5547982, 47367959, 7404895, 6297344, 9106033, 37460587, 6016679 ####[facility] [address] [place] [address] CO2 [Moles/Vol] 29 mmol/L Normal 21-31 [facility] Comment on above: Performed By: #### 2 0614378, 9361885, 18592647, 4876869, 9317676, 6387859, 08977673, 6053027 ####[facility] [address] [place] [address] Creatinine [Mass/Vol] 0.8 mg/dL Normal 0.5-1.3 [facility] Comment on above: Performed By: #### 2 7830152, 5592663, 40491017, 2004973, 1017104, 9250727, 22062155, 2200490 ####[facility] [address] [place] [address] Glucose [Mass/Vol] 88 mg/dL Normal 55-199 [facility] Comment on above: Performed By: #### 2 6847839, 2072247, 17533651, 2617966, 7830740, 2464316, 48569904, 6000273 ####[facility] [address] [place] [address] Potassium [Moles/Vol] 3.7 mmol/L Normal 3.5-5.3 [facility] Comment on above: Performed By: #### 2 9354247, 6885608, 87755972, 1627937, 5165809, 6249464, 46804214, 2079987 ####[facility] [address] [place] [address] Sodium [Moles/Vol] 139 mmol/L Normal 135-145 [facility] Comment on above: Performed By: #### 2 5683097, 2164169, 87558805, 1729551, 6161533, 7401760, 41016197, 9790827 ####[facility] [address] [place] [address] Urea nitrogen [Mass/Vol] 12 mg/dL Normal 5-21 [facility] Comment on above: Performed By: #### 2 8256961, 2453093, 11127598, 6095693, 9500352, 6909659, 12027694, 9875206 ####[facility] [address] [place] [address] CBC w/ Auto Diffon 4 Erythrocyte distribution width (RBC) [Ratio] 13.9 % Normal 10.9-14.2 [facility] Comment on above: Performed By: #### 2 8539415, 9720932, 45544389, 4413359, 9115096, 5589448, 26257840, 3358785 #### [facility] Laboratory [address] [place] [address] Hematocrit (Bld) [Volume fraction] 41.8 % Normal 34.0-46.0 [facility] Comment on above: Performed By: #### 2 3249705, 3300098, 89592543, 1055022, 1974418, 5201060, 97746419, 4692013 #### [facility] Laboratory [address] [place] [address] Hemoglobin (Bld) [Mass/Vol] 13.7 g/dL Normal 12.0-16.0 [facility] Comment on above: Performed By: #### 2 3935380, 2349514, 65306017, 0409023, 7489174, 1766066, 56857091, 5902692 #### [facility] Laboratory [address] [place], [place] [address] MCH (RBC) [Entitic mass] 28.3 pg Normal 27.0-34.0 [facility] Comment on above: Performed By: #### 2 9569958, 2363143, 60285353, 9660524, 8756047, 8738040, 85067188, 0878762 #### [facility] Laboratory [address] [place] [address] MCHC (RBC) [Mass/Vol] 32.9 g/dL Normal 31.4-36.0 [facility] Comment on above: Performed By: #### 2 3284209, 7147633, 98712812, 4167108, 3621043, 9760688, 23534877, 3937101 #### [facility] Laboratory [address] [place] [address] MCV (RBC) [Entitic vol] 85.9 fL Normal 80.0-100.0 [facility] Comment on above: Performed By: #### 2 4048929, 1529969, 53039306, 6267203, 8362088, 5835782, 18094065, 5853790 #### [facility] Laboratory [address] [place] [address] Platelet mean volume (Bld) [Entitic vol] 8.7 fL Normal 6.4-10.8 [facility] Comment on above: Performed By: #### 2 0609677, 9230756, 84990982, 2676665, 2842909, 8764247, 74775511, 5037384 #### [facility] Laboratory [address] [place] [address] Platelets (Bld) [#/Vol] 312.0 E9/L Normal 150.0-500.0 [facility] Comment on above: Performed By: #### 2 2240993, 3565266, 62041760, 8907518, 2043460, 7171336, 81096640, 3846949 #### [facility] Laboratory [address] [place] [address] RBC (Bld) [#/Vol] 4.9 E12/L Normal 4.3-5.9 [facility] Comment on above: Performed By: #### 2 2311711, 5267760, 72769015, 3166256, 3484912, 5530020, 75743903, 4706205 #### [facility] Laboratory [address] [place] [address] WBC corrected for nucl RBC Auto (Bld) [#/Vol] 7.7 E9/L Normal 4.0-11.0 [facility] Comment on above: Performed By: #### 2 8002665, 1618370, 45320868, 9325918, 4575586, 7542751, 15045107, 2609491 #### [facility] Laboratory [address] [place] [address] Consent for Treatmenton Consent for Treatment [id number] .00TIFF Normal [facility] Discharge Instructionson Discharge Instructions [id number] 1.00TIFF Normal [facility] ED Clinical Summaryon 2023 ED Clinical Summary [address] [address] ED Clinical Summary Person Information Name: TARIK GONZALEZ [facility] Age: 43 Years : 1980 Sex: Female Language: Citizen Of [place] PCP: NONE, XXXX Marital Status: Single Visit [...] 11/17/2023 18:45:11 11/17/2023 18:45:11 11/17/2023 18:45:11 ADDRESS: [address] [place] [id number] PHYS DOC NOTES: MEDICAL INFORMATION: Prescriptions Given: New Medications [id number], [address], [place] [id number], [phone] medroxyPROGESTERone (Provera 10 mg Tab) 1 Tablets [...] INFORMATION: Instructions: Follow up: With: Address: When: [facility] [facility], [address] [place] [address] [place] [address] [facility] (1) In 3 days 11/20/2023 With: Address: When: XXXX [facility] [place] In 3 days DIAGNOSIS: DUB (dysfunctional uterine bleeding) Normal [facility] ED Note-Physicianon 11-17-19 ED Note-Physician Basic Information [...] day(s), # 10 tab(s), Refills(s) 0, [id number], 164, cm, 11/17/23 17:02:00 EST, Height/Length [...] Dony NIELSEN In 3 days 11/20/[address] , [place] [address] Business (1) Additional Instructions: XXXX NONE In 3 days [place] Additional Instructions: Problem List/Past Medical History Ongoing [...] Inhalation, BID (more content not included)... Normal [facility] Comment on above: Result Comment: Elec tronically Signed By: Reggie Camara DO\.br\Date and Time Signed: 11/17/23 18:32 EST ED Patient Education Noteon 11-17-2023 ED Patient Education Note Normal [facility] ED Patient Summaryon 024 ED Patient Summary [address] [address] Patient Discharge Instructions Person Information Name: TARIK GONZALEZ Age: 43 Years Arrival Date: 11/17/2023 16:49:38 Discharge Diagnosis: DUB (dysfunctional uterine bleeding) Primary Care Physician: NONE, XXXX Provider Information Primary Provider: Reggie Camara DO [employer] Manager:Donn The exam and treatment you received in the Emergency Department were for an urgent problem and are not intended as complete care. It is important that you follow up with a doctor, nurse practitioner, or physician?s administrative assistant front desk for ongoing care. If your symptoms become worse or you do not improve as expected and you are unable to reach your usual health care provider, you should return to the Emergency Department. We are available 24 hours a day. CARLOSCARLACecil Sherman has been given the following list of patient education materials, prescriptions and follow-up instructions: Follow-up Instructions: With: Address: [facility]: [facility] [address] [place] [address] [place] [address] Business (1) In 3 days 11/20/2023 With: Address: When: XXXX NONE , [place] In 3 days In the event that this physician does not participate in your insurance network, please consult with your insurance company to find a nearby participating provider. Patient Education Materials: A MESSAGE TO ALL PATIENTS REGARDING OPIOIDS PRESCRIPTION OPIOIDS: WHAT YOU NEED TO KNOW Prescription opioids can be used to help relieve ozfxbhau-cw-carpxf pain and are often prescribed following a [...] guidance from the Food and Drug Administration (www.fda.gov/Drugs/Re sourcesForYou). ? Visit www.cdc.gov/drugoverd ose to learn about the risks of opioids abuse and overdose. ? If you believe you may be struggling with addiction, tell your health insurance healthcare representative and ask for guidance or call [facility] (more content not included)... Normal [facility] Hep Func Panelon 11-17-2023 Albumin [Mass/Vol] 4.2 g/dL Normal 3.3-5.0 [facility] Comment on above: Performed By: #### 2 [id number], 6655474, 61627045, 7602201, 4903202, 0012288, 49941173, 0999338 ####[facility] [address] [place] [address] Albumin/Globulin [Mass ratio] 1.7 {ratio} Normal 1.1-2.2 [facility] Comment on above: Performed By: #### 2 [id number], 8376945, 21012980, 2639340, 9853586, 0750951, 51492077, 6215904 ####[facility] [address] [place] [address] Alk Phos 37 Int._Unit/L Normal 21-98 [facility] Comment on above: Performed By: #### 2 2851087, 8009370, 17770380, 0554029, 5335183, 3741061, 05286180, 4303244 ####[facility] [address] [place] [address] ALT 10 Int._Unit/L Normal 6-46 [facility] Comment on above: Performed By: #### 2 9953721, 6070389, 80888347, 7029292, 1091711, 3975819, 46816574, 6771511 ####[place] [address] [place] [address] AST 10 Int._Unit/L Normal 5-43 [facility] Comment on above: Performed By: #### 2 7826185, 3767825, 08823050, 2717964, 5791576, 6711194, 53332470, 1658580 ####[facility] [address] [place] [address] Bili Direct 0.1 mg/dL Normal 0.0-0.4 [facility] Comment on above: Performed By: #### 2 0666542, 4721839, 68919199, 9191314, 7698996, 7218230, 41620858, 7035130 ####[place] [address] Bili Indirect 0.1 mg/dL Normal 0.1-0.9 [facility] Comment on above: Performed By: #### 2 4348645, 6282273, 84448389, 4079001, 9152641, 7212530, 64306434, 6485382 ####[address] [address] Bili Total 0.2 mg/dL Normal 0.0-1.1 [facility] Comment on above: Performed By: #### 2 3840808, 3952796, 55921035, 2450698, 2323460, 7608086, 84880811, 1243349 ####[place] [address] [place] [address] Globulin (S) [Mass/Vol] 2.5 g/dL Normal 1.4-4.0 [facility] Comment on above: Performed By: #### 2 5344914, 2893443, 14838313, 7395877, 0677150, 0921758, 07817504, 7819604 ####[address] [address] Protein [Mass/Vol] 6.7 g/dL Normal 6.0-7.8 [facility] Comment on above: Performed By: #### 2 8653904, 2010084, 52077987, 8759500, 1512170, 1869906, 57749111, 0508348 ####[facility] [address] [place] [address] Lipase Levelon 11-17-2023 Lipase Lvl 15 unit/L Normal 13-58 [facility] Comment on above: Performed By: #### 2 6481803, 2062175, 00182747, 1463138, 4336913, 4377683, 99512543, 3909983 ####[facility] [address] [place] [address] TSH With T4fr Reflexon 11-17 TSH Qn 3.76 m[IU]/L Normal 0.34-5.60 [facility] Comment on above: Performed By: #### 2 0572770, 9685715, 83224202, 1555732, 5950425, 2707450, 65770640, 2897168 ####[facility] [address] [place] [address] UA With Cult Reflexon 2023 Bacteria LM Ql (Urine sed) TRACE Normal Trace [facility] Comment on above: Performed By: #### 1 0195861 #### [facility] Laboratory [address] [place] [address] Bilirubin Ql (U) Negative Normal Negative [facility] Comment on above: Performed By: #### 1 5530575 #### [facility] [address] [place] [address] Clarity (U) CLEAR Normal Clear [facility] Comment on above: Performed By: #### 1 7397303 #### [facility] [address] [place] [address] Color (U) YELLOW Normal Yellow [facility] Comment on above: Performed By: #### 1 8716561 #### [facility] [address] [place] [address] Crystals LM Ql (Urine sed) Present Normal [facility] Comment on above: Performed By: #### 1 4355543 #### [facility] [address] [place] [address] Epithelial cells.squamous LM.HPF (Urine sed) [#/Area] 0-2 Normal 0-2 [facility] Comment on above: Performed By: #### 1 3126235 #### [facility] [address] [place] [address] Glucose Test strip (U) [Mass/Vol] Negative Normal Negative [facility] Comment on above: Performed By: #### 1 2655595 #### [facility] [address] [place] [address] Hemoglobin Ql (U) 3+ Abnormal Negative [facility] Comment on above: Performed By: #### 1 8599471 #### [facility] [address] [place] [address] Ketones (U) [Mass/Vol] Negative Normal Negative [facility] Comment on above: Performed By: #### 1 8974833 #### [facility] [address] [place] [address] [place].plasma/[place] .RBC (Bld) [Mass ratio] 4-20 Normal 0-3 [facility] Comment on above: Performed By: #### 1 6399335 #### [facility] [address] [place] [address] Nitrite Ql (U) Negative Normal Negative [facility] Comment on above: Performed By: #### 1 7443344 #### [facility] [address] [place] [address] pH (U) 7.0 [pH] Invalid Interpretation Code 5.0-9.0 [facility] Comment on above: Performed By: #### 1 [id number] #### [facility] [address] [place] [address] Protein (U) [Mass/Vol] Negative Normal Negative [facility] Comment on above: Performed By: #### 1 8065250 #### [facility] [address] [place] [address] Specific gravity (U) [Rel density] 1.015 Invalid Interpretation Code 1.005-1.030 [facility] Comment on above: Performed By: #### 1 5664645 #### [facility] [address] [place] [address] Type of Urine collection method Clean Catch Normal [facility] Comment on above: Performed By: #### 1 7841562 #### [facility] [address] [place] [address] Urobilinogen Qn (U) 0.2 {Gena'U}/dL Normal 0.0-1.0 [facility] Comment on above: Performed By: #### 1 8466720 #### [facility] [address] [place] [address] WBC Auto Ql (U) Negative Normal Negative [facility] Comment on above: Performed By: #### 1 2403097 #### [facility] [address] [place] [address] WBC LM.HPF (Urine sed) [#/Area] 0-5 Normal 0-5 [facility] Comment on above: Performed By: #### 1 5950775 #### [facility] [address] [place] [address] eGFRon 11-17-2023 GFR/1.73 sq M.predicted among non-blacks MDRD (S/P/Bld) [Vol rate/Area] mL/min/{1.73_m2} Normal >=59 [facility] Comment on above: Order Comment: Order added by Discern Expert. Performed By: #### 2 7050440, 1279188, 54491733, 5508965, 9303324, 6389546, 81016119, 0948653 ####[facility] [address] [place] [address] Estrogens, Fractionated by T MSon 08-15-2023 Estradiol by TMS 42.5 pg/mL Normal [facility] Comment on above: Result Comment: REFE RENCE INTERVAL: Estradiol by Plc Technician For a complete set of all established reference intervals, refer to SplitSecnd/Tests/Pub/[id number]. This test was developed and its performance characteristics determined by [facility]. It has not been cleared or approved by the [place] Food and Drug Administration. This test was performed in a CLIA certified laboratory and is intended for clinical purposes. Estrogens Total Calculation 102.8 pg/mL Normal [facility] Comment on above: Result Comment: Refe rence interval of estrogens (pg/mL) Estrone Estradiol Total Estrogens Early follicular <150.0 30.0-100.0 30.0-250.0 Late follicular 100.0-250.0 100.0-400.0 200.0-650.0 Luteal <200.0 50.0-150.0 50.0-350.0 Post-menopausal 3.0-32.0 2.0-21.0 5.0-52.0 REFERENCE INTERVAL: Estrogens Total Calculation For a complete set of all established reference intervals, refer to SplitSecnd/Tests/Pub/[id number]. Performed By: [facility] [address] [place] [address] [employer] Representatives: Usman Cunningham MD, PhD CLIA Number: [id number] Estrone by TMS 60.3 pg/mL Normal [facility] Comment on above: Result Comment: INTE RPRETIVE INFORMATION: Estrone by Plc Technician For a complete set of all established reference intervals, refer to SplitSecnd/Tests/Pub/[id number]. This test was developed and its performance characteristics determined by [facility]. It has not been cleared or approved by the [place] Food and Drug Administration. This test was performed in a CLIA certified laboratory and is intended for clinical purposes. Lipoprotein (a)on 08-14-2023 Lipoprotein a [Mass/Vol] mg/dL Normal <=29 [facility] Comment on above: Result Comment: Perf ormed By: [facility] [address] [place] [address] [employer] Representatives: Usman Cunningham MD, PhD CLIA Number: [id number] CHEMISTRYOrdered By: SYSTEM SYSTEM on 07-17-2023 Anion gap [Moles/Vol] 11 mmol/L Normal 6 - 16 mEq/L F [facility] Calcium [Mass/Vol] 8.4 mg/dL Low 8.9 - 11. 1 mg/dL [facility] Chloride [Moles/Vol] 105 mmol/L Normal 101 - 1 11 mmol/L [facility] Cholesterol [Mass/Vol] 250 mg/dL High 120 - 200 mg/dL [facility] Cholesterol in HDL [Mass/Vol] 58 mg/dL Invalid Interpretation Code [facility] Cholesterol in LDL [Mass/Vol] 172 mg/dL High <=129mg/dL [facility] Cholesterol in VLDL [Mass/Vol] 31 mg/dL Normal 7 - 40 mg/dL [facility] CO2 [Moles/Vol] 25 mmol/L Normal 21 - 31 mmol/L [facility] Creatinine [Mass/Vol] 1.0 mg/dL Normal 0.5 - 1.3 mg/dL [facility] GFR/1.73 sq M.predicted among non-blacks MDRD (S/P/Bld) [Vol rate/Area] 72 mL/min/1.73 m2 Normal >=59mL/min/1 .73 m2 [facility] Chem S Glucose [Mass/Vol] 99 mg/dL Normal 55 - 199 mg/dL [facility] Potassium [Moles/Vol] 3.9 mmol/L Normal 3.5 [...] [facility] HEMATOLOGYOrdered By: SYSTEM SYSTEM on 07-17-2023 Basophils/100 [...] 14.0 % Normal 10.9 - 14.2 % [facility] Hematocrit (Bld) [Volume fraction] 41.4 % Normal 34.0 - 46.0 % [facility] Hemoglobin (Bld) [Mass/Vol] 13.9 g/dL Normal 12.0 - 16.0 gm/dL [facility] MCH (RBC) [Entitic mass] 28.5 pg Normal 27.0 - 34.0 pg [facility] MCHC (RBC) [Mass/Vol] 33.6 g/dL Normal 31.4 - 36.0 gm/dL [facility] MCV (RBC) [Entitic vol] 84.8 fL Normal 80.0 - 100.0 fL [facility] Platelet mean volume (Bld) [Entitic vol] 8.6 fL Normal 6.4 - 10.8 fL [facility] Platelets (Bld) [#/Vol] 292.0 E9/L Normal 150.0 - 500.0 E9/L [facility] RBC (Bld) [#/Vol] 4.9 E12/L Normal 4.3 - 5.9 E12/L [facility] WBC corrected for nucl RBC Auto (Bld) [#/Vol] 6.0 E9/L Normal 4.0 - 11.0 E9/L FT [facility] CHEMISTRYOrdered By: SYSTEM SYSTEM on 07-06-2023 Albumin [...] 82 mL/min/1.73 m2 Normal >=59mL/min/1 .73 m2 [facility] Chem S Globulin (S) [Mass/Vol] 3.0 g/dL [...] Auto Coag HEMATOLOGYOrdered By: SYSTEM SYSTEM on 07-06-2023 Basophils/100 [...] Normal 4.0 - 11.0 E9/L [facility] CHEMISTRYOrdered By: SYSTEM SYSTEM on 06-30-2023 Albumin [...] 82 mL/min/1.73 m2 Normal >=59mL/min/1 .73 m2 FT Chem S Globulin (S) [Mass/Vol] 3.0 g/dL [...] - 27.10 pg/mL [facility] TSH Qn 1.63 m[IU]/L Normal 0.34 - 5.60 mcIU/mL [facility] Urea nitrogen [Mass/Vol] 13 mg/dL Normal 5 - 21 mg/dL [facility] Urea nitrogen/Creatinine [Mass ratio] 14 mg/mg Normal 10 - 20 [facility] CHEMISTRYOrdered By: Ayna Cisse on 06-30-2023 Natriuretic peptide B (Bld) [Mass/Vol] 31 pg/mL Normal 5 - 80 pg/mL [facility]eManSS COAGULATIONOrdered By: Michelle Motley on 06-30-2023 [...] Auto Coag HEMATOLOGYOrdered By: SYSTEM SYSTEM on 06-30-2023 Basophils/100 [...] 4.4 E9/L Normal 2.0 - 7.5 E9/L [facility] HEMATOLOGYOrdered By: Melisa Motley on 06-30-2023 Erythrocyte distribution width (RBC) [Ratio] 13.8 % Normal 10.9 - 14.2 % [facility] Hematocrit (Bld) [Volume fraction] 40.6 % Normal 34.0 - 46.0 % [facility] Hemoglobin (Bld) [Mass/Vol] 13.7 g/dL Normal 12.0 - 16.0 gm/dL [facility] MCH (RBC) [Entitic mass] 28.7 pg [...] 6.7 E9/L Normal 4.0 - 11.0 E9/L [facility] SEROLOGYOrdered By: Louisa Stearns on 06-30-2023 Beta hCG Ql Negative (06/30/23 10:35 AM) Normal [facility] Man Sero URINALYSISOrdered By: Brandon Stearns on 06-30-2023 Bacteria [...] AM) Normal Negative [facility] UA Auto SS [place].plasma/[place] .RBC (Bld) [Mass ratio] 0-3 /HPF Normal [...] [facility] UA Auto SS Urobilinogen Qn (U) 0.0646797 {Gena'U}/dL Normal 0.0 - 1.0 EU/dL [facility] UA Auto SS WBC Auto Ql (U) Negative (06/30/23 11:02 AM) Normal Negative [facility] UA Auto SS WBC LM.HPF (Urine sed) [#/Area] 0-5 /HPF Normal 0-5/HPF [facility] UA Auto SS URINALYSISOrdered By: Beverley Black on 12-02-2022 Bacteria [...] PM) Normal Negative [facility] UA Auto SS [place].plasma/[place] .RBC (Bld) [Mass ratio] 0-3 /HPF Normal [...] [facility] UA Auto SS Urobilinogen Qn (U) 0.0223356 {Gena'U}/dL Normal 0.0 - 1.0 EU/dL [facility] UA Auto SS WBC Auto Ql (U) Negative (12/02/22 1:34 PM) Normal Negative [facility] UA Auto SS WBC LM.HPF (Urine sed) [#/Area] 0-5 /HPF Normal 0-5/HPF [facility] UA Auto SS CHEMISTRYOrdered By: SYSTEM SYSTEM on 11-18-2022 Anion gap [Moles/Vol] 11 mmol/L Normal 6 - 16 mEq/L F [facility] Remisol Calcium [Mass/Vol] 8.2 mg/dL Low 8.9 - 11. 1 mg/dL [facility] Chloride [Moles/Vol] 104 mmol/L Normal 101 - 1 11 mmol/L [facility] CO2 [Moles/Vol] 24 mmol/L Normal 21 - 31 mmol/L [facility] Creatinine [Mass/Vol] 0.7 mg/dL Normal 0.5 - 1.3 mg/dL [facility] Remisol GFR/1.73 sq M.predicted among blacks MDRD (S/P/Bld) [Vol rate/Area] mL/min/1.73 m2 Normal >=59mL/min/1 .73 m2 [facility] Chem S GFR/1.73 sq M.predicted among non-blacks MDRD (S/P/Bld) [Vol rate/Area] mL/min/1.73 m2 Normal >=59mL/min/1 .73 m2 [facility] Chem S Glucose [Mass/Vol] 103 mg/dL Normal 55 - 199 mg/dL [facility] Remisol Potassium [Moles/Vol] 3.8 mmol/L Normal 3.5 - 5.3 mmol/L [facility] Remisol Sodium [Moles/Vol] 135 mmol/L Normal 135 - 145 mmol/L [facility] Remisol Urea nitrogen [Mass/Vol] 14 mg/dL Normal 5 - 21 mg/dL [facility] Remisol Urea nitrogen/Creatinine [Mass ratio] 20 mg/mg Normal 10 - 20 [facility] Remisol HEMATOLOGYOrdered By: SYSTEM SYSTEM on 11-18-2022 Basophils/100 WBC (Bld) 0.6 % Normal 0.0 - 2.0 % [facility] HemeAutoSS Basophils/Leukocytes Auto (Bld) [Pure # fraction] [...] 7.3 E9/L Normal 4.0 - 11.0 E9/L [facility] SEROLOGYOrdered By: Beverley escalona on 11-18-2022 HCG.beta subunit (U) [Moles/Vol] Negative Normal [facility] Man Sero URINALYSISOrdered By: Beverley William on [...] AM) Normal Negative [facility] UA Auto SS [place].plasma/[place] .RBC (Bld) [Mass ratio] >75 /HPF Invalid [...] AM) Invalid Interpretation Code 1.005 - 1.030 [facility] UA Auto SS UA Spec Desc Clean Catch (11/18/22 8:03 AM) Normal [facility] UA Auto SS Urobilinogen Qn (U) 0.7029561 {Gena'U}/dL Normal 0.0 - 1.0 EU/dL [facility] UA Auto SS WBC Auto Ql (U) 2+ *ABN* (11/18/22 8:03 AM) Invalid Interpretation Code Negative [facility] UA Auto SS WBC LM.HPF (Urine sed) [#/Area] /[HPF] Invalid Interpretation Code 0-5/HPF FT UA Auto SS CHEMISTRYOrdered By: SYSTEM SYSTEM [...] Normal >=59mL/min/1 .73 m2 FT Chem S Globulin (S) [Mass/Vol] 3.3 g/dL Normal 1.4 - 4.0 gm/dL [facility] Glucose [Mass/Vol] 114 mg/dL Normal 55 - 199 mg/dL [facility] Magnesium [Mass/Vol] 2.0 mg/dL Normal 1.3 - 2 .4 mg/dL [facility] Remisol Potassium [Moles/Vol] 3.5 mmol/L Normal 3.5 [...] 17 mg/dL Normal 5 - 21 mg/dL [facility] [...] 2.3 % High 0.0 - 2.0 % [facility] Basophils/Leukocytes [...] Normal 4.0 - 11.0 E9/L [facility] CNPNon 06-07-2022 CNPN Telephone (GENSLN) TARIK GONZALEZ ([id number]) 1980 F Date Time Provider Department 06/07/22 JOE SHEFFIELD During your visit today, we recorded the following information about you: Darya Healy Coord 06/07/2022 8:24 AM Signed Tried calling patient, lmovm to return my call at [phone] option [address] [place]. Thank you. Darya Healy [facility] 06/10/2022 4:09 PM Signed called and spoke to patient, currently not at home, she asked to call her back tmrw am, will follow up. Referral from Jacob Tejada LUQ pain. Daryaarturo Meehana Coord 06/12/2022 1:32 PM Signed Tried calling patient, left detailed message to contact our office at [phone] option 5 to set up an appt with Dr [place]. Also sent unable to reach you letter via [employer]. Thank you. Allergies As of Date: 06/07/2022 Noted Allergy Reaction CODEINE 09/15/2009 GLUTEN 03/30/2019 16 - Unknown LATEX 03/17/2019 14 - Other: See Comments Comments: Red and burning sensation NSAIDS (NON-STEROIDAL ANTI-INFLAM* 9 14 - Other: See Comments Comments: MTHFR [...] Status:Closed by DARYA JAMES on 06/07/22 Normal [facility] CHEMISTRYOrdered By: SYSTEM SYSTEM on 06-02-2022 [...] 256.0 E9/L Normal 150.0 - 500.0 E9/L [facility] HemeAutoSS RBC (Bld) [#/Vol] 4.6 E12/L Normal 4.3 - 5.9 E12/L [facility] HemeAutoSS WBC corrected for nucl RBC Auto (Bld) [#/Vol] 4.6 E9/L Normal 4.0 - 11.0 E9/L [facility] HemeAutoSS PAP ACOG PANEL 2: 30 to 65on 05-23-2022 . . Normal [facility] Comment on above: Result Comment: Perf ormed at: WB Performed By: #### 4 [id number] #### [facility] [address] [place] [address] [address] Dee Dhillon Age Gdln ACOG Testing -[address] [facility] Comment on above: Performed By: #### 4 [id number] #### [facility] [address] [address] [address] Dee Dhillon DIAGNOSIS: Comment Normal [facility] Comment on above: Result Comment: NEGA TIVE FOR INTRAEPITHELIAL LESION OR MALIGNANCY. Performed at: WB Performed By: #### 4 [id number] #### [facility] [address] [address] [address] Dee Dhillon HPV Aptima Negative Normal Negative [facility] Comment on above: Result Comment: This nucleic acid amplification test detects fourteen high-risk HPV types (16,18,31,33,35,39,45,51,52,56,58,59,66,68) without differentiation. Performed at: =G Performed By: #### 4 [id number] #### [facility] [address] [address] [address] Dee Dhillon Methodology: Comment Normal [facility] Comment on above: Result Comment: This liquid based ThinPrep(R) pap test was screened with the use of an image guided system. Performed at: WB Performed By: #### 4 [id number] #### [facility] [address] [address] [address] Dee Dhillon Note: Comment Normal [facility] Comment on above: Result Comment: The Pap smear is a screening test designed to aid in the detection of premalignant and malignant conditions of the uterine cervix. It is not a diagnostic procedure and should not be used as the sole means of detecting cervical cancer. Both false-positive and false-negative reports do occur. . Performed at: WB Performed By: #### [id number] #### [facility] [address] [place] [address] Dr. Dee Dhillon Performed by: Comment Normal [facility] Comment on above: Result Comment: Bennie Duckworth [employer] (ASCP) Performed at: WB Performed By: #### [id number] #### [facility] [address] [place] [address] Dr. Dee Dhillon Specimen adequacy: Comment Normal [facility] Comment on above: Result Comment: Sati sfactory for evaluation. Endocervical and/or squamous metaplastic cells (endocervical component) are present. Performed at: WB Performed By: #### [id number] #### [facility] [address] [place] [address] Dr. Dee Dhillon CHEMISTRYOrdered By: SYSTEM SYSTEM [...] 4.3 E9/L Normal 2.0 - 7.5 E9/L FT [facility] HEMATOLOGYOrdered By: Beverley William on 03-18-2022 Erythrocyte distribution width (RBC) [Ratio] 13.8 % Normal 10.9 - 14.2 % [facility] Hematocrit (Bld) [Volume fraction] 40.5 % Normal 34.0 - 46.0 % [facility] HemeAutoSS Hemoglobin (Bld) [Mass/Vol] 13.8 g/dL Normal 12.0 - 16.0 gm/dL [facility] HemeAutoSS MCH (RBC) [Entitic mass] 29.1 pg Normal 27.0 - 34.0 pg [facility] HemeAutoSS MCHC (RBC) [Mass/Vol] 34.1 g/dL Normal 31.4 - 36.0 gm/dL [facility] HemeAutoSS MCV (RBC) [Entitic vol] 85.3 fL [...] on 01-28-2022 Albumin [Mass/Vol] 3.8 g/dL 3.2-5.5 [facility] Amphetamine Screen Ql (U)Ord ered By: Martha Crookore on 01-28-2022 Amphetamines Ql (U) Negative Negative [facility] Automated erythrocytes count in urine sediment (number/area)Ordered By: Martha Nunez on 01-28-2022 RBC Auto (Urine sed) [#/Area] 5-9 [HPF] [facility] Automated leukocytes count i n urine sediment (number/area)Ordered By: Martha Nunez on 01-28-2022 WBC Auto (Urine sed) [#/Area] 0-1 [HPF] [facility] Barbiturates [Presence] in U rineOrdered By: Martha Nunez on 01-28-2022 Barbiturates Ql (U) Negative Negative [facility] Basophils Auto (Bld) [#/Vol] Ordered By: Martha Nunez on 01-28-2022 Basophils (Bld) [#/Vol] 0.0 10*3/uL 0.0-0.2 [facility] Basophils/100 WBC Auto (Bld) Ordered By: Martha Crookore on 01-28-2022 Basophils/100 WBC (Bld) 0.4 % [facility] Benzodiazepines [Presence] i n UrineOrdered By: Martha Nunez on 01-28-2022 Benzodiazepines Ql (U) Negative Negative [facility] Bilirubin Test strip Ql (U)O rdered By: Martha Nunez on 01-28-2022 Bilirubin Ql (U) Negative Negative [facility] Blood hemoglobin measurement (mass/volume)Ordered By: Martha Nunez on 01-28-2022 Hemoglobin (Bld) [Mass/Vol] 13.4 g/dL 11.8-15.4 [facility] Blood leukocytes automated c ount (number/volume)Ordered By: Martha Nunez on 01-28-2022 WBC (Bld) [#/Vol] 7.0 10*3/uL 4.5-11.0 [facility] Cannabinoids [Presence] in U rine by Screen methodOrdered By: Martha Connellliyah on 01-28-2022 Cannabinoids Screen Ql (U) Negative Negative [facility] Comment on above: These are unconfirme d results and should not be used for legal purposes. Drug Cut-Off Concentration: AMPH 1000 ng/mL MCKINLEY 200 ng/mL ROBSON 200 ng/mL COCM 300 ng/mL OP 300 ng/mL PCP 25 ng/mL THC 20 ng/mL Color Auto (U)Ordered By: Gi karmen Nunez on 01-28-2022 Color (U) Yellow Yellow [facility] Complete Blood Count Auto Di ffon 01-28-2022 Basophils (Bld) [#/Vol] 0.0 10*3/uL Normal 0.0-0.2 [facility] Comment on above: Result Comment: PERF ORMED BY: [facility] [address] [place] [address] PATHOLOGIST INFORMATION CLERK CASHIER KRIS FERGUSON M.D. Performed By: #### H S TROP, CBC, CMP, CK, CKMB #### [facility] [address] Basophils/100 WBC (Bld) 0.4 % Normal . [facility] Comment on above: Performed By: #### H S TROP, CBC, CMP, CK, CKMB #### [facility] [address] [place] [address] [place] Eosinophils (Bld) [#/Vol] 0.1 10*3/uL Normal 0.0-0.45 [facility] Comment on above: Performed By: #### H S TROP, CBC, CMP, CK, CKMB #### [facility] [address] [place] [address] [place] Eosinophils/100 WBC (Bld) 1.5 % Normal . [facility] Comment on above: Performed By: #### H S TROP, CBC, CMP, CK, CKMB #### [facility] [address] Erythrocyte distribution width (RBC) [Ratio] 13.6 % Normal 11.9-15.3 [facility] Comment on above: Performed By: #### H S TROP, CBC, CMP, CK, CKMB #### [address] Hematocrit (Bld) [Volume fraction] 40.6 % Normal 34.0-46.4 [facility] Comment on above: Performed By: #### H S TROP, CBC, CMP, CK, CKMB #### [address] Hemoglobin (Bld) [Mass/Vol] 13.4 g/dL Normal 11.8-15.4 [facility] Comment on above: Performed By: #### H S TROP, CBC, CMP, CK, CKMB #### [address] Lymphocytes (Bld) [#/Vol] 1.6 10*3/uL Normal 1.00-4.8 [facility] Comment on above: Performed By: #### H S TROP, CBC, CMP, CK, CKMB #### [address] Lymphocytes/100 WBC (Bld) 22.9 % Normal . [facility] Comment on above: Performed By: #### H S TROP, CBC, CMP, CK, CKMB #### [address] MCH (RBC) [Entitic mass] 28.5 pg Normal 24.7-34.3 [facility] Comment on above: Performed By: #### H S TROP, CBC, CMP, CK, CKMB #### [address] MCV (RBC) [Entitic vol] 86.4 fL Normal 80-100 [facility] Comment on above: Performed By: #### H S TROP, CBC, CMP, CK, CKMB #### [address] Mean Corpuscular HGB Conc 33.0 g/dL Normal 32.0-35.0 [facility] Comment on above: Performed By: #### H S TROP, CBC, CMP, CK, CKMB #### [facility] [address] [place] [address] [place] Monocytes (Bld) [#/Vol] 0.5 10*3/uL Normal 0.0-0.8 [facility] Comment on above: Performed By: #### H S TROP, CBC, CMP, CK, CKMB #### [facility] [address] [place] [address] [place] Monocytes/100 WBC (Bld) 7.3 % Normal . [facility] Comment on above: Performed By: #### H S TROP, CBC, CMP, CK, CKMB #### [address] Neutrophils (Bld) [#/Vol] 4.7 10*3/uL Normal 1.8-7.7 [facility] Comment on above: Performed By: #### H S TROP, CBC, CMP, CK, CKMB #### [address] Neutrophils/100 WBC (Bld) 67.9 % Normal . [facility] Comment on above: Performed By: #### H S TROP, CBC, CMP, CK, CKMB #### [place] [address] [place] Nucleated RBC/100 WBC (Bld) [Ratio] 0.0 % Normal 0-0.5 [facility] Comment on above: Performed By: #### H S TROP, CBC, CMP, CK, CKMB #### [address] Platelet mean volume (Bld) [Entitic vol] 8.8 fL Normal 6.3-10.7 [facility] Comment on above: Performed By: #### H S TROP, CBC, CMP, CK, CKMB #### [address] Platelets (Bld) [#/Vol] 301 10*3/uL Normal 150-450 [facility] Comment on above: Performed By: #### H S TROP, CBC, CMP, CK, CKMB #### [facility] [address] [place] [address] RBC (Bld) [#/Vol] 4.69 10*6/uL Normal 3.60-5.[address] [facility] Comment on above: Performed By: #### H S TROP, CBC, CMP, CK, CKMB #### [address] WBC (Bld) [#/Vol] 7.0 10*3/uL Normal 4.5-11.0 [facility] Comment on above: Performed By: #### H S TROP, CBC, CMP, CK, CKMB #### [address] Comprehensive Metabolic Pane cash 01-28-2022 Albumin [Mass/Vol] 3.8 g/dL Normal 3.2-5.5 [facility] Comment on above: Performed By: #### H S TROP, CBC, CMP, CK, CKMB #### [address] Albumin/Globulin [Mass ratio] 1.5 {ratio} Normal [facility] Comment on above: Performed By: #### H S TROP, CBC, CMP, CK, CKMB #### [address] ALP [Catalytic activity/Vol] 32 U/L Normal 32-92 [facility] Comment on above: Performed By: #### H S TROP, CBC, CMP, CK, CKMB #### [address] ALT [Catalytic activity/Vol] 16 U/L Normal 10-60 [facility] Comment on above: Performed By: #### H S TROP, CBC, CMP, CK, CKMB #### [address] AST [Catalytic activity/Vol] 16 U/L Normal 10-42 [facility] Comment on above: Performed By: #### H S TROP, CBC, CMP, CK, CKMB #### [facility] [address] [place] [address] Bilirubin [Mass/Vol] 0.3 mg/dL Normal 0.3-1.2 [facility] Comment on above: Performed By: #### H S TROP, CBC, CMP, CK, CKMB #### [facility] [address] [place] [address] Calcium [Mass/Vol] 8.8 mg/dL Normal 8.2-10.2 [facility] Comment on above: Performed By: #### H S TROP, CBC, CMP, CK, CKMB #### [address] Chloride [Moles/Vol] 102 mmol/L Normal 95-114 [facility] Comment on above: Performed By: #### H S TROP, CBC, CMP, CK, CKMB #### [address] CO2 [Moles/Vol] 24.0 mmol/L Normal 22.0-30.0 [facility] Comment on above: Performed By: #### H S TROP, CBC, CMP, CK, CKMB #### [address] Creatinine [Mass/Vol] 0.78 mg/dL Normal 0.44-1.03 [facility] Comment on above: Performed By: #### H S TROP, CBC, CMP, CK, CKMB #### [address] Creatinine Clr Calc Pharmacy 103.21 [facility] Comment on above: Result Comment: PERF ORMED BY: [place] [address] PATHOLOGIST INFORMATION CLERK CASHIER KRIS FERGUSON M.D. Performed By: #### H S TROP, CBC, CMP, CK, CKMB #### [address] Estimated GFR ( Sadia > 60 Normal [facility] Comment on above: Result Comment: GFR estimated reference range: According to KDOQI guidelines, <60 ml/min/1.73m2 is sufficient to diagnose a patient with chronic kidney disease. Performed By: #### H S TROP, CBC, CMP, CK, CKMB #### [address] Estimated GFR (Non- Am > 60 Normal [facility] Comment on above: Performed By: #### H S TROP, CBC, CMP, CK, CKMB #### [facility] [address] Globulin (S) [Mass/Vol] 2.6 g/dL [facility] Comment on above: Performed By: #### H S TROP, CBC, CMP, CK, CKMB #### [address] Glucose [Mass/Vol] 111 mg/dL High 70-100 [facility] Comment on above: Result Comment: [facility] Glucose Reference Range is dependent on time and content of last meal. Glucose of more than 200 mg/dL in a nonstressed, ambulatory subject supports the diagnosis of Diabetes Mellitus. ADA recommended reference range Performed By: #### H S TROP, CBC, CMP, CK, CKMB #### [address] Potassium [Moles/Vol] 3.5 mmol/L Normal 3.5-5.1 [facility] Comment on above: Performed By: #### H S TROP, CBC, CMP, CK, CKMB #### [address] Protein [Mass/Vol] 6.4 g/dL Normal 6.1-7.9 [facility] Comment on above: Performed By: #### H S TROP, CBC, CMP, CK, CKMB #### [address] Sodium [Moles/Vol] 135 mmol/L Low 136-146 [facility] Comment on above: Performed By: #### H S TROP, CBC, CMP, CK, CKMB #### [place] [id number] [place] Urea nitrogen [Mass/Vol] 6 mg/dL Low 9- [facility] Comment on above: Performed By: #### H S TROP, CBC, CMP, CK, CKMB #### [facility] [address] Creatine Kinaseon 01-28-2022 CK [Catalytic activity/Vol] 73 U/L Normal [facility] Comment on above: Performed By: #### H S TROP, CBC, CMP, CK, CKMB #### [address] Creatine kinase [Enzymatic a ctivity/volume] in Serum or PlasmaOrdered By: Martha Nunez on 01-28-2022 CK [Catalytic activity/Vol] 73 U/L [facility] Creatinine Kinase MBon 01-28 CK.MB [Mass/Vol] 1.0 ng/mL Normal 0.6-6.3 [facility] Comment on above: Performed By: #### H S TROP, CBC, CMP, CK, CKMB #### [address] CKMB Relative Index 1.3 % Normal 0.00-2.[address] [facility] Comment on above: Performed By: #### H S TROP, CBC, CMP, CK, CKMB #### [place] [address] [place] Creatinine and Glomerular fi ltration rate.predicted panel (S/P/Bld)Ordered By: Martha Nunez on 01-28-2022 Creatinine [Mass/Vol] 0.78 mg/dL 0.44-1.03 [facility] Dipstick and Microscopicon 0 01-28-2022 Appearance (U) Clear Normal Clear [facility] Comment on above: Order Comment: Name Collection Type:: Clean-Voided Midstream Performed By: #### A DDONUAPLUS, UHCG, URDS #### [address] Bacteria,Urine None Seen Normal None Seen [facility] Comment on above: Order Comment: Name Collection Type:: Clean-Voided Midstream Performed By: #### A DDONUAPLUS, UHCG, URDS #### [facility] [address] [place] [address] [place] Bilirubin,Urine Negative Normal Negative [facility] Comment on above: Order Comment: Name Collection Type:: Clean-Voided Midstream Performed By: #### A DDONUAPLUS, UHCG, URDS #### [facility] [address] [place] [address] [place] Color (U) Yellow Normal Yellow [facility] Comment on above: Order Comment: Name Collection Type:: Clean-Voided Midstream Performed By: #### A DDONUAPLUS, UHCG, URDS #### [facility] [address] [place] [address] Glucose Ql (U) Normal Normal Normal [facility] Comment on above: Order Comment: Name Collection Type:: Clean-Voided Midstream Performed By: #### A DDONUAPLUS, UHCG, URDS #### [facility] [address] [place] [address] [place] Hyaline Casts,Urine 0-8 Normal 0-[address] [facility] Comment on above: Order Comment: Name Collection Type:: Clean-Voided Midstream Performed By: #### A DDONUAPLUS, UHCG, URDS #### [facility] [address] [place] [address] [place] Ketones Ql (U) Trace High Negative [facility] Comment on above: Order Comment: Name Collection Type:: Clean-Voided Midstream Performed By: #### A DDONUAPLUS, UHCG, URDS #### [facility] [address] [place] [address] [place] Leukocyte esterase Test strip Ql (U) Negative Normal Negative [facility] Comment on above: Order Comment: Name Collection Type:: Clean-Voided Midstream Performed By: #### A DDONUAPLUS, UHCG, URDS #### [facility] [address] [place] [address] [place] Nitrite,Urine Negative Normal Negative [facility] Comment on above: Order Comment: Name Collection Type:: Clean-Voided Midstream Performed By: #### A DDONUAPLUS, UHCG, URDS #### [address] Occult Blood,Urine 1+ High Negative [facility] Comment on above: Order Comment: Name Collection Type:: Clean-Voided Midstream Performed By: #### A DDONUAPLUS, UHCG, URDS #### [address] pH (U) 6.0 [pH] Normal 5.0-9.0 [facility] Comment on above: Order Comment: Name Collection Type:: Clean-Voided Midstream Performed By: #### A DDONUAPLUS, UHCG, URDS #### [address] Protein,Urine Negative Normal Negative [facility] Comment on above: Order Comment: Name Collection Type:: Clean-Voided Midstream Performed By: #### A DDONUAPLUS, UHCG, URDS #### [facility] [address] [place] [address] RBC,Urine 5-9 High 0-4 [facility] Comment on above: Order Comment: Name Collection Type:: Clean-Voided Midstream Performed By: #### A DDONUAPLUS, UHCG, URDS #### [address] Specificy [place],Urine 1.019 Normal 1.001-1.030 [facility] Comment on above: Order Comment: Name Collection Type:: Clean-Voided Midstream Performed By: #### A DDONUAPLUS, UHCG, URDS #### [place] [address] [place] Squamous Epithelial Cell,Urine 1-2 Normal 0-2 [facility] Comment on above: Order Comment: Name Collection Type:: Clean-Voided Midstream Performed By: #### A DDONUAPLUS, UHCG, URDS #### [place] [address] [place] Urobilinogen,Urine Normal Normal Normal [facility] Comment on above: Order Comment: Name Collection Type:: Clean-Voided Midstream Performed By: #### A DDONUAPLUS, UHCG, URDS #### [facility] [address] [place] [address] WBC LM.HPF (Urine sed) [#/Area] 0 /[HPF] Normal 0-4 [facility] Comment on above: Order Comment: Name Collection Type:: Clean-Voided Midstream Performed By: #### A DDONUAPLUS, UHCG, URDS #### [address] Drug Screen,Urineon 01-29-20 Amphetamine Screen,Urine Negative Normal Negative [facility] Comment on above: Performed By: #### A DDONUAPLUS, UHCG, URDS #### [address] Barbiturate Screen,Urine Negative Normal Negative [facility] Comment on above: Performed By: #### A DDONUAPLUS, UHCG, URDS #### [facility] [address] [place] [address] [place] Benzodiazepines Screen,Urine Negative Normal Negative [facility] Comment on above: Performed By: #### A DDONUAPLUS, UHCG, URDS #### [address] Cannabinoid Screen,Urine Negative Normal Negative [facility] Comment on above: Result Comment: Thes e are unconfirmed results and should not be used for legal purposes. Drug Cut-Off Concentration: AMPH 1000 ng/mL MCKINLEY 200 ng/mL ROBSON 200 ng/mL COCM 300 ng/mL OP 300 ng/mL PCP 25 ng/mL THC 20 ng/mL PERFORMED BY: [place] [address] PATHOLOGIST INFORMATION CLERK CASHIER KRIS FERGUSON M.D. Performed By: #### A DDONUAPLUS, UHCG, URDS #### [address] Cocaine Screen,Urine Negative Normal Negative [facility] Comment on above: Performed By: #### A DDONUAPLUS, UHCG, URDS #### [facility] [address] Opiate Screen,Urine Negative Normal Negative [facility] Comment on above: Performed By: #### A DDONUAPLUS, UHCG, URDS #### [facility] [address] Phencyclidine Screen,Urine Negative Normal Negative [facility] Comment on above: Performed By: #### A DDONUAPLUS, UHCG, URDS #### [facility] [address] ECG 12 lead ECGon 01-28-2022 ECG 12 lead ECG [facility] [place] [address] [place] [address] Electrocardiograph Report Signed Patient: Tarik Gonzalez MR#: [id number] 53 : 1980 Acct:[id number] Age/Sex: 41 / F ADM Date: 01/28/22 Loc: ER Room: Type: [facility] ER Attending Dr: Ordering Provider: MODE Ann [...] sinus rhythm Confirmed by Rodrick TAN DO ([id number]) on 01/28/2022 4:35:01 PM Referred By: Electronically Signed By:Rodrick TAN DO Transcribed By: MUS Signed By Rodrick Tan DO 0 01/28/22 1635 Normal [facility] Eosinophils Auto (Bld) [#/Vo l]Ordered By: Martha Nunez on 01-28-2022 Eosinophils (Bld) [#/Vol] 0.1 10*3/uL 0.0-0.45 [facility] Eosinophils/100 WBC Auto (Bl d)Ordered By: Marthaalysha Nunez on 01-28-2022 Eosinophils/100 WBC (Bld) 1.5 % [facility] Erythrocyte distribution wid th Auto (RBC) [Ratio]Ordered By: Marthaalysha Nunez on 01-28-2022 Erythrocyte distribution width (RBC) [Ratio] 13.6 % 11.9-15.3 [facility] Estimated glomerular filtrat ion rate (GFR) non- AmericanOrdered By: Martha Nunez on 01-28-2022 GFR/1.73 sq M.predicted among non-blacks MDRD (S/P/Bld) [Vol rate/Area] > 60 mL/Min [facility] Globulin Calc (S) [Mass/Vol] Ordered By: Marthaalysha Nunez on 01-28-2022 Globulin (S) [Mass/Vol] 2.6 g/dL [facility] HCG ( test) IA.rapi d Ql (U)Ordered By: Martha Nunez on 01-28-2022 HCG ( test) Ql (U) Negative [facility] HCG,Urineon 01-28-2022 Beta HCG ( test) Ql (U) Negative Normal [facility] Comment on above: Order Comment: Name Collection Type:: Clean-Voided Midstream Result Comment: PERF ORMED BY: [place] [address] PATHOLOGIST INFORMATION CLERK CASHIER KRIS FERGUSON M.D. Performed By: #### A DDONDAVIDSON, [place], URDS #### [facility] [address] [place] [address] Hematocrit Auto (Bld) [Volum e fraction]Ordered By: Marthaalysha Nunez on 01-28-2022 Hematocrit (Bld) [Volume fraction] 40.6 % 34.0-46.4 [facility] Ketones Auto test strip (U) [Mass/Vol]Ordered By: Martha Nunez on 01-28-2022 Ketones (U) [Mass/Vol] Trace Negative [facility] - Drug toxicology Ordered By: Martha Nunez on 01-28-2022 Opiates Ql (U) Negative Negative [facility] - Hematology and Cell countsOrdered By: Martha Nunez on 01-28-2022 Nucleated RBC/100 WBC (Bld) [Ratio] 0.0 % 0-0.5 [facility] - UrinalysisOrder ed By: Martha Nunez on 01-28-2022 Hyaline casts LM Ql (Urine sed) 0-8 [LPF] [facility] Lymphocytes Auto (Bld) [#/Vo l]Ordered By: Martha Connellimore on 01-28-2022 Lymphocytes (Bld) [#/Vol] 1.6 10*3/uL 1.00-4.8 [facility] Lymphocytes/100 WBC Auto (Bl d)Ordered By: Martha Connellimore on 01-28-2022 Lymphocytes/100 WBC (Bld) 22.9 % [facility] MCH Auto (RBC) [Entitic mass ]Ordered By: Martha Connellimore on 01-28-2022 MCH (RBC) [Entitic mass] 28.5 pg 24.7-34.3 [facility] MCHC Auto (RBC) [Mass/Vol]Or dered By: Martha Connellimore on 01-28-2022 MCHC (RBC) [Mass/Vol] 33.0 g/dL 32.0-35.0 [facility] MCV Auto (RBC) [Entitic vol] Ordered By: Martha Connellimore on 01-28-2022 MCV (RBC) [Entitic vol] 86.4 fL 80-100 [facility] Monocytes Auto (Bld) [#/Vol] Ordered By: Martha Bullimore on 01-28-2022 Monocytes (Bld) [#/Vol] 0.5 10*3/uL 0.0-0.8 [facility] Monocytes/100 WBC Auto (Bld) Ordered By: Martha Bullimore on 01-28-2022 Monocytes/100 WBC (Bld) 7.3 % [facility] Neutrophils Auto (Bld) [#/Vo l]Ordered By: Martha Bullimore on 01-28-2022 Neutrophils (Bld) [#/Vol] 4.7 10*3/uL 1.8-7.7 [facility] Neutrophils/100 WBC Auto (Bl d)Ordered By: Martha Crookore on 01-28-2022 Neutrophils/100 WBC (Bld) 67.9 % [facility] Nitrite Test strip Ql (U)Ord ered By: Martha Crookore on 01-28-2022 Nitrite Ql (U) Negative Negative [facility] No Panel InformationOrdered By: Martha Nunez on 01-28-2022 Estimated GFR () > 60 mL/Min [facility] Comment on above: GFR estimated refere nce range: According to KDOQI guidelines, <60 ml/min/1.73m2 is sufficient to diagnose a patient with chronic kidney disease. Pharmacy Creatinine Clearance (Chem 103.21 [facility] Phencyclidine Screen Ql (U)O rdered By: Martha Nunez on 01-28-2022 Phencyclidine Ql (U) Negative Negative [facility] Platelet mean volume Auto (B ld) [Entitic vol]Ordered By: Martha Nunez on 01-28-2022 Platelet mean volume (Bld) [Entitic vol] 8.8 fL 6.3-10.7 [facility] Platelets Auto (Bld) [#/Vol] Ordered By: Martha Nunez on 01-28-2022 Platelets (Bld) [#/Vol] 301 10*3/uL 150-450 [facility] Protein Auto test strip (U) [Mass/Vol]Ordered By: Martha Nunez on 01-28-2022 Protein (U) [Mass/Vol] Negative Negative [facility] Protein [Mass/volume] in Ser um or PlasmaOrdered By: Martha Nunez on 01-28-2022 Protein [Mass/Vol] 6.4 g/dL 6.1-7.9 [facility] RBC Auto (Bld) [#/Vol]Ordere d By: Martha Connellimore on 01-28-2022 RBC (Bld) [#/Vol] 4.69 10*6/uL 3.60-5.[address] [facility] Serum or plasma alanine pinto otransferase measurement without P-5'-P (enzymatic activiOrdered By: Martha Nunez on 01-28-2022 ALT No additional P-5'-P [Catalytic activity/Vol] 16 U/L 10-60 [facility] Serum or plasma albumin/glob ulin mass ratioOrdered By: Marthaalysha Connellcris on 01-28-2022 Albumin/Globulin [Mass ratio] 1.5 {ratio} [facility] Serum or plasma alkaline sanchez sphatase measurement (enzymatic activity/volume)Ordered By: Martha Nunez on 01-28-2022 ALP [Catalytic activity/Vol] 32 U/L 32-92 [facility] Serum or plasma aspartate am inotransferase measurement (enzymatic activity/volume)Ordered By: Martha Nunez on 01-28-2022 AST [Catalytic activity/Vol] 16 U/L 10-42 [facility] Serum or plasma calcium pedro luis urement (mass/volume)Ordered By: Martha Nunez on 01-28-2022 Calcium [Mass/Vol] 8.8 mg/dL 8.2-10.2 [facility] Serum or plasma chloride osito surement (moles/volume)Ordered By: Marthaalysha Connellcris on 01-28-2022 Chloride [Moles/Vol] 102 mmol/L 95-114 [facility] Serum or plasma creatine kin ase MB (CKMB)/total creatine kinase (CK) ratio by calculaOrdered By: Marthaalysha Connellcris on 01-28-2022 CK.MB Calc [Catalytic fraction] 1.3 % 0.00-2.50 [facility] Serum or plasma creatine kin ase MB measurement (mass/volume)Ordered By: Martha Nunez on 01-28-2022 CK.MB [Mass/Vol] 1.0 ng/mL 0.6-6.3 [facility] Serum or plasma glucose pedro luis urement (mass/volume)Ordered By: Marthaalysha [facility] on 01-28-2022 Glucose [Mass/Vol] 111 mg/dL 70-100 [facility] Comment on above: ADA recommended refe rence rangeRandom Glucose Reference Range is dependent on time and content of last meal. Glucose of more than 200 mg/dL in a nonstressed, ambulatory subject supports the diagnosis of Diabetes Mellitus. Serum or plasma potassium me asurement (moles/volume)Ordered By: [facility] on 01-28-2022 Potassium [Moles/Vol] 3.5 mmol/L 3.5-5.1 [facility] Serum or plasma sodium measu rement (moles/volume)Ordered By: [facility] on 01-28-2022 Sodium [Moles/Vol] 135 mmol/L 136-146 [facility] Serum or plasma total biliru bin measurement (mass/volume)Ordered By: [facility] on 01-28-2022 Bilirubin [Mass/Vol] 0.3 mg/dL 0.3-1.2 [facility] Serum or plasma total carbon dioxide measurement (moles/volume)Ordered By: [facility] on 01-28-2022 CO2 [Moles/Vol] 24.0 mmol/L 22.0-30.0 [facility] Serum or plasma urea nitroge n measurement (mass/volume)Ordered By: [facility] on 01-28-2022 Urea nitrogen [Mass/Vol] 6 mg/dL 9- [facility] Specific gravity Auto test s trip (U) [Rel density]Ordered By: [facility] on 01-28-2022 Specific gravity (U) [Rel density] 1.019 1.001-1.030 [facility] Squamous epithelial cells de tection in urine sediment by light microscopyOrdered By: [facility] on 01-28-2022 Epithelial cells.squamous LM Ql (Urine sed) 1-2 [HPF] [facility] THYROID SCREENon 01-28-2022 Free T4 [Mass/Vol] 1.09 ng/dL Normal 0.61-1.12 [facility] Comment on above: Performed By: #### H S TROP, CBC, CMP, CK, CKMB #### [address] TSH Qn 0.27 m[IU]/L Low 0.45-5.33 [facility] Comment on above: Result Comment: PERF ORMED BY: [place] [address] PATHOLOGIST INFORMATION CLERK CASHIER KRIS FERGUSON M.D. Performed By: #### H S TROP, CBC, CMP, CK, CKMB #### [facility] [address] [place] [address] TSH DL <= 0.005 mIU/L QnOrde red By: Martha Nunez on 01-28-2022 TSH Qn 0.27 m[IU]/L 0.45-5.33 [facility] Thyroxine (T4) free [Mass/vo lume] in Serum or PlasmaOrdered By: Martha Nunez on 01-28-2022 Free T4 [Mass/Vol] 1.09 ng/dL 0.61-1.12 [facility] Troponin I High Sensitivityo n 01-28-2022 Troponin I High Sensitivity 5 pg/mL Normal 0- [facility] Comment on above: Result Comment: PERF ORMED BY: [place] [address] PATHOLOGIST INFORMATION CLERK CASHIER KRIS FERGUSON M.D. Performed By: #### H S TROP, CBC, CMP, CK, CKMB #### [address] Troponin I High Sensitivity 4 pg/mL Normal 0- [facility] Comment on above: Result Comment: PERF ORMED BY: [place] [address] PATHOLOGIST INFORMATION CLERK CASHIER KRIS FERGUSON M.D. Performed By: #### H S TROP, CBC, CMP, CK, CKMB #### [address] Troponin I.cardiac [Mass/vol ume] in Serum or Plasma by High sensitivity methodOrdered By: Martha Nunez on 01-28-2022 Troponin I.cardiac High sensitivity method [Mass/Vol] 4 pg/mL 0-15 [facility] Urine bacteria detection by automated methodOrdered By: Martha Nunez on 01-28-2022 Bacteria Auto Ql (U) None seen None Seen [facility] Urine clarity by refractomet ry automatedOrdered By: Martha Nunez on 01-28-2022 Clarity Refractometry automated (U) Clear Clear [facility] Urine cocaine detectionOrder ed By: Martha Mayra on 01-28-2022 Cocaine Ql (U) Negative Negative [facility] Urine glucose measurement by automated test strip (mass/volume)Ordered By: Martha Nunez on 01-28-2022 Glucose Auto test strip (U) [Mass/Vol] Normal mg/dL Normal [facility] Urine hemoglobin detection b y automated test stripOrdered By: Martha Nunez on 01-28-2022 Hemoglobin Auto test strip Ql (U) 1+ Negative [facility] Urine leukocyte esterase det ection by automated test stripOrdered By: Martha Nunez on 01-28-2022 Leukocyte esterase Auto test strip Ql (U) Negative Negative [facility] Urobilinogen Auto test strip (U) [Mass/Vol]Ordered By: Martha Nunez on 01-28-2022 Urobilinogen (U) [Mass/Vol] Normal mg/dL Normal [facility] XR chest 2V*on 01-28-2022 XR chest 2V* [facility] [place] [address] XRay Report Signed Patient: Tarik Gonzalez MR#: [id number] 53 : 1980 Acct:[id number] Age/Sex: 41 / F ADM Date: 01/28/22 Loc: ER Room: Type: [facility] ER Attending Dr: Ordering Provider: MODE Ann Date of Service: 01/28/22 XR/XR chest 2V*: Dizziness Copies to: VIPIN Ann-C Plain film chesttwo-view HISTORY:Lightheaded and dizzy. COMPARISON:None FINDINGS: The cardiac, mediastinal and hilar silhouettes are within normal limits. No acute lung process, pleural effusion or pneumothorax identified. Bony structures are intact. XR/XR chest 2V* IMPRESSION: No acute process. Impression dictated by: Grady Shields M.D.01/28/2022 4:43 PM Dictation Location: [place] [address] Transcribed By: SHAE 01/28/221642 Dictated By: Grady Shields DO 01/28/221640 Signed By: 01/28/221642 Normal [facility] pH Auto test strip (U)Ordere d By: Martha Connellmarcecris on 01-28-2022 pH (U) 6.0 [pH] 5.0-9.0 [facility] Dermatopathologyon Dermatopathology Name TARIK GONZALEZ Pathologist: APOLLO BAY MD Date of Procedure: 12/20/2021 Date Received: 12/21/2021 Date Reported 12/28/2021 Submitting Physician: RYLEE LONG MD Location: [facility] Other External # FINAL DIAGNOSIS SKIN, R [...] or group listed as making the Final Interpretation/Diagno sis certifies that they have reviewed this case. Microscopic Description: Microscopic examination performed. Clinical History: r/o SK vs other. Shave Biopsy. ([place] office). Specimens Submitted As: A: SKIN, R MID BACK Gross Description: Received in formalin is a holland piece of skin measuring [id number]. The specimen is inked and embedded in toto. dcp/12/21/2021 [facility] Dermatopathology Laboratory [place] [phone] [place] [address] [facility] Comment on above: Performed By: #### D #### Dermatopathology MICRO OTHER TESTSOrdered By: Sima Case on 11-21-2021 Rapid COV Int NEG Ctl Pass (11/21/21 3:16 PM) Normal [facility] Man Sero Rapid COV Int POS Ctl Pass (11/21/21 3:16 PM) Normal [facility] Man Sero SARS-CoV+SARS-CoV-2 (COVID-19) Ag IA.rapid Ql (Resp) Not Detected (11/21/21 3:16 PM) Normal Not Detected [facility] Man Sero PLAN OF CAREon 03-31-2019 PLAN OF CARE HNO ID: [id number] Author: Odilon Monzon ([employer]) Service: ? Author Type: ? Type: Plan of Care Filed: 03/31/2019 4:24 PM Note Text: PHARMACY BEDSIDE DELIVERY SERVICE Patient Name: Tarik Gonzalez The marked outpatient medications were Filled at: [facility] and delivered to the patient's bedside to patient Medication List START taking these medications HYDROcodone-acetamino phen 5-325 mg per tablet--patient did not receive this one. Patient had a norco filled on 03/30 upon discharge from [facility]. Commonly known as: NORCO Take 1 tablet [...] or your Primary Care Provider. Odilon Monzon ([employer]) PAGER: vicente March 31, 2019 4:23 PM [facility] PLAN OF CARE HNO ID: [id number] Author: Odilon Monzon ([employer]) Service: ? Author Type: ? Type: Plan of Care Filed: 03/31/2019 11:02 AM Note Text: Pharmacy Discharge Medication Service: This patient has elected to receive their discharge prescriptions through the [facility] Bedside Prescription Delivery program. The prescriptions are currently being processed. A follow-up note will be entered once the prescriptions have been filled and delivered to the patient. Please contact me with any questions or updates to the patient's discharge medications. Odilon Monzon ([employer]) DCT Contact Info: vicente [facility] PLAN OF CARE HNO ID: [id number] Author: Odilon Monzon ([employer]) Service: ? Author Type: ? Type: Plan of Care Filed: 03/31/2019 11:01 AM Note Text: AMALGAMATOR BEDSIDE DELIVERY SURVEY 1. Patient to use [facility] Bedside Delivery - YES Insurance Information as follows: 2. Insurance card on file - YES 3. Credit card for payment - YES [facility] Jesús 03-30-2019 ANES POST HNO ID: [id number] Author: Jay Cerna Service: ? Author Type: [...] Jay Cerna MD Date: March 30, 2019 [facility] ANES PREOPon 03-30-2019 ANES PREOP HNO ID: [id number] Author: Jay Cerna Service: ? 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 Current Outpatient Medications on File Prior to Encounter: montelukast (SINGULAIR) 10 mg tablet Take 10 mg by mouth once daily. Current Facility-Administered Medications Medication Dose Route Frequency Provider Last [...] 1 Patch (TRANSDERM-SCOP) 1 Patch TRANSDERMAL ONCE Jay Cerna 1 Patch at 03/30/19 1130 And [...] within 48 hours of Surgery/Procedure. SIGNATURE: Jay Ceran MD DATE: March 30, 2019 TIME: 1:35 PM [facility] NURSING PROGon 03-30-2019 Protein mass conc HNO ID: [id number] Author: Laura (Rn) CLIFFORD Alexander Service: ? Author Type: Registered Nurse Type: Nursing Progress Note Filed: 03/31/2019 6:04 AM Note Text: Nursing Progress Note Patient Name: Tarik Gonzalez Patient Location: / Daily Note: C/o tense abdominal spasms. Refusing [...] before pt asked to stop. Remainder wasted. 2329 Pt sat up at the bedside and [...] note was completed by: Laura Alexander RN [facility] Protein mass conc HNO ID: [id number] Author: Mei (Rn) CLIFFORD Avendano Service: ? Author Type: Registered Nurse Type: Nursing Progress Note Filed: 03/30/2019 8:36 PM Note Text: Nursing Progress Note Patient Name: Tarik Gonzalez Patient Location: [place] [address]/[facility] Transfer Note: Patient transferred into room/unit 504. in stable condition. Actions taken: No futher actions taken at this time. Will continue to monitor and check with patient. Patient belongings with patient. This note was completed by: Mei Avendano RN 939 Surgery paged: 504 Carlos patient still c/o nausea and had Zofran at 1545 and Reglan in PACU. Patient also c/o pain at a 8/10 but hesitant to take medication d/t nausea and allergies. Pleaase advise. eMi [id number] [id number] Prn Ativan ordered per Kyra Jackman as second line therapy for nausea but patient does not want to take it as she states she had a bad experience with it in the past. Jhonatan oncoming nurse aware and will follow up with patient. Patient states I will wait until 945 pm when my Zofran is due, then I will take pain medicine . [facility] Protein mass conc HNO ID: [id number] Author: Bianca (Rn) CLIFFORD Garcia Service: Nursing Author Type: Registered Nurse Type: Nursing Progress Note Filed: 03/30/2019 5:10 PM Note Text: Patient has been complaining of 9/10 pain has refused pain meds for past hour due to nausea, Pt has been complaining of nausea and given scop patch phenergan earlier today 2 doses of Zofran and IV Reglan. Refused to take [place] states now that pain is severe and given IV Fentanyl. When abdominal binder taken off to check abdominal puncture sites patient screamed. She is taking a few ice chips. Patient is pushing on her abdomin with her fingers to relieve gas pains. Refused to be touched. 1648 Dr. Sheffield here to examine pt. Patient to be admitted for pain control. [facility] OPERATIVE NOon 03-30-2019 OPERATIVE NO HNO ID: [id number] Author: Joe Sheffield Service: General Surgery Author Type: Physician Type: Operative Report Filed: 04/01/2019 11:21 PM Note Text: [facility] - Operative Report TARIK GONZALEZ : 1980 AGE: 38. SEX: F PATIENT TYPE: A HOSP [facility] LOCATION: [facility] ATTENDING PHYSICIAN: Joe Sheffield DO CSN NUMBER: [id number] DATE OF SURGERY/PROCEDURE: 03/30/2019 INCISION/PROCEDURE START TIME: 1329 hours. INCISION CLOSE/PROCEDURE END TIME: 1435 hours. PREOPERATIVE DIAGNOSIS: Reducible ventral hernia. POSTOPERATIVE DIAGNOSIS: Reducible ventral hernia. SURGEON: Joe Sheffield DO YOUTH ADVOCATE: DEJA Treviño's task in this procedure including [...] transferred to recovery for postop care. KarrieMarvNoah SheffieldDO CL:[id number] /[id number] [facility] PT ED 03-30-2019 PT ED HNO ID: [id number] Author: Bianca Garcia RN Service: Nursing Author [...] Signed By: Bianca Garcia RN In Department: [facility] SURGERY [facility] PT ED HNO ID: [id number] Author: Kylie HaysRn) Carter RN Service: Nursing Author Type: Registered Nurse Type: Patient Education Filed: 03/30/2019 11:32 AM Note Text: PRE OP LEARNING ASSESSMENT PROCEDURE/SURGERY: pre op Hernia repair READINESS TO LEARN COGNITIVE ABILITY: Alert and oriented MOTIVATION TO LEARN: Eager FAMILY SUPPORT: None - Unavailable/disintere sted PATIENT LEARNS BEST BY: Individual Instruction FACTORS AFFECTING LEARNING: None PHYSICAL LIMITATIONS AFFECTING LEARNING: None [facility] NURSING PROGon 03-18-2019 Protein mass conc HNO ID: [id number] Author: Carleen HaysRn) Stone, RN Service: ? 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 Neuro: No history of TIA's, stroke, PAPER PRODUCTS SUPERVISOR tumor, impaired sensorium, hemiplegia, paraplegia or quadraplegia. No neurological symptoms or problems. Respiratory: Positive for former smoker , Negative for Asthma, COPD, Current cough, Dyspnea, Pneumonia within 6 weeks (date), URI < 2 weeks Cardiovascular: No history of HTN requiring medication, no history of angina, CHF, CT, cardiac surgery or stents. Denies rest pain, gangrene or revascularization/amp utation for PVD. No history of cardiovascular symptoms or problems. GI: Positive for GERD, Negative for Liver disease : No history of dysuria, frequency or incontinence,, stones or chronic kidney disease AUTOMATION SPECIALIST: Negative for abnormal vaginal bleeding, abnormal vaginal [...] at this surgery center: [facility]: [phone] --[id number] [place] [address]. Please enter through the entrance closest to [...] Procedures: - YOU MUST HAVE A RESPONSIBLE ROD BUSTER HELPER TAKE YOU HOME. A RESIDENCE LEASING AGENT OR MEDICAL RECORDS AUDITOR CANNOT BE MADE A RESPONSIBLE ROD BUSTER HELPER. - We recommend that a responsible person [...] PA-C 03/17/2019 4:06 PM Written Assessment: on [employer] Progress Notes (AV PROVIDER ADULT): Karrie Sheffield DO 03/11/2019 12:46 PM Signed Called and left voicemail on patient's number [phone], verified by her name. I want to update her MRI result. I left office number for her to call me back to discuss surgery. Karrie Sheffield, March 11, 2019 12:46 PM [facility] 03/11/2019 1:12 PM Signed Patient called back, [...] for 4 more weeks after that. Karrie Sheffield, DO March 11, 2019 1:57 PM Rhonda Grimes 03/11/2019 3:07 PM Signed Patient requesting call back to further discuss surgery with Dr. Sheffield. Patient is requesting to know if there is the option for mechanical surgery . Patient also requesting to schedule surgery immediately. Advised patient that we would call to schedule once we receive orders for surgery. Please forward WOMEN DESIGNER, when available. Allison Yingn 03/11/2019 3:37 PM Signed Cur form [facility]. Will call to schedule. Amelia Moya PA-C [...] the laparoscopic cholecystectomy she had and the AUTOMATION SPECIALIST laparoscopies. If bowel involvement in the hernia, [...] info to schedulers and Dr. Sheffield. Allison Adarsh 03/12/2019 8:28 AM Signed Soonest in [place] is 03-30-19. Tatiana can you accomidate sooner, if so i will send cur to Tatiana. Darya Healy BARRY 03/12/2019 8:57 AM Signed I checked [place], our next available is on Fri04/19/19 for 1.5 case. Allison Adarsh 03/12/2019 9:02 AM Signed Will call pt to offer 03-30-19 at [facility] and offer to place pt on cancel list. Allison Adarsh 03/12/2019 9:06 AM Signed Spoke with pt scheduled for surgery. [facility] Vital Signs Date Time Vital Sign Value Performing Clinician Facility 10-07-2024 00:42-0500 Body temperature 98.06 [degF[facility] 10-07-2024 00:42-0500 Diastolic blood pressure 78 mm[Hg[facility] 10-07-2024 00:42-0500 Heart rate 101 /min [facility] 10-07-2024 00:42-0500 Respiratory rate 20 /min [facility] 10-07-2024 00:42-0500 SaO2% (BldA) [Mass fraction] 98 % [facility] 10-07-2024 00:42-0500 Systolic blood pressure 114 mm[Hg] [facility] 08-19-2024 19:19-0400 Body temperature 97.88 [degF] [facility] 08-19-2024 19:19-0400 Diastolic blood pressure 78 mm[Hg] [facility] 08-19-2024 19:19-0400 Heart rate 100 /min [facility] 08-19-2024 19:19-0400 Respiratory rate 16 /min [facility] 08-19-2024 19:19-0400 SaO2% (BldA) [Mass fraction] 99 % [facility] 08-19-2024 19:19-0400 Systolic blood pressure 119 mm[Hg] [facility] 03-28-2024 22:03-0400 Body temperature 96.98 [degF] [facility] 03-28-2024 22:03-0400 Diastolic blood pressure 72 mm[Hg] [facility] 03-28-2024 22:03-0400 Heart rate 77 /min [facility] 03-28-2024 22:03-0400 Respiratory rate 18 /min [facility] 03-28-2024 22:03-0400 SaO2% (BldA) [Mass fraction] 100 % [facility] 03-28-2024 22:03-0400 Systolic blood pressure 109 mm[Hg] [facility] 03-07-2024 02:14-0400 Blood Pressure Location [facility] 03-07-2024 02:14-0400 Diastolic blood pressure 69 mm[Hg] [facility] 03-07-2024 02:14-0400 Heart rate 92 /min [facility] 03-07-2024 02:14-0400 Mean blood pressure 81 mm[Hg] [facility] 03-07-2024 02:14-0400 Respiratory rate 12 /min [facility] 03-07-2024 02:14-0400 SaO2% (BldA) [Mass fraction] 95 % [facility] 03-07-2024 02:14-0400 Systolic blood pressure 104 mm[Hg] [facility] 03-07-2024 01:03-0400 Blood Pressure Location [facility] 03-07-2024 01:03-0400 Diastolic blood pressure 57 mm[Hg] [facility] 03-07-2024 01:03-0400 Heart rate 93 /min [facility] 03-07-2024 01:03-0400 Mean blood pressure 69 mm[Hg] [facility] 03-07-2024 01:03-0400 Respiratory rate 12 /min [facility] 03-07-2024 01:03-0400 SaO2% (BldA) [Mass fraction] 98 % [facility] 03-07-2024 01:03-0400 Systolic blood pressure 93 mm[Hg] [facility] 03-07-2024 00:30-0400 Blood Pressure Location [facility] 03-07-2024 00:30-0400 Diastolic blood pressure 67 mm[Hg] [facility] 03-07-2024 00:30-0400 Heart rate 94 /min [facility] 03-07-2024 00:30-0400 Mean blood pressure 82 mm[Hg] [facility] 03-07-2024 00:30-0400 Respiratory rate 20 /min [facility] 03-07-2024 00:30-0400 SaO2% (BldA) [Mass fraction] 94 % [facility] 03-07-2024 00:30-0400 Systolic blood pressure 112 mm[Hg] [facility] 03-06-2024 21:49-0400 Heart rate 95 /min [facility] 03-06-2024 21:49-0400 Respiratory rate 18 /min [facility] 07-06-2023 22:45-0400 Diastolic blood pressure 73 mm[Hg] [facility] 07-06-2023 22:45-0400 Heart rate 67 /min [facility] 07-06-2023 22:45-0400 Mean blood pressure 87 mm[Hg] [facility] 07-06-2023 22:45-0400 SaO2% (BldA) [Mass fraction] 97 % [facility] 07-06-2023 22:45-0400 Systolic blood pressure 114 mm[Hg] [facility] 07-06-2023 21:02-0400 Body temperature 97.7 [degF] [facility] 07-06-2023 21:02-0400 Diastolic blood pressure 73 mm[Hg] [facility] 07-06-2023 21:02-0400 Heart rate 80 /min [facility] 07-06-2023 21:02-0400 Respiratory rate 16 /min [facility] 07-06-2023 21:02-0400 SaO2% (BldA) [Mass fraction] 99 % [facility] 07-06-2023 21:02-0400 Systolic blood pressure 111 mm[Hg] [facility] 06-30-2023 12:05-0400 Diastolic blood pressure 66 mm[Hg] [facility] 06-30-2023 12:05-0400 Heart rate 81 /min [facility] 06-30-2023 12:05-0400 Mean blood pressure 80 mm[Hg] [facility] 06-30-2023 12:05-0400 Respiratory rate 11 /min [facility] 06-30-2023 12:05-0400 SaO2% (BldA) [Mass fraction] 96 % [facility] 06-30-2023 12:05-0400 Systolic blood pressure 109 mm[Hg] [facility] 06-30-2023 11:19-0400 Hourly Rounding [facility] L[facility] 06-30-2023 11:19-0400 Promise to Return [facility] 06-30-2023 11:11-0400 Diastolic blood pressure 67 mm[Hg] [facility] 06-30-2023 11:11-0400 Heart rate 75 /min [facility] 06-30-2023 11:11-0400 Mean blood pressure 81 mm[Hg] [facility] 06-30-2023 11:11-0400 Respiratory rate 17 /min [facility] 06-30-2023 11:11-0400 SaO2% (BldA) [Mass fraction] 94 % [facility] 06-30-2023 11:11-0400 Systolic blood pressure 108 mm[Hg] [facility] Camara [facility] 06-30-2023 10:29-0400 gluc 106 mg/dL [facility] Cam[facility] 06-30-2023 10:29-0400 gluc Reg[facility] 06-30-2023 10:11-0400 Body temperature 98.06 [degF] [facility] 06-30-2023 10:11-0400 Diastolic blood pressure 83 mm[Hg] [facility] 06-30-2023 10:11-0400 Heart rate 129 /min [facility] 06-30-2023 10:11-0400 SaO2% (BldA) [Mass fraction] 99 % [facility] 06-30-2023 10:11-0400 Systolic blood pressure 124 mm[Hg] [facility] 03-17-2023 15:37-0400 Blood Pressure Location Carina MOTLEY [facility] 03-17-2023 15:37-0400 Body temperature 97.52 [degF] Carina MOTLEY [facility] 03-17-2023 15:37-0400 Diastolic blood pressure 76 mm[Hg] Carina MOTLEY [facility] 03-17-2023 15:37-0400 Heart rate 113 /min Carina MOTLEY [facility] 03-17-2023 15:37-0400 SaO2% (BldA) [Mass fraction] 98 % Carina MOTLEY [facility] 03-17-2023 15:37-0400 Systolic blood pressure 124 mm[Hg] Carina MOTLEY [facility] 12-12-2022 09:19-0500 Body temperature 97.88 [degF] [facility] 12-12-2022 09:19-0500 Diastolic blood pressure 67 mm[Hg] [facility] 12-12-2022 09:19-0500 Heart rate 86 /min [facility] 12-12-2022 09:19-0500 Respiratory rate 16 /min [facility] 12-12-2022 09:19-0500 SaO2% (BldA) [Mass fraction] 100 % Ish [facility] 12-12-2022 09:19-0500 Systolic blood pressure 104 mm[Hg] Ish [facility] 11-18-2022 08:56-0500 Heart rate 73 /min [facility] 11-18-2022 08:56-0500 Respiratory rate 18 /min [facility] 11-18-2022 08:56-0500 SaO2% (BldA) [Mass fraction] 97 % [facility] 11-18-2022 08:20-0500 Diastolic blood pressure 68 mm[Hg] [facility] 11-18-2022 08:20-0500 Heart rate 77 /min [facility] 11-18-2022 08:20-0500 Mean blood pressure 87 mm[Hg] [facility] 11-18-2022 08:20-0500 Respiratory rate 18 /min [facility] 11-18-2022 08:20-0500 SaO2% (BldA) [Mass fraction] 96 % [facility] 11-18-2022 08:20-0500 Systolic blood pressure 125 mm[Hg] [facility] 11-18-2022 07:50-0500 Body temperature 97.7 [degF] [facility] 11-18-2022 07:50-0500 Diastolic blood pressure 64 mm[Hg] [facility] 11-18-2022 07:50-0500 Heart rate 80 /min [facility] 11-18-2022 07:50-0500 Mean blood pressure 84 mm[Hg] [facility] 11-18-2022 07:50-0500 Respiratory rate 20 /min [facility] 11-18-2022 07:50-0500 SaO2% (BldA) [Mass fraction] 95 % [facility] 11-18-2022 07:50-0500 Systolic blood pressure 123 mm[Hg] [facility] 09-20-2022 22:29-0500 Diastolic blood pressure 78 mm[Hg] [employer] [facility] 09-20-2022 22:29-0500 Heart rate 98 /min MarkLogicinn [facility] 09-20-2022 22:29-0500 Mean blood pressure 90 mm[Hg] Ustreamylinn [facility] 09-20-2022 22:29-0500 SaO2% (BldA) [Mass fraction] 98 % [employer] [facility] 09-20-2022 22:29-0500 Systolic blood pressure 114 mm[Hg] Jennaylinn [facility] 09-20-2022 21:16-0500 Body temperature 98.24 [degF] Jennaylinn [facility] 09-20-2022 21:16-0500 Diastolic blood pressure 85 mm[Hg] Jennaylinn Dokken [facility] 09-20-2022 21:16-0500 Heart rate 104 /min Annaleeinn Dokken [facility] 09-20-2022 21:16-0500 Respiratory rate 16 /min Jennaylinn Dokken [facility] 09-20-2022 21:16-0500 SaO2% (BldA) [Mass fraction] 98 % Yunn D[facility] 09-20-2022 21:16-0500 Systolic blood pressure 148 mm[Hg] Annaleeinn Dokken [facility] 06-22-2022 08:41-0400 Body temperature 98.24 [degF] Alan Benedict [facility] 06-22-2022 08:41-0400 Diastolic blood pressure 70 mm[Hg] Alan Benedict [facility] 06-22-2022 08:41-0400 Heart rate 89 /min Alan Benedict [facility] 06-22-2022 08:41-0400 Respiratory rate 16 /min Alan Benedict [facility] 06-22-2022 08:41-0400 SaO2% (BldA) [Mass fraction] 97 % Alan Benedict [facility] 06-22-2022 08:41-0400 Systolic blood pressure 103 mm[Hg] Alan Benedict [facility] 06-03-2022 00:30-0400 Body temperature 98.24 [degF] Chato Jackie [facility] 06-03-2022 00:30-0400 Diastolic blood pressure 86 mm[Hg] [facility] 06-03-2022 00:30-0400 Heart rate 78 /min Chato Jackie [facility] 06-03-2022 00:30-0400 Mean blood pressure 93 mm[Hg] [facility] Jackie [facility] 06-03-2022 00:30-0400 Respiratory rate 15 /min Chato Jackie [facility] 06-03-2022 00:30-0400 SaO2% (BldA) [Mass fraction] 96 % Chat[facility] Jackie [facility] 06-03-2022 00:30-0400 Systolic blood pressure 108 mm[Hg] [facility] 06-03-2022 00:00-0400 Body temperature 98.6 [degF] [facility] 06-03-2022 00:00-0400 Diastolic blood pressure 68 mm[Hg] [facility] 06-03-2022 00:00-0400 Heart rate 70 /min Chat[facility] Jackie [facility] 06-03-2022 00:00-0400 Mean blood pressure 82 mm[Hg] [facility] 06-03-2022 00:00-0400 SaO2% (BldA) [Mass fraction] 98 % [facility] Jackie [facility] 06-03-2022 00:00-0400 Systolic blood pressure 110 mm[Hg] [facility] 06-02-2022 23:08-0400 Diastolic blood pressure 74 mm[Hg] [facility] 06-02-2022 23:08-0400 Heart rate 86 /min Chat[facility] Jackie [facility] 06-02-2022 23:08-0400 Mean blood pressure 88 mm[Hg] [facility] Jackie [facility] 06-02-2022 23:08-0400 Respiratory rate 10 /min [facility] Jackie [facility] 06-02-2022 23:08-0400 SaO2% (BldA) [Mass fraction] 99 % [facility] Jackie [facility] 06-02-2022 23:08-0400 Systolic blood pressure 117 mm[Hg] [facility] Jackie [facility] 06-02-2022 22:41-0400 Respiratory rate 16 /min Chato Jackie [facility] 03-28-2022 15:57-0400 Blood Pressure Location LAURIE SIDELL [facility] 03-28-2022 15:57-0400 Diastolic blood pressure 70 mm[Hg] LAURIE SIDELL [facility] 03-28-2022 15:57-0400 Heart rate 91 /min LAURIE SIDELL [facility] 03-28-2022 15:57-0400 SaO2% (BldA) [Mass fraction] 98 % LAURIE SIDERAFFAELE [facility] 03-28-2022 15:57-0400 Systolic blood pressure 110 mm[Hg] LAURIE SIDELL [facility] 03-20-2022 10:56-0400 Blood Pressure Location Carina TOLU [facility] 03-20-2022 10:56-0400 Body temperature 97.34 [degF] Carina TOLU [facility] 03-20-2022 10:56-0400 Diastolic blood pressure 74 mm[Hg] Carina TOLU [facility] 03-20-2022 10:56-0400 Heart rate 85 /min Carina TOLU [facility] 03-20-2022 10:56-0400 SaO2% (BldA) [Mass fraction] 99 % Carina TOLU [facility] 03-20-2022 10:56-0400 Systolic blood pressure 124 mm[Hg] Carina TOLU [facility] 01-28-2022 17:30-0400 Diastolic blood pressure 65 mm[Hg] DO Carina Tolu Work Phone: [facility] 01-28-2022 17:30-0400 Heart rate 80 /min DO Carina Tolu Work Phone: [facility] 01-28-2022 17:30-0400 Respiratory rate 20 /min DO Carina Motley Work Phone: [facility] 01-28-2022 17:30-0400 SaO2% (BldA) [Mass fraction] 97 % DO Carina Motley Work Phone: [facility] 01-28-2022 17:30-0400 Systolic blood pressure 110 mm[Hg] DO Carina Motley Work Phone: [facility] 01-28-2022 15:10-0400 Body temperature 98 [degF] DO Carina Motley Work Phone: [facility] 01-28-2022 15:07-0400 Body height 165.1 cm DO Carina Motley Work Phone: [facility] 01-28-2022 15:07-0400 Body mass index (BMI) [Ratio] 31.8 kg/m2 DO Carina Motley Work Phone: [facility] 01-28-2022 15:07-0400 Body weight 86.7 kg DO Carina Motley Work Phone: [facility] 1980 01:00-0400 >na< Rylee Long Dept. of Max fontenot Encounters Encounter Date Encounter Type Care Provider Facility Start: 10-11-2024 End: 10-11-2024 Bamboo flowsheet Dony Morales DO Work Phone: [facility] Start: 10-11-2024 End: 10-11-2024 Bamboo flowsheet Dony Morales DO Work Phone: [facility] Start: 10-07-2024 End: 10-07-2024 Emergency department patient visit Marnie Mcknight [facility] Start: 08-19-2024 End: 08-19-2024 Emergency department patient visit Chato Mejia [facility] Start: 03-28-2024 End: 03-28-2024 Emergency department patient visit Chato Mejia [facility] Start: 03-06-2024 End: 03-07-2024 Emergency department patient visit Tonie Garciaana [facility] Start: 12-11-2023 End: 12-11-2023 ambulatory [facility] Start: 12-11-2023 End: 12-11-2023 Office outpatient visit 25 minutes Rylee Long MD Work Phone: [facility] Comment on above: Acne vulgaris (Prima ry Dx); Hemangioma of skin; Melanocytic nevus, unspecified location; Lentigo; Seborrheic keratosis; Encounter for screening for malignant neoplasm of skin Start: 12-04-2023 End: 12-04-2023 ambulatory Carina MOTLEY Facility:[facility] Start: 11-17-2023 End: 11-17-2023 Emergency department patient visit Reggie Camara Facility:[facility] Start: 09-14-2023 End: 09-14-2023 Patient encounter procedure Carina MOTLEY [facility] Start: 07-30-2023 End: 07-30-2023 Patient encounter procedure Emily Montejo [facility] Start: 07-17-2023 End: 07-17-2023 Patient encounter procedure LAURIE VERNON [facility] Start: 07-06-2023 End: 07-06-2023 Emergency department patient visit Tonie Garciaana [facility] Start: 06-30-2023 End: 06-30-2023 Emergency department patient visit Reggie Camara [facility] Start: 04-25-2023 End: 04-25-2023 Patient encounter procedure LAURIE Gerard VERNON [facility] Start: 04-16-2023 End: 04-16-2023 Patient encounter procedure Carina MACHUCA [facility] Start: 03-17-2023 End: 03-17-2023 Patient encounter procedure Carina MOTLEY [facility] Start: 12-12-2022 End: 12-12-2022 Emergency department patient visit Ish [facility] Start: 12-11-2022 End: 12-11-2022 Patient encounter procedure Florinda Mercado [facility] Start: 12-05-2022 ambulatory UNKNOWN UNKNOWN Facilit [id number] Start: 12-05-2022 Office outpatient vi sit 15 minutes Rylee Long Dept. of Dermatology Start: 12-02-2022 End: 12-02-2022 Lab Drop off Florinda Pizarromons [facility] Start: 12-02-2022 End: 12-02-2022 Patient encounter procedure Florinda Mercado [facility] Start: 11-26-2022 End: 11-26-2022 Patient encounter procedure Carina MOTLEY [facility] Start: 11-18-2022 End: 01-09-2023 Emergency department patient visit Tonie King [facility] Start: 09-20-2022 End: 09-20-2022 Emergency department patient visit Marnie Mcknight [facility] Start: 06-22-2022 End: 06-22-2022 Emergency department patient visit Alan Mcmullen [facility] Start: 06-07-2022 Telephone encounter Joe Sheffield DO Work Phone: General Surgery Comment on above: Appointment Start: 06-04-2022 End: 06-04-2022 Patient encounter procedure LAURIE VERNON [facility] Start: 06-04-2022 End: 06-04-2022 Off-Site LAURIE VERNON [facility] Start: 06-02-2022 End: 06-03-2022 Emergency department patient visit Chato Mejia [facility] Start: 05-21-2022 End: 05-21-[address] DONY NIELSEN Facility: Start: 03-28-2022 End: 03-28-2022 Patient encounter procedure LAURIE VERNON [facility] Start: 03-22-2022 End: 03-22-2022 Patient encounter procedure Carina MOTLEY [facility] Start: 03-20-2022 End: 03-20-2022 Patient encounter procedure Carina MOTLEY [facility] Start: 03-18-2022 End: 03-18-2022 Patient encounter procedure LAURIE Gee KARINARAFFAELE [facility] Start: 01-28-2022 End: 01-28-2022 Emergency department patient visit Carina Motley Facility:[facility] Start: 01-28-2022 End: 01-28-2022 Emergency department patient visit DO Carina Motley Work Phone: [facility] Start: 12-20-2021 ambulatory RYLEE LONG Facil [id number] Start: 12-20-2021 ambulatory RYLEE LONG Facil [id number] Start: 12-20-2021 Office outpatient vi sit 15 minutes Rylee Long Dept. of Dermatology Start: 11-21-2021 End: 02-19-2022 Recurring Cristiano Be [facility] Start: 07-19-2021 ambulatory ANDREEA BARRETT Facility: Start: 12-21-2020 Office outpatient vi sit 15 [...] Date Procedure Procedure Detail Performing Clinician Start: 11-20-2023 Mammography Dony Fajuan najera Work Phone: Start: 09-16-2023 Microscopic observat ion [Identifier] in Cervix by Cyto stain Dony Nielsen DO Work Phone: Start: 11-14-2022 Mammography Rylee castrejon MD Work Phone: Start: 01-28-2022 Plain chest X-ray DO Gr shalini Motley Work Phone: Start: 12-20-2021 Established Office V isit Level 3 Rylee Long Start: 12-20-2021 Tangential biopsy sk in single lesion Rylee Long Start: 10-19-2020 Colonoscopy and biop sy of colon Cristiano Be Start: 10-14-2018 Hernia repair Cristiano meeks Comment on above: umbilical hernia rep air Start: 01-02-2017 Cystoscopy with uret hral dilation Cristiano Be Start: 01-06-2014 cystoscopy and urete ral dilation Cristiano Be Ankle right Cristiano Be Cholecystectomy Cristiano franklin Dilation & curettage Cristiano Be Entire plantar apone urosis (body structure) Cristiano Be History of nasal sin us surgery Cristiano Be Laparoscopy Cristiano Be Nose x4 surgeries Cristiano beltrán Repair of umbilical hernia Magalis VERNON Tonsillectomy Cristiano Be vocal cord nodules r emoved x3 Cristiano Be Plan of Treatment Date Care Activity Detail Author Start: 2030 Zoster Vaccines (1 of 2) Zoste r Vaccines (1 of 2) [facility] Start: 09-16-2026 Screening for malign ant neoplasm of cervix [facility] Start: 07-17-2026 Diabetes mellitus screening Diabetes Screening [facility] Start: 05-04-2026 DTaP/Tdap/Td Vaccine s (2 - Td or Tdap) DTaP/Tdap/Td Vaccines (2 - Td or Tdap) [facility] Start: 12-16-2024 End: 12-16-2024 Patient encounter procedure 12/16/2024 10:00 AM EST Office Visit [place] [address] [address] Rylee Long MD [address], [address] [address] [facility] Start: 11-20-2024 Screening for malign ant neoplasm of breast Mammogram [facility] Start: 07-11-2024 Influenza vaccination Influenza Vacc ine (#1) [facility] Start: 11-14-2023 Screening for malign ant neoplasm of breast Mammogram [facility] Start: 07-11-2023 Influenza vaccination Influenza Vacc ine (#1) [facility] Start: 07-11-2022 Influenza vaccination INFLUENZA (#1) [facility] Start: 2020 Mammography MAMMOGRAM [facility] Start: 2010 HPV TESTING HPV TESTING [facility] Start: 2010 Screening for malign ant neoplasm of cervix HPV/Cotest [facility] Start: 2001 PAP TESTING PAP TESTING [facility] Start: 2001 Screening for malign ant neoplasm of cervix [facility] Start: 1999 Urine microalbumin profile DTAP,TDAP,TD (1 - Tdap) [facility] Start: 1998 ANNUAL PCP TEAM EQUAL OPPORTUNITY SPECIALIST ANGELA DISEASE VISIT ANNUAL PCP TEAM CHRONIC DISEASE VISIT [facility] Start: 1998 HEPATITIS C SCREENING HEPATITIS C [facility] Start: 1998 Hepatitis C screening Hepatitis C [facility] Start: 1998 HIV SCREENING HIV SCREENING [facility] Start: 1992 Adult depression screening assessment DEPRESSION SCREENING [facility] Start: 1981 MMR Vaccines (1 of 1 - Standard series) MMR Vaccines (1 of 1 - Standard series) [facility] Start: 02-05-1981 COVID-19 VACCINE (#1) COVID-19 VACCI NE (#1) [facility] Start: 1980 Hepatitis B Vaccines (1 of 3 - 3-dose series) Hepatitis B Vaccines (1 of 3 - 3-dose series) [facility] Start: 1980 HIV screening HIV Screening [facility] Start: 1980 Lipid panel Lipid Panel [facility] Start: 1980 Thyroid stimulating hormone measurement TSH Level [facility] Start: 1980 Yearly Adult Physical Yearly Adult P hysical [facility] Patient Education Chest Pain Bret t Is Not Caused by the Heart (DC) Adverse Drug Reactions, Adult ED [facility] Work Phone: Patient referral [facility] Work Phone: Troponin I.cardiac [Mass/volume] in Serum or Plasma by High sensitivity method [facility] Work Phone: Immunizations Immunization Date Immunization Notes Care Provider Fa cilifawn 05-04-2016 tetanus toxoid, reduced diphtheria toxoid, and acellular pertussis vaccine, adsorbed Cristiano Be [facility] 09-24-2010 influenza virus vaccine, unspecified formulation Carina MOTLEY [facility] 1980 pneumococcal conjugate vaccine, 7 valent Rylee Long Dept. of Dermatology NEGATED: Highlighted row has not occurred!11-19-2022 influenza virus vaccine, unspecified formulation Carina MOTLEY [facility] Payers Date Payer Category Payer Unknown [id number] 2022 Self-pay [id number] 2016 Medicaid [facility] [id number] 2016-Present [phone] [address] [place] [address] Medicaid [id number] 2016 Private Health Insurance [facility] [id number] 2016 Unknown JASEN BURGOS [id number] 2016-Present [address] [place] [address] [id number] 1980 Unknown [id number]. 593 1980 Unknown [id number] [id number]. 593 1980 Unknown [id number] [id number]. 356 1980 Unknown [id number] [id number]. 356 1980 Unknown [id number] [id number]. 356 1980 Unknown [id number] [id number]. 1244 1980 Unknown [id number] [id number]. 727 1980 Unknown [id number] [id number]. 727 1980 Unknown [id number] [id number]. 727 1980 Unknown [id number] [id number]. 727 1980 Unknown [id number] [id number]. 727 1980 Unknown [id number] [id number]. 727 1959 Unknown [id number] Unknown [id number]. 531 Social History Date Type Detail Facility [facility] End: 1980 Sex Assigned At Female [facility] Start: 01-28-2022 End: 12-11-2023 Tobacco smoking status NHIS Never smoked tobacco (finding) [facility] Start: 01-21-2022 End: 07-06-2023 Tobacco smoking status Ex-smoker (finding) [facility] Tobacco smoking status Never [facility] Start: 09-16-2023 End: 12-11-2023 Sex Assigned At Female [facility] End: 11-10-2010 History of tobacco use Current smoker [facility] Work Phone: End: 11-10-2010 History of tobacco use Cigarette Smoker [facility] Work Phone: Start: 01-26-2020 Alcohol intake Current non-dr 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 of alcohol (finding) [facility] Start: 1980 Sex Assigned At Not on file C [facility] Tobacco [facility] Comment on above: denies Tobacco smoking status No Smokin g Status Entered [facility] Start: 12-11-2023 Tobacco use and exposure Smokeless tobacco non-user [facility] Work Phone: Start: 09-16-2023 End: 12-11-2023 History of Social function [facility] Work Phone: Start: 12-01-2023 End: 12-11-2023 Exposure to SARS-CoV-2 (event) Not sure [facility] Start: 06-04-2023 Tobacco smoking stat us NHIS Smokes tobacco daily [facility] Start: 09-16-2023 Alcoholic beverage intake Current drinker of alcohol (finding) [facility] Start: 06-04-2023 Alcohol Comment occasional alc ohol use . / Caffeine: hot chocolate 3 per week [facility] Medical Equipment Procedure Code Equipment Code Equipment Origin al Text Equipment Identifier Dates Raudel torrez [id number] - [id number] Start: 03-30-2019 Goals Date Patient Goal Desired Activity /State Functional Status Date Assessment Result Facility 10-07-2024 Functional Status N/A [facility] 08-19-2024 Functional Status N/A [facility] 03-28-2024 Functional Status N/A [facility] 03-06-2024 Functional Status N/A [facility] 07-06-2023 Functional Status N/A [facility] 06-30-2023 Functional Status N/A [facility] 03-17-2023 Functional Status N/A [facility] 12-12-2022 Functional Status N/A [facility] 12-02-2022 Functional Status N/A [facility] 11-18-2022 Functional Status N/A [facility] 09-20-2022 Functional Status N/A [facility] 06-22-2022 Functional Status N/A [facility] 06-02-2022 Functional Status Yes [facility] Clinical Notes 01-25-2022 to 10-07-2024 Note Date & Type Note Facility 10-07-2024 Evaluation + Plan note Extrac anoop from: Title:ED Note Author:Marnie Mcknight DO Date :10/07/24 Acute URI (J06.9: Acute uppe r respiratory infection, unspecified) Orders: benzonatate, 100 mg = 1 cap(s), Oral, TID, X 10 day(s), # 30 cap(s), Refills(s) 0, Pharmacy: [id number], 165.1, cm, 10/07/24 0:46:00 EST, Height/Length Dosing, 91.4, kg, 10/07/24 0:46:00 EST, Weight Dosing XR Chest 2 Views [facility] 11-28-2024 Hospital Discharge instructions Patient Education 10/07/2024 03:08:22 Upper Respiratory Infection, Adult, [id number] Upper Respiratory Infection, Adult An upper respiratory infection (URI) affects the nose, throat, and upper airways that lead to the lungs. The most common type of URI is often called the common cold. URIs usually get better on their own, without medical treatment. What are the causes? A URI is caused by a germ (virus). You may catch these germs by: Breathing in droplets from an infected person's cough or sneeze. Touching something that has the germ on it (is contaminated) and then touching your mouth, nose, oreyes. What increases the risk? You are more likely to get a URI if: You are very young or very old. You have close contact with others, such as at work, school, or a health care facility. You smoke. You have long-term (chronic) heart or lung disease. You have a weakened disease-fighting system (immune system). You have nasal allergies or asthma. You have a lot of stress. You have poor nutrition. What are the signs or symptoms? Runny or stuffy (congested) nose. Cough. Sneezing. Sore throat. Headache. Feeling tired (fatigue). Fever. Not wanting to eat as much as usual. Pain in your forehead, behind your eyes, and over your cheekbones (sinus pain). Muscle aches. Redness or irritation of the eyes. Pressure in the ears or face. How is this treated? URIs usually get better on their own within 7 10 days. Medicines cannot cure URIs, but your doctor may recommend certain medicines to help relieve symptoms, such as: Owys-bax-fdmadme cold medicines. Medicines to reduce coughing (cough suppressants). Coughing is a type of defense against infection that helps to clear the nose, throat, windpipe, and lungs (respiratory system). Take these medicinesonly as told by your doctor. Medicines to lower your fever. Follow these instructions at home: Activity Rest as needed. If you have a fever, stay home from work or school until your fever is gone, or until your doctor says you may return to work or school. ?You should stay home until you cannot spread the infection anymore (you are not contagious). ?Your doctor may have you wear a face mask so you have less risk of spreading the infection. Relieving symptoms Rinse your mouth often with salt water. To make salt water, dissolve 1 tsp (3 6 g) of salt in 1 cup(237 mL) of warm water. Use a cool-mist humidifier to add moisture to the air. This can help you breathe more easily. Eating and drinking Drink enough fluid to keep your pee (urine) pale yellow. Eat soups and other clear broths. General instructions Take ixln-lyz-owfrvcr and prescription medicines only as told by your doctor. Do not smoke or use any products that contain nicotine or tobacco. If you need help quitting, ask your doctor. Avoid being where people are smoking (avoid secondhand smoke). Stay up to date on all your shots (immunizations), and get the flu shot every year. Keep all follow-up visits. How to prevent the spread of infection to others Wash your hands with soap and water for at least 20 seconds. If you cannot use soap and water, use hand engineer soils. Avoid touching your mouth, face, eyes, or nose. Cough or sneeze into a tissue or your sleeve or elbow. Do not cough or sneeze into your hand or into the air. Contact a doctor if: You are getting worse, not better. You have any of these: ?A fever or chills. ?Brown or red mucus in your nose. ?Yellow or brown fluid (discharge)coming from your nose. ?Pain in your face, especially when you bend forward. ?Swollen neck glands. ?Pain when you swallow. ?White areas in the back of your throat. Get help right away if: You have shortness of breath that gets worse. You have very bad or constant: ?Headache. ?Ear pain. ?Pain in your forehead, behind your eyes, and over your cheekbones (sinus pain). ?Chest pain. You have long-lasting (chronic) lung disease along with any of these: ?Making high-pitched whistling sounds when you breathe, most often when you breathe out (wheezing). ?Long-lasting cough (more than 14 days). ?Coughing up blood. ?A change in your usual mucus. You have a stiff neck. You have changes in your: ?Vision. ?Hearing. ?Thinking. ?Mood. These symptoms may be an emergency. Get help right away. Call 911. Do not wait to see if the symptoms will go away. Do not drive yourself to the hospital. Summary An upper respiratory infection (URI) is caused by a germ (virus). The most common type of URI is often called the common cold. URIs usually get better within 7 10 days. Take fkpq-rjc-wvnidea and prescription medicines only as told by your doctor. This information is not intended to replace advice given to you by your health care provider. Make sure you discuss any questions you have with your health care provider. Document Revised: 05/29/2022 Document Reviewed: 05/29/2022 [email or web address] Patient Education 2023 [employer]. Follow Up Care 10/07/2024 00:38:18 With:Carina MOTLEY Address: [address] [facility] [place] [address] [phone] Business (1) When:10/10/2024 Comments:You can use the Tessalon Perles as prescribed as needed for cough and congestion you can use ibuprofen, Tylenol for 6 hours as needed for pain and fever. Please follow-up with your primary care doctor for further evaluation management. Return to the ED for any new or worsening symptoms. [facility] 11-28-2024 NoteED Patient Education Note Infectious Disease Upper Respiratory Infection, Adult An upper respiratory infection (URI) affects the nose, throat, and upper airways that lead to the lungs. The most common type of URI is often called the common cold. URIs usually get better on their own, without medical treatment. What are the causes? A URI is caused by a germ (virus). You may catch these germs by: ??? Breathing in droplets from an infected person's cough or sneeze. ??? Touching something that has the germ on it (is contaminated) and then touching your mouth, nose, or eyes. What increases the risk? You are more likely to get a URI if: ??? You are very young or very old. ??? You have close contact with others, such as at work, school, or a health care facility. ??? You smoke. ??? You have long-term (chronic) heart or lung disease. ??? You have a weakened disease-fighting system (immune system). ??? You have nasal allergies or asthma. ??? You have a lot of stress. ??? You have poor nutrition. What are the signs or symptoms? Runny or stuffy (congested) nose. ??? Cough. ??? Sneezing. ??? Sore throat. ??? Headache. ??? Feeling tired (fatigue). ??? Fever. ??? Not wanting to eat as much as usual. ??? Pain in your forehead, behind your eyes, and over your cheekbones (sinus pain). ??? Muscle aches. ??? Redness or irritation of the eyes. ??? Pressure in the ears or face. How is this treated? URIs usually get better on their own within 7?10 days. Medicines cannot cure URIs, but your doctor may recommend certain medicines to help relieve symptoms, such as: ??? Uygl-zyv-kodfbux cold medicines. ??? Medicines to reduce coughing (cough suppressants). Coughing is a type of defense against infection that helps to clear the nose, throat, windpipe, and lungs (respiratory system). Take these medicines only as told by your doctor. ??? Medicines to lower your fever. Follow these instructions at home: Activity ??? Rest as needed. ??? If you have a fever, stay home from work or school until your fever is gone, or until your doctor says you may return to work or school. ? You should stay home until you cannot spread the infection anymore (you are not contagious). ? Your doctor may have you wear a face mask so you have less risk of spreading the infection. Relieving symptoms ??? Rinse your mouth often with salt water. To make salt water, dissolve ??1 tsp (3?6 g) of salt in1 cup (237 mL) of warm water. ??? Use a cool-mist humidifier to add moisture to the air. This can help you breathe more easily. Eating and drinking ??? Drink enough fluid to keep your pee (urine) pale yellow. ??? Eat soups and other clear broths. General instructions ??? Take qhfs-ypm-vxwsoqq and prescription medicines only as told by your doctor. ??? Do not smoke or use any products that contain nicotine or tobacco. If you need help quitting, ask your doctor. ??? Avoid being where people are smoking (avoid secondhand smoke). ??? Stay up to date on all your shots (immunizations), and get the flu shot every year. ??? Keep all follow-up visits. How to prevent the spread of infection to others ??? Wash your hands with soap and water for at least 20 seconds. If you cannot use soap and water, use hand engineer soils. ??? Avoid touching your mouth, face, eyes, or nose. ??? Cough or sneeze into a tissue or your sleeve or elbow. Do not cough or sneeze into your hand orinto the air. Contact a doctor if: ??? You are getting worse, not better. ??? You have any of these: ? A fever or chills. ? Brown or red mucus in your nose. ? Yellow or brown fluid (discharge)coming from your nose. ? Pain in your face, especially when you bend forward. ? Swollen neck glands. ? Pain when you swallow. ? White areas in the back of your throat. Get help right away if: ??? You have shortness of breath that gets worse. ??? You have very bad or constant: ? Headache. ? Ear pain. ? Pain in your forehead, behind your eyes, and over your cheekbones (sinus pain). ? Chest pain. ??? You have long-lasting (chronic) lung disease along with any of these: ? Making high-pitched whistling sounds when you breathe, most often when you breathe out (wheezing). ? Long-lasting cough (more than 14 days). ? Coughing up blood. ? A change in your usual mucus. ??? You have a stiff neck. ??? You have changes in your: ? Vision. ? Hearing. ? Thinking. ? Mood. These symptoms may be an emergency. Get help right away. Call 911. ??? Do not wait to see if the symptoms will go away. ??? Do not drive yourself to the hospital. Summary ??? An upper respiratory infection (URI) is caused by a germ (virus). The most common type of URI is often called the common cold. ??? URIs usually get better within 7?10 days. ??? Take zexj-dgi-jykxpig and prescrip (more content not included)...[facility]10-10-2024 Hospital Discharge instructions Patient Education 08/19/2024 20:20:48 Cervical Radiculopathy Cervical Radiculopathy Cervical radiculopathy happens when a nerve in the neck (a cervical nerve) is pinched or bruised. This condition can happen because of an injury to the cervical spine (vertebrae) in the neck, or as part of the normal aging process. Pressure on the cervical nerves can cause pain or numbness that travels from the neck all the way down to the arm and fingers. This condition usually gets better with rest. Treatment may be needed if the condition does not improve. What are the causes? This condition may be caused by: A neck injury. A bulging (herniated) disk. Muscle spasms. Muscle tightness in the neck due to overuse. Arthritis. Breakdown or degeneration in the bones and joints of the spine (spondylosis) due to aging. Bone spurs that may develop near the cervical nerves. What are the signs or symptoms? Symptoms of this condition include: Pain. The pain may travel from the neck to the arm and hand. The pain can be severe or irritating. It may get worse when you move your neck. Numbness or tingling in your arm or hand. Weakness in the affected arm and hand, in severe cases. How is this diagnosed? This condition may be diagnosed based on your symptoms, your medical history, and a physical exam. You may also have tests, including: X-rays. CT scan. MRI. Electromyogram (EMG). Nerve conduction tests. How is this treated? In many cases, treatment is not needed for this condition. With rest, the condition usually gets better over time. If treatment is needed, options may include: Wearing a soft neck collar (cervical collar) for short periods of time. Doing physical therapy to strengthen your neck muscles. Taking medicines. These may include NSAIDs, such as ibuprofen, or oral corticosteroids. Having spinal injections, in severe cases. Having surgery. This may be needed if other treatments do not help. Different types of surgery may be done depending on the cause of this condition. Follow these instructions at home: If you have a cervical collar: Wear it as told by your health care provider. Remove it only as told by your health care provider. Ask your health care provider if you can remove the cervical collar for cleaning and bathing. If you are allowed to remove the collar for cleaning or bathing: ?Follow instructions from your health care provider about how to remove the collar safely. ?Clean the collar by wiping it with mild soap and water and drying it completely. ?Take out any removable pads in the collar every 1 2 days, and wash them by hand with soap and water. Let them air-dry completely before you put them back in the collar. ?Check your skin under the collar for irritation or sores. If you see any, tell your health care provider. Managing pain Take vviu-wjk-jfwwaad and prescription medicines only as told by your health care provider. If directed, put ice on the affected area. To do this: ?If you have a soft neck collar, remove it as told by your health care provider. ?Put ice in a plastic bag. ?Place a towel between your skin and the bag. ?Leave the ice on for 20 minutes, 2 3 times a day. ?Remove the ice if your skin turns bright red. This is very important. If you cannot feel pain, heat, or cold, you have a greater risk of damage to the area. If applying ice does not help, you can try using heat. Use the heat source that your health care provider recommends, such as a moist heat pack or a heating pad. ?Place a towel between your skin and the heat source. ?Leave the heat on for 20 30 minutes. ?Remove the heat if your skin turns bright red. This is especially important if you are unable to feel pain, heat, or cold. You have a greater risk of getting burned. Try a gentle neck and shoulder massage to help relieve symptoms. Activity Rest as needed. Return to your normal activities as told by your health care provider. Ask your health care provider what activities are safe for you. Do stretching and strengthening exercises as told by your health care provider or your physical therapist. You may have to avoid lifting. Ask your health care provider how much you can safely lift. General instructions Use a flat pillow when you sleep. Do not drive while wearing a cervical collar. If you do not have a cervical collar, ask your healthcare provider if it is safe to drive while your neck heals. Ask your health care provider if the medicine prescribed to you requires you to avoid driving or using machinery. Do not use any products that contain nicotine or tobacco. These products include cigarettes, chewing tobacco, and vaping devices, such as e-cigarettes. If you need help quitting, ask your health careprovider. Keep all follow-up visits. This is important. Contact a health care provider if: Your condition does not improve with treatment. Get help right away if: Your pain gets much worse and is not controlled with medicines. You have weakness or numbness in your hand, arm, face, or leg. You have a high fever. You have a stiff, rigid neck. You lose control of your bowels or your bladder (have incontinence). You have trouble with walking, balance, or speaking. Summary Cervical radiculopathy happens when a nerve in the neck is pinched or bruised. A nerve can get pinched from a bulging disk, arthritis, muscle spasms, or an injury to the neck. Symptoms include pain, tingling, or numbness radiating from the neck to the arm or hand. Weakness can also occur in severe cases. Treatment may include rest, wearing a cervical collar, and physical therapy. Medicines may be prescribed to help with pain. In severe cases, injections or surgery may be needed. This information is not intended to replace advice given to you by your health care provider. Make sure you discuss any questions you have with your health care provider. Document Revised: 05/02/2022 Document Reviewed: 05/02/2022 [email or web address] Patient Education 2023 [employer]. Follow Up Care 08/19/2024 19:17:00 With:Carina MOTLEY Address: [address] [facility] [place] [address]- [phone] Business (1) When:Within 3 Day(s) [facility] 10-10-2024 NoteED Patient Education Note Orthopedics Cervical Radiculopathy Cervical radiculopathy happens when a nerve in the neck (a cervical nerve) is pinched or bruised. This condition can happen because of an injury to the cervical spine (vertebrae) in the neck, or as part of the normal aging process. Pressure on the cervical nerves can cause pain or numbness that travels from the neck all the way down to the arm and fingers. This condition usually gets better with rest. Treatment may be needed if the condition does not improve. What are the causes? This condition may be caused by: ? A neck injury. ? A bulging (herniated) disk. ? Muscle spasms. ? Muscle tightness in the neck due to overuse. ? Arthritis. ? Breakdown or degeneration in the bones and joints of the spine (spondylosis) due to aging. ? Bone spurs that may develop near the cervical nerves. What are the signs or symptoms? Symptoms of this condition include: ? Pain. The pain may travel from the neck to the arm and hand. The pain can be severe or irritating. It may get worse when you move your neck. ? Numbness or tingling in your arm or hand. ? Weakness in the affected arm and hand, in severe cases. How is this diagnosed? This condition may be diagnosed based on your symptoms, your medical history, and a physical exam. You may also have tests, including: ? X-rays. ? CT scan. ? MRI. ? Electromyogram (EMG). ? Nerve conduction tests. How is this treated? In many cases, treatment is not needed for this condition. With rest, the condition usually gets better over time. If treatment is needed, options may include: ? Wearing a soft neck collar (cervical collar) for short periods of time. ? Doing physical therapy to strengthen your neck muscles. ? Taking medicines. These may include NSAIDs, such as ibuprofen, or oral corticosteroids. ? Having spinal injections, in severe cases. ? Having surgery. This may be needed if other treatments do not help. Different types of surgery may be done depending on the cause of this condition. Follow these instructions at home: If you have a cervical collar: ? Wear it as told by your health care provider. Remove it only as told by your health care provider. ? Ask your health care provider if you can remove the cervical collar for cleaning and bathing. If you are allowed to remove the collar for cleaning or bathing: ? Follow instructions from your health care provider about how to remove the collar safely. ? Clean the collar by wiping it with mild soap and water and drying it completely. ? Take out any removable pads in the collar every 1?2 days, and wash them by hand with soap and water. Let them air-dry completely before you put them back in the collar. ? Check your skin under the collar for irritation or sores. If you see any, tell your health care provider. Managing pain ? Take qhxw-lww-hfwktdz and prescription medicines only as told by your health care provider. ? If directed, put ice on the affected area. To do this: ? If you have a soft neck collar, remove it as told by your health care provider. ? Put ice in a plastic bag. ? Place a towel between your skin and the bag. ? Leave the ice on for 20 minutes, 2?3 times a day. ? Remove the ice if your skin turns bright red. This is very important. If you cannot feel pain, heat, or cold, you have a greater risk of damage to the area. ? If applying ice does not help, you can try using heat. Use the heat source that your health care provider recommends, such as a moist heat pack or a heating pad. ? Place a towel between your skin and the heat source. ? Leave the heat on for 20?30 minutes. ? Remove the heat if your skin turns bright red. This is especially important if you are unable to feel pain, heat, or cold. You have a greater risk of getting burned. ? Try a gentle neck and shoulder massage to help relieve symptoms. Activity ? Rest as needed. ? Return to your normal activities as told by your health care provider. Ask your health care provider what activities are safe for you. ? Do stretching and strengthening exercises as told by your health care provider or your physical therapist. ? You may have to avoid lifting. Ask your health care provider how much you can safely lift. General instructions ? Use a flat pillow when you sleep. ? Do not drive while wearing a cervical collar. If you do not have a cervical collar, ask your health care provider if it is safe to drive while your neck heals. ? Ask your health care provider if the medicine prescribed to you requires you to avoid driving or using machinery. ? Do not use any products that contain nicotine or tobacco. These products include cigarettes, chewing tobacco, and vaping devices, such as e-cigarettes. If you need help quitting, ask your health care provider. ? Keep all follow-up visits. This is im (more content not included)...[facility]10-10-2024 Evaluation + Plan noteExtracted from: Title:ED Note Author:Jackie Chato TorrezSonya Date :08/19/24 Acute cervical radiculopathy (M54.12: Radiculopathy, cervical region) Orders: cyclobenzaprine, 10 mg = 1 tab(s), Oral, TID, PRN Muscle pain, # 14 tab(s), Refills(s) 0, Pharmacy: [facility]/pharmacy #[id number], 166, cm, 08/19/24 19:23:00 EDT, Height/Length Dosing, 92, kg, 08/19/24 19:23:00 EDT, Weight Dosing predniSONE, 40 mg = 2 tab(s), Oral, Daily, X 5 day(s), # 10 tab(s), Refills(s) 0, Pharmacy: [facility]/pharmacy #[id number], 166, cm, 08/19/24 19:23:00 EDT, Height/Length Dosing, 92, kg, 08/19/24 19:23:00 EDT, Weight Dosing [facility] 05-20-2024 Hospital Discharge instructions Patient Education 03/28/2024 22:18:18 Contusion, Uoib-gv-Rlgh Contusion A contusion is a deep bruise. This is a result of an injury that causes bleeding under the skin. Symptoms of bruising include pain, swelling, and discolored skin. The skin may turn blue, purple, or yellow. Follow these instructions at home: Managing pain, stiffness, and swelling You may use RICE. This stands for: Resting. Icing. Compression, or putting pressure. Elevating, or raising the injured area. To follow this method, do these actions: Rest the injured area. If told, put ice on the injured area. ?Put ice in a plastic bag. ?Place a towel between your skin and the bag. ?Leave the ice on for 20 minutes, 2 3 times per day. If told, put light pressure (compression) on the injured area using an elastic bandage. Make sure the bandage is not too tight. If the area tingles or becomes numb, remove it and put it back on as told by your doctor. If possible, raise (elevate) the injured area above the level of your heart while you are sitting or lying down. General instructions Take lbat-mzm-xboqomf and prescription medicines only as told by your doctor. Keep all follow-up visits as told by your doctor. This is important. Contact a doctor if: Your symptoms do not get better after several days of treatment. Your symptoms get worse. You have trouble moving the injured area. Get help right away if: You have very bad pain. You have a loss of feeling (numbness) in a hand or foot. Your hand or foot turns pale or cold. Summary A contusion is a deep bruise. This is a result of an injury that causes bleeding under the skin. Symptoms of bruising include pain, swelling, and discolored skin. The skin may turn blue, purple, or yellow. This condition is treated with rest, ice, compression, and elevation. This is also called RICE. Youmay be given lrnu-ggl-jztqrwj medicines for pain. Contact a doctor if you do not feel better, or you feel worse. Get help right away if you have verybad pain, have lost feeling in a hand or foot, or the area turns pale or cold. This information is not intended to replace advice given to you by your health care provider. Make sure you discuss any questions you have with your health care provider. Document Revised: 08/22/2022 Document Reviewed: 08/22/2022 [email or web address] Patient Education 2022 [employer]. Follow Up Care 03/28/2024 21:53:27 With:Carina MOTLEY DO Address: [address] [place] [address] [place] [address]- [phone] When:03/31/2024 [facility]05-19-2024 Evaluation + Plan noteExtracted from: Title:ED Note Author:Ambar Boone PA-C Date :03/28/24 1. Contusion of left forearm , initial encounter (S50.12XA: Contusion of left forearm, initial encounter) Orders: Gabriel Wrap Future Scheduled Tests Radiology* US Extremity Non-Vascular Limited Right 06/03/23 [facility]04-28-2024 Evaluation + Plan noteExtracted from: Title:ED Note Author:Christine Garcia, Tonie Robles te:03/07/24 1. Chest pain (R07.9: Chest pain, unspecified) Orders: Basic Metabolic Panel CBC w/ Auto Diff ED Cardiac Monitoring eGFR Hepatic Function Panel Magnesium Level Oxygen Saturation Oxygen Therapy PT & PTT Saline Lock Insert Troponin 0 Hr. Troponin 1 Hr. Troponin 3 Hr. Troponin 6 Hr. XR Chest Single View Future Scheduled Tests Radiology* US Extremity Non-Vascular Limited Right 06/03/23 [facility]04-28-2024 Hospital Discharge instructions Patient Education 03/07/2024 02:24:56 Nonspecific Chest Pain, Adult Nonspecific Chest Pain, Adult Chest pain is an uncomfortable, tight, or painful feeling in the chest. The pain can feel like a crushing, aching, or squeezing pressure. A person can feel a burning or tingling sensation. Chest paincan also be felt in your back, neck, jaw, shoulder, or arm. This pain can be worse when you move, sneeze, or take a deep breath. Chest pain can be caused by a condition that is life-threatening. This must be treated right away. It can also be caused by something that is not life- threatening. If you have chest pain, it can be hard to know the difference, so it is important to get help right away to make sure that you do not have a serious condition. Some life-threatening causes of chest pain include: Heart attack. A tear in the body's main blood vessel (aortic dissection). Inflammation around your heart (pericarditis). A problem in the lungs, such as a blood clot (pulmonary embolism) or a collapsed lung (pneumothorax). Some non life-threatening causes of chest pain include: Heartburn. Anxiety or stress. Damage to the bones, muscles, and cartilage that make up your chest wall. Pneumonia or bronchitis. Shingles infection (varicella-zoster virus). Your chest pain may come and go. It may also be constant. Your health care provider will do tests and other studies to find the cause of your pain. Treatment will depend on the cause of your chest pain. Follow these instructions at home: Medicines Take aalw-cyk-mupoihq and prescription medicines only as told by your health care provider. If you were prescribed an antibiotic medicine, take it as told by your health care provider. Do notstop taking the antibiotic even if you start to feel better. Activity Avoid any activities that cause chest pain. Do not lift anything that is heavier than 10 lb (4.5 kg), or the limit that you are told, until your health care provider says that it is safe. Rest as directed by your health care provider. Return to your normal activities only as told by your health care provider. Ask your health care provider what activities are safe for you. Lifestyle Do not use any products that contain nicotine or tobacco, such as cigarettes, e- cigarettes, and chewing tobacco. If you need help quitting, ask your health care provider. Do not drink alcohol. Make healthy lifestyle changes as recommended. These may include: ?Getting regular exercise. Ask your health care provider to suggest some exercises that are safe for you. ?Eating a heart-healthy diet. This includes plenty of fresh fruits and vegetables, whole grains, low-fat (lean) protein, and low-fat dairy products. A dietitian can help you find healthy eating options. ?Maintaining a healthy weight. ?Managing any other health conditions you may have, such as high blood pressure (hypertension) or diabetes. ?Reducing stress, such as with yoga or relaxation techniques. General instructions Pay attention to any changes in your symptoms. It is up to you to get the results of any tests that were done. Ask your health care provider, or the department that is doing the tests, when your results will be ready. Keep all follow-up visits as told by your health care provider. This is important. You may be asked to go for further testing if your chest pain does not go away. Contact a health care provider if: Your chest pain does not go away. You feel depressed. You have a fever. You notice changes in your symptoms or develop new symptoms. Get help right away if: Your chest pain gets worse. You have a cough that gets worse, or you cough up blood. You have severe pain in your abdomen. You faint. You have sudden, unexplained chest discomfort. You have sudden, unexplained discomfort in your arms, back, neck, or jaw. You have shortness of breath at any time. You suddenly start to sweat, or your skin gets clammy. You feel nausea or you vomit. You suddenly feel lightheaded or dizzy. You have severe weakness, or unexplained weakness or fatigue. Your heart begins to beat quickly, or it feels like it is skipping beats. These symptoms may represent a serious problem that is an emergency. Do not wait to see if the symptoms will go away. Get medical help right away. Call your local emergency services (911 in the [place] Do not drive yourself to the hospital. Summary Chest pain can be caused by a condition that is serious and requires urgent treatment. It may also be caused by something that is not life-threatening. Your health care provider may do lab tests and other studies to find the cause of your pain. Follow your health care provider's instructions on taking medicines, making lifestyle changes, and getting emergency treatment if symptoms become worse. Keep all follow-up visits as told by your health care provider. This includes visits for any further testing if your chest pain does not go away. This information is not intended to replace advice given to you by your health care provider. Make sure you discuss any questions you have with your health care provider. Document Revised: 01/10/2022 Document Reviewed: 01/10/2022 [email or web address] Patient Education 2022 [employer]. Follow Up Care 03/06/2024 21:47:30 With:Carina MOTLEY Address: [address] [place] [address] [place] [phone] Business (1) When:03/10/2024 Comments:Return to the emergency room if your chest pain recurs or any new symptoms [facility]02-01-2024 History of Present illness Narrative* Rylee Long MD - 12/11/2023 10:00 AM EST Subjective Tarik Gonzalez is a 43 y.o. female who presents for the following: Skin Check. Skin Cancer Screening She has a history of light sun exposure. She is in the sun occasionally. She uses sunscreen occasionally. She reports no skin symptoms. Her moles are not changing. Spots that concern her: Left axilla Objective Well appearing patient in no apparent distress; mood and affect are within normal limits. A full examination was performed including scalp, head, eyes, ears, nose, lips, neck, chest, axillae, abdomen, back, buttocks, bilateral upper extremities, bilateral lower extremities, hands, feet, fingers, toes, fingernails, and toenails. All findings within normal limits unless otherwise noted below. Scattered venegas-red papule(s). All nevi were symmetric brown macules without atypia on dermoscopy. Scattered holland macules in sun-exposed areas. Stuck on verrucous, holland-brown papules and plaques. Posterior Mid Neck Scattered comedones and inflammatory papulopustules. Assessment/Plan Acne vulgaris Posterior Mid Neck The nature of the diagnosis was explained to patient. Will plan to treat with clindamycin BID to affected areas x 2 weeks the PRN for flares. Avoid moisturizer/oil to the area. Pt agrees with plan as above. Related Medications clindamycin (Cleocin T) 1 % external solution Apply topically 2 times a day. Hemangioma of skin Melanocytic nevus, unspecified location The ABCDEs of melanoma and warning signs of non-melanoma skin cancer were discussed with patient and patient expressed understanding. Sun protection and use of at least SPF 30 discussed with patient.Pt instructed to reapply every 2 hours. Lentigo The ABCDEs of melanoma and warning signs of non-melanoma skin cancer were discussed with patient and patient expressed understanding. Sun protection and use of at least SPF 30 discussed with patient.Pt instructed to reapply every 2 hours. Seborrheic keratosis Follow up in 1 year or sooner as needed. documented in this [facility] Work Phone: 1(158) 734-246711-05-2023 Evaluation + Plan note Diagnostic Tests Pending * Estrogens Total 09/14/23 Future Scheduled Tests Radiology* US Extremity Non-Vascular Limited Right 06/03/23 [facility]08-28-2023 Hospital Discharge instructions Patient Education 07/06/2023 22:56:38 Abdominal Pain, [...] Follow these instructions at home: Medicines Take zogn-yqs-qipkoil and prescription medicines only as told by [...] Watch your condition for any changes. Take hgob-gog-vmrjdal and prescription medicines only as told by [...] provider. Document Revised: 12/15/2020 Document Reviewed: 03/06/2020 [email or web address] Patient Education 2022 [employer]. Follow Up Care 07/06/2023 20:53:46 With:Carina MOTLEY Address: [address] [facility] [place] [address]- [phone] Business (1) When:07/09/2023 Comments:Follow-up with your primary care provider in 3 to 5 days. If symptoms worsen, do not improve, or new symptoms arise please report back to emergency department for further evaluation. [facility]08-27-2023 Evaluation + Plan note Diagnostic Tests Pending * UA With Cult Reflex 07/06/23 Future Scheduled Tests Laboratory* Basic Metabolic Panel 06/27/23 * CBC w/ Auto Diff 06/27/23 * Lipid Panel 06/27/23 * Thyroid Stimulating Hormone 06/27/23 Radiology* US Extremity Non-Vascular Limited Right 06/03/23 [facility]08-21-2023 Hospital Discharge instructions Patient Education 06/30/2023 12:04:46 Weakness, Iarl-pf-Oyvm Weakness Weakness is a lack of strength. You may feel weak all over your body (generalized), or you may feelweak in one part of your body (focal). [...] 2 days a week or as told byyour doctor. Think about working with a physical therapist or workplace trainer and assessor to help you get stronger. General instructions Take ybyg-piw-ohzluhr and prescription medicines only as told by [...] provider. Document Revised: 09/29/2022 Document Reviewed: 09/29/2022 [email or web address] Patient Education 2022 [employer]. Follow Up Care 06/30/2023 10:11:01 With:Dony NIELSEN Address: [address] , [place] [address]- Business (1) When:07/03/2023 12:04:13 With:Carina MOTLEY Address: [facility] [place] [address]- [phone] Business (1) When:Within 3 Day(s) [facility]08-21-2023 Evaluation + Plan noteExtracted from: Title:ED Note Author:Reggie Camara DO Date:06/11 [...] Radiology* US Extremity Non-Vascular Limited Right 06/03/23 [facility]07-25-2023 Evaluation + Plan note Future Scheduled Tests Radiology* US Extremity Non-Vascular Limited Right 06/03/23 [facility]02-02-2023 Evaluation + Plan noteExtracted from: Title:ED Note Author:Lucila BRADFORD, Ihsan Robles te:12/12/22 Knee sprain (S83.90XA: Sprai n of unspecified site of unspecified knee, initial encounter) Ordered: acetaminophen-hydrocodone, 1 tab(s), Oral, q6hr for pain for 3 day(s), 10 tab(s), Refill(s) 0, [id number], 165, cm, 12/12/22 9:23:00 EST, Height/Length Dosing, 89, kg, 12/12/22 9:23:00 EST, Weight Dosing Orders: acetaminophen-hydrocodone, 1 tab(s), Tab, Oral, Once, Stop date 12/12/22 9:23:00 EST, STAT, Start date 12/12/22 9:23:00 EST XR Knee Complete 4+ Views Left XR Tib/Fib Left 2 View Future Appointments Appointment Date:04/16/2023 09:30:00 AM Scheduled Provider:Carina MACHUCA MD Location:[facility] Appointment Type:URO Office Visit Future Scheduled Tests Laboratory* T3 Free 05/22/22 * Thyroid Stimulating Hormone 05/22/22 * Free T4 05/22/22 [facility]02-02-2023 Hospital Discharge instructions Patient Education [...] you are sitting or lying down. Take rztk-cgd-uaznjxu and prescription medicines only as told by [...] 10/27/2006 Document Revised: 02/18/2020 Document Reviewed: 05/16/2017 [email or web address] Patient Education 2020 [employer]. Follow Up Care 12/12/2022 09:16:05 With:Carina MOTLEY Address: [address] [place] [phone]- Business (1) When:12/15/2022 09:55:32 [facility]01-23-2023 Hospital Discharge instructions Follow Up Care 12/02/2022 10:32:37 With:Carina MACHUCA MD, URL Address: [address] [address]- When: Unknown [facility] 01-12-2023 Hospital Discharge instructions Follow Up Care 11/21/2022 14:01:16 With:Carina MACHUCA MD, URL Address: [address] [address]- When:Within 3 Month(s) [facility] 01-09-2023 Evaluation + Plan noteExtracted from: Title:ED Note Author:Kian Staton PA-C te:11/18/22 UTI (urinary tract infection ) (N39.0: Urinary tract infection, site not specified) Orders: cephalexin, 500 mg = 1 cap(s), Oral, QID, X 7 day(s), # 28 cap(s), Refills(s) 0, [id number] 165, cm, 11/18/22 7:53:00 EST, Height/Length Dosing, 84, kg, 11/18/22 7:53:00 EST, Weight Dosing phenazopyridine, 95 mg = 1 tab(s), Oral, TID, with food, X 2 day(s), # 6 tab(s), Refills(s) 0, [id number], 165, cm, 11/18/22 7:53:00 EST, Height/Length Dosing, 84, kg, 11/18/22 7:53:00 EST, Weight Dosing Automated Diff Basic Metabolic Panel CBC w/ Auto Diff eGFR Extra Blue Tube Extra SST Tube U Beta Hcg Qual UA With Cult Reflex Urine Culture XR Abdomen 1 View Diagnostic Tests Pending * Urine Culture 11/18/22 Future Scheduled Tests Laboratory* T3 Free 05/22/22 * Thyroid Stimulating Hormone 05/22/22 * Free T4 05/22/22 [facility]01-09-2023 Hospital Discharge instructions Patient Education 11/18/2022 08:57:27 Urinary Tract Infection, Adult, Kloi-wp-Flbf Urinary Tract Infection, Adult A urinary tract [...] Follow these instructions at home: Medicines Take xyig-ote-udcfcqs and prescription medicines only as told by [...] 04/14/2009 Document Revised: 10/14/2019 Document Reviewed: 05/06/2019 [email or web address] Patient Education 2020 CSDN Follow Up Care 11/18/2022 07:49:01 With:Carina MACHUCA Address: [facility] [place] [facility] [address] [address] Business (1) When:11/21/2022 08:52:08 With:Carina MOTLEY Address: [address] [place] [address] Business (1) When:11/21/2022 08:51:56 Comments:Follow-up with your primary care provider in 3 to 5 days. If symptoms worsen, do not improve, or new symptoms arise please report back to emergency department for further evaluation. [facility]11-12-2022 Hospital Discharge instructions Patient Education 09/20/2022 22:32:18 Palpitations, Xuja-xa-Cfta Palpitations Palpitations are feelings that your heartbeat [...] a regular bed time. General instructions Take emrk-fpy-bmjsfgj and prescription medicines only as told by [...] 08/05/2009 Document Revised: 12/09/2018 Document Reviewed: 12/09/2018 [email or web address] Patient Education [place]. Follow Up Care 09/20/2022 21:14:58 With:Colin Smart Address: [address] [place] [phone]- Business (1) When:09/23/2022 Comments:Please follow-up with your primary care doctor next 2 to 3 days for further evaluation management. Please return to the ED for any new or worsening symptoms. With:Carina MOTLEY Address: [address] [address]- Business (1) When:Within 3 Day(s) [facility]11-11-2022 Evaluation + Plan noteExtracted from: [...] Stimulating Hormone 05/22/22 * Free T4 05/22/22 [facility]08-13-2022 Hospital Discharge instructions Patient Education [...] exercise. Managing pain, stiffness, and swelling Take ryum-pkr-zjuctic and prescription medicines only as told by [...] 10/27/2006 Document Revised: 10/09/2018 Document Reviewed: 11/26/2017 [email or web address] Patient Education 2020 [employer]. Follow Up Care 06/22/2022 08:39:38 With:Carina MOTLEY Address: [address] [address]- Business (1) When:06/25/2022 10:33:30 [facility]07-29-2022 Miscellaneous Notes* Telephone Encounter - Darya Healy Barry - 06/07/2022 8:22 AM EDT Tried calling patient, madeleine to return my call at [phone] option [address] Sheffield. Thank you. [facility] Discharge instructions Patient Education 06/03/2022 00:44:16 [...] a regular bed time. General instructions Take uczb-tys-fwclfsm and prescription medicines only as told by [...] 10/24/2001 Document Revised: 12/09/2018 Document Reviewed: 12/09/2018 [email or web address] Patient Education [place]. Follow Up Care 06/02/2022 22:39:51 With:Carina MOTLEY Address: [address] [place], [place] [phone] Business (1) When:Within 3 Day(s) [facility]07-24-2022 Evaluation + Plan noteExtracted from: Title:ED Note Author:Chato Mejia DO Date :06/02/22 COVID-19 (U07.1: COVID-19) Palpitations (R00.2: [...] Stimulating Hormone 05/22/22 * Free T4 05/22/22 [facility]07-13-2022 Evaluation + Plan note Future Scheduled Tests Laboratory* T3 Free 05/22/22 * Thyroid Stimulating Hormone 05/22/22 * Free T4 05/22/22 [facility] 05-09-2022 Evaluation + Plan note Diagnostic Tests Pending * T3 Free 03/18/22 * BRADY w/Reflex if POS 03/18/22 [facility]03-18-2022 Evaluation + Plan note Future Scheduled Tests Laboratory* BRADY w/Reflex if POS 01/25/22 * T4 Total 01/25/22 * CBC w/ Auto Diff 02/14/22 * T3 Free 01/25/22 * T3 Uptake 01/25/22 * Thyroid Stimulating Hormone 01/25/22 * Free T4 01/25/22 [facility] Future Appointments Appointment Date:03/22/2022 10:30:00 AM Scheduled Provider: [facility] Appointment Type:US Abdominal/Pelvis (FT) Future Scheduled Tests Radiology* US Spleen 03/22/22 [facility] evaluation + Plan note Future Appointments Appointment Date:12/02/2022 09:00:00 AM Scheduled Provider:Florinda Segal Location:[facility] Appointment Type:URO New Patient Future Scheduled Tests Laboratory* T3 Free 05/22/22 * Thyroid Stimulating Hormone 05/22/22 * Free T4 05/22/22 [facility] Evaluation + Plan note Future Appointments Appointment Date:12/11/2022 08:00:00 AM Scheduled Provider: [facility] Appointment Type:US Abdominal/Pelvis (FT) Appointment Date:04/16/2023 09:30:00 AM Scheduled Provider:Carina MACHUCA MD Location:[facility] Appointment Type:URO Office Visit Future Scheduled Tests Laboratory* T3 Free 05/22/22 * Thyroid Stimulating Hormone 05/22/22 * Free T4 05/22/22 Radiology* US Renal 12/11/22 * US Bladder 12/11/22 [facility] Evaluation + Plan note Future Appointments Appointment Date:04/16/2023 09:30:00 AM Scheduled Provider:Carina MACHUCA MD Location:[facility] Appointment Type:URO Office Visit Future Scheduled Tests Laboratory* T3 Free 05/22/22 * Thyroid Stimulating Hormone 05/22/22 * Free T4 05/22/22 [facility] Appointments Appointment Date:04/22/2023 11:00:00 AM Scheduled Provider:Supa SARAVIA MD Location:[facility] Appointment Type:[place] [address] Future Scheduled Tests Laboratory* T3 Free 05/22/22 * Thyroid Stimulating Hormone 05/22/22 * Free T4 05/22/22 [facility] Evaluation noteN/ADept. of Dermatology Evaluation noteNo assessment information available [facility] Work Phone: Evaluation note* Diagnosis Acne vulgaris- Primary Other acne Hemangioma of skin Hemangioma of skin and subcutaneous tissue Melanocytic nevus, unspecified location Lentigo Other dyschromia Seborrheic keratosis Encounter for screening for malignant neoplasm of skin documented in this encounter [facility] Work Phone: Hospital course Narrative No data available for this section [facility] Additional Instructions We will call you if your troponin is elevated Continue your regular medication but do not take supplement Follow-up with your family doctor for recheck Return to the ER immediately for any worsening chest pain shortness of breath fever chills vomiting or any other [facility] Work Phone: Hospital Discharge instructions No data available for this section [facility] No data available for this section [facility] (narrative)* Name Reason for referral NA NA Dept. of Dermatology Summary Purpose Family History No Family History Records FoundNo Family History Records FoundNo Family History Records FoundNo Family History Records FoundNo Family History Records Found No data available for this section No Family History Records FoundNo Family History Records Found No data available for this section No data available for this section No data available for this section No data available for this section No Family History Records Found Advance Directives Advance Directive Response Recorded Date/ Time Advance Directives No January 28, 2 022 4:31pm Documents on File Type Date Recorded Patient Rate Clerk Expl anation Advance Directive(s) 06/07/2019 7:39 AM Advance Directive(s) 03/30/2019 11:21 AM Advance Directive(s) 03/17/2019 3:03 PM Hospital Course Note HNO ID: [id number] Author: Cecil Stover (Pa) Service: General Surgery Author Type: Physician Rose Grading Supervisor Type: Discharge Summary Filed: 03/31/2019 11:08 AM [...] (more content not included)... Note HNO ID: [id number] Author: Saurav Sheffield Service: General Surgery Author Type: Physician Type: Brief Op Note Filed: 03/30/2019 2:36 PM Note Text: BRIEF OPERATIVE / PROCEDURE NOTE LOG ID: [id number] SURGERY/PROCEDURE DATE: 03/30/2019 INCISION/PROCEDURE START TIME: 1:29 PM INCISION CLOSE/PROCEDURE END TIME: 2:35 PM SURGEON(S)/PROCEDURALIST(S) AND YOUTH ADVOCATE(S): Surgeon(s) and Role: * Joe Sheffield - Primary Physician Rose Grading Supervisor: Nydia Ribeiro (Pa) SURGERY/PROCEDURE(S): Lap ventral hernia repair with mesh ANESTHESIA: General FINDINGS: 5 x 3.5 cm hernia defect ESTIMATED BLOOD LOSS: minimal SPECIMENS: None COMPLICATIONS: None PRE-OP/PRE-PROCEDURE DIAGNOSIS: Recurrent ventral hernia POST-OP/POST-PROCEDURE DIAGNOSIS: Recurrent ventral hernia SIGNATURE: Karrie Sheffield DO PATIENT NAME: Tarik Gonzalez DATE: March 30, 2019 TIME: 2:36 PM PAGER/CONTACT #: Procedure Findings Note HNO ID: [id number] Author: Saurav Sheffield Service: General Surgery Author Type: Physician Type: Brief Op Note Filed: 03/30/2019 2:36 PM Note Text: BRIEF OPERATIVE / PROCEDURE NOTE LOG ID: [id number] SURGERY/PROCEDURE DATE: 03/30/2019 INCISION/PROCEDURE START TIME: 1:29 PM INCISION CLOSE/PROCEDURE END TIME: 2:35 PM SURGEON(S)/PROCEDURALIST(S) AND YOUTH ADVOCATE(S): Surgeon(s) and Role: * Joe Sheffield - Primary Physician Rose Grading Supervisor: Nydia Ribeiro (Pa) SURGERY/PROCEDURE(S): Lap ventral hernia [...] section and content) DATE CREATED AUTHOR 04/12/2019 [facility] DATE CREATED AUTHOR AUTHOR'S ORGANIZ ATION 05/29/2022 [facility] DATE CREATED AUTHOR AUTHOR'S ORGANIZ ATION 06/14/2022 [facility] DATE CREATED AUTHOR AUTHOR'S ORGANIZ ATION 12/05/2022 [facility] DATE CREATED AUTHOR AUTHOR'S ORGANIZ ATION 12/14/2022 [facility] DATE CREATED AUTHOR AUTHOR'S ORGANIZ ATION 12/14/2023 [facility] DATE CREATED AUTHOR AUTHOR'S ORGANIZ ATION 02/14/2024 [facility] DATE CREATED AUTHOR AUTHOR'S ORGANIZ ATION 10/09/2024 [facility] Care Teams (unrecognized sec tion and content) Team Status: Inactive Member Role Status Dates Carina Motley , Primary Care Provider Active Martha Nunez , COMMUNICATIONS OFFICER- Emergency Provider Active Team Status: Active Member Role Status Dates Carina Motley DO Primary Care Provider Active Tanning Consultant Relationship Specialty Start Date End Date Carina Motley DO PCP - General 08/05/08 Tanning Consultant Relationship Specialty Start Date End Date Carina Motley DO [address] [place] [address] PCP - General 01/13/18 Tanning Consultant Relationship Specialty Start Date End Date Carina Motley MD [address] [place] [address] PCP - General Pipe Fitter Soft Copper 06/05/23 Dony Nielsen DO [address] [place] [address] [place] [address] PCP - [facility] 08/10/24 Goals (unrecognized section and content) Goals may [...] or prosecute any alcohol or drug abuse patient.[facility] Reason for Visit (unrecogniz ed section and content) Reason Comments Appointment Reason Comments Skin Check FOR RECORDS PERTAINING TO PATIENTS WHO ARE [...] BE BASED ON THE PRIMARY CLINICAL RECORDS. [facility]. provides no warranty or guarantee of the accuracy or completeness of information in this document.
== END 2024-10-11 19:59 | disposition home or self-care (01) ==
LOC: LAB 19:58
PROVIDERS: PCP Family Medicine; Visit Provider Obstetrics & Gynecology
DX: Z01.419 Encounter for gynecological examination (general) (routine) without abnormal findings (principal)
CPT/HCPCS: 87624; 88175

== ENCOUNTER 2025-02-17 12:56 | Outpatient (OUT) | payer OTHER, SELFPAY ==
--- NOTE | 2025-02-17 13:00 | MM_ITS ---
Patient Name: TARIK JONES MR#: [id number] : 1980 Exam Date: 02/17/2025 Ordering Doctor: DR Dony Nielsen . RADIOLOGY REPORT PROCEDURE: MM TOMOSYNTHESIS SCREENING BI COMPARISON: MM TOMOSYNTHESIS SCREENING BI, 11/20/2023. MG MAMM SCREEN 3D ESTER CAD, 11/14/2022. MG MAMM SCREEN 3D ESTER CAD, 05/22/2021. MG MAMM ESTER DIAG W CAD DIG, 05/20/2014. INDICATIONS: Screening Calculator Name NCI Breast Cancer Risk Assessment Tool 5 Year Breast Cancer Risk 0.60% Lifetime Breast Cancer Risk 7.10% Personal Breast Cancer No Personal Ovarian Cancer No Treatments None Family Cancers Aunt-maternal with breast cancer at age 50. LOCATION: [facility] BREAST COMPOSITION: There are scattered areas of fibroglandular density. FINDINGS: RIGHT BREAST: FOCAL ASYMMETRY (finding without convex borders usually visible on two orthogonal views), characterized by 5 DIAGNOSTIC CATEGORY 0--INCOMPLETE: NEED ADDITIONAL IMAGING EVALUATION. LEFT BREAST: No significant suspicious finding. RECOMMENDATIONS: ADDITIONAL MAMMOGRAPHIC VIEWS REQUIRED: RIGHT BREAST - obscured indeterminate morphology, mid-breast depth, ULTRASOUND: RIGHT BREAST PLEASE NOTE: A NORMAL MAMMOGRAM DOES NOT EXCLUDE THE POSSIBILITY OF BREAST CANCER. A CLINICALLY SUSPICIOUS PALPABLE LUMP SHOULD BE BIOPSIED. Dictated by: Grady Shields DO on 02/17/2025 at 16:36 Approved by: Grady Shields DO on 02/17/2025 at 16:42
== END 2025-02-17 12:57 | disposition home or self-care (01) ==
LOC: MAMMO 12:56
PROVIDERS: PCP Family Medicine; Visit Provider Obstetrics & Gynecology
DX: Z12.31 Encounter for screening mammogram for malignant neoplasm of breast (principal); Z80.3 Family history of malignant neoplasm of breast; R92.8 Other abnormal and inconclusive findings on diagnostic imaging of breast
CPT/HCPCS: 77063; 77067

== ENCOUNTER 2025-10-20 19:15 | Outpatient (REF) | payer OTHER, SELFPAY | END 2025-10-20 19:16 | disposition home or self-care (01) | LOC: LAB 19:15 | PROVIDERS: PCP Family Medicine; Visit Provider Nurse Practitioner Family | DX: Z01.419 Encounter for gynecological examination (general) (routine) without abnormal findings (principal) | CPT/HCPCS: 88175 ==